=== PATIENT | female | born 1970 | race Caucasian/White ===

== ENCOUNTER → 2016-05-05 | Outpatient (CLI) | payer OTHER ==
--- NOTE | 2016-05-09 08:42 | MM ---
Reason for exam: additional evaluation requested from abnormal screening. Last mammogram was performed 7 months ago. History: Family history of breast cancer in mother. Physical Findings: Nurse did not find any significant physical abnormalities on exam. MG Work Up Mamm w CAD RT CC and MLO view(s) were taken of the right breast. Prior study comparison: October 08, 2015, bilateral MG screening mammo w CAD. August 03, 2007, bilateral digital screening mammogram. There are scattered fibroglandular densities. Previous density not evident. No significant new findings when compared with previous films. These results were verbally communicated with the patient and result sheet given to the patient on 05/05/16. ASSESSMENT: Benign, BI-RAD 2 RECOMMENDATION: Return to routine screening mammogram schedule for both breasts. Back on schedule for September 2016.
== END | disposition home or self-care (01) ==
LOC: RADMAMWWP 15:47
PROVIDERS: ATTEND Obstetrics & Gynecology
DX: R92.8 Other abnormal and inconclusive findings on diagnostic imaging of breast (principal)

== ENCOUNTER → 2016-09-22 | Outpatient (CLI) | payer BC, OTHER ==
[2016-09-22 17:45] LABS: Rheumatoid Factor, Qnt <9 IU/mL (<12)
[2016-09-22 17:46] LABS: C Reactive Protein <5.0 mg/L (<10.0); Creatine Kinase 57 U/L (30-135)
== END ==
LOC: LABWHC1 17:17
PROVIDERS: ATTEND Physician Assistant
DX: M13.0 Polyarthritis, unspecified (principal)
CPT/HCPCS: 36415; 82550; 85652; 86038; 86140; 86431

== ENCOUNTER → 2017-03-17 | Outpatient (CLI) | payer BC, OTHER ==
--- NOTE | 2017-03-17 12:51 | MR ---
EXAMINATION TYPE: MR knee RT wo con DATE OF EXAM: 03/17/2017 COMPARISON: Plain film 05/28/2015 HISTORY: Right knee pain TECHNIQUE: Multiplanar, multisequence imaging of the right knee is performed without IV contrast. FINDINGS: MEDIAL MENISCUS: Abnormal increased signal present within the posterior horn of the medial meniscus e xtends to the articular surface and into the body LATERAL MENISCUS: Abnormal increased linear signal present within the posterior horn of the lateral m eniscus extends the articular surface CRUCIATE LIGAMENTS: The anterior and posterior cruciate ligaments are intact and unremarkable. COLLATERAL LIGAMENTS: The medial collateral ligament and lateral collateral ligament complex are inta ct and unremarkable. EXTENSOR MECHANISM: Visualized quadriceps and patellar tendons are intact. EFFUSION: There is a small joint effusion. POPLITEAL CYST: No popliteal/zurita cyst. TRICOMPARTMENT SPACES: Maintained CARTILAGE: Intact in the posterior patella, there is grade 2 to grade III chondromalacia in the later al [place] BONE MARROW SIGNAL: Maintained OTHER: No additional significant abnormality is appreciated. IMPRESSION: Findings compatible with tears of the medial lateral meniscus. Osteoarthritis. Small joint effusion.
== END | disposition home or self-care (01) ==
LOC: RADMRIMAIN 11:57
PROVIDERS: ATTEND Orthopaedic Surgery
DX: M17.11 Unilateral primary osteoarthritis, right knee (principal)

== ENCOUNTER → 2017-03-28 | Outpatient (CLI) | payer BC, OTHER ==
[2017-03-28 10:42] LABS: Basophils % (A) 0 %; Eosinophils # (A) 0.2 k/uL (0-0.7); Eosinophils % (A) 2 %; HGB 14.7 gm/dL (11.4-16.0); Hypochromasia Slight; Lymphocytes # (A) 2.3 k/uL (1.0-4.8); Lymphocytes % (A) 27 %; MCH 25.8 pg (25.0-35.0); MCHC 31.2 g/dL (31.0-37.0); MCV 82.6 fL (80.0-100.0); Mean Platelet Volume 6.9; Monocytes # (A) 0.6 k/uL (0-1.0); Monocytes % (A) 7 %; Neutrophils # (A) 5.2 k/uL (1.3-7.7); Neutrophils % (A) 61 %; Platelet Count 380 k/uL (150-450); RBC 5.69 m/uL (3.80-5.40); RDW 15.3 % (11.5-15.5); WBC 8.5 k/uL (3.8-10.6)
[2017-03-28 11:03] LABS: Anion Gap 10 mmol/L; Blood Urea Nitrogen 27 mg/dL (7-17); Calcium 10.3 mg/dL (8.4-10.2); Carbon Dioxide 27 mmol/L (22-30); Chloride 104 mmol/L (98-107); Glucose 105 mg/dL (74-99); Sodium 141 mmol/L (137-145)
== END | disposition home or self-care (01) ==
LOC: LABPAT 10:06
PROVIDERS: ATTEND Obstetrics & Gynecology
DX: Z01.812 Encounter for preprocedural laboratory examination (principal)
CPT/HCPCS: 36415; 80048; 85025

== ENCOUNTER 2017-04-03 06:00 | Inpatient (IN) | payer BC, OTHER ==
[~2017-04-03 06:00] MED LIST: DEXAMETHASONE SOD PHOSPHATE 10 MG/ML 1 ML VIAL IV ONE; LIDOCAINE 1% 20 ML VIAL (10MG/ML) FOR IV START INTRADERMA PRN; MIDAZOLAM 2 MG/2 ML VIAL IV PRN; ONDANSETRON 4 MG/2 ML VIAL IVP ONE; SCOPOLAMINE 1.5MG/72HR PATCH TRANSDERM ONE; ceFAZolin 2 GM in SODIUM CHLORIDE 0.9% 100 ML IVPB ONE; ceFAZolin IN SWFI 2 GM/20 ML SYRINGE IVP ONE
[2017-04-03] MEDS: LACTATED RINGERS 1,000 ML IV SCH ×4 (06:25→20:40)
[2017-04-03] MEDS ORDERED: VECURONIUM 10 MG VIAL IV ONE (07:59)
[2017-04-03] MEDS ORDERED: NEOSTIGMINE 1 MG/ML 10 ML VIAL ONE (07:59)
[2017-04-03] MEDS ORDERED: PROPOFOL 10 MG/ML 20 ML VIAL IV ONE (07:59)
[2017-04-03] MEDS ORDERED: GLYCOPYRROLATE 0.2 MG/ML 2 ML VIAL ONE (07:59)
[2017-04-03] MEDS ORDERED: SUCCINYLCHOLINE CHLORIDE 100 MG/5 ML SYR IV ONE (07:59)
[2017-04-03] MEDS ORDERED: HYDROmorphone (PF) 1 MG/ML ONE (07:59)
[2017-04-03] MEDS ORDERED: fentaNYL (PF) 50 MCG/ML 2 ML AMP ONE (07:59)
[2017-04-03] MEDS ORDERED: MIDAZOLAM 2 MG/2 ML VIAL ONE (07:59)
[2017-04-03] MEDS ORDERED: LIDOCAINE 1% INJ 10MG/ML (20 ML MDV) ONE (07:59)
--- NOTE | 2017-04-03 07:59 | P.HPOB ---
History of Present Illness H&P Date: 04/03/17 Chief Complaint: Pelvic pain Patient is a 46-year-old female with a history of pelvic pain. She has been having the pain since her NovaSure procedure and symptoms are most consistent with post-ablative syndrome. She is scheduled for a total abdominal hysterectomy possible bilateral salpingo-oophorectomy. Risks/benefits/ alternatives to this procedure were discussed with patient in detail and all questions are answered for her prior to proceeding to the operative room. On physical exam vital signs are stable and afebrile. Heart regular, lungs clear, extremities without pain. Osteopathic exams unremarkable. Pelvic exam is otherwise unremarkable. Abdomen is soft there is some mild tenderness in the lower pelvic region and there are positive bowel sounds. Assessment pelvic pain /post-ablative syndrome. Plan total abdominal hysterectomy possible BSO. Past Medical History Past Medical History: Asthma, Hypertension Additional Past Medical History / Comment(s): back pain, scoliosis History of Any Multi-Drug Resistant Organisms: None Reported Past Surgical History: Back Surgery, Section, Cholecystectomy, Tubal Ligation Additional Past Surgical History / Comment(s): neck surgery Past Anesthesia/Blood Transfusion Reactions: No Reported Reaction Additional Past Anesthesia/Blood Transfusion Reaction / Comment(s): no problems w/transfusions Past Psychological History: No Psychological Hx Reported Smoking Status: Never smoker Past Alcohol Use History: None Reported Past Drug Use History: None Reported - Past Family History Mother Family Medical History: Cancer Medications and Allergies Home Medications Medication Instructions Recorded Confirmed Type Lisinopril [Zestril] 10 mg PO DAILY 12/01/13 04/03/17 History Phentermine HCl [Adipex-P] 37.5 mg PO QAM 10/13/15 04/03/17 History Acetaminophen Tab [Tylenol Tab] 650 mg PO Q6H PRN 03/30/17 04/03/17 History Allergies Allergy/AdvReac Type Severity Reaction Status Date / Time gadobenate dimeglumine Allergy Intermediate Dyspnea Unverified 04/03/17 06:18 [From Multihance] cyclobenzaprine HCl Allergy ITCHING OF Verified 04/03/17 06:18 [From Flexeril] SKIN promethazine HCl Allergy ITCHING OF Verified 04/03/17 06:18 [From Phenergan] SKIN Exam Osteopathic Statement: *. No significant issues noted on an osteopathic structural exam other than those noted in the History and Physical/Consult. - Vital Signs Vital signs: Vital Signs Temp Pulse Resp BP Pulse Ox 04/03/17 06:17 97.9 F 118 H 16 135/85 98
[2017-04-03] MEDS ORDERED: LACTATED RINGERS 1,000 ML IV ONE ×2 (08:25→10:25)
[2017-04-03] MEDS ORDERED: MEPERIDINE 50 MG/ML SYRINGE IVP ONE ×2 (09:25→09:36)
[2017-04-03] MEDS: HYDROmorphone 0.5 MG/0.5 ML SYRINGE IVP PRN ×4 (09:43→10:04)
[2017-04-03] MEDS ORDERED: HYDROmorphone 2 MG/ML 1 ML SYRINGE IVP ONE (09:53)
[2017-04-03] MEDS ORDERED: diphenhydrAMINE 50 MG/ML 1 ML VIAL IVP PRN (10:00)
[2017-04-03] MEDS ORDERED: ONDANSETRON 4 MG/2 ML VIAL IVP PRN (10:00)
[2017-04-03] MEDS ORDERED: Acetaminophen-Codeine 300-30mg TAB PO PRN ×2 (10:00)
[2017-04-03] MEDS ORDERED: SIMETHICONE 80 MG CHEWABLE PO PRN (10:00)
[2017-04-03] MEDS ORDERED: KETOROLAC 30 MG/ML 1 ML VIAL IVP PRN (10:00)
[2017-04-03] MEDS ORDERED: NALOXONE 0.4 MG/ML 1 ML VIAL IV PRN (10:02)
--- NOTE | 2017-04-03 10:12 | OP ---
Date of Procedure: 04/03/17 Preoperative Diagnosis: Pelvic pain Postoperative Diagnosis: Same with adhesions Procedure(s) Performed: Total abdominal hysterectomy with lysis of adhesions on the bladder Anesthesia: CHAIM Surgeon: Romeo Sousa Folder Machine Operator #1: Tina Masterson Estimated Blood Loss (ml): 100 IV fluids (ml): 900 Urine output (ml): 200 Pathology: other (Uterus and cervix with dilated fallopian tube) Condition: stable Disposition: floor Operative Findings: Bladder was firmly attached to the anterior uterine wall due to prior surgeries careful dissection of this area was required ovaries otherwise appeared normal. Right fallopian tube was dilated and filled with blood Description of Procedure: Patient was taken to the operating suite where a general anesthetic was found be adequate. She was prepped and draped in normal sterile fashion and placed in the dorsal supine position. Initially a Pfannenstiel skin incision was made and this incision was then carried through to underlying layer of the fascia was second knife. Fascia was then nicked in the midline and this opening was extended laterally with Vidal scissors. Superior and inferior aspect of this incision were then grasped tented up and bluntly and sharply dissected off the rectus muscles. Rectus muscles were then divided the midline and blunt dissection peritoneum was made. This opening was then extended superiorly and inferiorly with good visualization of both bowel bladder. Once this was accomplished self-retaining retractor was inserted with bladder blade and bowels packed out of the operative field. Patient was then placed in steep Trendelenburg position. Right and left adnexa were then identified and grasped with Nicole clamps and uterus was elevated. First the right fallopian tube was excised without difficulty and then Anali clamps were then used to clamp the round ligament tubal complex. Tissues clamped cut and tied bilaterally. Minutes mom scissors and blunt and sharp dissection the bladder off of the uterus was then done to the get the cervical bladder out of the operative field. It was very careful and cautious dissection to remove the bladder from the uterus where it was firmly attached. Once this was accomplished pain clamps then used to clamp the uterine vasculature bilaterally tissues clamped cut and tied moving inferiorly through the cardinal ligaments and uterosacral ligament tissues clamped cut and tied once down to the cervical cuff tissue was clamped cut and tied and the corners were held. Vidal scissors then used to excise uterus and was sent to pathology for evaluation. Once this was accomplished 0 Vicryl suture was used to close the vaginal cuff in a running fashion. Pelvis was then irrigated seeing no bleeding in the pelvis and along pedicles instruments were removed and and peritoneum was delineated with hemostats. This layer was then closed with 0 Vicryl suture fascial layer was then closed with 0 Vicryl suture in a layer of sutures placed with 3-0 Vicryl in subcuticular tissues reapproximate the skin and then the skin was closed with josé. Sponge, lap, needle counts are correct 2. Patient was then taken to the recovery room in stable and satisfactory condition. EVELYNE
[2017-04-03] MEDS: HYDROmorphone PCA 5 MG/25 ML SYRINGE IV PRN ×2 (11:35→18:26)
[2017-04-03 19:17] LABS: Anisocytosis Slight; HCT 30.3 % (34.0-46.0); Hypochromasia Marked; MCH 26.9 pg (25.0-35.0); MCHC 31.7 g/dL (31.0-37.0); MCV 84.9 fL (80.0-100.0); Mean Platelet Volume 7.2; Platelet Count 306 k/uL (150-450); RBC 3.57 m/uL (3.80-5.40); RDW 16.2 % (11.5-15.5); WBC 17.9 k/uL (3.8-10.6)
[2017-04-03 19:26] LABS: HGB 9.6 gm/dL (11.4-16.0)
--- NOTE | 2017-04-03 19:57 | P.OP ---
Date of Procedure: 04/03/17 Preoperative Diagnosis: Pelvic pain Postoperative Diagnosis: Same with adhesions at the bladder Procedure(s) Performed: Total abdominal hysterectomy Anesthesia: CHAIM Surgeon: Romeo Sousa Chaplain Resident #1: iTna Masterson Estimated Blood Loss (ml): 100 IV fluids (ml): 900 Urine output (ml): 200 Pathology: other (Uterus and cervix with right fallopian tube) Condition: stable Disposition: floor Operative Findings: Bladder firmly adherent to the uterine wall and had to be carefully dissected off Description of Procedure: It should be noted this dictation to revisit was dictated on the wrong patient and was dictated immediately postoperative bleeding. Patient was taken to the operating suite where a general anesthetic was found be adequate. She was prepped and draped in normal sterile fashion placed in dorsal supine position. Initially a Pfannenstiel skin incision was made and this incision was then carried through to the underlying layer of the fascia with the second knife. Fascia was then nicked in the midline and this opening was extended laterally with Vidal scissors. Superior and inferior aspect of this incision were then grasped tented up and bluntly and sharply dissected off the rectus muscles. Upon entry into the fascial layer there was already a opening into the abdominal cavity. The remainder of the peritoneum was then bluntly dissected open. Self retaining retractor and bladder blade replaced and patient was placed in steep Trendelenburg position. Bowel was then packed out of the operative field and long Nicole's were used to grasp the adnexa bilaterally. Uterus was then elevated first the right fallopian tube was excised using Anali clamp. This this tissues clamped cut and tied in usual fashion. Once this was accomplished round ligament tubal segments bilaterally were clamped cut and tied. Once completed with this process bladder flap was identified entered sharply with Metzenbaum scissors and with gentle sharp and blunt dissection the bladder was dissected out of the operative field. There were significant adhesions to this area making this step somewhat challenging. However, once this was accomplished, he clamps then used to clamp the vascularity bilaterally tissues clamped cut and tied. In a stepwise fashion moving inferiorly along the archer of the uterus cardinal and uterosacral ligaments were clamped cut and tied. Once to the cervix and vaginal cuff the vagina was clamped cut and corners were held for verification of hemostasis. Once vagina was entered the tissue was excised and the vagina was then reapproximated with 0 Vicryl suture in a running locking fashion. Once excellent hemostasis was felt to be obtained across all pedicles pelvis was irrigated and this fluid was then suctioned out. No bleeding is noted this point therefore instruments were removed as was the bowel packing. Peritoneum was then identified and delineated with hemostats and closed in 1 layer with 0 Vicryl suture. Fascial layer was then closed with 0 Vicryl suture. Skin was then closed with josé. Sponge, lap, needle counts were all correct 2. Patient was then taken to the recovery room in stable and satisfactory condition.
--- NOTE | 2017-04-03 20:33 | P.PN ---
Progress Note - Text Progress Note Date: 04/03/17 Melanie was seen and evaluated postop day 0 at approximately 1700. At that time she had copious amounts of dark blood coming from her incision along the suture line it had saturated through 1 pad we changed the pad and put on a pressure dressing which she also bled through. She was laid flat and then a third pressure dressing was placed and the bleeding seemed to dissipate. A CBC was then ordered and the CBC showed a decreasing hemoglobin from 14 on 03/28 down to 9 this evening. It is noted that she also has had fluid hydration which would cause some hypovolemia as well as having come off of a relatively heavy menstrual cycle last week as well where she says she bled for approximately 7 days starting on about the . I did return to see the patient after I was notified of her recent blood pressures with the blood pressure running in the 70s over 30s and they did tell me of her hemoglobin that had fallen to 9. On reevaluating the patient this evening (2009) She is in good spirits and is alert and oriented 3. She shows minimal to no signs of hypovolemia while laying at approximately 10-15 head up. Her blood pressures have remained low but have not continued to . We have initiated a fluid bolus and will likely also do some albumin to try and increase her volume. Her pulse is only slightly tachycardic in the high 90s to low 100s. I did peel the pressure dressing off and at this time there is absolute no bleeding from her incision site at all. my concern is that during the course of her emesis earlier this afternoon she broke a blood vessel or pulled the suture on her abdomen and that is where the bleeding has been coming from. During the latter part of the afternoon while her pain was not very well controlled she also says she drinks 3 or 4 very large glass of water and ate 2 glasses of ice chips. She was on multiple occasions cautioned to only drinks small amounts and shortly after drinking all that water she began having emesis. She had multiple episodes before I was notified, at that point we made her nothing by mouth and gave her a dose of Zofran for the nausea. In thoroughly examining her is also noted that she is pulse ox at approximately 98% on room air. Her urine output has been better than 30 mL per hour over the last nine hours for visit. It is noted however that since 6:00 her volume of output has definitely increased. She and I had a long discussion with her about whether or not to go back to the operating room and try and find where this bleeding may have been coming from. I didn't warn her that on multiple occasions when bleeding occurs post operatively and appears venous in nature are often unable to find the bleeder and then we're exposing her to a second surgical risk. She seems to understand this and as she is minimally symptomatic while laying not even flat, she agrees with conservative management , at least for now. We'll plan to repeat her H&H shortly and see where her blood count settle to. With the fluid bolus hopefully we can get better control of her blood pressure, however her blood pressures normally according to her to run a little bit low. She reports to me now also that she has had multiple abdominal surgeries and she is received 3 transfusions for similar episodes of bleeding following surgery. All questions were answered for the patient at this time and will plan to be very cautious with her over the next hour to 2 hours to see whether not more surgical intervention will be required. I do not plan to base my decision to go to surgery solely on her hemoglobin but more on her symptoms and blood pressure. I expect that her hemoglobin on a repeat H&H will be decreased and ultimately she may get need a transfusion for anemia.
[2017-04-03] MEDS ORDERED: ALBUMIN HUMAN 5% 250 ML in EMPTY BAG 1 BAG IVPB STA (20:42)
[2017-04-03] MEDS: SODIUM CHLORIDE 0.9% 500 ML IV ONE (21:38)
[2017-04-03] MEDS: SODIUM CHLORIDE 0.9% 1,000 ML IV SCH (21:38)
[2017-04-03] MEDS: SENNOSIDES-DOCUSATE SODIUM 1 EACH TAB PO SCH (21:41)
--- NOTE | 2017-04-03 21:56 | US ---
EXAMINATION TYPE: US pelvic limited DATE OF EXAM: 04/03/2017 COMPARISON: NONE CLINICAL HISTORY: r/o bleeding post op . Post op hysterectomy r/o bleeding. Scanned pelvic area no fluid visualized. Dr. Sousa observed exam IMPRESSION: No focal pelvic fluid collection status post hysterectomy.
[2017-04-03 22:09] LABS: Anisocytosis Slight; Hypochromasia Moderate; RDW 16.4 % (11.5-15.5)
[2017-04-03 22:12] LABS: HCT 24.6 % (34.0-46.0); MCH 25.4 pg (25.0-35.0); MCHC 30.2 g/dL (31.0-37.0); MCV 84.1 fL (80.0-100.0); Platelet Count 239 k/uL (150-450); RBC 2.92 m/uL (3.80-5.40); WBC 11.4 k/uL (3.8-10.6)
[2017-04-03 22:13] LABS: HGB 7.4 gm/dL (11.4-16.0)
[2017-04-04] MEDS: SODIUM CHLORIDE 0.9% 1,000 ML IV SCH ×3 (02:15→13:55)
[2017-04-04] MEDS: HYDROmorphone PCA 5 MG/25 ML SYRINGE IV PRN ×3 (02:45→19:56)
[2017-04-04] MEDS: SODIUM CHLORIDE 0.9% 500 ML IV ONE (03:19)
[2017-04-04 07:22] LABS: Anisocytosis Slight; Basophils % (A) 0 %; Eosinophils % (A) 0 %; HCT 23.9 % (34.0-46.0); HGB 7.2 gm/dL (11.4-16.0); Hypochromasia Marked; Lymphocytes # (A) 1.2 k/uL (1.0-4.8); Lymphocytes % (A) 11 %; MCH 25.7 pg (25.0-35.0); MCV 85.6 fL (80.0-100.0); Mean Platelet Volume 6.7; Monocytes # (A) 0.7 k/uL (0-1.0); Monocytes % (A) 7 %; Neutrophils # (A) 8.1 k/uL (1.3-7.7); Neutrophils % (A) 80 %; Platelet Count 232 k/uL (150-450); RBC 2.79 m/uL (3.80-5.40); RDW 16.1 % (11.5-15.5); WBC 10.2 k/uL (3.8-10.6)
[2017-04-04 07:33] LABS: Albumin 2.7 g/dL (3.5-5.0); Calcium 8.3 mg/dL (8.4-10.2); Magnesium 1.6 mg/dL (1.6-2.3); Potassium 4.8 mmol/L (3.5-5.1); Total Bilirubin 0.4 mg/dL (0.2-1.3); Total Protein 4.7 g/dL (6.3-8.2)
--- NOTE | 2017-04-04 08:06 | XR ---
EXAMINATION TYPE: XR chest 1V portable DATE OF EXAM: 04/04/2017 COMPARISON: 12/13/2010 HISTORY: Chest pain and low blood pressure post hysterectomy. TECHNIQUE: Single frontal view of the chest is obtained. FINDINGS: There is no focal air space opacity, pleural effusion, or pneumothorax seen. The cardiac silhouette size is within normal limits. The osseous structures are intact. Cholecystectomy clips a re noted within the right upper quadrant. Partial visualization of cervical fusion device is seen. IMPRESSION: No acute cardiopulmonary process.
--- NOTE | 2017-04-04 08:16 | P.PN ---
Progress Note - Text Progress Note Date: 04/04/17 Postop day 1: Patient is seen and evaluated this morning. Her hemoglobin has stabilized at 7.2 and she is no further bleeding we can find. She reports her pain is slightly increased this morning. But she is overall stable. Her vital signs are currently stable with a blood pressure 90/50 and a pulse of 75. She is pulse ox 98% on room air. She voices no complaints of shortness of breath or chest pain. Her urine output over the last hour has been better. There is currently 20 mL of urine in her Nguyen bag. It is somewhat concentrated. We have consult it hospitalist for medical consultation for assistance in what appears to be acute renal failure with elevated BUN and creatinine. Please see their notes regarding this patient. It is noted that her liver enzymes are also slightly elevated this may be reactionary to having had surgery yesterday. In speaking with her again this morning she voices no complaints of lightheadedness or dizziness. She is alert and oriented 3 and grossly does not appear in any acute distress other than complaining of an increase in her pain. We'll plan to continue the SR. MEDIA MANAGER at least for now until we are more certain as to the direction of her recovery. On physical exam vital signs again are stable at this time. Her heart is regular and her lungs are clear. Abdomen is still soft there is no evidence of rebound rigidity, she does show some involuntary guarding around her incision lines. No other gross abnormalities can be found. The pad on her abdomen is dry still at this point. Assessment postop day 1 with blood loss anemia, acute renal failure, elevated liver enzymes. It is noted that her white blood cell count is normal and that her electrolytes are also normal. Plan continue conservative management and await final recommendations from internal medicine.
[2017-04-04] MEDS: SENNOSIDES-DOCUSATE SODIUM 1 EACH TAB PO SCH ×2 (11:09→19:57)
[2017-04-04 11:21] LABS: Appearance,Urine Clear (Clear); Bacteria,Urine Rare /hpf; Bilirubin,Urine Negative (Negative); Blood,Urine Moderate (Negative); Color,Urine Yellow; Glucose,Urine (UA) Negative (Negative); Granular Casts,Urine 1 /lpf (0); Hyaline Casts,Urine 10 /lpf (0-2); Ketones,Urine Negative (Negative); Leukocyte Esterase,Urine Large (Negative); Mucus,Urine Rare /hpf; Nitrite,Urine Negative (Negative); PH, Urine 5.5 (5.0-8.0); Protein,Urine Trace (Negative); RBC,Urine 23 /hpf (0-5); Specific Gravity,Urine 1.014 (1.001-1.035); Squamous Epithelial Cell,Urine 1 /hpf (0-4); Urobilinogen,Urine <2.0 mg/dL (<2.0); WBC,Urine 17 /hpf (0-5)
[2017-04-04 11:49] LABS: Anisocytosis Slight; HCT 24.1 % (34.0-46.0); HGB 7.7 gm/dL (11.4-16.0); Hypochromasia Moderate; MCH 27.1 pg (25.0-35.0); MCHC 31.9 g/dL (31.0-37.0); Mean Platelet Volume 6.9; Platelet Count 217 k/uL (150-450); RBC 2.84 m/uL (3.80-5.40); RDW 16.2 % (11.5-15.5); WBC 10.8 k/uL (3.8-10.6)
[2017-04-04 13:26] LABS: Albumin 2.6 g/dL (3.5-5.0); Calcium 7.9 mg/dL (8.4-10.2); Potassium 4.2 mmol/L (3.5-5.1); Total Bilirubin 1.3 mg/dL (0.2-1.3); Total Protein 4.6 g/dL (6.3-8.2)
[2017-04-04 13:48] LABS: INR 1.1 (<1.2); Prothrombin Time 10.3 sec (9.0-12.0)
--- NOTE | 2017-04-04 15:21 | CONS ---
CONSULTATION REASON FOR CONSULTATION: Advice regarding hypotension other multiple medical issues requested by Dr. Sousa. HISTORY OF PRESENT ILLNESS: This 40-year-old woman with a past medical history of multiple medical issues, history of asthma, hypertension, history of back surgery, cholecystectomy being followed by [facility] in the outpatient setting. Underwent a total abdominal hysterectomy with lysis of adhesions of the bladder yesterday for pelvic pain. Possibly patient had recurrent hypotension. The patient also had diminished urine output. We were consulted for further evaluation. Currently the creatinine is 1.98. The baseline is normal. The patient also diminished urine output. Hemoglobin is 7.2 at this time. The patient is complaining of some minimal abdominal pain. There is no history of fever, rigors. No headache, loss of consciousness, seizures. PAST MEDICAL HISTORY: History of asthma, hypertension, history of back pain, DJD, history of section. History of cholecystectomy. MEDICATIONS: Prior to admission include: 1. Adipex P 37.5 mg p.o. q.a.m. 3. Tylenol 650 q.6 p.r.n. ALLERGIES: Are GADOBENATE DIMEGLUMINE, FLEXERIL and PHENERGAN. FAMILY HISTORY: History of cancer in the family. SOCIAL HISTORY: No history of smoking, no alcohol intake. REVIEW OF SYSTEMS: ENT: No diminished vision. CARDIOVASCULAR: No angina. : No dysuria. : As mentioned. Nervous System: No numbness, weakness. Allergy: Asthma hay fever allergies none mentioned earlier. Endocrine: No history of diabetes hypertension. CONST: mentioned . PHYSICAL EXAMINATION: Pulse 67, blood pressure is NTD temp 97.7, pulse ox 99% on room air. HEENT: Conjunctivae normal. Oral mucosa moist. Neck : No jugular venous distention. No lymph nodes. Cardiovascular S1 no stenosis,no S3. No rhonchi. No crackles. ABDOMEN: Soft status post surgery. Legs no edema no swelling. NERVOUS SYSTEM: Higher functions as mentioned earlier, moves all 4 limbs, no focal motor signs. Lymphatics no lymph nodes. Skin no ulcer, rash or bleeding. LABS: WBC 10.8, hemoglobin 7.7, creatinine is 1.98 and AST is 125, ALT is 148 UA noted. ASSESSMENT: 1. Status post total abdominal hysterectomy with lysis of adhesion on the bladder for pelvic pain. 2. Acute renal failure with possible prerenal. 3. Anemia, status post transfusion. 4. Increased AST ALT. 5. History of asthma. 6. History hypertension. 7. History of back pain with scoliosis and degenerative joint disease. 8. History of back surgery. 9. History of cholecystectomy. RECOMMENDATION AND DISCUSSION: In this 46-year-old woman presented with multiple medical issues at this time I recommend continue the current medications, continue symptomatic treatment. Otherwise at this time I would I would recommend 1 more unit transfusion and I continued IV fluids, fluid bolus. The urine output continues to be low. Repeat labs and repeat also in the evening also. Otherwise I would also recommend a set of coags also, coagulation parameters as well. Recommend DVT prophylaxis. Otherwise resume the home medications. We will follow the patient closely to hold the blood pressure medications and further recommendations to follow. The patient may be asked to follow up with primary physician closely after discharge. Thank you Dr. Sousa, for letting us participate in this patient. MMEMERSONL / AUGUSTINEN: [id number] / EVELYNE
[2017-04-04 17:04] LABS: Anisocytosis Slight; Basophils % (A) 0 %; Eosinophils % (A) 1 %; HCT 28.5 % (34.0-46.0); HGB 8.6 gm/dL (11.4-16.0); Hypochromasia Marked; Lymphocytes # (A) 1.2 k/uL (1.0-4.8); Lymphocytes % (A) 15 %; MCH 26.4 pg (25.0-35.0); MCHC 30.2 g/dL (31.0-37.0); MCV 87.3 fL (80.0-100.0); Mean Platelet Volume 6.7; Monocytes # (A) 0.8 k/uL (0-1.0); Monocytes % (A) 9 %; Neutrophils # (A) 6.1 k/uL (1.3-7.7); Neutrophils % (A) 74 %; Platelet Count 183 k/uL (150-450); Poikilocytosis Slight; RBC 3.27 m/uL (3.80-5.40); RDW 16.2 % (11.5-15.5); WBC 8.3 k/uL (3.8-10.6)
--- NOTE | 2017-04-04 17:11 | P.PN ---
Progress Note - Text Progress Note Date: 04/04/17 Melanie is seen and evaluated again this evening. Her urine output is now significantly better. It is 35 40 mL an hour over the last 3 hours. Her blood pressure is also much better anywhere from 105/55-100/50. She is again exhibits no signs or symptoms of significant hypovolemia walled laying down. She does have mild distention of her abdomen but her abdomen remained soft and nontender with positive bowel sounds. At this time she is still not passed flatus but I'm afraid until she ambulates that may not occur. Should she continue to have no flatus could consider doing some type of Reglan or Dulcolax to help stimulate this but until her conditions fully stabilized I would be hesitant to move forward with that. Her only complaint is left abdominal pain I suspect this is where the problem came in where she is likely all retching tore through blood vessel and this is causing her continued pain in the area and was the source of her bleeding. There is no further bleeding her pad on her abdomen is dry and we'll plan to be very cautious with her tonight and hopefully as things stabilize and her urine output continues to improve we'll be able to start getting her up ambulating and moving towards full recovery.
[2017-04-04 17:25] LABS: Albumin 2.8 g/dL (3.5-5.0); Calcium 8.2 mg/dL (8.4-10.2); Potassium 4.1 mmol/L (3.5-5.1); Total Bilirubin 1.5 mg/dL (0.2-1.3); Total Protein 4.9 g/dL (6.3-8.2)
[2017-04-05 03:24] LABS: Anisocytosis Slight; Basophils % (A) 0 %; Eosinophils % (A) 0 %; HCT 26.3 % (34.0-46.0); HGB 8.2 gm/dL (11.4-16.0); Hypochromasia Marked; Lymphocytes # (A) 1.3 k/uL (1.0-4.8); Lymphocytes % (A) 18 %; MCH 27.1 pg (25.0-35.0); MCHC 31.3 g/dL (31.0-37.0); MCV 86.3 fL (80.0-100.0); Mean Platelet Volume 6.7; Monocytes # (A) 0.6 k/uL (0-1.0); Monocytes % (A) 8 %; Neutrophils # (A) 5.5 k/uL (1.3-7.7); Neutrophils % (A) 73 %; Platelet Count 168 k/uL (150-450); RBC 3.04 m/uL (3.80-5.40); RDW 16.5 % (11.5-15.5); WBC 7.5 k/uL (3.8-10.6)
[2017-04-05 03:34] LABS: Albumin 2.6 g/dL (3.5-5.0); Calcium 8.3 mg/dL (8.4-10.2); Potassium 4.7 mmol/L (3.5-5.1); Total Bilirubin 0.7 mg/dL (0.2-1.3); Total Protein 4.6 g/dL (6.3-8.2)
[2017-04-05] MEDS: HYDROmorphone PCA 5 MG/25 ML SYRINGE IV PRN ×2 (05:37→15:41)
[2017-04-05] MEDS: SODIUM CHLORIDE 0.9% 1,000 ML IV SCH ×3 (05:44→21:48)
[2017-04-05] MEDS: PHENTERMINE HCL 37.5 MG PO SCH (08:08)
[2017-04-05] MEDS: SENNOSIDES-DOCUSATE SODIUM 1 EACH TAB PO SCH ×2 (08:11→21:48)
--- NOTE | 2017-04-05 13:50 | US ---
EXAMINATION TYPE: US kidneys/renal and bladder DATE OF EXAM: 04/05/2017 COMPARISON: CT lumbar spine March 13, 2009. Abdominal x-ray February 04, 2012. MRI lumbar spine July 12, 2011 CLINICAL HISTORY: possible bleeding. Renal failure, history of kidney stones, recent hysterectomy EXAM MEASUREMENTS: Right Kidney: 11.7 x 6.1 x 5.9 cm Left Kidney: 10.5 x 5.1 x 5.0 cm Right Kidney: no hydro or renal masses seen, limited by overlying bowel gas Left Kidney: limited visualization due to rib shadowing and overlying bowel gas, visualized portions appear wnl Bladder: bladder area not scanned at this time due to large bandage covering pelvic area from recent hysterectomy Spleen: appears prominent at 14.0cm Suboptimal study due to overlying bowel gas. Bladder cannot be assessed. IMPRESSION: Suboptimal study without gross hydronephrosis. Large lower pole left renal calculus on older studies is not clearly seen on images saved.
--- NOTE | 2017-04-05 16:38 | P.PN ---
Subjective Progress Note Date: 04/05/17 Progress note being dictated for Dr. yBers Interval history: This is a 46-year-old female status post MIGUEL, postoperative anemia, hypotension, acute renal failure and multiple other medical issues. Telemetry sinus rhythm. Hemoglobin 8.2, creatinine 2.1. Sitting up in chair, complaining of surgical site discomfort, lower abdomen and left flank pain; history of kidney stones. Denies chest pain, palpitations or increased in shortness of breath. Afebrile. Urine culture in progress. Orthostatic vital signs pending. Minimal intake of clear liquid diet. Passing flatus, small smear of bowel movement. Objective - Vital Signs Vital signs: Vital Signs Temp 98.6 F 04/05/17 11:07 Pulse 103 H 04/05/17 11:07 Resp 16 04/05/17 14:56 BP 117/72 04/05/17 11:07 Pulse Ox 95 04/05/17 11:07 Intake & Output 04/04/17 04/05/17 04/05/17 18:59 06:59 18:59 Intake Total 2620 1200 120 Output Total 227 1050 700 Balance 2393 150 -580 Weight 83 kg Intake: IV 2000 1200 Invasive Line 1 1000 Sodium Chloride 0.9% 1, 1000 1200 000 ml @ 150 mls/hr IV . Q6H40M [facility] Rx#:[id number] Oral 120 Blood Product 620 As-1 Unit 310 [id number] As-1 Unit 310 [id number] Output: Urine 227 1050 700 Uretheral (Nguyen) 227 Other: Voiding Method Indwelling Catheter Indwelling Catheter Indwelling Catheter - Exam PHYSICAL EXAM: VITAL SIGNS: As above GENERAL: Sitting up in chair, no acute distress HEENT: Conjunctivae normal. eyes normal. NECK: No JVD. No thyroid enlargement. No LNs CARDIOVASCULAR: S1, S2 muffled. No murmur RESPIRATION: Breath sounds diminished in the bases. No rhonchi or crackles. No bronchial breathing. ABDOMEN: Soft, S/P surgery, dressing C,D,I. Hypoactive Bowel sounds. LEGS: No edema. no swelling PSYCHIATRY: Alert and oriented -3, mood and affect normal. NERVOUS SYSTEM: Cranial N 2-12 grossly normal. Moves all 4 limbs. Diffuse weakness No focal deficits. No sensory deficit. Skin: no ulcer no rash Joints: No active swelling. No inflammation. - Labs CBC & Chem 7: 04/05/17 03:06 04/05/17 03:06 Labs: Abnormal Lab Results - Last 24 Hours (Table) 04/03/17 04/04/17 04/04/17 Range/Units 21:52 16:47 16:47 RBC 3.27 L (3.80-5.40) m/uL Hgb 8.6 L (11.4-16.0) gm/dL Hct 28.5 L (34.0-46.0) % MCHC 30.2 L (31.0-37.0) g/dL RDW 16.2 H (11.5-15.5) % Sodium (137-145) mmol/L Chloride 108 H (98-107) mmol/L Carbon Dioxide 21 L (22-30) mmol/L BUN 40 H (7-17) mg/dL Creatinine 2.09 H (0.52-1.04) mg/dL Calcium 8.2 L (8.4-10.2) mg/dL Total Bilirubin 1.5 H (0.2-1.3) mg/dL AST 99 H (14-36) U/L ALT 129 H (9-52) U/L Total Protein 4.9 L (6.3-8.2) g/dL Albumin 2.8 L (3.5-5.0) g/dL Crossmatch See Detail 04/05/17 04/05/17 Range/Units 03:06 03:06 RBC 3.04 L (3.80-5.40) m/uL Hgb 8.2 L (11.4-16.0) gm/dL Hct 26.3 L (34.0-46.0) % MCHC (31.0-37.0) g/dL RDW 16.5 H (11.5-15.5) % Sodium 136 L (137-145) mmol/L Chloride 110 H (98-107) mmol/L Carbon Dioxide 20 L (22-30) mmol/L BUN 39 H (7-17) mg/dL Creatinine 2.10 H (0.52-1.04) mg/dL Calcium 8.3 L (8.4-10.2) mg/dL Total Bilirubin (0.2-1.3) mg/dL AST 77 H (14-36) U/L ALT 94 H (9-52) U/L Total Protein 4.6 L (6.3-8.2) g/dL Albumin 2.6 L (3.5-5.0) g/dL Crossmatch Microbiology - Last 24 Hours (Table) 04/04/17 11:06 Urine Culture - Preliminary Urine,Catheterized Assessment and Plan Assessment: 1. Status post total abdominal hysterectomy with lysis of adhesions 2. Acute renal failure, possibly prerenal 3. Postoperative Anemia status post transfusions 4. Increased AST, ALT 5. History of chronic intermittent asthma 6. Hypertension 7. DJD, chronic back pain, history of back surgery Plan: Continue on current medication regime ,monitoring and symptomatic treatment. Maintain IV fluid hydration. Renal ultrasound ordered. Nephrology consulted. Close monitoring of electrolytes and hemoglobin with repeat labs ordered for a.m. Aggressive pulmonary toilet to obtain, IS reinforced.. Increase ambulation as tolerated. The impression and plan of care has been dictated as directed. : I performed a history and examination of this patient, discussed the same with the dictator. I agree with the dictator's note ,documented as a scribe. Any additional findings or plans will be noted.
[2017-04-05] MEDS ORDERED: PANTOPRAZOLE 40 MG/10 ML VIAL IVP SCH (16:45)
--- NOTE | 2017-04-05 17:15 | P.PN ---
Progress Note - Text Progress Note Date: 04/05/17 Melanie is seen and evaluated postop day 2. She has been able to get up for brief periods and sit in the chair although she is not really ambulating. She continues to have left-sided pain now has extended into the flank. An ultrasound of the kidneys and bladder was done I did review this with the radiologist and they were unable to visualize anything very clearly. She has a history of a very large kidney stone on that left side so it is also possible that the kidney stone is moved and that is the cause for pain. However due to her decreased kidney functioning and anemia that is now stable I need to rule out either a retroperitoneal hematoma or potentially ureteral injury from her hysterectomy. We will plan to do a noncontrasted CT. I did discuss with her the possibility of oral contrast but she has still got a relatively large amount of nausea and I fear it would make her throw up and at this time I would prefer for her to not have any more emesis that may risks tearing another suture. Her vital signs however are improved with blood pressures in the one teens over 70s. Her urine output is also improved dramatically over the last several hours. Assessment postop day 2. Anemia of blood loss, acute renal failure, left flank and abdominal pain. Plan as above.
--- NOTE | 2017-04-05 18:47 | CT ---
"EXAMINATION TYPE: CT abdomen pelvis wo con DATE OF EXAM: 04/05/2017 COMPARISON: NONE HISTORY: Abdominal pain, s/p hysterectomy CT DLP: 1034.90 mGycm Examination of the solid and hollow viscera is limited given the lack of contrast. FINDINGS: LUNG BASES: Small basilar pleural effusions and compressive atelectasis. LIVER/GB: O cystectomy clips are in place. No space-occupying hepatic lesion. PANCREAS: No pancreatic mass identified. No inflammatory process seen. SPLEEN: No evidence for splenomegaly. No intrasplenic lesions seen. ADRENALS: No adrenal nodules identified. No evidence for thickening. KIDNEYS:Mild edema of the right kidney is suggested which could reflect underlying infection. Correla te clinically. No evidence for renal mass. Nonobstructing nephrolithiasis lower pole left kidney. No hydronephrosis. Nguyen catheter is seen within urinary bladder. BOWEL: Appendix has a normal appearance. No evidence of bowel obstruction. No inflammatory process. Lymph nodes: No evidence for adenopathy greater than 1 cm. Abdominal aorta: Atheromatous changes seen. No evidence for aneurysm. Genital organs: There are postoperative changes of hysterectomy. Multiple lobulated foci of increased attenuation within the pelvis difficult to measure although one collection measures 4.2 cm second co llection measures 7 cm in length and various other collections are seen. Hounsfield unit measurement is 65 compatible with blood. Hemorrhagic contents are also seen within the paracolic gutters. There a re foci of free air is seen within the pelvis as well as anterior abdominal wall and adjacent to the liver compatible with postoperative state. Lower abdominal skin josé are noted. Other: Operative changes of the lumbar spine. IMPRESSION: 1. Changes of recent hysterectomy with multiple foci of hemorrhage within the pelvis. Hemorrhage is also noted to extend into the paracolic gutters. See above discussion. 2. Nonobstructing left-sided nephrolithiasis. 3. Mild edema of the right kidney is suggested which could reflect underlying infection. Correlate cl inically. A Red message has been communicated to Romeo Sousa DO via the [employer] | Critical Result sys tem on 04/05/2017 6:45 PM, Message ID [id number]."
[2017-04-05] MEDS: HEPARIN SODIUM,PORCINE 5,000 UNIT/ML 1 ML VIAL SQ SCH ×2 (21:48→22:26)
[2017-04-05] MEDS: PANTOPRAZOLE 40 MG/10 ML VIAL IVP SCH (22:26)
[2017-04-06] MEDS: SODIUM CHLORIDE 0.9% 1,000 ML IV SCH ×4 (01:54→22:15)
[2017-04-06] MEDS: HYDROmorphone PCA 5 MG/25 ML SYRINGE IV PRN ×3 (01:54→18:26)
[2017-04-06 06:27] LABS: Basophils % (A) 0 %; Eosinophils # (A) 0.1 k/uL (0-0.7); Eosinophils % (A) 1 %; HCT 29.1 % (34.0-46.0); HGB 8.8 gm/dL (11.4-16.0); Hypochromasia Marked; Lymphocytes # (A) 1.1 k/uL (1.0-4.8); Lymphocytes % (A) 19 %; MCH 26.2 pg (25.0-35.0); MCHC 30.3 g/dL (31.0-37.0); MCV 86.5 fL (80.0-100.0); Mean Platelet Volume 7.1; Monocytes # (A) 0.5 k/uL (0-1.0); Monocytes % (A) 8 %; Neutrophils % (A) 70 %; Platelet Count 161 k/uL (150-450); RBC 3.36 m/uL (3.80-5.40); RDW 15.9 % (11.5-15.5); WBC 5.8 k/uL (3.8-10.6)
[2017-04-06 06:38] LABS: Albumin 2.8 g/dL (3.5-5.0); Calcium 9.1 mg/dL (8.4-10.2); Potassium 4.2 mmol/L (3.5-5.1); Total Bilirubin 1.3 mg/dL (0.2-1.3); Total Protein 5.1 g/dL (6.3-8.2)
[2017-04-06] MEDS: PHENTERMINE HCL 37.5 MG PO SCH (09:07)
[2017-04-06] MEDS: HEPARIN SODIUM,PORCINE 5,000 UNIT/ML 1 ML VIAL SQ SCH ×2 (09:13→22:15)
[2017-04-06] MEDS: PANTOPRAZOLE 40 MG/10 ML VIAL IVP SCH (09:13)
[2017-04-06] MEDS: SENNOSIDES-DOCUSATE SODIUM 1 EACH TAB PO SCH ×2 (09:14→22:15)
--- NOTE | 2017-04-06 11:31 | P.PN ---
Progress Note - Text Progress Note Date: 04/06/17 Melanie was briefly seen and evaluated as she is getting ready to have an ultrasound of her liver. She is stable from a surgical standpoint with good urine output and decreasing renal function testing. It is noted that her liver function tests are again slightly elevated without a clear indication. Ultrasound was ordered of her liver and gallbladder by medicine. Computed tomography scan was reviewed last night and there is a relatively large quantity of blood that is in her abdomen this will certainly have to just be reabsorbed at this time. Her pain level is stable. She is still only tolerating liquids and still has some nausea. I have requested a general surgeon to consult to make sure there is nothing else that we need to offer her with regards to her postop care. At this time all the questions are answered for her.
--- NOTE | 2017-04-06 14:06 | CONS ---
CONSULTATION REASON FOR CONSULT: Renal failure. HISTORY OF PRESENT ILLNESS: The patient is a 46-year-old female who was admitted to the hospital for hysterectomy which was done on 04/03/2017. Patient does have a history of hypertension for about 15 years, which has been fairly well controlled. She denies any prior history of kidney diseases. Her serum creatinine was 0.9 mg/dL on 03/28/2017. Prior to that we have another reading of 0.8 in 2016. On 04/04/2017, her creatinine was 1.98. It did go up to 2.13 and it is now back down to 1.8. Patient is maintained on IV fluids and her blood pressure has been running low with systolic in the 90s noted yesterday. Also systolic blood pressure of 81 and 87 mmHg on 04/04/2017. Currently, patient is maintained on IV fluids at 125 mL an hour. Patient states she does have a history of kidney stones and has not had any surgical intervention for it. She has been complaining of pain on her left abdomen and flank area. Abdominal CT done yesterday did show evidence of left renal stone, which was nonobstructive. Patient has been on Toradol postoperatively, which is now discontinued. Currently, patient states she is feeling better. Her urine output has been low, which has now picked up. Hemoglobin was also low at 7.2 g/dL. PAST MEDICAL HISTORY: History of hypertension, not on any significant medications prior to admission, asthma, chronic back pain. ALLERGIES: Include FLEXERIL, PHENERGAN, GADOBENATE DIMEGLUMINE. SOCIAL HISTORY: Negative for smoking, drug abuse or alcohol abuse. REVIEW OF SYSTEMS: As per HPI. Other systems negative. No cough, fever, chills. Abdominal pain, post surgery, as well as left flank pain as mentioned previously. PHYSICAL EXAMINATION: Currently patient is comfortable. She is not awake and alert, not in any acute distress. Blood pressure is 125/74, heart rate 90 per minute. Patient is afebrile. Examination of the heart, S1, S2. Examination of the lungs, bilateral breath sounds are heard. Abdomen is soft, nontender. Examination of the lower extremities shows no significant edema. There is tenderness noted in the left flank area and the abdomen towards the left side. There is tenderness at the surgical site as well. INORGANIC CHEMIST exam is otherwise grossly intact. Patient is moving all 4 extremities. No focal deficits are noted. LABS: Show sodium 137, potassium 4.2, chloride 109, BUN 29, serum creatinine 1.8, hemoglobin 8.8 g/dL. ASSESSMENT: 1. Acute kidney injury secondary to hypotension, hypoperfusion as well as use of nonsteroidal anti-inflammatory agents. Patient's hemoglobin was also low, which has contributed to the renal failure to some degree as well. Renal function is currently improving. Continue with hydration. Continue to avoid nephrotoxic agents. Repeat labs in a.m. 2. Left nonobstructive kidney stone. Currently, patient is having significant left- sided pain. We will proceed with a Urology consult. I doubt that any intervention will be done at this time. The stone could not be identified on the ultrasound. 3. Anemia, postoperatively. Current hemoglobin at 8.8 g/dL. No active bleeding noted. CAT scan did show some evidence of bleeding and a General Surgery consult has also been placed. There was hemorrhage noted in the paracolic gutters. 4. Status post total abdominal hysterectomy. 5. Hypotension, multifactorial, currently improved. PLAN: Continue aggressive IV hydration. Continue off of nonsteroidal anti-inflammatory agents and repeat labs in a.m. Thank you for this consultation. Will continue to follow the patient with you during the hospitalization. MMODL / IJN: [id number] /
--- NOTE | 2017-04-06 14:46 | US ---
EXAMINATION TYPE: US abdomen limited DATE OF EXAM: 04/06/2017 COMPARISON: CT 2018 CLINICAL HISTORY: elevated LFTs. Elevated liver enzymes, history of cholecystectomy EXAM MEASUREMENTS: Liver Length: 15.4 cm Gallbladder Wall: surgically absent CBD: 1.8 cm Right Kidney: 11.7 x 6.5 x 6.0 cm Pancreas: duct seen measuring 0.5cm, which is enlarged. Head and tail limited by overlying midline b owel gas Liver: somewhat course echotexture, small amount of fluid seen in mitchell's pouch Gallbladder: surgically absent Evidence for sonographic Raphael's sign: yes CBD: dilated at 1.8cm, limited at pancreas head by overlying bowel gas . Normal is less than 1.0 cm in a postcholecystectomy patient. Right Kidney: no hydro or renal masses seen, inferior pole limited by overlying bowel gas IMPRESSION: 1. Dilated pancreatic and common bile ducts. Head of the pancreas is limited in evaluation. Consider additional workup with contrast and noncontrast CT abdomen utilizing pancreas protocol.
--- NOTE | 2017-04-06 15:12 | P.PN ---
Subjective Progress Note Date: 04/06/17 Progress note being dictated for Dr. Byers Interval history: This is a 46-year-old female status post MIGUEL, postoperative anemia, hypotension, acute renal failure and multiple other medical issues. Telemetry sinus rhythm. Hemoglobin 8.2, creatinine 2.1. Sitting up in chair, complaining of surgical site discomfort, lower abdomen and left flank pain; history of kidney stones. Denies chest pain, palpitations or increased in shortness of breath. Afebrile. Urine culture in progress. Orthostatic vital signs pending. Minimal intake of clear liquid diet. Passing flatus, small smear of bowel movement. 04/06/17 elevated LFTs, Tylenol discontinued. Maintained on IV fluid hydration of 0.9 at 125 MLS per hour. Renal function improving, blood pressures improved and hemoglobin improved currently at 8.8. Urine output improved. Urine culture negative. Sitting up in bed, complaining of incisional pain that radiates around to left flank and further into mid lower back. Abdominal ultrasound completed, reporting possible left renal stone, nonobstructive. Evaluated by nephrology with recommendations noted. Abdominal pelvis CT performed last night reporting multiple foci of hemorrhage within the pelvis extending into the paracolic gutters. General surgery consulted. Orthostatic vital signs pending. Review of systems: CONSTITUTIONAL: No fever, no malaise, no fatigue. HEENT: No recent visual problems or hearing problems. Denied any sore throat. CARDIOVASCULAR: No chest pain, orthopnea, PND, no palpitations, no syncope. PULMONARY: No shortness of breath, no cough, no hemoptysis. GASTROINTESTINAL: No diarrhea, no nausea, no vomiting. Normoactive bowel sounds. Surgical site pain that radiates to left flank and further to mid lower back NEUROLOGICAL: No headaches, no weakness, no numbness. HEMATOLOGICAL: Denies any bleeding or petechiae. GENITOURINARY: Denies any burning micturition, frequency, or urgency. MUSCULOSKELETAL/RHEUMATOLOGICAL: Denies any joint pain, swelling, or any muscle pain. ENDOCRINE: Denies any polyuria or polydipsia. PSYCHIATRIC: No anxiety, no depression The rest of the 14 point review of systems is negative Active Medications Generic Name Dose Route Start Last Admin Trade Name Freq PRN Reason Stop Dose Admin Diphenhydramine HCl 25 mg 04/03/17 10:00 Benadryl IVP Q6HR PRN Itching Ferrous Sulfate 325 mg 04/06/17 12:30 Feosol PO W/LUNCH EDITH Heparin Sodium (Porcine) 5,000 unit 04/05/17 13:15 04/06/17 09:13 Heparin SQ 5,000 unit Q12HR EDITH Administration Hydromorphone HCl 5 mg 04/03/17 10:02 04/06/17 10:53 Dilaudid Senior Game Designer IV 5 mg PER PROTOCOL PRN Administration Pain Control Protocol Sodium Chloride 1,000 mls @ 150 mls/hr 04/03/17 21:45 04/06/17 15:06 Saline 0.9% IV 150 mls/hr .Q6H40M EDITH Administration Lidocaine HCl 0.1 ml 04/03/17 05:22 04/03/17 06:25 .Xylocaine 1% Inj (10mg/Ml) For Iv Start INTRADERMA 0.1 ml PER PROTOCOL PRN Administration IV Start Naloxone HCl 0.2 mg 04/03/17 10:02 Narcan IV Q2M PRN Opioid Reversal Patient's Own ( 37.5 mg 04/05/17 09:00 04/06/17 09:07 Phentermine Hcl [ PO Not Given Adipex-P] 37.5 Mg) QAM [facility] Ondansetron HCl 4 mg 04/03/17 10:00 04/03/17 17:26 Zofran IVP 4 mg Q8HR PRN Administration Nausea And Vomiting Pantoprazole Sodium 40 mg 04/05/17 20:00 04/06/17 09:13 Protonix IVP 40 mg DAILY EDITH Administration Senna/Docusate Sodium 2 each 04/03/17 21:00 04/06/17 09:14 Senokot-S PO 2 each BID EDITH Administration Simethicone 80 mg 04/03/17 10:00 Mylicon Chew PO ACHS PRN Bloating Objective - Vital Signs Vital signs: Vital Signs Temp 97.2 F L 04/06/17 11:51 Pulse 83 04/06/17 11:51 Resp 20 04/06/17 11:51 BP 117/78 04/06/17 11:51 Pulse Ox 99 04/06/17 11:51 Intake & Output 04/05/17 04/06/17 04/06/17 18:59 06:59 18:59 Intake Total 480 1450 60 Output Total 616 515 3929 Balance -220 600 -1989 Weight 92 kg Intake: IV 1200 Sodium Chloride 0.9% 1, 1200 000 ml @ 150 mls/hr IV . Q6H40M [facility] Rx#:[id number] Oral 480 250 60 Output: Urine 720 [id number] Uretheral (Nguyen) 400 Other: Voiding Method Indwelling Catheter Indwelling Catheter Indwelling Catheter - Exam PHYSICAL EXAM: VITAL SIGNS: As above GENERAL: Sitting up in bed, no acute distress HEENT: Conjunctivae normal. eyes normal. NECK: No JVD. No thyroid enlargement. No LNs CARDIOVASCULAR: S1, S2 muffled. No murmur RESPIRATION: Breath sounds diminished in the bases. No rhonchi or crackles. No bronchial breathing. ABDOMEN: Soft, S/P surgery,Hypoactive Bowel sounds. LEGS: No edema. no swelling PSYCHIATRY: Alert and oriented -3, mood and affect normal. NERVOUS SYSTEM: Cranial N 2-12 grossly normal. Moves all 4 limbs. Diffuse weakness No focal deficits. No sensory deficit. Skin: no ulcer no rash Joints: No active swelling. No inflammation. - Labs CBC & Chem 7: 04/06/17 05:52 04/06/17 05:52 Labs: Abnormal Lab Results - Last 24 Hours (Table) 04/03/17 04/06/17 04/06/17 Range/Units 21:52 05:52 05:52 RBC 3.36 L (3.80-5.40) m/uL Hgb 8.8 L (11.4-16.0) gm/dL Hct 29.1 L (34.0-46.0) % MCHC 30.3 L (31.0-37.0) g/dL RDW 15.9 H (11.5-15.5) % Chloride 109 H (98-107) mmol/L Carbon Dioxide 21 L (22-30) mmol/L BUN 29 H (7-17) mg/dL Creatinine 1.80 H (0.52-1.04) mg/dL AST 138 H (14-36) U/L ALT 126 H (9-52) U/L Alkaline Phosphatase 258 H (38-126) U/L Total Protein 5.1 L (6.3-8.2) g/dL Albumin 2.8 L (3.5-5.0) g/dL Crossmatch See Detail Microbiology - Last 24 Hours (Table) 04/04/17 11:06 Urine Culture - Final Urine,Catheterized Assessment and Plan Assessment: 1. Status post total abdominal hysterectomy with lysis of adhesions 2. Acute renal failure, possibly prerenal, improving 3. Postoperative Anemia status post transfusions 4. Increased AST, ALT 5. History of chronic intermittent asthma 6. Hypertension 7. DJD, chronic back pain, history of back surgery 8. Left nonobstructive kidney stone 9. Paracolic gutter hemorrhage per CT, post surgery 10. Hypotension, multifactorial, improving Plan: Continue on current medication regime ,monitoring and symptomatic treatment. General surgery consult in place, recommendations pending. Maintain IV fluid hydration. Urology consult in place. Abdominal ultrasound noted. Close monitoring of electrolytes and hemoglobin with repeat labs ordered for a.m. Aggressive pulmonary toilet , IS reinforced. Prognosis guarded given multiple complex medical issues. The impression and plan of care has been dictated as directed. : I performed a history and examination of this patient, discussed the same with the dictator. I agree with the dictator's note ,documented as a scribe. Any additional findings or plans will be noted.
[2017-04-06 15:35] LABS: Iron Saturation 17.97 (12.00-45.00)
[2017-04-06] MEDS: FERROUS SULFATE 325 MG TAB PO SCH (16:17)
--- NOTE | 2017-04-06 18:29 | P.GSCN ---
History of Present Illness Consult date: 04/06/17 Reason for Consult: Kidney Stones Requesting physician: Carissa Ewing History of present illness: The patient is a 46-year-old white female who underwent a total abdominal hysterectomy for pelvic pain on 04/03/2017. She had a postoperative bleed. A computed tomography scan was obtained, revealing left lower pole renal calculi. I'm consulted for this reason. She states that she has had problems with kidney stones during 2 prior pregnancies, more than 20 years ago. She has known of the presence of at least 1 left renal calculus since that time. Review of Systems - Gastrointestinal Reports abdominal pain - Genitourinary Genitourinary: Reports kidney stones Past Medical History Past Medical History: Asthma, Hypertension Additional Past Medical History / Comment(s): back pain, scoliosis History of Any Multi-Drug Resistant Organisms: None Reported Past Surgical History: Back Surgery, Section, Cholecystectomy, Tubal Ligation Additional Past Surgical History / Comment(s): neck surgery Past Anesthesia/Blood Transfusion Reactions: No Reported Reaction Additional Past Anesthesia/Blood Transfusion Reaction / Comm: no problems w/ transfusions Past Psychological History: No Psychological Hx Reported Smoking Status: Never smoker Past Alcohol Use History: None Reported Past Drug Use History: None Reported - Past Family History Mother Family Medical History: Cancer Medications and Allergies Home Medications Medication Instructions Recorded Confirmed Type Lisinopril [Zestril] 10 mg PO DAILY 12/01/13 04/03/17 History Phentermine HCl [Adipex-P] 37.5 mg PO QAM 10/13/15 04/03/17 History Acetaminophen Tab [Tylenol Tab] 650 mg PO Q6H PRN 03/30/17 04/03/17 History Allergies Allergy/AdvReac Type Severity Reaction Status Date / Time gadobenate dimeglumine Allergy Intermediate Dyspnea Verified 04/03/17 10:02 [From Multihance] cyclobenzaprine HCl Allergy ITCHING OF Verified 04/03/17 10:02 [From Flexeril] SKIN promethazine HCl Allergy ITCHING OF Verified 04/03/17 10:02 [From Phenergan] SKIN Surgical - Exam Vital Signs Temp Pulse Resp BP Pulse Ox 97.9 F 118 H 16 135/85 98 04/03/17 06:17 04/03/17 06:17 04/03/17 06:17 04/03/17 06:17 04/03/17 06:17 - General well developed, well nourished, moderate distress - Respiratory normal respiratory effort - Abdomen Abdomen: soft, tender, no guarding, no rebound - Psychiatric oriented to time, oriented to person, oriented to place, speech is normal, memory intact Results - Labs 04/06/17 05:52 04/06/17 05:52 Abnormal Lab Results - Last 24 Hours (Table) 04/03/17 04/06/17 04/06/17 Range/Units 21:52 05:52 05:52 RBC 3.36 L (3.80-5.40) m/uL Hgb 8.8 L (11.4-16.0) gm/dL Hct 29.1 L (34.0-46.0) % MCHC 30.3 L (31.0-37.0) g/dL RDW 15.9 H (11.5-15.5) % Chloride 109 H (98-107) mmol/L Carbon Dioxide 21 L (22-30) mmol/L BUN 29 H (7-17) mg/dL Creatinine 1.80 H (0.52-1.04) mg/dL AST 138 H (14-36) U/L ALT 126 H (9-52) U/L Alkaline Phosphatase 258 H (38-126) U/L Total Protein 5.1 L (6.3-8.2) g/dL Albumin 2.8 L (3.5-5.0) g/dL Crossmatch See Detail Microbiology - Last 24 Hours (Table) 04/04/17 11:06 Urine Culture - Final Urine,Catheterized Diabetes panel 04/06/17 Range/Units 05:52 Sodium 137 (137-145) mmol/L Potassium 4.2 (3.5-5.1) mmol/L Chloride 109 H (98-107) mmol/L Carbon Dioxide 21 L (22-30) mmol/L BUN 29 H (7-17) mg/dL Creatinine 1.80 H (0.52-1.04) mg/dL Glucose 85 (74-99) mg/dL Calcium 9.1 (8.4-10.2) mg/dL AST 138 H (14-36) U/L ALT 126 H (9-52) U/L Alkaline Phosphatase 258 H (38-126) U/L Total Protein 5.1 L (6.3-8.2) g/dL Albumin 2.8 L (3.5-5.0) g/dL Calcium panel 04/06/17 Range/Units 05:52 Calcium 9.1 (8.4-10.2) mg/dL Albumin 2.8 L (3.5-5.0) g/dL Pituitary panel 04/06/17 Range/Units 05:52 Sodium 137 (137-145) mmol/L Potassium 4.2 (3.5-5.1) mmol/L Chloride 109 H (98-107) mmol/L Carbon Dioxide 21 L (22-30) mmol/L BUN 29 H (7-17) mg/dL Creatinine 1.80 H (0.52-1.04) mg/dL Glucose 85 (74-99) mg/dL Calcium 9.1 (8.4-10.2) mg/dL Adrenal panel 04/06/17 Range/Units 05:52 Sodium 137 (137-145) mmol/L Potassium 4.2 (3.5-5.1) mmol/L Chloride 109 H (98-107) mmol/L Carbon Dioxide 21 L (22-30) mmol/L BUN 29 H (7-17) mg/dL Creatinine 1.80 H (0.52-1.04) mg/dL Glucose 85 (74-99) mg/dL Calcium 9.1 (8.4-10.2) mg/dL Total Bilirubin 1.3 (0.2-1.3) mg/dL AST 138 H (14-36) U/L ALT 126 H (9-52) U/L Alkaline Phosphatase 258 H (38-126) U/L Total Protein 5.1 L (6.3-8.2) g/dL Albumin 2.8 L (3.5-5.0) g/dL - Imaging CT scan - abdomen: report reviewed, image reviewed Assessment and Plan Plan: I reviewed the patient's computed tomography scan. There is evidence of right perinephric edema, likely postoperative in nature. There is no evidence of hydronephrosis. Within the lower pole of the left kidney there appears to be 2 calculi, collectively measuring 1 cm in diameter. It is possible that this is a lobulated solitary calculus. In any case, it is nonobstructing and thus will not require immediate attention. However, she states that she would like to have these calculi removed, as she is intermittently symptomatic. She will follow up with me once she is fully recovered from the hysterectomy. A KUB x- ray will be obtained. If the calculi are radiopaque, she will be advised to undergo ESWL. Conversely, if the calculi are poorly seen, she will undergo ureteroscopy with laser lithotripsy. Please notify me if I can be of any further assistance during this hospitalization.
--- NOTE | 2017-04-06 20:12 | P.GSCN ---
History of Present Illness Consult date: 04/06/17 Reason for Consult: Abdominal pain with intraperitoneal hematoma History of present illness: Patient underwent elective open hysterectomy 3 days ago. Postoperatively the patient had evidence of hypotension and bleeding. This was noted to stop spontaneously. Her pain was persisting more than expected and for that reason a CAT scan was performed yesterday. CAT scan showed some intra-abdominal hemorrhage without active bleeding seen. She did receive blood transfusion on . A total of 2 units was given. Since then the hemoglobin has been stable. She believes her pain is gradually improving. Her vital signs of improvement. She does have increased liver enzymes and creatinine consistent with probable low-flow ischemia globally. No incisional drainage currently.she states she has had bleeding with numerous prior surgeries in the past. Review of Systems The patient denies any acute changes in vision or hearing, no dysphagia or odynophagia, no chest pain or shortness of breath, no dysuria or hematuria, no headache, no runny nose, no rectal bleeding or melena, no unexplained weight loss Past Medical History Past Medical History: Asthma, Hypertension Additional Past Medical History / Comment(s): back pain, scoliosis History of Any Multi-Drug Resistant Organisms: None Reported Past Surgical History: Back Surgery, Section, Cholecystectomy, Tubal Ligation Additional Past Surgical History / Comment(s): neck surgery Past Anesthesia/Blood Transfusion Reactions: No Reported Reaction Additional Past Anesthesia/Blood Transfusion Reaction / Comm: no problems w/ transfusions Past Psychological History: No Psychological Hx Reported Smoking Status: Never smoker Past Alcohol Use History: None Reported Past Drug Use History: None Reported - Past Family History Mother Family Medical History: Cancer Medications and Allergies Home Medications Medication Instructions Recorded Confirmed Type Lisinopril [Zestril] 10 mg PO DAILY 12/01/13 04/03/17 History Phentermine HCl [Adipex-P] 37.5 mg PO QAM 10/13/15 04/03/17 History Acetaminophen Tab [Tylenol Tab] 650 mg PO Q6H PRN 03/30/17 04/03/17 History Allergies Allergy/AdvReac Type Severity Reaction Status Date / Time gadobenate dimeglumine Allergy Intermediate Dyspnea Verified 04/03/17 10:02 [From Multihance] cyclobenzaprine HCl Allergy ITCHING OF Verified 04/03/17 10:02 [From Flexeril] SKIN promethazine HCl Allergy ITCHING OF Verified 04/03/17 10:02 [From Phenergan] SKIN Surgical - Exam Vital Signs Temp Pulse Resp BP Pulse Ox 97.9 F 118 H 16 135/85 98 04/03/17 06:17 04/03/17 06:17 04/03/17 06:17 04/03/17 06:17 04/03/17 06:17 Physical exam: General: Well-developed, well-nourished HEENT: Normocephalic, sclerae nonicteric Abdomen: Pfannenstiel incision clean and dry, mild tenderness diffusely increased in the left lower quadrant, minimal ecchymosis, nondistended Extremities: No edema Neuro: Alert and oriented Results - Labs 04/06/17 05:52 04/06/17 05:52 Abnormal Lab Results - Last 24 Hours (Table) 04/03/17 04/06/17 04/06/17 Range/Units 21:52 05:52 05:52 RBC 3.36 L (3.80-5.40) m/uL Hgb 8.8 L (11.4-16.0) gm/dL Hct 29.1 L (34.0-46.0) % MCHC 30.3 L (31.0-37.0) g/dL RDW 15.9 H (11.5-15.5) % Chloride 109 H (98-107) mmol/L Carbon Dioxide 21 L (22-30) mmol/L BUN 29 H (7-17) mg/dL Creatinine 1.80 H (0.52-1.04) mg/dL AST 138 H (14-36) U/L ALT 126 H (9-52) U/L Alkaline Phosphatase 258 H (38-126) U/L Total Protein 5.1 L (6.3-8.2) g/dL Albumin 2.8 L (3.5-5.0) g/dL Crossmatch See Detail Microbiology - Last 24 Hours (Table) 04/04/17 11:06 Urine Culture - Final Urine,Catheterized Diabetes panel 04/06/17 Range/Units 05:52 Sodium 137 (137-145) mmol/L Potassium 4.2 (3.5-5.1) mmol/L Chloride 109 H (98-107) mmol/L Carbon Dioxide 21 L (22-30) mmol/L BUN 29 H (7-17) mg/dL Creatinine 1.80 H (0.52-1.04) mg/dL Glucose 85 (74-99) mg/dL Calcium 9.1 (8.4-10.2) mg/dL AST 138 H (14-36) U/L ALT 126 H (9-52) U/L Alkaline Phosphatase 258 H (38-126) U/L Total Protein 5.1 L (6.3-8.2) g/dL Albumin 2.8 L (3.5-5.0) g/dL Calcium panel 04/06/17 Range/Units 05:52 Calcium 9.1 (8.4-10.2) mg/dL Albumin 2.8 L (3.5-5.0) g/dL Pituitary panel 04/06/17 Range/Units 05:52 Sodium 137 (137-145) mmol/L Potassium 4.2 (3.5-5.1) mmol/L Chloride 109 H (98-107) mmol/L Carbon Dioxide 21 L (22-30) mmol/L BUN 29 H (7-17) mg/dL Creatinine 1.80 H (0.52-1.04) mg/dL Glucose 85 (74-99) mg/dL Calcium 9.1 (8.4-10.2) mg/dL Adrenal panel 04/06/17 Range/Units 05:52 Sodium 137 (137-145) mmol/L Potassium 4.2 (3.5-5.1) mmol/L Chloride 109 H (98-107) mmol/L Carbon Dioxide 21 L (22-30) mmol/L BUN 29 H (7-17) mg/dL Creatinine 1.80 H (0.52-1.04) mg/dL Glucose 85 (74-99) mg/dL Calcium 9.1 (8.4-10.2) mg/dL Total Bilirubin 1.3 (0.2-1.3) mg/dL AST 138 H (14-36) U/L ALT 126 H (9-52) U/L Alkaline Phosphatase 258 H (38-126) U/L Total Protein 5.1 L (6.3-8.2) g/dL Albumin 2.8 L (3.5-5.0) g/dL Assessment and Plan (1) Intraperitoneal hematoma Narrative/Plan: Agree with current management. No indication currently for laparotomy. Continue to monitor hemoglobin and the patient's subjective complaints of pain. We'll reevaluate with you tomorrow. Current Visit: Yes Status: Acute Code(s): K66.1 - HEMOPERITONEUM SNOMED Code(s): 658277298
[2017-04-07] MEDS: HYDROmorphone PCA 5 MG/25 ML SYRINGE IV PRN ×3 (02:32→16:10)
[2017-04-07 06:32] LABS: Anisocytosis Slight; Basophils % (A) 0 %; Eosinophils # (A) 0.1 k/uL (0-0.7); Eosinophils % (A) 2 %; HCT 26.4 % (34.0-46.0); HGB 8.1 gm/dL (11.4-16.0); Hypochromasia Moderate; Lymphocytes # (A) 0.7 k/uL (1.0-4.8); Lymphocytes % (A) 20 %; MCH 26.7 pg (25.0-35.0); MCHC 30.7 g/dL (31.0-37.0); Monocytes # (A) 0.4 k/uL (0-1.0); Monocytes % (A) 11 %; Neutrophils # (A) 2.4 k/uL (1.3-7.7); Neutrophils % (A) 64 %; Platelet Count 144 k/uL (150-450); RBC 3.04 m/uL (3.80-5.40); RDW 16.6 % (11.5-15.5); WBC 3.7 k/uL (3.8-10.6)
[2017-04-07 07:06] LABS: Albumin 2.4 g/dL (3.5-5.0); Calcium 8.7 mg/dL (8.4-10.2); Total Bilirubin 1.3 mg/dL (0.2-1.3); Total Protein 4.6 g/dL (6.3-8.2)
[2017-04-07] MEDS: SODIUM CHLORIDE 0.9% 1,000 ML IV SCH ×2 (07:52→10:03)
[2017-04-07] MEDS: LACTATED RINGERS 1,000 ML IV SCH (10:05)
[2017-04-07] MEDS: SENNOSIDES-DOCUSATE SODIUM 1 EACH TAB PO SCH ×2 (10:07→20:54)
[2017-04-07] MEDS: PHENTERMINE HCL 37.5 MG PO SCH (10:08)
[2017-04-07] MEDS: FERROUS SULFATE 325 MG TAB PO SCH (10:08)
[2017-04-07] MEDS: HEPARIN SODIUM,PORCINE 5,000 UNIT/ML 1 ML VIAL SQ SCH ×2 (10:10→20:54)
[2017-04-07] MEDS: PANTOPRAZOLE 40 MG/10 ML VIAL IVP SCH (10:11)
--- NOTE | 2017-04-07 13:29 | P.PN ---
Progress Note - Text Progress Note Date: 04/07/17 Melanie is seen and evaluated today. She is now postop day 4. She is able to ambulate at this time and she is voiding without difficulty. She is passing some flatus and she is tolerating essentially full liquid diet. She does state that she has a history of constipation and is receiving some stool softeners in the hospital, however with her narcotic use in the past this may persist. We' re going to discontinue the INDEPENDENT PRODUCER today and try and switch her over to her normal pain pills. She does look improved today even over yesterday and seems to be removing better. Did discuss this with internal medicine as well as general surgery. All questions are answered for her at this time and will plan to continue current care. Expectation is that she'll remain in the hospital through the weekend. Likely we'll remove dressing fully through the weekend and allow the incision to be open to air. Hopefully we are able to discharge her to home on Monday. We did discuss whether not she wanted to stay on selective for be moved to a less acute level of care at this time she would prefer to stay and selective. All the questions are answered for her at this time and again she seems to be improving daily.
[2017-04-07] MEDS ORDERED: ALBUTEROL NEBULIZED 2.5 MG/3 ML INHALATION PRN (13:38)
--- NOTE | 2017-04-07 13:54 | P.PN ---
Subjective Progress Note Date: 04/07/17 Principal diagnosis: Intraperitoneal Hematoma Patient says her pain is improved today. She is somewhat nauseated. Diet is currently advance to full liquids. She is passing flatus. No vomiting. She is afebrile. Hemoglobin 8.1. Liver enzymes improved. Objective - Vital Signs Vital signs: Vital Signs Temp 98.4 F 04/07/17 12:00 Pulse 90 04/07/17 12:00 Resp 14 04/07/17 12:00 BP 130/86 04/07/17 11:00 Pulse Ox 96 04/07/17 11:00 Intake & Output 04/06/17 04/07/17 04/07/17 18:59 06:59 18:59 Intake Total 180 600 Output Total 2800 Balance -2620 600 Weight 88.6 kg Intake: IV 600 Sodium Chloride 0.9% 1, 600 000 ml @ 150 mls/hr IV . Q6H40M [facility] Rx#:[id number] Oral 180 Output: Urine 2800 Uretheral (Nguyen) 400 Other: Voiding Method Toilet Toilet Toilet # Voids 1 - Exam Abdomen: Soft, mild tenderness, incision clean and dry - Labs CBC & Chem 7: 04/07/17 05:58 04/07/17 05:58 Labs: Abnormal Lab Results - Last 24 Hours (Table) 04/07/17 04/07/17 Range/Units 05:58 05:58 WBC 3.7 L (3.8-10.6) k/uL RBC 3.04 L (3.80-5.40) m/uL Hgb 8.1 L (11.4-16.0) gm/dL Hct 26.4 L (34.0-46.0) % MCHC 30.7 L (31.0-37.0) g/dL RDW 16.6 H (11.5-15.5) % Plt Count 144 L (150-450) k/uL Lymphocytes # 0.7 L (1.0-4.8) k/uL Chloride 109 H (98-107) mmol/L BUN 23 H (7-17) mg/dL Creatinine 1.60 H (0.52-1.04) mg/dL Glucose 101 H (74-99) mg/dL AST 80 H (14-36) U/L ALT 103 H (9-52) U/L Alkaline Phosphatase 256 H (38-126) U/L Total Protein 4.6 L (6.3-8.2) g/dL Albumin 2.4 L (3.5-5.0) g/dL Assessment and Plan (1) Intraperitoneal hematoma Narrative/Plan: Continue increasing activity. Increase diet. Consider outpatient CT biphasic pancreas study. The patient did have a complicated course when she had her cholecystectomy including T-tube placement. The biliary dilation is likely chronic in nature. Liver enzyme elevation is thought more to be related to global ischemia. This should gradually improved. Current Visit: Yes Status: Acute Code(s): K66.1 - HEMOPERITONEUM SNOMED Code(s): 368507978
--- NOTE | 2017-04-07 14:54 | XR ---
EXAMINATION TYPE: XR chest 1V portable DATE OF EXAM: 04/07/2017 CLINICAL HISTORY: April 04, 2017 TECHNIQUE: Single frontal view of the chest is obtained. COMPARISON: None FINDINGS: There is no focal air space opacity, pleural effusion, or pneumothorax seen. The cardiac silhouette size is within normal limits. The osseous structures are intact. IMPRESSION: No acute process.
--- NOTE | 2017-04-07 14:58 | PN ---
PROGRESS NOTE Patient is seen for followup for acute kidney injury. She was admitted to the hospital for hysterectomy and subsequently patient developed acute kidney injury. She was maintained on Toradol and they were periods of hypotension as well. She has been maintained on aggressive IV hydration. Her renal function has improved. Patient also has underlying left nephrolithiasis. She has had left flank pain for some time now. Patient has been evaluated by Urology and she will follow up with them as an outpatient. The CAT scan shows nonobstructive calculus. PHYSICAL EXAMINATION: Today, blood pressure is 130/86, heart rate 79 per minute, patient is afebrile. She is complaining of pain all over her abdomen. Examination of the heart, S1, S2. Examination of the lungs, bilateral breath sounds are heard. No crackles or wheezing is heard. Abdomen is soft with tenderness noted at the surgical site as well in the left flank area and left upper abdomen. Examination of the lower extremities shows edema 1+ bilaterally. 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 Patient moving all 4 extremities. LABS: Show sodium 137, potassium 4.0, chloride 109, BUN 23, serum creatinine 1.6, hemoglobin 8.1 g/dL. ASSESSMENT: 1. Acute kidney injury secondary to hypotension, hypoperfusion as well as nonsteroidal anti-inflammatory agents, currently improving. Patient is maintained on large amount of IV fluids at 150 mL an hour. I will decrease the fluids as she has started to increase her oral intake. She is complaining of significant edema in her lower extremities. 2. Status post total abdominal hysterectomy. 3. Left nonobstructive nephrolithiasis, status post evaluation by Urology with plans to follow up as an outpatient. No intervention at this time. 4. Anemia with evidence of iron-deficiency noted. No active bleeding noted at this time. The CAT scan did show blood in the paracolic gutters. Patient has been evaluated by General Surgery as well. No indication for intervention at this time. 5. Possible bile duct stone being followed by Surgery. 6. Iron deficiency. Will replace with IV iron as I doubt patient is able to take p.o. iron given her recent surgery and significant abdominal pain. She is not eating much at this time. 7. History of hypertension. Patient was on WILLIAM inhibitors, currently on hold as blood pressure had been low. PLAN: Continue to avoid nonsteroidal anti-inflammatory agents. Will administer IV iron x2. Avoid transfusion if possible. Continue to hold off on WILLIAM inhibitors and repeat labs in a.m. I will discontinue the IV fluids and if patient is not able to increase her oral intake, we will resume gentle IV hydration. The edema should improve with increased mobility and increased oral intake. BAYLEE / AUGUSTINEN: [id number] /
[2017-04-07] MEDS: SODIUM FERRIC GLUCONAT-SUCROSE 125 MG in SODIUM CHLORIDE 0.9% 100 ML IVPB SCH (16:48)
--- NOTE | 2017-04-07 18:56 | P.PN ---
Subjective Progress Note Date: 04/07/17 Progress note being dictated for Dr. Byers Interval history: This is a 46-year-old female status post MIGUEL, postoperative anemia, hypotension, acute renal failure and multiple other medical issues. Telemetry sinus rhythm. Hemoglobin 8.2, creatinine 2.1. Sitting up in chair, complaining of surgical site discomfort, lower abdomen and left flank pain; history of kidney stones. Denies chest pain, palpitations or increased in shortness of breath. Afebrile. Urine culture in progress. Orthostatic vital signs pending. Minimal intake of clear liquid diet. Passing flatus, small smear of bowel movement. 04/06/17 elevated LFTs, Tylenol discontinued. Maintained on IV fluid hydration of 0.9 at 125 MLS per hour. Renal function improving, blood pressures improved and hemoglobin improved currently at 8.8. Urine output improved. Urine culture negative. Sitting up in bed, complaining of incisional pain that radiates around to left flank and further into mid lower back. Abdominal ultrasound completed, reporting possible left renal stone, nonobstructive. Evaluated by nephrology with recommendations noted. Abdominal pelvis CT performed last night reporting multiple foci of hemorrhage within the pelvis extending into the paracolic gutters. General surgery consulted. Orthostatic vital signs pending. Review of systems: CONSTITUTIONAL: No fever, no malaise, no fatigue. HEENT: No recent visual problems or hearing problems. Denied any sore throat. CARDIOVASCULAR: No chest pain, orthopnea, PND, no palpitations, no syncope. PULMONARY: No shortness of breath, no cough, no hemoptysis. GASTROINTESTINAL: No diarrhea, no nausea, no vomiting. Normoactive bowel sounds. Surgical site pain that radiates to left flank and further to mid lower back NEUROLOGICAL: No headaches, no weakness, no numbness. HEMATOLOGICAL: Denies any bleeding or petechiae. GENITOURINARY: Denies any burning micturition, frequency, or urgency. MUSCULOSKELETAL/RHEUMATOLOGICAL: Denies any joint pain, swelling, or any muscle pain. ENDOCRINE: Denies any polyuria or polydipsia. PSYCHIATRIC: No anxiety, no depression The rest of the 14 point review of systems is negative Active Medications Generic Name Dose Route Start Last Admin Trade Name Freq PRN Reason Stop Dose Admin Diphenhydramine HCl 25 mg 04/03/17 10:00 Benadryl IVP Q6HR PRN Itching Ferrous Sulfate 325 mg 04/06/17 12:30 Feosol PO W/LUNCH EDITH Heparin Sodium (Porcine) 5,000 unit 04/05/17 13:15 04/06/17 09:13 Heparin SQ 5,000 unit Q12HR EDITH Administration Hydromorphone HCl 5 mg 04/03/17 10:02 04/06/17 10:53 Dilaudid Auto Collision Repair Instructor IV 5 mg PER PROTOCOL PRN Administration Pain Control Protocol Sodium Chloride 1,000 mls @ 150 mls/hr 04/03/17 21:45 04/06/17 15:06 Saline 0.9% IV 150 mls/hr .Q6H40M EDITH Administration Lidocaine HCl 0.1 ml 04/03/17 05:22 04/03/17 06:25 .Xylocaine 1% Inj (10mg/Ml) For Iv Start INTRADERMA 0.1 ml PER PROTOCOL PRN Administration IV Start Naloxone HCl 0.2 mg 04/03/17 10:02 Narcan IV Q2M PRN Opioid Reversal Patient's Own ( 37.5 mg 04/05/17 09:00 04/06/17 09:07 Phentermine Hcl [ PO Not Given Adipex-P] 37.5 Mg) QAM [facility] Ondansetron HCl 4 mg 04/03/17 10:00 04/03/17 17:26 Zofran IVP 4 mg Q8HR PRN Administration Nausea And Vomiting Pantoprazole Sodium 40 mg 04/05/17 20:00 04/06/17 09:13 Protonix IVP 40 mg DAILY EDITH Administration Senna/Docusate Sodium 2 each 04/03/17 21:00 04/06/17 09:14 Senokot-S PO 2 each BID EDITH Administration Simethicone 80 mg 04/03/17 10:00 Mylicon Chew PO ACHS PRN Bloating 04/07/17 weight increasing, IV fluids discontinued. Tolerating full liquid diet with no nausea or vomiting. Passing flatus. Telemetry sinus rhythm. Low grade fevers, T-max 99.6, chest x-ray nonacute. Hemoglobin 8.1. Renal function , LFTs, improving. Evaluated by general surgery, recommendations noted. Denies chest pain, palpitations. Ambulating to , with assistance. Objective - Vital Signs Vital signs: Vital Signs Temp 98.8 F 04/07/17 16:00 Pulse 78 04/07/17 16:00 Resp 16 04/07/17 16:00 BP 144/94 04/07/17 16:00 Pulse Ox 99 04/07/17 16:00 Intake & Output 04/06/17 04/07/17 04/07/17 18:59 06:59 18:59 Intake Total 180 700 Output Total 2800 Balance -2620 700 Weight 88.6 kg Intake: IV 600 Sodium Chloride 0.9% 1, 600 000 ml @ 150 mls/hr IV . Q6H40M [facility] Rx#:[id number] Oral 180 100 Output: Urine 2800 Uretheral (Nguyen) 400 Other: Voiding Method Toilet Toilet Toilet # Voids 1 2 - Exam PHYSICAL EXAM: VITAL SIGNS: As above GENERAL: Sitting up in bed, no acute distress HEENT: Conjunctivae normal. eyes normal. Oral mucosa moist NECK: No JVD. No thyroid enlargement. No LNs CARDIOVASCULAR: S1, S2 muffled. No murmur RESPIRATION: Breath sounds diminished in the bases. No rhonchi or crackles. ABDOMEN: Soft, S/P surgery,positive Bowel sounds. LEGS: No edema. no swelling PSYCHIATRY: Alert and oriented -3, mood and affect normal. NERVOUS SYSTEM: Cranial N 2-12 grossly normal. Moves all 4 limbs. Diffuse weakness No focal deficits. No sensory deficit. Skin: no ulcer no rash Joints: No active swelling. No inflammation. - Labs CBC & Chem 7: 04/07/17 05:58 04/07/17 05:58 Labs: Abnormal Lab Results - Last 24 Hours (Table) 04/07/17 04/07/17 Range/Units 05:58 05:58 WBC 3.7 L (3.8-10.6) k/uL RBC 3.04 L (3.80-5.40) m/uL Hgb 8.1 L (11.4-16.0) gm/dL Hct 26.4 L (34.0-46.0) % MCHC 30.7 L (31.0-37.0) g/dL RDW 16.6 H (11.5-15.5) % Plt Count 144 L (150-450) k/uL Lymphocytes # 0.7 L (1.0-4.8) k/uL Chloride 109 H (98-107) mmol/L BUN 23 H (7-17) mg/dL Creatinine 1.60 H (0.52-1.04) mg/dL Glucose 101 H (74-99) mg/dL AST 80 H (14-36) U/L ALT 103 H (9-52) U/L Alkaline Phosphatase 256 H (38-126) U/L Total Protein 4.6 L (6.3-8.2) g/dL Albumin 2.4 L (3.5-5.0) g/dL Assessment and Plan Assessment: 1. Status post total abdominal hysterectomy with lysis of adhesions 2. Acute renal failure, possibly prerenal, improving 3. Postoperative Anemia status post transfusions 4. Increased AST, ALT 5. History of chronic intermittent asthma 6. Hypertension 7. DJD, chronic back pain, history of back surgery 8. Left nonobstructive kidney stone 9. Paracolic gutter hemorrhage per CT, post surgery 10. Hypotension, multifactorial, improving Plan: Continue on current medication regime ,monitoring and symptomatic treatment. Aggressive pulmonary toilet , IS reinforced. Increase ambulation as tolerated, PT/OT consulted. Close monitoring of hemoglobin, LFTs, renal function and electrolytes with repeat labs ordered for a.m. Prognosis guarded given multiple complex medical issues. The impression and plan of care has been dictated as directed. : I performed a history and examination of this patient, discussed the same with the dictator. I agree with the dictator's note ,documented as a scribe. Any additional findings or plans will be noted.
[2017-04-08] MEDS: HYDROmorphone PCA 5 MG/25 ML SYRINGE IV PRN ×3 (00:39→17:24)
[2017-04-08] MEDS: PANTOPRAZOLE 40 MG TABLET PO SCH (06:22)
[2017-04-08 06:57] LABS: Anisocytosis Slight; Basophils % (A) 0 %; Eosinophils # (A) 0.2 k/uL (0-0.7); Eosinophils % (A) 4 %; HCT 27.3 % (34.0-46.0); Hypochromasia Moderate; Lymphocytes # (A) 0.9 k/uL (1.0-4.8); Lymphocytes % (A) 16 %; MCH 25.8 pg (25.0-35.0); MCHC 29.4 g/dL (31.0-37.0); MCV 87.7 fL (80.0-100.0); Mean Platelet Volume 7.1; Monocytes # (A) 0.5 k/uL (0-1.0); Monocytes % (A) 9 %; Neutrophils # (A) 3.9 k/uL (1.3-7.7); Neutrophils % (A) 69 %; Platelet Count 163 k/uL (150-450); RBC 3.12 m/uL (3.80-5.40); RDW 16.9 % (11.5-15.5); WBC 5.6 k/uL (3.8-10.6)
[2017-04-08 07:20] LABS: Albumin 2.7 g/dL (3.5-5.0); Calcium 9.2 mg/dL (8.4-10.2); Potassium 3.9 mmol/L (3.5-5.1); Total Bilirubin 1.4 mg/dL (0.2-1.3); Total Protein 4.9 g/dL (6.3-8.2)
[2017-04-08] MEDS: HEPARIN SODIUM,PORCINE 5,000 UNIT/ML 1 ML VIAL SQ SCH ×2 (08:36→22:52)
[2017-04-08] MEDS: SENNOSIDES-DOCUSATE SODIUM 1 EACH TAB PO SCH ×2 (08:37→22:52)
[2017-04-08] MEDS: PHENTERMINE HCL 37.5 MG PO SCH (08:41)
--- NOTE | 2017-04-08 09:29 | P.PN ---
Progress Note - Text Progress Note Date: 04/08/17 Patient still has complaints of pelvic pain. Her hemoglobin has been stable. She shows no active signs of bleeding. On exam her vital signs are stable. Her abdomen is soft. Status post postoperative bleed with pelvic hematoma. The patient is stable. Patient will be discharged home per Dr. Sousa.
[2017-04-08] MEDS: SODIUM FERRIC GLUCONAT-SUCROSE 125 MG in SODIUM CHLORIDE 0.9% 100 ML IVPB SCH (09:39)
--- NOTE | 2017-04-08 12:10 | P.PN ---
Progress Note - Text Progress Note Date: 04/08/17 Pt seen and examined at bedside. C/o some pain in the right side of her incision , internal burning. THis is likely fascial pain and I advised her to use some ice packs on the area. The incision is clean, dry, intact with josé. there is no drainage. Some bruising at the right side and a lot of ecchymosis on the left where the tape caused some damage to her skin. She is ambulating and voiding, tolerating full liquids and had some oatmeal this morning. will continue with current plan.
--- NOTE | 2017-04-08 12:18 | P.PN ---
Subjective Progress Note Date: 04/08/17 Principal diagnosis: This is a 46-year-old female is followed up in consultation because of acute kidney injury secondary to combination of os hysterectomy, hypotension and nonsteroidal use. Creatinine has improved to 1.6. She can just have some edema abdominal discomfort and pain from surgery. No nausea vomiting appetite is fair has not passed her bowels but is passing gas. She denies any chest pain shortness of breath fever chills. No nausea vomiting. She had total abdominal hysterectomy dated 04/03/2017 and during surgery she was found to have bladder firmly adherent to the uterine wall and had to be carefully dissected off. Objective - Vital Signs Vital signs: Vital Signs Temp 97.8 F 04/08/17 11:31 Pulse 75 04/08/17 11:31 Resp 16 04/08/17 11:31 BP 136/92 04/08/17 11:31 Pulse Ox 100 04/08/17 11:31 Intake & Output 04/07/17 04/08/17 04/08/17 18:59 06:59 18:59 Intake Total 700 236 Output Total 650 Balance 700 -650 236 Weight 87.3 kg Intake: IV 600 Sodium Chloride 0.9% 1, 600 000 ml @ 150 mls/hr IV . Q6H40M [facility] Rx#:[id number] Oral 100 236 Output: Urine 500 Emesis 150 Other: Voiding Method Toilet Toilet # Voids 2 1 1 On examination she is awake alert oriented comfortable HEENT exam no JVP neck is supple no facial asymmetry Lungs are clear to auscultation percussion good air entry bilaterally. Heart sounds are unremarkable no murmur rub gallop. Abdomen is soft nontender. Positive sounds are diminished. Extremity exam was no edema Awake alert oriented. - Labs CBC & Chem 7: 04/08/17 05:54 04/08/17 05:54 Labs: Abnormal Lab Results - Last 24 Hours (Table) 04/08/17 04/08/17 Range/Units 05:54 05:54 RBC 3.12 L (3.80-5.40) m/uL Hgb 8.0 L (11.4-16.0) gm/dL Hct 27.3 L (34.0-46.0) % MCHC 29.4 L (31.0-37.0) g/dL RDW 16.9 H (11.5-15.5) % Lymphocytes # 0.9 L (1.0-4.8) k/uL Chloride 109 H (98-107) mmol/L BUN 21 H (7-17) mg/dL Creatinine 1.60 H (0.52-1.04) mg/dL Total Bilirubin 1.4 H (0.2-1.3) mg/dL AST 67 H (14-36) U/L ALT 86 H (9-52) U/L Alkaline Phosphatase 260 H (38-126) U/L Total Protein 4.9 L (6.3-8.2) g/dL Albumin 2.7 L (3.5-5.0) g/dL Assessment and Plan Assessment: Impression. 1. Acute kidney injury secondary to combination of hypertension nonsteroidals and post hysterectomy. Creatinine improved to 1.6. Possibility of bladder retention is raised because of the difficulty during surgery with adhesions between the uterus and bladder. She does have a left kidney stone nonobstructive. She also had computed tomography scan that showed multiple foci of hemorrhage within the pelvis extending into the paracolic gutters. 2. Mild degree of non-gap acidosis resolved. Bicarb is 24. 3. Anemia with iron deficiency anemia on Ferrlecit. Hemoglobin is 8 this morning down from 8.8, 2 days ago. Recommendation. 1. Maintain aggressive oral hydration. 2. Check post void bladder residual because of the problems during surgery with adhesions between bladder wall and uterus.
[2017-04-08] MEDS: FERROUS SULFATE 325 MG TAB PO SCH (12:38)
--- NOTE | 2017-04-08 17:56 | PN ---
PROGRESS NOTE DATE OF SERVICE: 04/08/2017 This is a 46-year-old woman who was admitted after total abdominal hysterectomy , also had intraperitoneal bleeding. The patient also had acute renal failure. The patient is complaining of abdominal pain, necessitating STRIPE MARKER. Multiple consultants from Nephrology, TERMINAL CLERK, and surgery are following the patient closely. No acute interventions is being planned at this time. No chest pain, no palpitation. PHYSICAL EXAM: Alert and oriented x3, the pulse is 56, blood pressure 128/85, respiration 16, temperature is 97.8, pulse ox 100% on room air. HEENT: Conjunctivae normal. NECK: No jugular venous distension. CARDIOVASCULAR SYSTEMS: S1, S2, muffled. RESPIRATORY: Breath sounds diminished at the bases, a few scattered rhonchi, no crackles. Abdomen is soft, status post surgery. Mild diffuse discomfort on palpation. No guarding. No rigidity. No mass palpable. LEGS: No edema, no swelling. NERVOUS SYSTEM: No focal deficits. LABS: WBC is 11, hemoglobin is 8, and creatinine 1.60, AST, ALT 67 and 86. reviewed. Chest x-ray reviewed, no acute process. ASSESSMENT: 1. Status post total abdominal hysterectomy with lysis of adhesions. 2. Acute renal failure, possibly prerenal, improving. 3. Postoperative anemia, status post transfusions. 4. Intraperitoneal bleeding, increased AST, ALT. 5. Decreased abdominal pain. 6. History of chronic. 7. Hypertension. 8. Degenerative joint disease, chronic back pain and chronic back surgery. 9. Left nonobstructing kidney stone. 10.Paracolic gutter hemorrhage on CAT scan. 11.Hypotension, multifactorial, improved. RECOMMENDATION: Recommend to continue current management and symptomatic treatment. Otherwise, will monitor the patient closely. Repeat labs. Otherwise closely follow with multiple consultants. Prognosis guarded. Further recommendations to follow. MMODL / IJN: [id number] / MTDD
[2017-04-09] MEDS: HYDROmorphone PCA 5 MG/25 ML SYRINGE IV PRN ×2 (04:38→15:24)
[2017-04-09] MEDS: PANTOPRAZOLE 40 MG TABLET PO SCH (06:31)
[2017-04-09 07:10] LABS: Anisocytosis Slight; Basophils % (A) 0 %; Eosinophils # (A) 0.2 k/uL (0-0.7); Eosinophils % (A) 4 %; HCT 28.2 % (34.0-46.0); HGB 8.6 gm/dL (11.4-16.0); Hypochromasia Slight; Lymphocytes # (A) 0.9 k/uL (1.0-4.8); Lymphocytes % (A) 14 %; MCH 26.1 pg (25.0-35.0); MCHC 30.3 g/dL (31.0-37.0); MCV 85.9 fL (80.0-100.0); Mean Platelet Volume 7.3; Monocytes # (A) 0.4 k/uL (0-1.0); Monocytes % (A) 7 %; Neutrophils # (A) 4.6 k/uL (1.3-7.7); Neutrophils % (A) 73 %; Platelet Count 176 k/uL (150-450); RBC 3.28 m/uL (3.80-5.40); RDW 17.2 % (11.5-15.5); WBC 6.3 k/uL (3.8-10.6)
[2017-04-09 07:33] LABS: Calcium 9.4 mg/dL (8.4-10.2); Potassium 3.5 mmol/L (3.5-5.1); Total Bilirubin 1.6 mg/dL (0.2-1.3); Total Protein 5.4 g/dL (6.3-8.2)
[2017-04-09] MEDS: SENNOSIDES-DOCUSATE SODIUM 1 EACH TAB PO SCH ×2 (08:13→23:46)
[2017-04-09] MEDS: HEPARIN SODIUM,PORCINE 5,000 UNIT/ML 1 ML VIAL SQ SCH ×2 (08:13→23:46)
[2017-04-09] MEDS: PHENTERMINE HCL 37.5 MG PO SCH (08:16)
--- NOTE | 2017-04-09 08:25 | P.PN ---
Progress Note - Text Progress Note Date: 04/09/17 The patient remained stable. Her hemoglobin has actually gone up to 8.6. Her abdominal pain is unchanged. On exam her vital signs are stable. Her abdomen soft. There is some minimal tenderness in the right left lower quadrants. There is no rebound or guarding. Status post postop hematoma. Patient was discharged home per Dr. Zacarias.
[2017-04-09] MEDS: SODIUM FERRIC GLUCONAT-SUCROSE 125 MG in SODIUM CHLORIDE 0.9% 100 ML IVPB SCH (09:12)
--- NOTE | 2017-04-09 09:26 | P.PN ---
Subjective Progress Note Date: 04/09/17 Principal diagnosis: This is a 46-year-old female is followed up in consultation because of acute kidney injury secondary to combination of post op hysterectomy, hypotension and nonsteroidal use. Creatinine has improved to 1.56. She had a rather complicated surgery because of adhesions within the uterus and bladder. Postop scans including ultrasound and computed tomography scan have shown hemorrhages in the surgical area. The right kidney is somewhat edematous. No hydronephrosis is noted, although the left kidney has a large stone which is nonobstructive. She continues to have significant lower abdominal discomfort and pain as well as left-sided renal angle pain. No nausea vomiting appetite is fair has not passed her bowels but is passing gas. She denies any chest pain shortness of breath fever chills. No nausea vomiting. She had total abdominal hysterectomy dated 04/03/2017 and during surgery she was found to have bladder firmly adherent to the uterine wall and had to be carefully dissected off. Objective - Vital Signs Vital signs: Vital Signs Temp 98.8 F 04/09/17 07:31 Pulse 97 04/09/17 07:31 Resp 16 04/09/17 07:31 BP 125/84 04/09/17 07:31 Pulse Ox 97 04/09/17 07:31 Intake & Output 04/08/17 04/09/17 04/09/17 18:59 06:59 18:59 Intake Total 796 360 Output Total 650 Balance 796 -650 360 Weight 86.7 kg Intake: Oral 796 360 Output: Urine 500 Emesis 150 Other: Voiding Method Toilet # Voids 2 1 On examination she is awake alert oriented comfortable HEENT exam no JVP neck is supple no facial asymmetry Lungs are clear to auscultation percussion good air entry bilaterally Heart sounds are unremarkable no murmur rub gallop Abdomen is soft although there is tenderness in the lower abdomen. Left loin area there is minimal tenderness Extremity exam there was no edema Neurologically awake alert oriented. Able to walk. - Labs CBC & Chem 7: 04/09/17 06:27 04/09/17 06:27 Labs: Abnormal Lab Results - Last 24 Hours (Table) 04/09/17 04/09/17 Range/Units 06:27 06:27 RBC 3.28 L (3.80-5.40) m/uL Hgb 8.6 L (11.4-16.0) gm/dL Hct 28.2 L (34.0-46.0) % MCHC 30.3 L (31.0-37.0) g/dL RDW 17.2 H (11.5-15.5) % Lymphocytes # 0.9 L (1.0-4.8) k/uL BUN 22 H (7-17) mg/dL Creatinine 1.59 H (0.52-1.04) mg/dL Total Bilirubin 1.6 H (0.2-1.3) mg/dL AST 61 H (14-36) U/L ALT 82 H (9-52) U/L Alkaline Phosphatase 270 H (38-126) U/L Total Protein 5.4 L (6.3-8.2) g/dL Albumin 3.0 L (3.5-5.0) g/dL Assessment and Plan Assessment: Impression. 1. Acute kidney injury secondary to combination of hypertension nonsteroidals and post hysterectomy. Creatinine improved to 1.56, from a peak creatinine of 2.1 dated 04/05/2017. Possibility of bladder retention is raised because of the difficulty during surgery with adhesions between the uterus and bladder. She does have a left kidney stone nonobstructive. She also had computed tomography scan that showed multiple foci of hemorrhage within the pelvis extending into the paracolic gutters. 2. Mild degree of non-gap acidosis resolved. Bicarb is improved from 24 to 27. Anion gap is 7. Acidosis is Resolved 3. Anemia with iron deficiency anemia on Ferrlecit. Hemoglobin is 8 to 8.6 this morning down from 8.8, 3 days ago. Recommendation. 1. Maintain aggressive oral hydration. 2. start IV fluids 50 mL of normal saline. This is because her oral intake may not be sufficient. 3. Because of the non-obstructing left kidney stone and pain consider possibility of hydronephrosis if creatinine does not improve
[2017-04-09] MEDS ORDERED: PETROLATUM, WHITE OINT 50 GM TUBE TOPICAL PRN (09:53)
--- NOTE | 2017-04-09 09:58 | P.PN ---
Progress Note - Text Progress Note Date: 04/09/17 Pt seen and examined at bedside. Pain is controlled. She is voiding and passing gas. She is ambulating in the hallway. PHONE OPERATOR is still running. VSS Abdomen: soft, incision is clean, dry, intact with josé. ecchymosis on left side of incision wear the tape peeled at her skin I will order the josé removed as they are pulling now and causing some discomfort. I will also order some aquafor for her skin on the left side of the incision. cont pain control per medicine
[2017-04-09] MEDS: SODIUM CHLORIDE 0.9% 1,000 ML IV SCH (11:13)
[2017-04-09] MEDS: FERROUS SULFATE 325 MG TAB PO SCH (11:45)
--- NOTE | 2017-04-09 16:06 | PN ---
PROGRESS NOTE DATE OF SERVICE: 04/09/2017. INTERVAL HISTORY: This 46-year-old woman was admitted with abdominal hysterectomy, also had renal failure and anemia, which are both stable. Patient has some abdominal pain, diffuse abdominal pain necessitating BRANCH EXAMINER. Multiple consultants including POLICE ACADEMY PROGRAM COORDINATOR and Nephrology are following the patient closely and Surgery is following the patient closely. No chest pain. No palpitations. No shortness of breath. EXAM: Alert and oriented x3. Pulse is 97, blood pressure 122/84, respirations 16, temperature 98.8, pulse ox 97% on room air. HEENT: Conjunctivae pale. NECK: No jugular venous distention. CARDIOVASCULAR: S1, S2 muffled. RESPIRATORY: Breath sounds diminished in the bases. A few scattered rhonchi. ABDOMEN: Soft, mild diffuse discomfort on palpation. LEGS: No edema. NERVOUS SYSTEM: No focal deficits. LABS: WBC 6.2, hemoglobin is 8.6, creatinine is 1.59, total bilirubin is 1.6. ASSESSMENT: 1. Status post total gastrectomy, lysis of adhesions. 2. Acute renal failure possibly prerenal, improving. 3. Possible anemia, status post transfusion. 4. Intraperitoneal bleeding increased AST, ALT. 5. Abdominal pain. 6. Hypertension. 7. History of degenerative joint disease, chronic back pain and history of back surgery. 8. Left nonobstructing kidney stone. 9. Paracolic gutter hemorrhage in the CT scan. 10.Hypotension, multifactorial, improved. RECOMMENDATIONS AND DISCUSSION: I recommend to continue current medications, continue with monitoring, symptomatic treatment. Otherwise at this time I recommend monitor the renal functions and hemoglobin closely. The patient has some dilated pancreatic duct to be followed up in the outpatient setting. Otherwise continue the rest of medications. Repeat labs ordered. Further recommendations to follow. MMODL / IJN: [id number] /
[2017-04-10] MEDS: HYDROmorphone PCA 5 MG/25 ML SYRINGE IV PRN ×2 (00:53→13:08)
[2017-04-10] MEDS: PANTOPRAZOLE 40 MG TABLET PO SCH (06:15)
[2017-04-10] MEDS: SODIUM CHLORIDE 0.9% 1,000 ML IV SCH (06:15)
[2017-04-10 06:29] LABS: Anisocytosis Slight; Basophils # (A) 0.1 k/uL (0-0.2); Basophils % (A) 1 %; Eosinophils # (A) 0.3 k/uL (0-0.7); Eosinophils % (A) 5 %; HCT 28.1 % (34.0-46.0); HGB 8.5 gm/dL (11.4-16.0); Hypochromasia Moderate; Lymphocytes # (A) 1.1 k/uL (1.0-4.8); Lymphocytes % (A) 16 %; MCH 26.6 pg (25.0-35.0); MCHC 30.4 g/dL (31.0-37.0); MCV 87.6 fL (80.0-100.0); Mean Platelet Volume 7.4; Monocytes # (A) 0.5 k/uL (0-1.0); Monocytes % (A) 7 %; Neutrophils # (A) 4.9 k/uL (1.3-7.7); Neutrophils % (A) 70 %; Platelet Count 202 k/uL (150-450); RBC 3.21 m/uL (3.80-5.40); RDW 17.5 % (11.5-15.5)
[2017-04-10 07:01] LABS: Calcium 9.4 mg/dL (8.4-10.2); Potassium 3.8 mmol/L (3.5-5.1); Total Protein 5.5 g/dL (6.3-8.2)
[2017-04-10] MEDS: PHENTERMINE HCL 37.5 MG PO SCH (07:47)
[2017-04-10] MEDS: HEPARIN SODIUM,PORCINE 5,000 UNIT/ML 1 ML VIAL SQ SCH ×2 (08:00→21:42)
[2017-04-10] MEDS: SENNOSIDES-DOCUSATE SODIUM 1 EACH TAB PO SCH ×2 (08:05→21:43)
[2017-04-10] MEDS: amLODIPine 5 MG TAB PO SCH ×2 (08:59→23:04)
[2017-04-10] MEDS: FERROUS SULFATE 325 MG TAB PO SCH (11:31)
[2017-04-10 11:58] VITALS: BMI 33.7
--- NOTE | 2017-04-10 13:16 | P.PN ---
Subjective Progress Note Date: 04/10/17 Principal diagnosis: Intraperitoneal Hematoma Patient doing well today. Pain is improved. She did have a bowel movement. Tolerating diet. Labs were reviewed. Objective - Vital Signs Vital signs: Vital Signs Temp 98.8 F 04/10/17 11:38 Pulse 74 04/10/17 11:38 Resp 18 04/10/17 11:38 BP 124/84 04/10/17 11:38 Pulse Ox 97 04/10/17 11:38 Intake & Output 04/09/17 04/10/17 04/10/17 18:59 06:59 18:59 Intake Total 1440 1200 Balance 1440 1200 Weight 86.4 kg 86.4 kg Intake: Oral 1440 1200 Other: Voiding Method Toilet Toilet # Voids 1 - Exam Abdomen: Soft, mild lower abdominal tenderness, incision clean and dry - Labs CBC & Chem 7: 04/10/17 05:38 04/10/17 05:38 Labs: Abnormal Lab Results - Last 24 Hours (Table) 04/10/17 04/10/17 Range/Units 05:38 05:38 RBC 3.21 L (3.80-5.40) m/uL Hgb 8.5 L (11.4-16.0) gm/dL Hct 28.1 L (34.0-46.0) % MCHC 30.4 L (31.0-37.0) g/dL RDW 17.5 H (11.5-15.5) % Chloride 109 H (98-107) mmol/L BUN 23 H (7-17) mg/dL Creatinine 1.55 H (0.52-1.04) mg/dL Total Bilirubin 2.0 H (0.2-1.3) mg/dL AST 80 H (14-36) U/L ALT 84 H (9-52) U/L Alkaline Phosphatase 295 H (38-126) U/L Total Protein 5.5 L (6.3-8.2) g/dL Albumin 3.0 L (3.5-5.0) g/dL Assessment and Plan (1) Intraperitoneal hematoma Narrative/Plan: Continue diet as tolerated. Plan outpatient follow-up with repeat CMP at that time and either MRCP or biphasic CAT scan of the pancreas. Current Visit: Yes Status: Acute Code(s): K66.1 - HEMOPERITONEUM SNOMED Code(s): 182423836
[2017-04-10] MEDS ORDERED: HYDROmorphone 0.5 MG/0.5 ML SYRINGE IVP PRN (15:11)
--- NOTE | 2017-04-10 16:01 | PN ---
PROGRESS NOTE DATE OF SERVICE: 04/10/2017 This 46-year-old woman was admitted with total abdominal hysterectomy, also had renal failure, anemia and as well as retroperitoneal bleeding also. The patient is complaining of severe abdominal pain. Patient being closely monitored. Multiple consultants including Dr. Mauricio and MANAGER PROVIDER RELATIONS following the patient closely. The patient also had renal failure, which is rather stable at this time. LFTs also elevated. PAST MEDICAL HISTORY: Reviewed. REVIEW OF SYSTEMS: Cardiovascular: No angina or palpitations. Respiratory: As mentioned. GI: As mentioned earlier. : No dysuria. NERVOUS SYSTEM: No numbness or weakness. CURRENT MEDICATIONS ARE: 1. Ventolin 2.5 q.i.d. 2. Norvasc 5 mg daily. 3. Benadryl. 4. Iron sulfate 325 mg daily. 5. Heparin. 6. Dilaudid [employer]. 7. Narcan. 8. Zofran. 9. Protonix. 10.Senokot-S. 11.Mylicon. PHYSICAL EXAM: Patient is alert and oriented times three. Pulse 90. Blood pressure 130/87, respiration 16, temperature 97.9, pulse ox 100% on room air. HEENT: Conjunctivae normal. Oral mucosa moist. Neck is no jugular venous distention. No carotid bruit. No lymph node enlargement. Cardiovascular S1, S2 muffled. Respiratory: Breath sounds diminished in the bases. No rhonchi. No crackles. ABDOMEN: Soft. Mild diffuse distention. Mild diffuse tenderness present. Otherwise no guarding, no rebound, no rigidity. No mass palpable. Legs: No edema and no swelling. NERVOUS SYSTEM: Higher functions as mentioned earlier. Moves all four limbs. No focal motor or sensory deficits Lymphatics: No lymph nodes palpable in the neck, axillae or groin. SKIN: No ulcer, rash or bleeding. LABS: WBC 7, hemoglobin is 8.5, sodium 140, potassium 3.8, creatinine is 1.55. ASSESSMENT: 1. Status post total abdominal hysterectomy, lysis of adhesions. 2. Acute renal failure possibly prerenal, improving. 3. Possible anemia, status post transfusion. 4. Inter bleeding with increased AST ALT. 5. Abdominal pain. 6. Hypertension. 7. History of degenerative joint disease. 8. Chronic back pain. 9. History of back surgery. 10.Left nonobstructive kidney stone. 11.Paracolic gutter hemorrhage in the CT scan. 12.Hypotension, multifactorial, improved. RECOMMENDATIONS AND DISCUSSION: Recommend to continue current medications, symptomatic treatment, management and I would also recommend a CT scan of the abdomen and pelvis if it is okay with Dr. Sousa. otherwise repeat labs. As mentioned earlier the creatinine and LFTs are stable at this time, but however the patient has severe pain. Patient is on [employer]. The patient has been taking MS Contin long-acting and short-acting morphine per recommendation of Neurology. Patient has got an appointment with [facility] pending according to the staff. I would recommend to stop the [employer] and initiate MS Contin 15 b.i.d. with supplemented with Ultram. Avoid hepatotoxic medications. Repeat labs in the morning. Prognosis guarded. Discussed with the patient. Discussed with staff. Further recommendations to follow. MMEMERSONL / AUGUSTINEN: [id number] / MTDD
--- NOTE | 2017-04-10 17:14 | P.PN ---
Progress Note - Text Progress Note Date: 04/10/17 Melanie is seen and evaluated postop day 7. She is overall much improved. Through the weekend she is had her josé removed and she is an bleeding voiding. She now has had a bowel movement as well. Her liver enzymes and renal function testing have been stable. Still mildly elevated. She has follow -up appointment scheduled with nephrology, urology, and general surgery as well as myself once she is discharged. Her vital signs are currently stable and afebrile. Her pain is well-controlled. LOBBY PORTER was discontinued today and we'll switch her over to pain pills the same she is taking home. Otherwise her heart is regular, lungs are clear, extremities without pain. Abdomen soft positive bowel sounds are noted incisions clean dry and intact there is noted bruising to her left flank. Otherwise no other gross findings this time and she is remaining stable at this time. Plan for discharged home and morning.
--- NOTE | 2017-04-10 17:39 | PN ---
PROGRESS NOTE DATE OF SERVICE: 04/10/2017. HISTORY: The patient was seen this morning. She states she is feeling better and wants to go home. She has significant bruising on the left side of the abdomen. The patient has had good urine output. She is maintained on IV fluids at 50 mL an hour since she had not been eating much. EXAMINATION: Blood pressure is 131/86, heart rate 90 per minute. She is afebrile. Examination of the heart S1, S2. Examination lungs examination, bilateral breath sounds are heard. No crackles or wheezing heard. Abdomen is soft. There is tenderness in the lower part of the abdomen. Steri-Strips are noted. There is bruising noted as well. Examination of lower extremity shows trace edema. WEBSPHERE ARCHITECT exam is grossly intact. Patient moving all 4 extremities. LABS: Sodium 141, potassium 3.8, BUN 23, serum creatinine 1.5. ASSESSMENT: 1. Acute kidney injury secondary to NSAIDs and hypoperfusion. Currently fairly stable with improved renal functions. Serum creatinine staying at about 1.5 mg/dL. The patient was restarted on gentle IV hydration, which we can continue as she is not eating much. No nephrotoxic agents on board at this time. 2. Left nonobstructive renal calculus. 3. Status post total abdominal hysterectomy. 4. Iron deficiency, status post IV iron. 5. Hemorrhage noted on the CT scan in the paracolic gutters. No surgical intervention at this time. 6. Elevated liver enzymes, possibly related to some degree of hypoperfusion. The enzymes were decreasing and AST has increased again. PLAN: Continue IV fluids at 50 mL an hours. Encourage increased oral intake. The patient will need follow up as outpatient for acute kidney injury. MMODL / IJN: [id number] /
[2017-04-10] MEDS: MORPHINE SULFATE ER 15 MG TABLET PO SCH (21:43)
[2017-04-11] MEDS: traMADol 50 MG TAB PO PRN ×2 (00:43→06:41)
[2017-04-11] MEDS: PANTOPRAZOLE 40 MG TABLET PO SCH (06:41)
[2017-04-11] MEDS: SODIUM CHLORIDE 0.9% 1,000 ML IV SCH (06:50)
[2017-04-11 07:19] LABS: Anisocytosis Slight; Basophils % (A) 1 %; Eosinophils # (A) 0.3 k/uL (0-0.7); Eosinophils % (A) 4 %; HCT 27.1 % (34.0-46.0); HGB 8.3 gm/dL (11.4-16.0); Hypochromasia Slight; Lymphocytes % (A) 14 %; MCH 26.4 pg (25.0-35.0); MCHC 30.4 g/dL (31.0-37.0); MCV 86.7 fL (80.0-100.0); Mean Platelet Volume 7.3; Monocytes # (A) 0.5 k/uL (0-1.0); Monocytes % (A) 7 %; Neutrophils # (A) 5.2 k/uL (1.3-7.7); Neutrophils % (A) 73 %; Platelet Count 211 k/uL (150-450); RBC 3.13 m/uL (3.80-5.40); RDW 17.6 % (11.5-15.5); WBC 7.2 k/uL (3.8-10.6)
[2017-04-11 07:43] LABS: Albumin 2.8 g/dL (3.5-5.0); Calcium 8.7 mg/dL (8.4-10.2); Potassium 3.2 mmol/L (3.5-5.1); Total Bilirubin 1.5 mg/dL (0.2-1.3); Total Protein 5.1 g/dL (6.3-8.2)
[2017-04-11] MEDS: MORPHINE SULFATE ER 15 MG TABLET PO SCH (08:20)
[2017-04-11] MEDS: amLODIPine 5 MG TAB PO SCH (08:20)
[2017-04-11] MEDS: HEPARIN SODIUM,PORCINE 5,000 UNIT/ML 1 ML VIAL SQ SCH (08:20)
[2017-04-11 08:41] VITALS: BP 116/77; PULSE 74; RESP 18; TEMP 97.9
--- NOTE | 2017-04-11 09:00 | P.DS ---
Providers Date of admission: 04/03/17 06:00 Expected date of discharge: 04/11/17 Attending physician: Romeo Sousa Consults: 04/04/17 06:46 Consult Physician Stat Consulting Provider: Edel Byers Consult Reason/Comments: post op Do you want consulting provider notified?: Yes 04/05/17 12:44 Consult Physician Routine Consulting Provider: Carissa Ewing Consult Reason/Comments: renal failure Do you want consulting provider notified?: Yes 04/05/17 20:51 Consult Physician Routine Consulting Provider: Marcial Mauricio Consult Reason/Comments: abdominal CT results Do you want consulting provider notified?: Yes, Notify in am 04/06/17 09:11 Consult Physician Urgent Consulting Provider: Real Tijerina Consult Reason/Comments: LEFT RENAL LITHIASIS Do you want consulting provider notified?: Yes [facility] Course: Melanie is seen and evaluated. Overall today she is improved and she is stable for discharge home today. Her vital signs are stable and she is afebrile. White blood cell count is normal. Renal function testing and liver function testing are both improved and were only mildly elevated at this time. She voices no complaints other than mild back pain and flank pain where her pain has been previously. Her hospital course has been, K by having an very bad episode of nausea and emesis following surgery resulting in post operative bleeding which has caused a acute renal failure and likely has contributed to her liver enzyme elevations. She has responded well to fluid hydration and she did receive 2 units of blood. Initially I believe that the bleeding was under appreciated due to the fact that some of the bleeding was coming out through the incision while some of that was actually going into her abdomen and could not be accounted for. She did have several hours of hypotension and oliguria but this has again resolved over the last several days. She is voiding well and has had a bowel movement. We'll plan to have her see me in the office on Monday for repeat CBC and CMP. She will also follow-up with Dr. Chencho Garduno for a large kidney stone as well as Dr. Mauricio for enlarged pancreatic duct. She also will follow up with the water hydrant installer for her acute renal failure. This is been a slow recovery for her but she has responded well and is again stable for discharge at this time. Please see other physician and dictations regarding any more specific information on her hospitalization. Assessment postop day 8. Plan discharged home follow up with me on Monday of this week. Prescription for [facility] has been provided. She normally takes MS Contin and home but she has an appointment with her normal neurologist in the next week or so severe that she can refill that prescription at [facility]. All other questions are answered for her at this time and will again plan to see her in the next few days to make sure that she is doing well. On physical exam her heart is currently regular and her lungs are clear. Abdomen is soft and positive bowel sounds are noted. Her incision does have some mild serosanguineous discharge and drainage but this she'll be encouraged to wash twice daily and should clear that up there is no orbital or any sign or symptoms of infection otherwise. Her extremities are without pain. Assessment postop day 8. Plan as above. Patient Condition at Discharge: Good Plan - Discharge Summary Discharge Rx Participant: Yes New Discharge Prescriptions: New HYDROcodone/APAP 5-325MG [[facility] 5-325] 1 tab PO Q4HR PRN #30 tab PRN Reason: Pain No Action Lisinopril [Zestril] 10 mg PO DAILY Phentermine HCl [Adipex-P] 37.5 mg PO QAM Acetaminophen Tab [Tylenol Tab] 650 mg PO Q6H PRN PRN Reason: Pain Morphine Sulfate Ir [Msir] 15 mg PO BID PRN PRN Reason: Pain Morphine Sulfate ER [Ms Contin 30Mg] 30 mg PO Q12HR Discharge Medication List Lisinopril [Zestril] 10 mg PO DAILY 12/01/13 [History] Phentermine HCl [Adipex-P] 37.5 mg PO QAM 10/13/15 [History] Acetaminophen Tab [Tylenol Tab] 650 mg PO Q6H PRN 03/30/17 [History] Morphine Sulfate ER [Ms Contin 30Mg] 30 mg PO Q12HR 04/10/17 [History] Morphine Sulfate Ir [Msir] 15 mg PO BID PRN 04/10/17 [History] HYDROcodone/APAP 5-325MG [[facility] 5-325] 1 tab PO Q4HR PRN #30 tab 04/11/17 [Rx] Follow up Appointment(s)/Referral(s): Romeo Sousa DO [Doctor of Osteopathic Medicine] - 3 Days Boutt,Marcial, MD [Medical Doctor] - 2 Weeks Chencho Chavez MD [STAFF PHYSICIAN] - 2 Weeks Carissa Ewing MD [STAFF PHYSICIAN] - 2 Weeks
[2017-04-11] MEDS ORDERED: Potassium Replacement Protocol 1 EACH MISC MISCELLANE PRN ×2 (09:40→10:09)
[2017-04-11] MEDS ORDERED: Magnesium Replacement Protocol 1 EACH MISC MISCELLANE PRN (09:40)
[2017-04-11] MEDS: SENNOSIDES-DOCUSATE SODIUM 1 EACH TAB PO SCH (09:55)
[2017-04-11] MEDS: PHENTERMINE HCL 37.5 MG PO SCH (10:00)
[2017-04-11] MEDS ORDERED: HYDROmorphone 2 MG TAB PO PRN (10:12)
[2017-04-11] MEDS ORDERED: POTASSIUM CHLORIDE ER 20 MEQ TAB.ER PO SCH (11:00)
--- NOTE | 2017-04-11 17:29 | P.PN ---
<Liv Eugene - Last Filed: 04/11/17 17:17> Subjective Progress Note Date: 04/11/17 Progress note being dictated for Dr. Byers Interval history: This is a 46-year-old female status post MIGUEL, postoperative anemia, hypotension, acute renal failure and multiple other medical issues. Telemetry sinus rhythm. Hemoglobin 8.2, creatinine 2.1. Sitting up in chair, complaining of surgical site discomfort, lower abdomen and left flank pain; history of kidney stones. Denies chest pain, palpitations or increased in shortness of breath. Afebrile. Urine culture in progress. Orthostatic vital signs pending. Minimal intake of clear liquid diet. Passing flatus, small smear of bowel movement. 04/06/17 elevated LFTs, Tylenol discontinued. Maintained on IV fluid hydration of 0.9 at 125 MLS per hour. Renal function improving, blood pressures improved and hemoglobin improved currently at 8.8. Urine output improved. Urine culture negative. Sitting up in bed, complaining of incisional pain that radiates around to left flank and further into mid lower back. Abdominal ultrasound completed, reporting possible left renal stone, nonobstructive. Evaluated by nephrology with recommendations noted. Abdominal pelvis CT performed last night reporting multiple foci of hemorrhage within the pelvis extending into the paracolic gutters. General surgery consulted. Orthostatic vital signs pending. Review of systems: CONSTITUTIONAL: No fever, no malaise, no fatigue. HEENT: No recent visual problems or hearing problems. Denied any sore throat. CARDIOVASCULAR: No chest pain, orthopnea, PND, no palpitations, no syncope. PULMONARY: No shortness of breath, no cough, no hemoptysis. GASTROINTESTINAL: No diarrhea, no nausea, no vomiting. Normoactive bowel sounds. Surgical site pain that radiates to left flank and further to mid lower back NEUROLOGICAL: No headaches, no weakness, no numbness. HEMATOLOGICAL: Denies any bleeding or petechiae. GENITOURINARY: Denies any burning micturition, frequency, or urgency. MUSCULOSKELETAL/RHEUMATOLOGICAL: Denies any joint pain, swelling, or any muscle pain. ENDOCRINE: Denies any polyuria or polydipsia. PSYCHIATRIC: No anxiety, no depression The rest of the 14 point review of systems is negative Active Medications Generic Name Dose Route Start Last Admin Trade Name Freq PRN Reason Stop Dose Admin Diphenhydramine HCl 25 mg 02/05/18 10:00 Benadryl IVP Q6HR PRN Itching Ferrous Sulfate 325 mg 04/06/17 12:30 Feosol PO W/LUNCH EDITH Heparin Sodium (Porcine) 5,000 unit 04/05/17 13:15 04/06/17 09:13 Heparin SQ 5,000 unit Q12HR EDITH Administration Hydromorphone HCl 5 mg 04/03/17 10:02 04/06/17 10:53 Dilaudid Coronary Clinical Specialist IV 5 mg PER PROTOCOL PRN Administration Pain Control Protocol Sodium Chloride 1,000 mls @ 150 mls/hr 04/03/17 21:45 04/06/17 15:06 Saline 0.9% IV 150 mls/hr .Q6H40M EDITH Administration Lidocaine HCl 0.1 ml 04/03/17 05:22 04/03/17 06:25 .Xylocaine 1% Inj (10mg/Ml) For Iv Start INTRADERMA 0.1 ml PER PROTOCOL PRN Administration IV Start Naloxone HCl 0.2 mg 04/03/17 10:02 Narcan IV Q2M PRN Opioid Reversal Patient's Own ( 37.5 mg 04/05/17 09:00 04/06/17 09:07 Phentermine Hcl [ PO Not Given Adipex-P] 37.5 Mg) QAM [facility] Ondansetron HCl 4 mg 04/03/17 10:00 04/03/17 17:26 Zofran IVP 4 mg Q8HR PRN Administration Nausea And Vomiting Pantoprazole Sodium 40 mg 04/05/17 20:00 04/06/17 09:13 Protonix IVP 40 mg DAILY EDITH Administration Senna/Docusate Sodium 2 each 04/03/17 21:00 04/06/17 09:14 Senokot-S PO 2 each BID EDITH Administration Simethicone 80 mg 04/03/17 10:00 Mylicon Chew PO ACHS PRN Bloating 04/07/17 weight increasing, IV fluids discontinued. Tolerating full liquid diet with no nausea or vomiting. Passing flatus. Telemetry sinus rhythm. Low grade fevers, T-max 99.6, chest x-ray nonacute. Hemoglobin 8.1. Renal function , LFTs, improving. Evaluated by general surgery, recommendations noted. Denies chest pain, palpitations. Ambulating to , with assistance. 04/11/2017 patient being discharged home today per Dr. Sousa surgery. Ambulating, without difficulty. Positive bowel movement. Pain controlled. Hemoglobin 8.3. Systolic blood pressure in the 110s, Potassium 3.2, potassium supplements ordered. Renal function improving, LFTs, T bili improving. Denies chest pain, palpitations or increased shortness of breath. Denies lightheadedness dizziness or focal deficits. Objective - Vital Signs Vital signs: Vital Signs Temp 97.9 F 04/11/17 07:55 Pulse 74 04/11/17 07:55 Resp 18 04/11/17 07:55 BP 116/77 04/11/17 07:55 Pulse Ox 98 04/11/17 07:55 Intake & Output 04/10/17 04/11/17 04/11/17 18:59 06:59 18:59 Intake Total 240 900 Balance 240 900 Weight 86.4 kg 84.3 kg Intake: Oral 240 900 Other: Voiding Method Toilet # Voids 1 1 2 - Labs CBC & Chem 7: 04/11/17 06:56 04/11/17 06:56 Labs: Abnormal Lab Results - Last 24 Hours (Table) 04/11/17 04/11/17 04/11/17 Range/Units 06:56 06:56 06:56 RBC 3.13 L (3.80-5.40) m/uL Hgb 8.3 L (11.4-16.0) gm/dL Hct 27.1 L (34.0-46.0) % MCHC 30.4 L (31.0-37.0) g/dL RDW 17.6 H (11.5-15.5) % Potassium 3.2 L (3.5-5.1) mmol/L BUN 18 H (7-17) mg/dL Creatinine 1.39 H (0.52-1.04) mg/dL Magnesium 1.5 L (1.6-2.3) mg/dL Total Bilirubin 1.5 H (0.2-1.3) mg/dL AST 53 H (14-36) U/L ALT 63 H (9-52) U/L Alkaline Phosphatase 255 H (38-126) U/L Total Protein 5.1 L (6.3-8.2) g/dL Albumin 2.8 L (3.5-5.0) g/dL Assessment and Plan Assessment: 1. Status post total abdominal hysterectomy with lysis of adhesions 2. Acute renal failure, possibly prerenal, improving 3. Postoperative Anemia status post transfusions 4. Increased AST, ALT 5. History of chronic intermittent asthma 6. Hypertension 7. DJD, chronic back pain, history of back surgery 8. Left nonobstructive kidney stone 9. Paracolic gutter hemorrhage per CT, post surgery 10. Hypotension, multifactorial, improving Plan: Continue on current medication regime ,monitoring and symptomatic treatment. Potassium supplements ordered. Magnesium level pending with magnesium replacement ordered. Potassium and magnesium replacement orders discussed with RN. Aggressive pulmonary toilet , IS reinforced. Outpatient CMP , CBC ordered. Follow up with PCP, Dr. Connelly in 3 days. OP MRCP or biphasic computed tomography scan of pancreatitis as per Dr. Mauricio. Recommend continue holding WILLIAM inhibitor, reevaluate outpatient with PCP at follow-up visit. Further recommendations to follow. The impression and plan of care has been dictated as directed. DrJodi: I performed a history and examination of this patient, discussed the same with the dictator. I agree with the dictator's note ,documented as a scribe. Any additional findings or plans will be noted. <Tim Arita - Last Filed: 04/28/17 10:46> Objective - Vital Signs Vital signs: Vital Signs Temp 97.9 F 04/11/17 07:55 Pulse 74 04/11/17 07:55 Resp 18 04/11/17 07:55 BP 116/77 04/11/17 07:55 Pulse Ox 98 04/11/17 07:55 - Labs CBC & Chem 7: 04/11/17 06:56 04/11/17 06:56 Assessment and Plan Assessment: Progress note is being dictated for Dr. Arita. Not for Dr. Byers on this date. Time with Patient: Greater than 30
== END 2017-04-11 11:37 | disposition home or self-care (01) | DRG 981 ==
LOC: 2ORWHC 06:00 → 4FBP 09:03 → 6SEL 04-04 18:17 → 6PED 04-10 13:05
PROVIDERS: ADMIT Obstetrics & Gynecology; ATTEND Obstetrics & Gynecology
PROC: 0TNB0ZZ Release Bladder, Open Approach (ICD-10-PCS; 2017-04-03)
PROC: 0UT90ZZ Resection of Uterus, Open Approach (ICD-10-PCS; principal; 2017-04-03 07:45)
PROC: 30233N1 Transfusion of Nonautologous Red Blood Cells into Peripheral Vein, Percutaneous Approach (ICD-10-PCS; 2017-04-04)
DX: R10.2 Pelvic and perineal pain (principal); K66.1 Hemoperitoneum; R34 Anuria and oliguria; I95.9 Hypotension, unspecified; E87.2 Acidosis; N17.9 Acute kidney failure, unspecified; M41.9 Scoliosis, unspecified; K59.00 Constipation, unspecified; R11.2 Nausea with vomiting, unspecified; I10 Essential (primary) hypertension; N32.89 Other specified disorders of bladder; J45.909 Unspecified asthma, uncomplicated; N20.0 Calculus of kidney; M19.90 Unspecified osteoarthritis, unspecified site; J45.20 Mild intermittent asthma, uncomplicated; G89.29 Other chronic pain; R60.9 Edema, unspecified; D50.0 Iron deficiency anemia secondary to blood loss (chronic); T39.395A Adverse effect of other nonsteroidal anti-inflammatory drugs [NSAID], initial encounter; Z88.8 Allergy status to other drugs, medicaments and biological substances; Z90.49 Acquired absence of other specified parts of digestive tract; Z79.899 Other long term (current) drug therapy; Z98.51 Tubal ligation status; Z80.9 Family history of malignant neoplasm, unspecified
CPT/HCPCS: 71045; 74176; 76705; 76770; 76857; 80053; 81001; 81025; 83540; 83550; 83735; 84484; 85025; 85027; 85610; 85730; 86850; 86900; 86901; 86920; 87086; 88307; 93005

== ENCOUNTER 2017-05-28 03:43 | Emergency (ER) | payer BC, OTHER ==
[2017-05-28 03:51] VITALS: TEMP 97.1
[2017-05-28] MEDS ORDERED: IBUPROFEN 600 MG TAB PO STA (04:26)
[2017-05-28 04:57] LABS: Basophils # (A) 0.1 k/uL (0-0.2); Basophils % (A) 1 %; Eosinophils # (A) 0.4 k/uL (0-0.7); Eosinophils % (A) 5 %; HCT 35.9 % (34.0-46.0); Lymphocytes # (A) 1.7 k/uL (1.0-4.8); Lymphocytes % (A) 24 %; MCH 27.8 pg (25.0-35.0); MCHC 33.7 g/dL (31.0-37.0); MCV 82.4 fL (80.0-100.0); Mean Platelet Volume 6.8; Monocytes # (A) 0.4 k/uL (0-1.0); Monocytes % (A) 6 %; Neutrophils # (A) 4.3 k/uL (1.3-7.7); Neutrophils % (A) 62 %; Platelet Count 274 k/uL (150-450); RBC 4.35 m/uL (3.80-5.40); RDW 15.8 % (11.5-15.5); WBC 6.8 k/uL (3.8-10.6)
[2017-05-28 05:04] LABS: Calcium 10.1 mg/dL (8.4-10.2); Potassium 4.4 mmol/L (3.5-5.1)
[2017-05-28] MEDS ORDERED: MORPHINE SULFATE 4 MG/ML SYRINGE IM STA (05:04)
--- NOTE | 2017-05-28 05:07 | ED ---
Female Urogenital HPI - General Chief complaint: Vaginal Bleeding Stated complaint: Vaginal Bleeding/Pelvic Pain Time Seen by Provider: 05/28/17 04:20 Source: patient Mode of arrival: wheelchair Limitations: no limitations - History of Present Illness Initial comments: This patient is a 46-year-old woman presenting to be evaluated for suprapubic pain and vaginal bleeding. She states this developed tonight after she had intercourse. She states that she developed sharp stabbing pain in the suprapubic area and noted vaginal bleeding. She states that she had had a hysterectomy on April 03 with a somewhat complicated postsurgical course, in that there were bladder wall adhesions and the patient did require transfusion following the procedure. MD Complaint: vaginal bleeding, pelvic pain -: hour(s) Location: suprapubic Severity: moderate Quality: sharp Consistency: constant Improves with: none Worsens with: intercourse Patient : No Associated Symptoms: vaginal bleeding - Related Data Home Medications Medication Instructions Recorded Confirmed Phentermine HCl [Adipex-P] 37.5 mg PO QAM 10/13/15 05/28/17 amLODIPine BESYLATE [Norvasc] 2.5 mg PO DAILY 05/28/17 05/28/17 Allergies Allergy/AdvReac Type Severity Reaction Status Date / Time gadobenate dimeglumine Allergy Intermediate Dyspnea Verified 05/28/17 08:56 [From Multihance] cyclobenzaprine HCl Allergy ITCHING OF Verified 05/28/17 08:56 [From Flexeril] SKIN promethazine HCl Allergy ITCHING OF Verified 05/28/17 08:56 [From Phenergan] SKIN Review of Systems ROS Statement: Those systems with pertinent positive or pertinent negative responses have been documented in the HPI. ROS Other: All systems not noted in ROS Statement are negative. Constitutional: Denies: fever, chills, weakness Respiratory: Denies: cough, dyspnea Cardiovascular: Denies: chest pain, palpitations, edema, syncope Gastrointestinal: Reports: as per HPI, abdominal pain. Denies: nausea, vomiting , diarrhea, constipation Genitourinary: Denies: dysuria, hematuria Musculoskeletal: Denies: back pain Skin: Denies: rash Neurological: Denies: headache, weakness, numbness Hematological/Lymphatic: Denies: easy bleeding Past Medical History Past Medical History: Asthma, Hypertension Additional Past Medical History / Comment(s): back pain, scoliosis History of Any Multi-Drug Resistant Organisms: None Reported Past Surgical History: Back Surgery, Section, Cholecystectomy, Tubal Ligation Additional Past Surgical History / Comment(s): neck surgery Past Anesthesia/Blood Transfusion Reactions: No Reported Reaction Additional Past Anesthesia/Blood Transfusion Reaction / Comment(s): no problems w/transfusions Past Psychological History: No Psychological Hx Reported Smoking Status: Never smoker Past Alcohol Use History: None Reported Past Drug Use History: None Reported - Past Family History Mother Family Medical History: Cancer General Exam Limitations: no limitations General appearance: alert, in no apparent distress Head exam: Present: atraumatic, normocephalic Respiratory exam: Present: normal lung sounds bilaterally. Absent: respiratory distress, wheezes, rales, rhonchi, stridor Cardiovascular Exam: Present: regular rate, normal rhythm, normal heart sounds. Absent: systolic murmur, diastolic murmur, rubs, gallop GI/Abdominal exam: Present: soft, tenderness. Absent: distended, guarding, rebound, rigid, mass, pulsatile mass, hernia External exam: Present: normal external exam. Absent: erythema, swelling, lesions, lacerations, ecchymosis Speculum exam: Present: vaginal bleeding Extremities exam: Present: normal capillary refill. Absent: pedal edema Back exam: Present: normal inspection. Absent: CVA tenderness (R), CVA tenderness (L) Neurological exam: Present: alert Skin exam: Present: warm, dry, intact, normal color. Absent: rash Course Vital Signs 05/28/17 05/28/17 03:49 06:48 Temperature 97.1 F L Pulse Rate 87 85 Respiratory 16 18 Rate Blood Pressure 141/84 118/72 O2 Sat by Pulse 99 100 Oximetry Medical Decision Making - Medical Decision Making Case D/W Dr. Faye, who would like the patient to refrain from intercourse, practice pelvic rest, and see Dr. Sousa before resuming sexual activity. She will call for an appointment on Monday to schedule for the coming week when Dr. Zacarias returns. - Lab Data Result diagrams: 05/28/17 04:45 05/28/17 04:45 Lab Results 05/28/17 05/28/17 05/28/17 Range/Units 04:45 04:45 04:45 WBC 6.8 (3.8-10.6) k/uL RBC 4.35 (3.80-5.40) m/uL Hgb 12.1 D (11.4-16.0) gm/dL Hct 35.9 (34.0-46.0) % MCV 82.4 (80.0-100.0) fL MCH 27.8 (25.0-35.0) pg MCHC 33.7 (31.0-37.0) g/dL RDW 15.8 H (11.5-15.5) % Plt Count 274 (150-450) k/uL Neutrophils % 62 % Lymphocytes % 24 % Monocytes % 6 % Eosinophils % 5 % Basophils % 1 % Neutrophils # 4.3 (1.3-7.7) k/uL Lymphocytes # 1.7 (1.0-4.8) k/uL Monocytes # 0.4 (0-1.0) k/uL Eosinophils # 0.4 (0-0.7) k/uL Basophils # 0.1 (0-0.2) k/uL PT 9.6 (9.0-12.0) sec INR 1.0 (<1.2) APTT 20.0 L (22.0-30.0) sec Sodium 142 (137-145) mmol/L Potassium 4.4 (3.5-5.1) mmol/L Chloride 105 (98-107) mmol/L Carbon Dioxide 23 (22-30) mmol/L Anion Gap 14 mmol/L BUN 31 H (7-17) mg/dL Creatinine 1.00 (0.52-1.04) mg/dL Est GFR (CKD-EPI)AfAm 78 (>60 ml/min/1.73 sqM) Est GFR (CKD-EPI)NonAf 67 (>60 ml/min/1.73 sqM) Glucose 122 H (74-99) mg/dL Calcium 10.1 (8.4-10.2) mg/dL Disposition Clinical Impression: Vaginal bleeding Disposition: HOME SELF-CARE Condition: Good Instructions: Dysfunctional Uterine Bleeding (ED) Additional Instructions: As we discussed, avoid having vaginal intercourse or placing into anything into the vagina until he see Dr. Sousa Referrals: Alex Connelly MD [Primary Care Provider] - 1-2 days
[2017-05-28 05:13] LABS: Prothrombin Time 9.6 sec (9.0-12.0)
[2017-05-28 05:16] LABS: HGB 12.1 gm/dL (11.4-16.0)
[2017-05-28 06:49] VITALS: BP 118/72; PULSE 85; RESP 18
--- NOTE | 2017-05-28 08:11 | US ---
EXAMINATION TYPE: US pelvis complete transvag DATE OF EXAM: 05/28/2017 COMPARISON: NONE CLINICAL HISTORY: Pain, hysterectomy Apr 03, 2017, post coital pain and bleeding at 2am today. TECHNIQUE: Transvaginal (TV) and Transabdominal (TA) . Transabdominal sonographic images of the pel vis were acquired. Transvaginal sonographic images were medically necessary to better assess the fol lowing anatomy: ovaries Date of LMP: Hysterectomy EXAM MEASUREMENTS: Uterus: Surgically absent Endometrial Stripe: Surgically absent Right Ovary: Obscured by extensive overlying bowel gas Left Ovary: Obscured by extensive overlying bowel gas 1. Uterus: Surgically absent 2. Endometrium: Surgically absent 3. Right Ovary: Obscured by extensive overlying bowel gas 4. Left Ovary: Obscured by extensive overlying bowel gas Spectral, color and waveform doppler imaging shows good arterial and venous flow within the ovaries ; there is no evidence for ovarian torsion. 5. Bilateral Adnexa: extensive peristalsing bowel 6. Posterior cul-de-sac: wnl IMPRESSION: 1. STATUS POST HYSTERECTOMY. 2. FAILURE TO VISUALIZE EITHER OVARY.
[2017-05-28] MEDS ORDERED: MORPHINE SULF 5MG/10ML VL IM STA (09:11)
[2017-05-28] MEDS ORDERED: MORPHINE SULF 5MG/10ML VL ONE (09:17)
== END 2017-05-28 09:32 | disposition home or self-care (01) ==
LOC: EC 03:43
DX: N93.9 Abnormal uterine and vaginal bleeding, unspecified (principal); I10 Essential (primary) hypertension; Z98.51 Tubal ligation status; Z90.710 Acquired absence of both cervix and uterus; Z53.20 Procedure and treatment not carried out because of patient's decision for unspecified reasons; Z79.899 Other long term (current) drug therapy; Z88.8 Allergy status to other drugs, medicaments and biological substances
CPT/HCPCS: 99284; 96372 ×2; 36415; 80048; 85025; 85610; 85730; 76856; 76830; J2270 ×2

== ENCOUNTER 2019-08-07 12:04 | Inpatient (IN) | payer BC, OTHER ==
[2019-08-07] MEDS ORDERED: ONDANSETRON 4 MG/2 ML VIAL IVP STA (12:21)
[2019-08-07] MEDS ORDERED: KETOROLAC 30 MG/ML 1 ML VIAL IVP STA (12:21)
[2019-08-07] MEDS ORDERED: MORPHINE SULFATE 4 MG/ML SYRINGE IV STA (12:21)
[2019-08-07] MEDS ORDERED: SODIUM CHLORIDE 0.9% 1,000 ML IV STA ×2 (12:21)
--- NOTE | 2019-08-07 13:06 | ED ---
Abdominal Pain HPI - General Source: patient, RN notes reviewed, old records reviewed Mode of arrival: wheelchair Limitations: no limitations <Matilde Churchill - Last Filed: 08/07/19 15:25> <Juan Zambrano - Last Filed: 08/07/19 16:05> - General Chief Complaint: Abdominal Pain Stated Complaint: Weakness Time Seen by Provider: 08/07/19 12:12 - History of Present Illness Initial Comments: Patient is a 49-year-old female presents emergency reports A for evaluation for general weakness, fevers chills nausea and vomiting. She is treated for urinary tract infection is had a history of pyelonephritis and kidney stones in the past. Patient states she's been on nitro no fever or tone for the past 3 days. (Matilde Churchill) - Related Data Home Medications Medication Instructions Recorded Confirmed Phentermine HCl [Adipex-P] 37.5 mg PO DAILY 10/13/15 08/07/19 Furosemide [Lasix] 20 mg PO DAILY 08/07/19 08/07/19 Nitrofurantoin Monohyd/M-Cryst 100 mg PO BID 08/07/19 08/07/19 [Macrobid] Ondansetron Odt [Zofran Odt] 4 mg PO TID PRN 08/07/19 08/07/19 Phenazopyridine [Pyridium] 100 mg PO TID-W/MEALS PRN 08/07/19 08/07/19 Allergies Allergy/AdvReac Type Severity Reaction Status Date / Time gadobenate dimeglumine Allergy Intermediate Dyspnea Verified 08/07/19 14:19 [From Multihance] cyclobenzaprine HCl Allergy ITCHING OF Verified 08/07/19 14:19 [From Flexeril] SKIN promethazine HCl Allergy ITCHING OF Verified 08/07/19 14:19 [From Phenergan] SKIN Review of Systems ROS Other: All systems not noted in ROS Statement are negative. <Matilde Churchill - Last Filed: 08/07/19 15:25> ROS Other: All systems not noted in ROS Statement are negative. <Juan Zambrano - Last Filed: 08/07/19 16:05> ROS Statement: Those systems with pertinent positive or pertinent negative responses have been documented in the HPI. Past Medical History Past Medical History: Asthma, Hypertension Additional Past Medical History / Comment(s): back pain, scoliosis History of Any Multi-Drug Resistant Organisms: None Reported Past Surgical History: Back Surgery, Section, Cholecystectomy, Tubal Ligation Additional Past Surgical History / Comment(s): neck surgery Past Anesthesia/Blood Transfusion Reactions: No Reported Reaction Additional Past Anesthesia/Blood Transfusion Reaction / Comment(s): no problems w/transfusions Past Psychological History: No Psychological Hx Reported Smoking Status: Never smoker Past Alcohol Use History: None Reported Past Drug Use History: None Reported - Past Family History Mother Family Medical History: Cancer <ZhaoMatilde - Last Filed: 08/07/19 15:25> General Exam Limitations: no limitations General appearance: alert, in no apparent distress Head exam: Present: atraumatic, normocephalic, normal inspection Eye exam: Present: normal appearance, PERRL, EOMI. Absent: scleral icterus, conjunctival injection, periorbital swelling ENT exam: Present: normal exam, mucous membranes moist Neck exam: Present: normal inspection. Absent: tenderness, meningismus, lymphadenopathy Respiratory exam: Present: normal lung sounds bilaterally. Absent: respiratory distress, wheezes, rales, rhonchi, stridor Cardiovascular Exam: Present: regular rate, normal rhythm, normal heart sounds. Absent: systolic murmur, diastolic murmur, rubs, gallop, clicks GI/Abdominal exam: Present: soft, normal bowel sounds. Absent: distended, tenderness, guarding, rebound, rigid Extremities exam: Present: normal inspection, full ROM, normal capillary refill. Absent: tenderness, pedal edema, joint swelling, calf tenderness Back exam: Present: normal inspection Neurological exam: Present: alert, oriented X3, CN II-XII intact Psychiatric exam: Present: normal affect, normal mood Skin exam: Present: warm, dry, intact, normal color. Absent: rash <ZhaoMatilde - Last Filed: 08/07/19 15:25> - General Exam Comments Initial Comments: 49-year-old female. Alert and oriented 3. Patient appears in moderate discomfort. (Matilde Churchill) Course Vital Signs 08/07/19 08/07/19 08/07/19 12:06 13:11 14:00 Temperature 98.4 F 100.5 F H Pulse Rate 109 H 98 88 Respiratory 18 20 20 Rate Blood Pressure 135/75 126/81 121/65 O2 Sat by Pulse 98 95 99 Oximetry 08/07/19 14:55 Temperature 100.0 F H Pulse Rate 85 Respiratory 16 Rate Blood Pressure 123/76 O2 Sat by Pulse 100 Oximetry Medical Decision Making - Lab Data Result diagrams: 08/07/19 13:22 08/07/19 13:22 - Radiology Data Radiology results: report reviewed <Kiara Churchillily - Last Filed: 08/07/19 15:25> - Lab Data Result diagrams: 08/07/19 13:22 08/07/19 13:22 <Juan Zambrano - Last Filed: 08/07/19 16:05> - Medical Decision Making 49-year-old female presents emergency department today for evaluation for concern for bilateral flank pain, fevers chills nausea and vomiting. She's been on Macrobid for the past 3 days. Patient states she's not been able to break her fever. Patient was given IV fluids labwork obtained. Evidence of mild cytosis. Urinalysis is positive for infection. Urine culture and blood culture completed today. Patient's case is discussed with Dr. Zambrano who discussed this with Dr. Byers. Patient was admitted for pyelonephritis. sHe was given a 2 g Rocephin bolus for concern for pyelonephritis. (Matilde Churchill) Patient was reevaluated and reexamined by myself, Dr. Zambrano. I do agree with PA findings. This includes diagnostic interpretation and treatment plan. Patient updated on results and plan. Case was discussed in detail with Dr. el who will take patient for stent placement. Case also discussed with Dr. Mitchell, who will admit covering for Dr. dobbs. (Juan Zambrano) - Lab Data Lab Results 08/07/19 08/07/19 08/07/19 Range/Units 13:19 13:22 13:22 WBC 11.3 H (3.8-10.6) k/uL RBC 5.30 (3.80-5.40) m/uL Hgb 14.3 (11.4-16.0) gm/dL Hct 44.7 (34.0-46.0) % MCV 84.2 (80.0-100.0) fL MCH 27.1 (25.0-35.0) pg MCHC 32.1 (31.0-37.0) g/dL RDW 13.6 (11.5-15.5) % Plt Count 173 (150-450) k/uL Neutrophils % 90 % Lymphocytes % 2 % Monocytes % 6 % Eosinophils % 0 % Basophils % 0 % Neutrophils # 10.2 H (1.3-7.7) k/uL Lymphocytes # 0.3 L (1.0-4.8) k/uL Monocytes # 0.7 (0-1.0) k/uL Eosinophils # 0.0 (0-0.7) k/uL Basophils # 0.0 (0-0.2) k/uL PT (9.0-12.0) sec INR (<1.2) APTT (22.0-30.0) sec Sodium 131 L (137-145) mmol/L Potassium 4.4 (3.5-5.1) mmol/L Chloride 94 L (98-107) mmol/L Carbon Dioxide 26 (22-30) mmol/L Anion Gap 11 mmol/L BUN 23 H (7-17) mg/dL Creatinine 1.28 H (0.52-1.04) mg/dL Est GFR (CKD-EPI)AfAm 56 (>60 ml/min/1.73 sqM) Est GFR (CKD-EPI)NonAf 49 (>60 ml/min/1.73 sqM) Glucose 125 H (74-99) mg/dL Plasma Lactic Acid Srinivasan (0.7-2.0) mmol/L Calcium 10.1 (8.4-10.2) mg/dL Total Bilirubin 1.1 (0.2-1.3) mg/dL AST 133 H (14-36) U/L ALT 153 H (4-34) U/L Alkaline Phosphatase 267 H (38-126) U/L Total Protein 7.3 (6.3-8.2) g/dL Albumin 4.1 (3.5-5.0) g/dL Amylase 45 (30-110) U/L Lipase 45 (23-300) U/L Urine Color Dark Brown Urine Appearance Cloudy H (Clear) Urine pH 7.0 (5.0-8.0) Ur Specific Ozan 1.021 (1.001-1.035) Urine Protein 2+ H (Negative) Urine Glucose (UA) Negative (Negative) Urine Ketones 1+ H (Negative) Urine Blood Small H (Negative) Urine Nitrite Positive H (Negative) Urine Bilirubin 1+ H (Negative) Urine Urobilinogen 4.0 (<2.0) mg/dL Ur Leukocyte Esterase Large H (Negative) Urine RBC 17 H (0-5) /hpf Urine WBC 151 H (0-5) /hpf Urine WBC Clumps Moderate H (None) /hpf Ur Squamous Epith Cells 5 H (0-4) /hpf Urine Bacteria Few H (None) /hpf 08/07/19 08/07/19 Range/Units 13:22 13:22 WBC (3.8-10.6) k/uL RBC (3.80-5.40) m/uL Hgb (11.4-16.0) gm/dL Hct (34.0-46.0) % MCV (80.0-100.0) fL MCH (25.0-35.0) pg MCHC (31.0-37.0) g/dL RDW (11.5-15.5) % Plt Count (150-450) k/uL Neutrophils % % Lymphocytes % % Monocytes % % Eosinophils % % Basophils % % Neutrophils # (1.3-7.7) k/uL Lymphocytes # (1.0-4.8) k/uL Monocytes # (0-1.0) k/uL Eosinophils # (0-0.7) k/uL Basophils # (0-0.2) k/uL PT 10.2 (9.0-12.0) sec INR 1.0 (<1.2) APTT 27.1 (22.0-30.0) sec Sodium (137-145) mmol/L Potassium (3.5-5.1) mmol/L Chloride (98-107) mmol/L Carbon Dioxide (22-30) mmol/L Anion Gap mmol/L BUN (7-17) mg/dL Creatinine (0.52-1.04) mg/dL Est GFR (CKD-EPI)AfAm (>60 ml/min/1.73 sqM) Est GFR (CKD-EPI)NonAf (>60 ml/min/1.73 sqM) Glucose (74-99) mg/dL Plasma Lactic Acid Srinivasan 1.5 (0.7-2.0) mmol/L Calcium (8.4-10.2) mg/dL Total Bilirubin (0.2-1.3) mg/dL AST (14-36) U/L ALT (4-34) U/L Alkaline Phosphatase (38-126) U/L Total Protein (6.3-8.2) g/dL Albumin (3.5-5.0) g/dL Amylase (30-110) U/L Lipase (23-300) U/L Urine Color Urine Appearance (Clear) Urine pH (5.0-8.0) Ur Specific Ozan (1.001-1.035) Urine Protein (Negative) Urine Glucose (UA) (Negative) Urine Ketones (Negative) Urine Blood (Negative) Urine Nitrite (Negative) Urine Bilirubin (Negative) Urine Urobilinogen (<2.0) mg/dL Ur Leukocyte Esterase (Negative) Urine RBC (0-5) /hpf Urine WBC (0-5) /hpf Urine WBC Clumps (None) /hpf Ur Squamous Epith Cells (0-4) /hpf Urine Bacteria (None) /hpf - Radiology Data EKG shows normal sinus rhythm normal EKG. Ventricular rate of 94 bpm. Intervals 128 ms. QRS duration is 84 ms. QT QTc is 342/427 ms. Chest x-ray shows nonspecific abdomen. Stable left renal colliculi. Chest x- ray shows no acute process. (Matilde Churchill) Disposition Is patient prescribed a controlled substance at d/c from ED?: No Time of Disposition: 15:27 <Matilde Churchill - Last Filed: 08/07/19 15:25> <Juan Zambrano - Last Filed: 08/07/19 16:05> Clinical Impression: Pyelonephritis Disposition: ADMITTED IP TO THIS HOSP Condition: Stable
[2019-08-07 14:01] LABS: Basophils % (A) 0 %; Eosinophils % (A) 0 %; HCT 44.7 % (34.0-46.0); HGB 14.3 gm/dL (11.4-16.0); Lymphocytes # (A) 0.3 k/uL (1.0-4.8); Lymphocytes % (A) 2 %; MCH 27.1 pg (25.0-35.0); MCHC 32.1 g/dL (31.0-37.0); MCV 84.2 fL (80.0-100.0); Mean Platelet Volume 7.4; Monocytes # (A) 0.7 k/uL (0-1.0); Monocytes % (A) 6 %; Neutrophils # (A) 10.2 k/uL (1.3-7.7); Neutrophils % (A) 90 %; Platelet Count 173 k/uL (150-450); RDW 13.6 % (11.5-15.5); WBC 11.3 k/uL (3.8-10.6)
[2019-08-07 14:17] LABS: Appearance,Urine Cloudy (Clear); Bacteria,Urine Few /hpf; Bilirubin,Urine 1+ (Negative); Blood,Urine Small (Negative); Color,Urine Dark Brown; Glucose,Urine (UA) Negative (Negative); Ketones,Urine 1+ (Negative); Leukocyte Esterase,Urine Large (Negative); Nitrite,Urine Positive (Negative); Protein,Urine 2+ (Negative); RBC,Urine 17 /hpf (0-5); Specific Gravity,Urine 1.021 (1.001-1.035); Squamous Epithelial Cell,Urine 5 /hpf (0-4); WBC,Urine 151 /hpf (0-5)
[2019-08-07 14:18] LABS: Partial Thromboplastin Time 27.1 sec (22.0-30.0); Prothrombin Time 10.2 sec (9.0-12.0)
[2019-08-07 14:21] LABS: Albumin 4.1 g/dL (3.5-5.0); Calcium 10.1 mg/dL (8.4-10.2); Potassium 4.4 mmol/L (3.5-5.1); Total Bilirubin 1.1 mg/dL (0.2-1.3); Total Protein 7.3 g/dL (6.3-8.2)
[2019-08-07] MEDS ORDERED: cefTRIAXone IN SWFI 1,000 MG/10 ML SYRINGE IVP STA (14:29)
--- NOTE | 2019-08-07 14:55 | XR ---
EXAMINATION TYPE: XR chest 2V DATE OF EXAM: 08/07/2019 COMPARISON: 04/07/2017 TECHNIQUE: PA and lateral views submitted. HISTORY: Left-sided pain FINDINGS: The lungs are clear and there is no pneumothorax, pleural effusion, or focal pneumonia. Postsurgica l change overlying cervical spine. No overt failure. Surgical clips in the right upper quadrant. IMPRESSION: 1. No acute process.
--- NOTE | 2019-08-07 14:56 | XR ---
EXAMINATION TYPE: XR KUB DATE OF EXAM: 08/07/2019 COMPARISON: 02/04/2012 HISTORY: Pain TECHNIQUE: One view abdominal series FINDINGS: The osseous structures are intact. The bowel gas pattern is nonspecific. Postsurgical changes are no graciela involving vertebral, and right upper quadrant. Lung bases clear. Stents retained fecal debris thr oughout the colon. Right kidney: No suspicious calcifications. Left kidney: Stable two calcifications in the left abdomen. Measure approximately 6 mm. IMPRESSION: 1. Nonspecific abdomen. Stable left renal calculi.
[2019-08-07] MEDS ORDERED: IBUPROFEN 400 MG TAB PO PRN (15:23)
[2019-08-07] MEDS ORDERED: NALOXONE 0.4 MG/ML 1 ML VIAL IV PRN (15:23)
[2019-08-07] MEDS ORDERED: KETOROLAC 30 MG/ML 1 ML VIAL IVP PRN (15:23)
--- NOTE | 2019-08-07 15:49 | CT ---
EXAMINATION TYPE: CT abdomen pelvis wo con DATE OF EXAM: 08/07/2019 COMPARISON: 04/05/2017 INDICATION: Bilat flank pain with fever and urination changes DLP: 654.6 mGycm, Automated exposure control for dose reduction was used. CONTRAST: 0 mL of Isovue 300. Study performed without Oral Contrast TECHNIQUE: Axial images were obtained from above the diaphragm to the pubic rami in the axial plane a t 5 mm thick sections. Reconstructed images are reviewed on the computer in the coronal plane. FINDINGS: Limited CT sections are obtained the lung bases. The lung bases are clear. CT ABDOMEN: Liver: Normal Spleen: Normal Pancreas: Normal Adrenal glands: The adrenal glands are normal. Gallbladder: Normal Kidneys: No masses are evident. There is moderate right hydronephrosis. No cysts are present. There are 2 calcifications at the inferior pole left kidney measuring 0.5 and 0.6 cm in size. A 0.2 cm calc ification is the mid lateral left kidney. Left kidney is smaller than the right kidney. Right hydrone phrosis and hydroureter is evident. Hydroureter extends to the mid right hemipelvis. There is an obst ructing 0.4 cm ureteral stone at this level. Aorta: Normal Inferior vena cava: Normal. CT PELVIS: Loops of bowel within the abdomen and pelvis are normal. Couple of diverticular changes within the s igmoid colon are present. The studies performed without oral contrast limiting bowel evaluation. Fe otis debris is through the colon. Appendix: Normal as visualized. Urinary bladder: Normal. No calcifications within the urinary bladder are evident. Genitourinary structures: Uterus and ovaries are not identified. Osseous structures: No suspicious lytic or sclerotic lesions. IMPRESSIONS: 1. A 0.4 cm obstructing mid right hemipelvis ureteral stone. 2. Nonobstructing left renal stones. 3. Moderate right hydronephrosis and hydroureter. 4. Moderate fecal retention
[2019-08-07] MEDS ORDERED: SODIUM CHLORIDE 0.9% 1,000 ML IV ONE ×2 (15:57→17:48)
[2019-08-07] MEDS ORDERED: ONDANSETRON 4 MG/2 ML VIAL ONE (17:39)
[2019-08-07] MEDS ORDERED: PROPOFOL 10 MG/ML 20 ML VIAL IV ONE (17:39)
[2019-08-07] MEDS ORDERED: MIDAZOLAM 2 MG/2 ML VIAL ONE (17:39)
[2019-08-07] MEDS ORDERED: DEXAMETHASONE SOD PHOSPHATE 10 MG/ML 1 ML VIAL ONE (17:39)
[2019-08-07] MEDS ORDERED: SUCCINYLCHOLINE CHLORIDE 100 MG/5 ML SYR IV ONE (17:39)
[2019-08-07] MEDS ORDERED: fentaNYL (PF) 50 MCG/ML 2 ML AMP ONE (17:39)
[2019-08-07] MEDS ORDERED: LIDOCAINE 1% INJ 10MG/ML (20 ML MDV) ONE (17:39)
--- NOTE | 2019-08-07 17:43 | P.GSCN ---
History of Present Illness Consult date: 08/07/19 Reason for Consult: right ureteral calculi History of present illness: Ms Abbasi is 49 yo female with that presents to the ED with right sided flank pain and fever. She is currently on Macrobid for UTI. She has hx of kidney stones and recurrent UTI. In the ED she underwent a CT which showed a 4mm distal ureteral stone on the right and non-obstructing stone on left. On presentation her temp was 100.5. Review of Systems - Constitutional Reports chills, Reports fever - EENT Ears, nose, mouth and throat: Denies dysphagia, Denies voice changes - Cardiovascular Denies chest pain, Denies dyspnea on exertion - Respiratory Denies cough, Denies dyspnea - Gastrointestinal Reports abdominal pain - Genitourinary Genitourinary: Reports flank pain, Reports kidney stones Past Medical History Past Medical History: Asthma, Hypertension Additional Past Medical History / Comment(s): back pain, scoliosis History of Any Multi-Drug Resistant Organisms: None Reported Past Surgical History: Back Surgery, Section, Cholecystectomy, Tubal Ligation Additional Past Surgical History / Comment(s): neck surgery Past Anesthesia/Blood Transfusion Reactions: No Reported Reaction Additional Past Anesthesia/Blood Transfusion Reaction / Comm: no problems w/transfusions Past Psychological History: No Psychological Hx Reported Smoking Status: Never smoker Past Alcohol Use History: None Reported Past Drug Use History: None Reported - Past Family History Mother Family Medical History: Cancer Medications and Allergies Home Medications Medication Instructions Recorded Confirmed Type Phentermine HCl [Adipex-P] 37.5 mg PO DAILY 10/13/15 08/07/19 History Furosemide [Lasix] 20 mg PO DAILY 08/07/19 08/07/19 History Nitrofurantoin Monohyd/M-Cryst 100 mg PO BID 08/07/19 08/07/19 History [Macrobid] Ondansetron Odt [Zofran Odt] 4 mg PO TID PRN 08/07/19 08/07/19 History Phenazopyridine [Pyridium] 100 mg PO TID-W/MEALS PRN 08/07/19 08/07/19 History Allergies Allergy/AdvReac Type Severity Reaction Status Date / Time gadobenate dimeglumine Allergy Intermediate Dyspnea Verified 08/07/19 14:19 [From Multihance] cyclobenzaprine HCl Allergy ITCHING OF Verified 08/07/19 14:19 [From Flexeril] SKIN promethazine HCl Allergy ITCHING OF Verified 08/07/19 14:19 [From Phenergan] SKIN Surgical - Exam Vital Signs Temp Pulse Resp BP Pulse Ox 98.4 F 109 H 18 135/75 98 08/07/19 12:06 08/07/19 12:06 08/07/19 12:06 08/07/19 12:06 08/07/19 12:06 - General well developed, well nourished, no distress - Eyes PERRL, normal ocular movement - Respiratory normal expansion, normal respiratory effort - Abdomen Abdomen: soft, non tender - Psychiatric oriented to time, oriented to person, oriented to place, speech is normal Results - Labs 08/07/19 13:22 08/07/19 13:22 Abnormal Lab Results - Last 24 Hours (Table) 08/07/19 08/07/19 08/07/19 Range/Units 13:19 13:22 13:22 WBC 11.3 H (3.8-10.6) k/uL Neutrophils # 10.2 H (1.3-7.7) k/uL Lymphocytes # 0.3 L (1.0-4.8) k/uL Sodium 131 L (137-145) mmol/L Chloride 94 L (98-107) mmol/L BUN 23 H (7-17) mg/dL Creatinine 1.28 H (0.52-1.04) mg/dL Glucose 125 H (74-99) mg/dL AST 133 H (14-36) U/L ALT 153 H (4-34) U/L Alkaline Phosphatase 267 H (38-126) U/L Urine Appearance Cloudy H (Clear) Urine Protein 2+ H (Negative) Urine Ketones 1+ H (Negative) Urine Blood Small H (Negative) Urine Nitrite Positive H (Negative) Urine Bilirubin 1+ H (Negative) Ur Leukocyte Esterase Large H (Negative) Urine RBC 17 H (0-5) /hpf Urine WBC 151 H (0-5) /hpf Urine WBC Clumps Moderate H (None) /hpf Ur Squamous Epith Cells 5 H (0-4) /hpf Urine Bacteria Few H (None) /hpf Diabetes panel 08/07/19 Range/Units 13:22 Sodium 131 L (137-145) mmol/L Potassium 4.4 (3.5-5.1) mmol/L Chloride 94 L (98-107) mmol/L Carbon Dioxide 26 (22-30) mmol/L BUN 23 H (7-17) mg/dL Creatinine 1.28 H (0.52-1.04) mg/dL Glucose 125 H (74-99) mg/dL Calcium 10.1 (8.4-10.2) mg/dL AST 133 H (14-36) U/L ALT 153 H (4-34) U/L Alkaline Phosphatase 267 H (38-126) U/L Total Protein 7.3 (6.3-8.2) g/dL Albumin 4.1 (3.5-5.0) g/dL Calcium panel 08/07/19 Range/Units 13:22 Calcium 10.1 (8.4-10.2) mg/dL Albumin 4.1 (3.5-5.0) g/dL Pituitary panel 08/07/19 Range/Units 13:22 Sodium 131 L (137-145) mmol/L Potassium 4.4 (3.5-5.1) mmol/L Chloride 94 L (98-107) mmol/L Carbon Dioxide 26 (22-30) mmol/L BUN 23 H (7-17) mg/dL Creatinine 1.28 H (0.52-1.04) mg/dL Glucose 125 H (74-99) mg/dL Calcium 10.1 (8.4-10.2) mg/dL Adrenal panel 08/07/19 Range/Units 13:22 Sodium 131 L (137-145) mmol/L Potassium 4.4 (3.5-5.1) mmol/L Chloride 94 L (98-107) mmol/L Carbon Dioxide 26 (22-30) mmol/L BUN 23 H (7-17) mg/dL Creatinine 1.28 H (0.52-1.04) mg/dL Glucose 125 H (74-99) mg/dL Calcium 10.1 (8.4-10.2) mg/dL Total Bilirubin 1.1 (0.2-1.3) mg/dL AST 133 H (14-36) U/L ALT 153 H (4-34) U/L Alkaline Phosphatase 267 H (38-126) U/L Total Protein 7.3 (6.3-8.2) g/dL Albumin 4.1 (3.5-5.0) g/dL Assessment and Plan Assessment: 49 yo female with hx of right sided distal stone, patient is temp 100.5. UA concerning for UTI -Continue IV abx, f/u on urine culture -Keep NPO for OR for right ureteral stent placement
--- NOTE | 2019-08-07 18:06 | P.HPIM ---
History of Present Illness Patient is a pleasant 49-year-old female came in with complaints of UTI including dysuria which is going on for 7 days and patient was using Macrobid which is prescribed as an outpatient and started having flank pain last 2-3 days which is worse bilateral flank area. And fever chills. Patient is found to have pyelonephritis with significant tenderness in both the CVAs. Patient had a CAT scan of abdomen which showed a 4 mm distal ureteral stone on the right side with cheese nonobstructing but there is hydronephrosis and possible pyelonephritis. UA significantly abnormal with prematurity and increased white blood cell count. Patient had fevers here in the hospital. Review of Systems REVIEW OF SYSTEMS: CONSTITUTIONAL: No fever, no malaise, no fatigue. HEENT: No recent visual problems or hearing problems. Denied any sore throat. CARDIOVASCULAR: No chest pain, orthopnea, PND, no palpitations, no syncope. PULMONARY: No shortness of breath, no cough, no hemoptysis. GASTROINTESTINAL: No diarrhea, no nausea, no vomiting, no abdominal pain. NEUROLOGICAL: No headaches, no weakness, no numbness. HEMATOLOGICAL: Denies any bleeding or petechiae. GENITOURINARY: MUSCULOSKELETAL/RHEUMATOLOGICAL: Denies any joint pain, swelling, or any muscle pain. ENDOCRINE: Denies any polyuria or polydipsia. The rest of the 14-point review of systems is negative. Past Medical History Past Medical History: Asthma, Hypertension Additional Past Medical History / Comment(s): back pain, scoliosis History of Any Multi-Drug Resistant Organisms: None Reported Past Surgical History: Back Surgery, Section, Cholecystectomy, Tubal Ligation Additional Past Surgical History / Comment(s): neck surgery Past Anesthesia/Blood Transfusion Reactions: No Reported Reaction Additional Past Anesthesia/Blood Transfusion Reaction / Comment(s): no problems w/transfusions Past Psychological History: No Psychological Hx Reported Smoking Status: Never smoker Past Alcohol Use History: None Reported Past Drug Use History: None Reported - Past Family History Mother Family Medical History: Cancer Father Family Medical History: Dementia Additional Family Medical History / Comment(s): Lung disease, parkinsons Medications and Allergies Home Medications Medication Instructions Recorded Confirmed Type Phentermine HCl [Adipex-P] 37.5 mg PO DAILY 10/13/15 08/07/19 History Furosemide [Lasix] 20 mg PO DAILY 08/07/19 08/07/19 History Nitrofurantoin Monohyd/M-Cryst 100 mg PO BID 08/07/19 08/07/19 History [Macrobid] Ondansetron Odt [Zofran Odt] 4 mg PO TID PRN 08/07/19 08/07/19 History Phenazopyridine [Pyridium] 100 mg PO TID-W/MEALS PRN 08/07/19 08/07/19 History Allergies Allergy/AdvReac Type Severity Reaction Status Date / Time gadobenate dimeglumine Allergy Intermediate Dyspnea Verified 08/07/19 17:19 [From Multihance] cyclobenzaprine HCl Allergy ITCHING OF Verified 08/07/19 17:19 [From Flexeril] SKIN promethazine HCl Allergy ITCHING OF Verified 08/07/19 17:19 [From Phenergan] SKIN levofloxacin [From Levaquin] AdvReac Severe Nausea & Verified 08/07/19 17:20 Vomiting Physical Exam Vitals: Vital Signs Temp Pulse Pulse Resp BP BP Pulse Ox 08/07/19 17:03 98.6 F 65 16 120/86 97 08/07/19 16:50 98.6 F 65 16 120/86 97 08/07/19 16:28 98.1 F 74 18 119/85 95 08/07/19 16:13 98.6 F 65 16 120/86 97 08/07/19 14:55 100.0 F H 85 16 123/76 100 08/07/19 14:00 88 20 121/65 99 08/07/19 13:11 100.5 F H 98 20 126/81 95 08/07/19 12:06 98.4 F 109 H 18 135/75 98 Intake and Output 08/07/19 08/07/19 08/07/19 06:59 14:59 22:59 Other: Voiding Method Toilet Toilet Weight 79.379 kg 79.379 kg PHYSICAL EXAMINATION: GENERAL: The patient is alert and oriented x3, age and is significantly diaphoretic looks toxic and septic HEENT: Pupils are round and equally reacting to light. EOMI. No scleral icterus. No conjunctival pallor. Normocephalic, atraumatic. No pharyngeal erythema. No thyromegaly. CARDIOVASCULAR: S1 and S2 present. No murmurs, rubs, or gallops. PULMONARY: Chest is clear to auscultation, no wheezing or crackles. ABDOMEN: Soft, as have significant post total vaginal tenderness predominantly on the right side and left-sided as well. nondistended, normoactive bowel sounds. No palpable organomegaly. MUSCULOSKELETAL: No joint swelling or deformity. EXTREMITIES: No cyanosis, clubbing, or pedal edema. NEUROLOGICAL: Gross neurological examination did not reveal any focal deficits. SKIN: No rashes. Results CBC & Chem 7: 08/07/19 13:22 08/07/19 13:22 Labs: Abnormal Lab Results - Last 24 Hours (Table) 08/07/19 08/07/19 08/07/19 Range/Units 13:19 13:22 13:22 WBC 11.3 H (3.8-10.6) k/uL Neutrophils # 10.2 H (1.3-7.7) k/uL Lymphocytes # 0.3 L (1.0-4.8) k/uL Sodium 131 L (137-145) mmol/L Chloride 94 L (98-107) mmol/L BUN 23 H (7-17) mg/dL Creatinine 1.28 H (0.52-1.04) mg/dL Glucose 125 H (74-99) mg/dL AST 133 H (14-36) U/L ALT 153 H (4-34) U/L Alkaline Phosphatase 267 H (38-126) U/L Urine Appearance Cloudy H (Clear) Urine Protein 2+ H (Negative) Urine Ketones 1+ H (Negative) Urine Blood Small H (Negative) Urine Nitrite Positive H (Negative) Urine Bilirubin 1+ H (Negative) Ur Leukocyte Esterase Large H (Negative) Urine RBC 17 H (0-5) /hpf Urine WBC 151 H (0-5) /hpf Urine WBC Clumps Moderate H (None) /hpf Ur Squamous Epith Cells 5 H (0-4) /hpf Urine Bacteria Few H (None) /hpf Microbiology - Last 24 Hours (Table) 08/07/19 13:19 Urine Culture - Preliminary Urine,Voided Thrombosis Risk Factor Assmnt - Choose All That Apply Each Factor Represents 1 point: Age 41-60 years, Obesity (BMI >25) Other congenital or acquired thrombophilia - If yes, enter type in comment: No Thrombosis Risk Factor Assessment Total Risk Factor Score: 2 Thrombosis Risk Factor Assessment Level: Low Risk Assessment and Plan Plan: -Sepsis secondary to urinary tract infection, pyelonephritis patient will continue on 2 g of Rocephin awaiting urine cultures urology was consulted for Nephrolithiasis with pyelonephritis and patient may undergo ureteral stent placement patient is on IV fluids at 1 25 mL per hour -Nephrolithiasis of the right side with right-sided pyelonephritis --Mild elevated liver enzymes probably secondary to sepsis expected to improve we'll repeat liver enzymes tomorrow -Mild acute renal failure secondary to Macrobid and UTI and sepsis continue with IV fluids and recheck kidney function tomorrow -Hypovolemic hyponatremia: Continue with IV fluids to recheck basic metabolic profile tomorrow -Dvt prophylaxis with subcutaneous heparin GI prophylaxis with Pepcid
--- NOTE | 2019-08-07 18:16 | P.OP ---
Date of Procedure: 08/07/19 Preoperative Diagnosis: ureteral calculi (right) Postoperative Diagnosis: right ureteral calculi Procedure(s) Performed: Cystoscopy, right ureteral stent placement Implants: 6Fr X 24 cm stent Anesthesia: CHAIM Surgeon: Jose Luis Reyes Estimated Blood Loss (ml): 0 Pathology: none sent Condition: stable Disposition: PACU Indications for Procedure: Ms. Abbasi is 49 yo female with hx of right sided ureteral stone, she presented to the hospital with sepsis secondary to her obstructive stone. I discussed with her given her fever, UTI and an obstructive stone I recommend she undergoes ureteral stent placement. I did discussed with her that the stent will help drain the infected urine proximal to the stone, and informed it will not address her stone, and she will need a future ureteroscopy to address her stones. She understood all the risk and agreed to proceed with right sided ureteral stent placement Description of Procedure: Patient was brought to the operating room, general anesthesia was induced. She was prepped and draped in sterile fashion placed in a dorsal lithotomy position. Cystoscopy fitted with a 22-Bruneian sheath was inserted per urethra. Cystoscopy was performed showed no abnormality within the bladder. Attention was then carried to the right ureteral orifice. A a sensor wire was advanced through the scope up into the renal pelvis. Next a 6-Bruneian by 24 cm stent was passed over the wire, the proximal curl was visualized on fluoroscopy and the distal curl was visualized using the cystoscope. The bladder was emptied at the end of the case. The patient tolerated the procedure well was taken to PACU in stable condition
[2019-08-07] MEDS: MORPHINE SULFATE 4 MG/ML SYRINGE IV PRN (21:08)
[2019-08-07] MEDS: FAMOTIDINE 20 MG TAB PO SCH (21:08)
[2019-08-07] MEDS: SODIUM CHLORIDE 0.9% 1,000 ML IV SCH (21:26)
[2019-08-08] MEDS ORDERED: MORPHINE SULFATE 4 MG/ML SYRINGE ONE (02:30)
[2019-08-08] MEDS ORDERED: ACETAMINOPHEN TAB 325 MG TAB ONE (02:30)
[2019-08-08] MEDS ORDERED: IBUPROFEN 400 MG TAB ONE (02:30)
[2019-08-08] MEDS ORDERED: HEPARIN SODIUM,PORCINE 5,000 UNIT/ML 1 ML VIAL ONE (02:30)
[2019-08-08] MEDS: MORPHINE SULFATE 4 MG/ML SYRINGE IV PRN ×5 (06:14→22:30)
[2019-08-08 06:20] LABS: HCT 37.8 % (34.0-46.0); HGB 12.2 gm/dL (11.4-16.0); MCH 28.4 pg (25.0-35.0); MCHC 32.4 g/dL (31.0-37.0); MCV 87.5 fL (80.0-100.0); Mean Platelet Volume 8.1; Platelet Count 121 k/uL (150-450); RBC 4.32 m/uL (3.80-5.40); RDW 13.6 % (11.5-15.5); WBC 6.3 k/uL (3.8-10.6)
[2019-08-08 06:54] LABS: Albumin 2.9 g/dL (3.5-5.0); Calcium 8.9 mg/dL (8.4-10.2); Potassium 4.4 mmol/L (3.5-5.1); Total Bilirubin 0.3 mg/dL (0.2-1.3); Total Protein 5.7 g/dL (6.3-8.2)
[2019-08-08] MEDS: FAMOTIDINE 20 MG TAB PO SCH (07:46)
[2019-08-08] MEDS: HEPARIN SODIUM,PORCINE 5,000 UNIT/ML 1 ML VIAL SQ SCH ×3 (07:46→16:04)
[2019-08-08] MEDS: PANTOPRAZOLE 40 MG/10 ML VIAL IV SCH (07:46)
[2019-08-08] MEDS: SODIUM CHLORIDE 0.9% 1,000 ML IV SCH ×4 (07:48→22:30)
[2019-08-08] MEDS: PHENAZOPYRIDINE 100 MG TAB PO PRN (07:55)
[2019-08-08] MEDS: ACETAMINOPHEN TAB 325 MG TAB PO PRN ×3 (08:12→20:37)
--- NOTE | 2019-08-08 08:27 | FL ---
EXAMINATION TYPE: FL guidance operating room DATE OF EXAM: 08/07/2019 FLUOROSCOPY Fluoroscopy time of 5 seconds was used during urologic intervention with stent placement. 1 image/s document/s the procedure.
--- NOTE | 2019-08-08 11:39 | P.PN ---
Subjective Progress Note Date: 08/08/19 Principal diagnosis: Patient is a pleasant 49-year-old female came in with complaints of UTI including dysuria which is going on for 7 days and patient was using Macrobid which is prescribed as an outpatient and started having flank pain last 2-3 days which is worse bilateral flank area. And fever chills. Patient is found to have pyelonephritis with significant tenderness in both the CVAs. Patient had a CAT scan of abdomen which showed a 4 mm distal ureteral stone on the right side with cheese nonobstructing but there is hydronephrosis and possible pyelonephritis. UA significantly abnormal with prematurity and increased white blood cell count. Patient had fevers here in the hospital. 08/08/2019 Patient is seen and evaluated and follow-up status post right ureteral stent placement. Patient continues to have significant back pain noted in continues to have some hematuria present. Discussed with the patient about hematuria likely lessening over time status post stent placement. Urology is following. Patient has no complaints of chest pain, shortness of breath, or palpitations. Patient is afebrile. No reports of vomiting but intermittent nausea at times and advancing diet slowly as tolerated. Awaiting urine and blood cultures at this time. Liver functions trending down and creatinine improved at 1.15 with a sodium of 135 today. White blood count also trending down and is 6.3. Objective - Vital Signs Vital signs: Vital Signs Temp 98.4 F 08/08/19 07:49 Pulse 76 08/08/19 08:00 Resp 16 08/08/19 08:00 BP 133/86 08/08/19 07:49 Pulse Ox 100 08/08/19 07:49 Intake & Output 08/07/19 08/08/19 08/08/19 18:59 06:59 18:59 Intake Total 600 480 480 Output Total 102 850 Balance 498 -370 480 Weight 79.379 kg Intake: IV 600 Oral 480 480 Output: Urine 100 850 Estimated Blood Loss 2 Other: Voiding Method Toilet Toilet Toilet # Voids 1 1 - Exam GENERAL: The patient is alert and oriented x3, in no acute distress, well- developed, well-nourished HEENT: Pupils are round and equally reacting to light. EOMI. No scleral icterus. No conjunctival pallor. Normocephalic, atraumatic. No pharyngeal erythema. No thyromegaly. CARDIOVASCULAR: S1 and S2 present. No murmurs, rubs, or gallops. PULMONARY: Chest is clear to auscultation, no wheezing or crackles. ABDOMEN: Soft, mild tenderness predominantly on the right side and left-sided as well. nondistended, normoactive bowel sounds. No palpable organomegaly. MUSCULOSKELETAL: No joint swelling or deformity. EXTREMITIES: No cyanosis, clubbing, or pedal edema. NEUROLOGICAL: Gross neurological examination did not reveal any focal deficits. SKIN: No rashes. - Labs CBC & Chem 7: 08/08/19 05:58 08/08/19 05:58 Labs: Abnormal Lab Results - Last 24 Hours (Table) 08/07/19 08/07/19 08/07/19 Range/Units 13:19 13:22 13:22 WBC 11.3 H (3.8-10.6) k/uL Plt Count (150-450) k/uL Neutrophils # 10.2 H (1.3-7.7) k/uL Lymphocytes # 0.3 L (1.0-4.8) k/uL Sodium 131 L (137-145) mmol/L Chloride 94 L (98-107) mmol/L BUN 23 H (7-17) mg/dL Creatinine 1.28 H (0.52-1.04) mg/dL Glucose 125 H (74-99) mg/dL AST 133 H (14-36) U/L ALT 153 H (4-34) U/L Alkaline Phosphatase 267 H (38-126) U/L Total Protein (6.3-8.2) g/dL Albumin (3.5-5.0) g/dL Urine Appearance Cloudy H (Clear) Urine Protein 2+ H (Negative) Urine Ketones 1+ H (Negative) Urine Blood Small H (Negative) Urine Nitrite Positive H (Negative) Urine Bilirubin 1+ H (Negative) Ur Leukocyte Esterase Large H (Negative) Urine RBC 17 H (0-5) /hpf Urine WBC 151 H (0-5) /hpf Urine WBC Clumps Moderate H (None) /hpf Ur Squamous Epith Cells 5 H (0-4) /hpf Urine Bacteria Few H (None) /hpf 08/08/19 08/08/19 Range/Units 05:58 05:58 WBC (3.8-10.6) k/uL Plt Count 121 L (150-450) k/uL Neutrophils # (1.3-7.7) k/uL Lymphocytes # (1.0-4.8) k/uL Sodium 135 L (137-145) mmol/L Chloride (98-107) mmol/L BUN 27 H (7-17) mg/dL Creatinine 1.15 H (0.52-1.04) mg/dL Glucose 170 H (74-99) mg/dL AST 70 H (14-36) U/L ALT 100 H (4-34) U/L Alkaline Phosphatase 211 H (38-126) U/L Total Protein 5.7 L (6.3-8.2) g/dL Albumin 2.9 L (3.5-5.0) g/dL Urine Appearance (Clear) Urine Protein (Negative) Urine Ketones (Negative) Urine Blood (Negative) Urine Nitrite (Negative) Urine Bilirubin (Negative) Ur Leukocyte Esterase (Negative) Urine RBC (0-5) /hpf Urine WBC (0-5) /hpf Urine WBC Clumps (None) /hpf Ur Squamous Epith Cells (0-4) /hpf Urine Bacteria (None) /hpf Microbiology - Last 24 Hours (Table) 08/07/19 13:22 Blood Culture Gram Stain - Preliminary Blood 08/07/19 13:22 Blood Culture - Final Blood 08/07/19 13:19 Urine Culture - Preliminary Urine,Voided Assessment and Plan Assessment: -Sepsis secondary to urinary tract infection, pyelonephritis patient will continue on 2 g of Rocephin awaiting urine cultures -Nephrolithiasis with pyelonephritis and patient underwent right side ureteral stent placement, continue with IV fluids at this time -Nephrolithiasis of the right side with right-sided pyelonephritis -Mild elevated liver enzymes probably secondary to sepsis, improving -Mild acute renal failure secondary to Macrobid and UTI and sepsis, improving, current creatinine 1.15 -Hypovolemic hyponatremia, improving current sodium is 135 -Dvt prophylaxis with subcutaneous heparin -GI prophylaxis with Pepcid
[2019-08-08] MEDS: OXYBUTYNIN CHLORIDE 5 MG TAB PO SCH ×3 (12:35→22:32)
[2019-08-08] MEDS: KETOROLAC 30 MG/ML 1 ML VIAL IVP PRN ×2 (12:36→18:36)
[2019-08-08] MEDS ORDERED: PIPERACILLIN-TAZOBACTAM 3.375 GM in SODIUM CHLORIDE 0.9% 100 ML IVPB SCH (14:00)
--- NOTE | 2019-08-08 16:16 | P.PN ---
Subjective Progress Note Date: 08/08/19 S/P right ureteral stent placement for septic stone having bladder spasms Objective - Vital Signs Vital signs: Vital Signs Temp 99.0 F 08/08/19 12:32 Pulse 72 08/08/19 12:41 Resp 16 08/08/19 12:41 BP 148/86 08/08/19 13:03 Pulse Ox 99 08/08/19 12:32 Intake & Output 08/07/19 08/08/19 08/08/19 18:59 06:59 18:59 Intake Total 600 480 480 Output Total 102 850 400 Balance 498 -370 80 Weight 79.379 kg Intake: IV 600 Oral 480 480 Output: Urine 100 850 400 Estimated Blood Loss 2 Other: Voiding Method Toilet Toilet Toilet # Voids 1 1 - Constitutional General appearance: Present: mild distress - Psychiatric Psychiatric: Present: A&O x's 3 - Labs CBC & Chem 7: 08/08/19 05:58 08/08/19 05:58 Labs: Abnormal Lab Results - Last 24 Hours (Table) 08/08/19 08/08/19 Range/Units 05:58 05:58 Plt Count 121 L (150-450) k/uL Sodium 135 L (137-145) mmol/L BUN 27 H (7-17) mg/dL Creatinine 1.15 H (0.52-1.04) mg/dL Glucose 170 H (74-99) mg/dL AST 70 H (14-36) U/L ALT 100 H (4-34) U/L Alkaline Phosphatase 211 H (38-126) U/L Total Protein 5.7 L (6.3-8.2) g/dL Albumin 2.9 L (3.5-5.0) g/dL Microbiology - Last 24 Hours (Table) 08/07/19 13:22 Blood Culture Gram Stain - Preliminary Blood Blood Culture - Preliminary Escherichia coli 08/07/19 13:22 Blood Culture - Final Blood 08/07/19 13:19 Urine Culture - Preliminary Urine,Voided Assessment and Plan Assessment: S/P right ureteral stent for septic 4mm right distal stone Plan: -F/U on urine culture, will need minimum of 14 days of abx -Toradol 15 mg q6 prn and ditropan 5mg TID for bladder soasms -Can f/u in 1-2 weeks in Urology clinic
[2019-08-08] MEDS: SENNOSIDES 8.6 MG TAB PO SCH (18:27)
[2019-08-08] MEDS: POLYETHYLENE GLYCOL 3350 17 GM POWD.PACK PO SCH (22:29)
[2019-08-09] MEDS: HEPARIN SODIUM,PORCINE 5,000 UNIT/ML 1 ML VIAL SQ SCH ×4 (00:38→23:12)
[2019-08-09] MEDS: KETOROLAC 30 MG/ML 1 ML VIAL IVP PRN ×4 (00:38→20:23)
[2019-08-09] MEDS ORDERED: diphenhydrAMINE 50 MG/ML 1 ML VIAL IVP PRN (01:46)
[2019-08-09] MEDS: ACETAMINOPHEN TAB 325 MG TAB PO PRN ×3 (02:33→16:08)
[2019-08-09] MEDS: MORPHINE SULFATE 4 MG/ML SYRINGE IV PRN ×6 (02:34→22:50)
[2019-08-09 06:19] LABS: Basophils % (A) 0 %; Eosinophils % (A) 0 %; HCT 37.2 % (34.0-46.0); HGB 11.3 gm/dL (11.4-16.0); Hypochromasia Slight; Lymphocytes # (A) 0.6 k/uL (1.0-4.8); Lymphocytes % (A) 9 %; MCH 26.5 pg (25.0-35.0); MCHC 30.3 g/dL (31.0-37.0); MCV 87.7 fL (80.0-100.0); Mean Platelet Volume 8.1; Monocytes # (A) 0.4 k/uL (0-1.0); Monocytes % (A) 7 %; Neutrophils # (A) 5.4 k/uL (1.3-7.7); Neutrophils % (A) 81 %; Platelet Count 148 k/uL (150-450); RBC 4.25 m/uL (3.80-5.40); WBC 6.6 k/uL (3.8-10.6)
[2019-08-09 06:32] LABS: Calcium 9.1 mg/dL (8.4-10.2); Potassium 4.4 mmol/L (3.5-5.1)
[2019-08-09] MEDS: SODIUM CHLORIDE 0.9% 1,000 ML IV SCH ×3 (06:51→22:59)
--- NOTE | 2019-08-09 07:08 | P.CONS ---
History of Present Illness - Reason for Consult Consult date: 08/08/19 bacteremia Requesting physician: Mann Mitchell - Chief Complaint right flank pain and vomiting x few days - History of Present Illness Patient is a 49-year-old female started with the symptoms of urinary burning and frequency about a week ago patient tried to treated at home by increasing her fluid intake and some cranberry juice and apparently has been see n by the PCP in the outpatient setting with the patient restarted on Pyridium and antibiotic however the patient not clear about the name of that antibiotic patient subsequently presented to the ER yesterday with worsening of her symptoms also included generalized weakness fever and chills and the patient was complaining of nausea and vomiting unable to keep anything down patient also complaining of pain to the right flank area more dull aching to sharp intensity almost 7 out of 10 no radiation with the symptom the patient presented to the hospital on arrival to the ER the patient did have a fever of 100.5 F patient did have white count of 11.3 creatinine was 1 elevated 1.28 liver enzymes also mild elevated and the patient did have a positive UA sánchez PCR has been negative patient did have CT of abdominal pelvis which did show 0.4 cm obstructing right hemipelvis ureteral stone with moderate right-sided hydroureter and hydronephrosis patient was taken to the OR last evening in this patient who is status post cystoscopy with right ureteral stent placement patient has been started on Zosyn with the blood cultures come back positive with E. coli antibiotic has been switched to Rocephin infectious disease has been consulted for further management of antibiotic therapy. Review of Systems Positive point has been mentioned in HPI rest of the systems are negative Past Medical History Past Medical History: Asthma, Hypertension Additional Past Medical History / Comment(s): back pain, scoliosis History of Any Multi-Drug Resistant Organisms: None Reported Past Surgical History: Back Surgery, Section, Cholecystectomy, Tubal Ligation Additional Past Surgical History / Comment(s): neck surgery Past Anesthesia/Blood Transfusion Reactions: No Reported Reaction Additional Past Anesthesia/Blood Transfusion Reaction / Comm: no problems w/transfusions Past Psychological History: No Psychological Hx Reported Smoking Status: Never smoker Past Alcohol Use History: None Reported Past Drug Use History: None Reported - Past Family History Mother Family Medical History: Cancer Father Family Medical History: Dementia Additional Family Medical History / Comment(s): Lung disease, parkinsons Medications and Allergies Home Medications Medication Instructions Recorded Confirmed Type Phentermine HCl [Adipex-P] 37.5 mg PO DAILY 10/13/15 08/07/19 History Furosemide [Lasix] 20 mg PO DAILY 08/07/19 08/07/19 History Nitrofurantoin Monohyd/M-Cryst 100 mg PO BID 08/07/19 08/07/19 History [Macrobid] Ondansetron Odt [Zofran Odt] 4 mg PO TID PRN 08/07/19 08/07/19 History Phenazopyridine [Pyridium] 100 mg PO TID-W/MEALS PRN 08/07/19 08/07/19 History Allergies Allergy/AdvReac Type Severity Reaction Status Date / Time gadobenate dimeglumine Allergy Intermediate Dyspnea Verified 08/07/19 17:19 [From Multihance] cyclobenzaprine HCl Allergy ITCHING OF Verified 08/07/19 17:19 [From Flexeril] SKIN promethazine HCl Allergy ITCHING OF Verified 08/07/19 17:19 [From Phenergan] SKIN levofloxacin [From Levaquin] AdvReac Severe Nausea & Verified 08/07/19 17:20 Vomiting Physical Exam Vitals: Vital Signs Temp Pulse Pulse Pulse Resp BP BP 08/08/19 13:03 148/86 08/08/19 12:41 72 16 164/102 08/08/19 12:32 99.0 F 57 L 20 08/08/19 08:00 76 16 08/08/19 07:49 98.4 F 16 133/86 08/08/19 00:00 80 16 08/07/19 23:30 80 16 137/86 08/07/19 22:30 77 16 140/84 08/07/19 21:30 98.7 F 79 16 124/80 08/07/19 21:15 79 16 08/07/19 20:17 100 16 104/83 08/07/19 20:02 67 16 126/96 08/07/19 19:49 84 16 112/61 08/07/19 19:31 80 16 125/78 08/07/19 19:16 98.8 F 83 16 128/88 08/07/19 18:51 76 16 114/76 08/07/19 18:36 84 16 113/77 08/07/19 18:21 98.1 F 87 16 117/89 08/07/19 17:03 98.6 F 65 16 120/86 08/07/19 16:50 98.6 F 65 16 120/86 08/07/19 16:28 98.1 F 74 18 119/85 08/07/19 16:13 98.6 F 65 16 120/86 Pulse Ox 08/08/19 13:03 08/08/19 12:41 08/08/19 12:32 99 08/08/19 08:00 08/08/19 07:49 100 08/08/19 00:00 08/07/19 23:30 98 08/07/19 22:30 97 08/07/19 21:30 100 08/07/19 21:15 08/07/19 20:17 99 08/07/19 20:02 97 08/07/19 19:49 98 08/07/19 19:31 98 08/07/19 19:16 99 08/07/19 18:51 99 08/07/19 18:36 99 08/07/19 18:21 100 08/07/19 17:03 97 08/07/19 16:50 97 08/07/19 16:28 95 08/07/19 16:13 97 Intake and Output 08/08/19 08/08/19 08/08/19 06:59 14:59 22:59 Intake Total 480 Output Total 100 400 Balance -100 80 Intake: Oral 480 Output: Urine 100 400 Other: Voiding Method Toilet Toilet # Voids 1 1 GENERAL DESCRIPTION: Middle-aged female lying in bed, no distress. No tachypnea or accessory muscle of respiration use. HEENT: Shows Pallor , no scleral icterus. Oral mucous membrane is dry. NECK: Trachea central, no thyromegaly. LUNGS: Unlabored breathing. Clear to auscultation anteriorly. No wheeze or scraper meat ckle. HEART: S1, S2, regular rate and rhythm. ABDOMEN: Soft, mild right flank tenderness , no guarding or rigidity EXTREMITIES: No edema of feet. SKIN: No rash, no masses palpable. NEUROLOGICAL: The patient is awake, alert, oriented x3, mood and affect normal. Results CBC & Chem 7: 08/09/19 05:52 08/09/19 05:52 Labs: Abnormal Lab Results - Last 24 Hours (Table) 08/08/19 08/08/19 Range/Units 05:58 05:58 Plt Count 121 L (150-450) k/uL Sodium 135 L (137-145) mmol/L BUN 27 H (7-17) mg/dL Creatinine 1.15 H (0.52-1.04) mg/dL Glucose 170 H (74-99) mg/dL AST 70 H (14-36) U/L ALT 100 H (4-34) U/L Alkaline Phosphatase 211 H (38-126) U/L Total Protein 5.7 L (6.3-8.2) g/dL Albumin 2.9 L (3.5-5.0) g/dL Microbiology - Last 24 Hours (Table) 08/07/19 13:22 Blood Culture Gram Stain - Preliminary Blood Blood Culture - Preliminary Escherichia coli 08/07/19 13:22 Blood Culture - Final Blood 08/07/19 13:19 Urine Culture - Preliminary Urine,Voided Assessment and Plan Assessment: 1-patient present to the hospital with sepsis in this patient had fever tachycardia source of likely complicated UTI her with a right-sided hydronephrosis and obstructive stone status post cystoscopy with right ureteral stent placement now with evidence of E. coli bacteremia source is likely right- sided pyelonephritis. 2-patient with elevated liver enzymes with no abnormality of the liver gallbladder seen on the CT abdominal pelvis with question of viral hepatitis (1) Sepsis Current Visit: Yes Status: Acute Code(s): A41.9 - SEPSIS, UNSPECIFIED ORGANISM SNOMED Code(s): 52385694 (2) E coli bacteremia Current Visit: Yes Status: Acute Code(s): R78.81 - BACTEREMIA; B96.20 - UNSP ESCHERICHIA COLI THE CAUSE OF DISEASES [facility] SN[facility] Code(s): 607098326266 (3) Transaminitis Current Visit: Yes Status: Acute Code(s): R74.0 - NONSPEC ELEV OF LEVELS OF TRANSAMNS & LACTIC ACID DEHYDRGNSE SNOMED Code(s): 488821417 (4) Pyelonephritis Current Visit: Yes Status: Acute Code(s): N12 - TUBULO-INTERSTITIAL NEPHRITIS, NOT SPCF ACUTE OR CHRONIC SNOMED Code(s): 26516011 Plan: 1-Rocephin 2 g daily 2-IV fluids 3-check hepatitis panel We will follow on clinical condition and cultures to further adjust medication if needed Thank you for this consultation we will follow the patient along with you Time with Patient: Greater than 30
[2019-08-09] MEDS: PANTOPRAZOLE 40 MG/10 ML VIAL IV SCH (08:46)
[2019-08-09] MEDS: OXYBUTYNIN CHLORIDE 5 MG TAB PO SCH ×3 (08:46→21:13)
[2019-08-09] MEDS: SENNOSIDES 8.6 MG TAB PO SCH ×2 (08:46→21:12)
[2019-08-09] MEDS: FAMOTIDINE 20 MG TAB PO SCH (08:46)
[2019-08-09] MEDS: PHENAZOPYRIDINE 100 MG TAB PO PRN ×2 (09:06→17:29)
--- NOTE | 2019-08-09 11:44 | P.PN ---
Subjective Progress Note Date: 08/09/19 Principal diagnosis: Patient is a pleasant 49-year-old female came in with complaints of UTI including dysuria which is going on for 7 days and patient was using Macrobid which is prescribed as an outpatient and started having flank pain last 2-3 days which is worse bilateral flank area. And fever chills. Patient is found to have pyelonephritis with significant tenderness in both the CVAs. Patient had a CAT scan of abdomen which showed a 4 mm distal ureteral stone on the right side with cheese nonobstructing but there is hydronephrosis and possible pyelonephritis. UA significantly abnormal with prematurity and increased white blood cell count. Patient had fevers here in the hospital. 08/08/2019 Patient is seen and evaluated and follow-up status post right ureteral stent placement. Patient continues to have significant back pain noted in continues to have some hematuria present. Discussed with the patient about hematuria likely lessening over time status post stent placement. Urology is following. Patient has no complaints of chest pain, shortness of breath, or palpitations. Patient is afebrile. No reports of vomiting but intermittent nausea at times and advancing diet slowly as tolerated. Awaiting urine and blood cultures at this time. Liver functions trending down and creatinine improved at 1.15 with a sodium of 135 today. White blood count also trending down and is 6.3. 08/09/2019 Patient is seen and evaluated in follow-up today and continues to have right- sided CVA tenderness along with right lower back pain. Patient has Toradol and morphine as needed for pain. Patient is maintained on ceftriaxone and will continue at this time until finalization of cultures. Most recent blood culture showing E. coli bacteremia and will await clearance. Infectious disease is following. Patient's sodium is improved at 138 although creatinine slightly elevated at 1.24 and will maintain on IV fluids. Patient continues to have discomfort with urination and does have Pyridium ordered. Urology following. Patient was also started on Ditropan for bladder spasms. Patient's diet has been advanced and currently tolerating and stating she doesn't have much of an appetite although denies nausea or vomiting at this time. Objective - Vital Signs Vital signs: Vital Signs Temp 98 F 08/09/19 08:58 Pulse 99 08/09/19 08:58 Resp 16 08/09/19 08:58 BP 134/90 08/09/19 08:58 Pulse Ox 100 08/09/19 06:47 Intake & Output 08/08/19 08/09/19 08/09/19 18:59 06:59 18:59 Intake Total 720 Output Total 705 700 200 Balance 15 -700 -200 Intake: Oral 720 Output: Urine 705 700 200 Other: Voiding Method Toilet Toilet Toilet # Voids 1 1 - Exam GENERAL: The patient is alert and oriented x3, in no acute distress, well- developed, well-nourished HEENT: Pupils are round and equally reacting to light. EOMI. No scleral icterus. No conjunctival pallor. Normocephalic, atraumatic. No pharyngeal erythema. No thyromegaly. CARDIOVASCULAR: S1 and S2 present. No murmurs, rubs, or gallops. PULMONARY: Chest is clear to auscultation, no wheezing or crackles. ABDOMEN: Soft, mild tenderness predominantly on the right side and left-sided as well. nondistended, normoactive bowel sounds. No palpable organomegaly. MUSCULOSKELETAL: No joint swelling or deformity. EXTREMITIES: No cyanosis, clubbing, or pedal edema. NEUROLOGICAL: Gross neurological examination did not reveal any focal deficits. SKIN: No rashes. - Labs CBC & Chem 7: 08/09/19 05:52 08/09/19 05:52 Labs: Abnormal Lab Results - Last 24 Hours (Table) 08/09/19 08/09/19 Range/Units 05:52 05:52 Hgb 11.3 L (11.4-16.0) gm/dL MCHC 30.3 L (31.0-37.0) g/dL Plt Count 148 L (150-450) k/uL Lymphocytes # 0.6 L (1.0-4.8) k/uL Chloride 110 H (98-107) mmol/L BUN 32 H (7-17) mg/dL Creatinine 1.24 H (0.52-1.04) mg/dL Glucose 127 H (74-99) mg/dL Microbiology - Last 24 Hours (Table) 08/07/19 13:19 Urine Culture - Final Urine,Voided 08/07/19 13:22 Blood Culture Gram Stain - Preliminary Blood Blood Culture - Preliminary Escherichia coli Assessment and Plan Assessment: -Sepsis secondary to urinary tract infection, pyelonephritis patient will continue on 2 g of Rocephin. Blood cultures showing E. coli and infectious d kiana was consulted and following. Will await for bacteremia clearance -Bacteremia with preliminary showing E. coli, infectious disease following an patient is maintained on 2 g Rocephin daily will await bacteremia clearance and repeat blood cultures -Nephrolithiasis with pyelonephritis and patient underwent right side ureteral stent placement, continue with IV fluids at this time -Nephrolithiasis of the right side with right-sided pyelonephritis -Mild elevated liver enzymes probably secondary to sepsis, improving -Mild acute renal failure secondary to Macrobid and UTI and sepsis, current cr eatinine 1.24 -Hypovolemic hyponatremia, improving current sodium is 138 -Dvt prophylaxis with subcutaneous heparin -GI prophylaxis with Pepcid Plan: Continue with current medications, management, and symptomatic treatment. Continue with pain management and instructed patient to increase activity as tolerated. Patient is maintained on IV Rocephin with preliminary blood culture showing E. coli, infectious disease is following. Will await bacteremia clearance. Will repeat a.m. labs sodium is improved at 138 although creatinine is slightly elevated today at 1.24. Will continue with IV fluids at this time. Further recommendations to follow.
[2019-08-09 12:47] LABS: Hepatitis A Antibody IgM Non-Reactive (Non-Reactive); Hepatitis B Core IgM Non-Reactive (Non-Reactive); Hepatitis B Surface Antigen Non-Reactive (Non-Reactive); Hepatitis C IgG Antibody Non-Reactive (Non-Reactive)
--- NOTE | 2019-08-09 12:53 | P.PN ---
Subjective Progress Note Date: 08/09/19 S/P right ureteral stent placement for septic stone still having bladder spasms, slight improvement compared to yesterday. denies any fevers/chills Objective - Vital Signs Vital signs: Vital Signs Temp 98 F 08/09/19 08:58 Pulse 99 08/09/19 08:58 Resp 16 08/09/19 08:58 BP 134/90 08/09/19 08:58 Pulse Ox 100 08/09/19 06:47 Intake & Output 08/08/19 08/09/19 08/09/19 18:59 06:59 18:59 Intake Total 720 Output Total 705 700 400 Balance 15 -700 -400 Intake: Oral 720 Output: Urine 705 700 400 Other: Voiding Method Toilet Toilet Toilet # Voids 1 1 - Constitutional General appearance: Present: mild distress - Gastrointestinal General gastrointestinal: Present: soft - Psychiatric Psychiatric: Present: A&O x's 3 - Labs CBC & Chem 7: 08/09/19 05:52 08/09/19 05:52 Labs: Abnormal Lab Results - Last 24 Hours (Table) 08/09/19 08/09/19 Range/Units 05:52 05:52 Hgb 11.3 L (11.4-16.0) gm/dL MCHC 30.3 L (31.0-37.0) g/dL Plt Count 148 L (150-450) k/uL Lymphocytes # 0.6 L (1.0-4.8) k/uL Chloride 110 H (98-107) mmol/L BUN 32 H (7-17) mg/dL Creatinine 1.24 H (0.52-1.04) mg/dL Glucose 127 H (74-99) mg/dL Microbiology - Last 24 Hours (Table) 08/07/19 13:19 Urine Culture - Final Urine,Voided 08/07/19 13:22 Blood Culture Gram Stain - Preliminary Blood Blood Culture - Preliminary Escherichia coli Assessment and Plan Assessment: S/P right ureteral stent for septic 4mm right distal stone Plan: -F/U on urine culture, will need minimum of 14 days of abx -Toradol 15 mg q6 prn and ditropan 5mg TID for bladder spasms, will also add flomax -Can f/u in 1-2 weeks in Urology clinic
--- NOTE | 2019-08-09 15:32 | PN ---
PROGRESS NOTE DATE OF SERVICE: 08/09/2019 REASON FOR FOLLOWUP: Right-sided pyelonephritis with E coli bacteremia. INTERVAL HISTORY: The patient is currently afebrile. The patient mentioned not feeling as good today as yesterday. No chest pain or cough. No nausea, no vomiting. The right leg pain is currently controlled, no diarrhea. PHYSICAL EXAMINATION: Blood pressure 134/90 with a pulse of 69, temperature 98, she is 100% on room air. General description is a middle-aged female, up in the bed in no distress. RESPIRATORY SYSTEM: Unlabored breathing, clear to auscultation anteriorly. HEART: S1, S2. Regular rate and rhythm. ABDOMEN: Soft, no tenderness. LABS: BUN of 32, creatinine 1.24, white count 6.6, blood culture with an E coli. ID sensitivities pending. DIAGNOSTIC IMPRESSION AND PLAN: Patient with complicated UTI with right-sided pyelonephritis in this patient who did have a culture taken, status post right ureteral stent. Asymptomatic. Keep the patient on the Rocephin and monitor clinical course closely. MMODL / IJN: [id number] /
[2019-08-09] MEDS: ONDANSETRON 4 MG/2 ML VIAL IVP PRN (16:05)
[2019-08-09] MEDS: POLYETHYLENE GLYCOL 3350 17 GM POWD.PACK PO SCH (16:09)
[2019-08-10] MEDS: ACETAMINOPHEN TAB 325 MG TAB PO PRN (01:44)
[2019-08-10] MEDS: ONDANSETRON 4 MG/2 ML VIAL IVP PRN (03:06)
[2019-08-10] MEDS: MORPHINE SULFATE 4 MG/ML SYRINGE IV PRN ×5 (03:14→20:07)
[2019-08-10] MEDS: PHENAZOPYRIDINE 100 MG TAB PO PRN (03:16)
[2019-08-10] MEDS: KETOROLAC 30 MG/ML 1 ML VIAL IVP PRN ×3 (05:48→22:36)
[2019-08-10] MEDS: SODIUM CHLORIDE 0.9% 1,000 ML IV SCH ×3 (05:49→20:31)
[2019-08-10] MEDS: HEPARIN SODIUM,PORCINE 5,000 UNIT/ML 1 ML VIAL SQ SCH ×3 (09:00→23:25)
[2019-08-10] MEDS: FAMOTIDINE 20 MG TAB PO SCH (09:01)
[2019-08-10] MEDS: PANTOPRAZOLE 40 MG TABLET PO SCH (09:02)
[2019-08-10] MEDS: SENNOSIDES 8.6 MG TAB PO SCH ×2 (09:02→22:36)
[2019-08-10] MEDS: OXYBUTYNIN CHLORIDE 5 MG TAB PO SCH ×3 (09:03→22:37)
[2019-08-10] MEDS ORDERED: BISACODYL 10 MG SUPP RECTAL STA (10:47)
[2019-08-10 11:29] LABS: Basophils % (A) 0 %; Eosinophils # (A) 0.1 k/uL (0-0.7); Eosinophils % (A) 2 %; HGB 11.2 gm/dL (11.4-16.0); Hypochromasia Slight; Lymphocytes # (A) 0.7 k/uL (1.0-4.8); Lymphocytes % (A) 14 %; MCH 28.1 pg (25.0-35.0); MCHC 31.9 g/dL (31.0-37.0); MCV 87.9 fL (80.0-100.0); Mean Platelet Volume 9.2; Monocytes # (A) 0.5 k/uL (0-1.0); Monocytes % (A) 9 %; Neutrophils # (A) 3.7 k/uL (1.3-7.7); Neutrophils % (A) 72 %; Platelet Count 159 k/uL (150-450); RBC 3.98 m/uL (3.80-5.40); RDW 14.2 % (11.5-15.5); WBC 5.1 k/uL (3.8-10.6)
[2019-08-10 12:13] LABS: Potassium 4.2 mmol/L (3.5-5.1)
[2019-08-10 12:14] LABS: Calcium 9.2 mg/dL (8.4-10.2)
--- NOTE | 2019-08-10 12:52 | PN ---
PROGRESS NOTE DATE OF SERVICE: 08/10/2019 REASON FOR FOLLOWUP: Right-sided complicated UTI and pyelonephritis. INTERVAL HISTORY: The patient is currently afebrile. Still complaining of abdominal pain mostly in the flank and the lower abdominal area. No chest pain, shortness of breath or cough. No nausea. Some nausea but no vomiting. No diarrhea. The patient is constipated. PHYSICAL EXAMINATION: Blood pressure 142/88 with a pulse of 82, temperature 99.3. She is 97% on room air. General description: The patient is a middle-aged female lying in bed in no distress. Respiratory system: Unlabored breathing. Clear to auscultation anteriorly. Heart S1, S2. Regular rate. ABDOMEN: Soft, no tenderness. LABS: Hemoglobin 11.8, white count 5.1. Hepatitis panel negative. Blood culture with an E coli that is sensitive pathogen. DIAGNOSTIC IMPRESSION AND PLAN: Patient with an E coli bacteremia complicated urinary tract infection covered with Rocephin, to continue finish therapy with oral antibiotics. Continue supportive care. MMODL / IJN: [id number] /
[2019-08-10] MEDS: POLYETHYLENE GLYCOL 3350 17 GM POWD.PACK PO SCH (22:37)
--- NOTE | 2019-08-10 22:56 | P.PN ---
Subjective Progress Note Date: 08/10/19 Principal diagnosis: S/P right ureteral stent placement Acute Pyelonephritis Patient is a pleasant 49-year-old female came in with complaints of UTI including dysuria which is going on for 7 days and patient was using Macrobid which is prescribed as an outpatient and started having flank pain last 2-3 days which is worse bilateral flank area. And fever chills. Patient is found to have pyelonephritis with significant tenderness in both the CVAs. Patient had a CAT scan of abdomen which showed a 4 mm distal ureteral stone on the right side with cheese nonobstructing but there is hydronephrosis and possible pyelonephritis. UA significantly abnormal with prematurity and increased white blood cell count. Patient had fevers here in the hospital. 08/08/2019 Patient is seen and evaluated and follow-up status post right ureteral stent placement. Patient continues to have significant back pain noted in continues to have some hematuria present. Discussed with the patient about hematuria likely lessening over time status post stent placement. Urology is following. Patient has no complaints of chest pain, shortness of breath, or palpitations. Patient is afebrile. No reports of vomiting but intermittent nausea at times and advancing diet slowly as tolerated. Awaiting urine and blood cultures at this time. Liver functions trending down and creatinine improved at 1.15 with a sodium of 135 today. White blood count also trending down and is 6.3. 08/09/2019 Patient is seen and evaluated in follow-up today and continues to have right- sided CVA tenderness along with right lower back pain. Patient has Toradol and morphine as needed for pain. Patient is maintained on ceftriaxone and will continue at this time until finalization of cultures. Most recent blood culture showing E. coli bacteremia and will await clearance. Infectious disease is following. Patient's sodium is improved at 138 although creatinine slightly elevated at 1.24 and will maintain on IV fluids. Patient continues to have discomfort with urination and does have Pyridium ordered. Urology following. Patient was also started on Ditropan for bladder spasms. Patient's diet has be en advanced and currently tolerating and stating she doesn't have much of an appetite although denies nausea or vomiting at this time. 08/10/2019 Patient is still complaining of right flank and right lower back pain. Slight improvement compared to yesterday. Still requiring IV morphine and Toradol. Currently being continued on antibiotics in the form of ceftriaxone due to E. coli bacteremia. Repeat cultures have been negative so far. Currently being continued on IV hydration and symptomatic management for nausea and vomiting. Urology and ID is on board. Denied any fever or chills. Pain function is improving compared to yesterday. No leukocytosis. Current medications reviewed. Objective - Vital Signs Vital signs: Vital Signs Temp 99.3 F 08/10/19 08:30 Pulse 82 08/10/19 08:30 Resp 18 08/10/19 08:30 BP 142/88 08/10/19 08:30 Pulse Ox 97 08/10/19 08:30 Intake & Output 08/09/19 08/10/19 08/10/19 18:59 06:59 18:59 Output Total 1200 2550 750 Balance -1200 -2550 -750 Output: Urine 1200 2550 750 Other: Voiding Method Toilet Toilet Toilet - Exam GENERAL: The patient is alert and oriented x3, in no acute distress, well- developed, well-nourished HEENT: Pupils are round and equally reacting to light. EOMI. No scleral icterus. No conjunctival pallor. Normocephalic, atraumatic. No pharyngeal erythema. No thyromegaly. CARDIOVASCULAR: S1 and S2 present. No murmurs, rubs, or gallops. PULMONARY: Chest is clear to auscultation, no wheezing or crackles. ABDOMEN: Soft, mild tenderness predominantly on the right side and left-sided as well. nondistended, normoactive bowel sounds. No palpable organomegaly. MUSCULOSKELETAL: No joint swelling or deformity. EXTREMITIES: No cyanosis, clubbing, or pedal edema. NEUROLOGICAL: Gross neurological examination did not reveal any focal deficits. SKIN: No rashes. - Labs CBC & Chem 7: 08/10/19 05:49 08/10/19 11:40 Labs: Microbiology - Last 24 Hours (Table) 08/07/19 13:22 Blood Culture Gram Stain - Final Blood Blood Culture - Final Escherichia coli 08/08/19 14:06 Blood Culture - Preliminary Blood No Growth after 24 hours Assessment and Plan Assessment: -Sepsis secondary to urinary tract infection, pyelonephritis patient will continue on 2 g of Rocephin. Blood cultures showing E. coli and infectious disease was consulted and following. Will await for bacteremia clearance - E. coli Bacteremia. likely from UTI, infectious disease following an patient is maintained on 2 g Rocephin daily will await bacteremia clearance and repeat blood cultures -Nephrolithiasis. patient underwent right side ureteral stent placement, c ontinue with IV fluids at this time -Nephrolithiasis of the right side with right-sided pyelonephritis -Mild elevated liver enzymes probably secondary to sepsis, improving -Mild acute renal failure secondary to Macrobid and UTI and sepsis, current creatinine 1.24 -Hypovolemic hyponatremia, improving current sodium is 138 -Dvt prophylaxis with subcutaneous heparin -GI prophylaxis with Pepcid Plan: Continue with current medications, management, and symptomatic treatment. Continue with pain management and instructed patient to increase activity as tolerated. Patient is maintained on IV Rocephin with preliminary blood culture showing E. coli, infectious disease is following. Will await bacteremia clearance. Will continue with IV fluids at this time. cr level improving. Further recommendations to follow. Time with Patient: Greater than 30
[2019-08-10] MEDS: diphenhydrAMINE 25 MG CAP PO PRN (23:31)
[2019-08-11] MEDS: MORPHINE SULFATE 4 MG/ML SYRINGE IV PRN ×4 (00:57→13:58)
[2019-08-11] MEDS: ONDANSETRON 4 MG/2 ML VIAL IVP PRN (02:34)
[2019-08-11] MEDS: SODIUM CHLORIDE 0.9% 1,000 ML IV SCH ×3 (04:19→23:33)
[2019-08-11] MEDS: KETOROLAC 30 MG/ML 1 ML VIAL IVP PRN ×3 (05:59→23:42)
[2019-08-11] MEDS: PHENAZOPYRIDINE 100 MG TAB PO PRN ×2 (06:02→21:04)
[2019-08-11] MEDS: HEPARIN SODIUM,PORCINE 5,000 UNIT/ML 1 ML VIAL SQ SCH ×3 (07:54→23:32)
[2019-08-11] MEDS: SENNOSIDES 8.6 MG TAB PO SCH ×2 (07:54→20:30)
[2019-08-11] MEDS: OXYBUTYNIN CHLORIDE 5 MG TAB PO SCH ×3 (07:55→22:01)
[2019-08-11] MEDS: PANTOPRAZOLE 40 MG TABLET PO SCH (07:55)
[2019-08-11] MEDS: FAMOTIDINE 20 MG TAB PO SCH (07:56)
[2019-08-11 20:14] VITALS: RESP 16
[2019-08-11] MEDS: POLYETHYLENE GLYCOL 3350 17 GM POWD.PACK PO SCH (20:29)
[2019-08-11] MEDS: ACETAMINOPHEN TAB 325 MG TAB PO PRN (20:31)
--- NOTE | 2019-08-12 01:24 | P.PN ---
Subjective Progress Note Date: 08/11/19 Principal diagnosis: S/P right ureteral stent placement Acute Pyelonephritis Patient is a pleasant 49-year-old female came in with complaints of UTI including dysuria which is going on for 7 days and patient was using Macrobid which is prescribed as an outpatient and started having flank pain last 2-3 days which is worse bilateral flank area. And fever chills. Patient is found to have pyelonephritis with significant tenderness in both the CVAs. Patient had a CAT scan of abdomen which showed a 4 mm distal ureteral stone on the right side with cheese nonobstructing but there is hydronephrosis and possible pyelonephritis. UA significantly abnormal with prematurity and increased white blood cell count. Patient had fevers here in the hospital. 08/08/2019 Patient is seen and evaluated and follow-up status post right ureteral stent placement. Patient continues to have significant back pain noted in continues to have some hematuria present. Discussed with the patient about hematuria likely lessening over time status post stent placement. Urology is following. Patient has no complaints of chest pain, shortness of breath, or palpitations. Patient is afebrile. No reports of vomiting but intermittent nausea at times and advancing diet slowly as tolerated. Awaiting urine and blood cultures at this time. Liver functions trending down and creatinine improved at 1.15 with a sodium of 135 today. White blood count also trending down and is 6.3. 08/09/2019 Patient is seen and evaluated in follow-up today and continues to have right- sided CVA tenderness along with right lower back pain. Patient has Toradol and morphine as needed for pain. Patient is maintained on ceftriaxone and will continue at this time until finalization of cultures. Most recent blood culture showing E. coli bacteremia and will await clearance. Infectious disease is following. Patient's sodium is improved at 138 although creatinine slightly elevated at 1.24 and will maintain on IV fluids. Patient continues to have discomfort with urination and does have Pyridium ordered. Urology following. Patient was also started on Ditropan for bladder spasms. Patient's diet has be en advanced and currently tolerating and stating she doesn't have much of an appetite although denies nausea or vomiting at this time. 08/10/2019 Patient is still complaining of right flank and right lower back pain. Slight improvement compared to yesterday. Still requiring IV morphine and Toradol. Currently being continued on antibiotics in the form of ceftriaxone due to E. coli bacteremia. Repeat cultures have been negative so far. Currently being continued on IV hydration and symptomatic management for nausea and vomiting. Urology and ID is on board. Denied any fever or chills. Pain function is improving compared to yesterday. No leukocytosis. 08/11/2019 Patient is currently lying in the bed comfortably. Complains of right flank throbbing pain but is controlled with medications. Repeat Blood cultures have been negative so far. Currently on antibiotics in the home ceftriaxone for E. coli bacteremia. Continue with IV hydration and symptomatic management for nausea and vomiting. Patient is able to tolerate oral diet. Leukocytosis resolved. Anticipate discharge in the next 24 hours. ID is on board. Current medications reviewed. Objective - Vital Signs Vital signs: Vital Signs Temp 98.7 F 08/11/19 19:54 Pulse 76 08/11/19 19:54 Resp 16 08/11/19 19:54 BP 168/98 08/11/19 19:54 Pulse Ox 99 08/11/19 19:54 Intake & Output 08/11/19 08/11/19 08/12/19 06:59 18:59 06:59 Output Total 1475 1150 Balance -1475 -1150 Output: Urine 1475 1150 Other: Voiding Method Toilet Toilet Toilet # Voids 3 # Bowel Movements 1 - Exam GENERAL: The patient is alert and oriented x3, in no acute distress, well- developed, well-nourished HEENT: Pupils are round and equally reacting to light. EOMI. No scleral icterus. No conjunctival pallor. Normocephalic, atraumatic. No pharyngeal erythema. No thyromegaly. CARDIOVASCULAR: S1 and S2 present. No murmurs, rubs, or gallops. PULMONARY: Chest is clear to auscultation, no wheezing or crackles. ABDOMEN: Soft, mild tenderness predominantly on the right side and left-sided as well. nondistended, normoactive bowel sounds. No palpable organomegaly. MUSCULOSKELETAL: No joint swelling or deformity. EXTREMITIES: No cyanosis, clubbing, or pedal edema. NEUROLOGICAL: Gross neurological examination did not reveal any focal deficits. SKIN: No rashes. - Labs CBC & Chem 7: 08/10/19 05:49 08/10/19 11:40 Labs: Microbiology - Last 24 Hours (Table) 08/08/19 14:06 Blood Culture - Preliminary Blood No Growth after 72 hours 08/10/19 05:49 Blood Culture - Preliminary Blood No Growth after 24 hours Assessment and Plan Assessment: -Sepsis secondary to urinary tract infection, pyelonephritis patient will continue on 2 g of Rocephin. Blood cultures showing E. coli and infectious disease was consulted and following. Will await for bacteremia clearance. repeat blood cx -ve sofar. - E. coli Bacteremia. likely from UTI, infectious disease following an patient is maintained on 2 g Rocephin daily will await bacteremia clearance and repeat blood cultures -Nephrolithiasis. patient underwent right side ureteral stent placement, continue with IV fluids at this time -Nephrolithiasis of the right side with right-sided pyelonephritis -Mild elevated liver enzymes probably secondary to sepsis, improving -Mild acute renal failure secondary to Macrobid and UTI and sepsis, current creatinine 1.24 -Hypovolemic hyponatremia, improving current sodium is 138 -Dvt prophylaxis with subcutaneous heparin -GI prophylaxis with Pepcid Plan: Continue with current medications, management, and symptomatic treatment. Continue with pain management and instructed patient to increase activity as tolerated. Patient is maintained on IV Rocephin with preliminary blood culture showing E. coli, infectious disease is following. Will await bacteremia clearance. Will continue with IV fluids at this time. cr level improving. Further recommendations to follow.
--- NOTE | 2019-08-12 02:33 | PN ---
PROGRESS NOTE DATE OF SERVICE: 08/11/2019 REASON FOR FOLLOWUP: Right-sided pyelonephritis with an E coli bacteremia. INTERVAL HISTORY: The patient is currently afebrile. The patient is feeling better today, breathing comfortably. Right side discomfort has improved. No nausea, no vomiting. No chest pain, shortness of breath or cough. PHYSICAL EXAMINATION: Blood pressure 131/91 with a pulse of 76, temperature 98.7. She is 96% on room air. General description is a middle-aged female lying in bed in no distress. RESPIRATORY SYSTEM: Unlabored breathing, clear to auscultation anteriorly. HEART: S1, S2. Regular rate and rhythm. ABDOMEN: Soft, no tenderness. LABS: Creatinine 1.07, white count 5.1. DIAGNOSTIC IMPRESSION AND PLAN: Patient with an Escherichia coli bacteremia. Source is complicated right-sided pyelonephritis. Repeat blood culture has been negative. The patient is covered with Rocephin 2 grams daily, finishing therapy with oral Cipro 500 mg twice a day for another 10 days and close outpatient followup. MMODL / IJN: [id number] /
[2019-08-12] MEDS: ACETAMINOPHEN TAB 325 MG TAB PO PRN ×2 (02:47→12:20)
[2019-08-12] MEDS: diphenhydrAMINE 25 MG CAP PO PRN (02:49)
[2019-08-12] MEDS: KETOROLAC 30 MG/ML 1 ML VIAL IVP PRN (06:19)
[2019-08-12] MEDS: HEPARIN SODIUM,PORCINE 5,000 UNIT/ML 1 ML VIAL SQ SCH (08:59)
[2019-08-12] MEDS: FAMOTIDINE 20 MG TAB PO SCH (09:00)
[2019-08-12] MEDS: OXYBUTYNIN CHLORIDE 5 MG TAB PO SCH ×2 (09:00→15:21)
[2019-08-12] MEDS: PANTOPRAZOLE 40 MG TABLET PO SCH (09:00)
[2019-08-12] MEDS: SENNOSIDES 8.6 MG TAB PO SCH (09:00)
[2019-08-12 09:41] VITALS: BP 155/89
[2019-08-12] MEDS: PHENAZOPYRIDINE 100 MG TAB PO PRN (09:44)
[2019-08-12 12:25] VITALS: PULSE 64; TEMP 98.2
--- NOTE | 2019-08-12 17:57 | PN ---
PROGRESS NOTE REASON FOR FOLLOWUP: E coli bacteremia secondary to right sided pyelonephritis. INTERVAL HISTORY: The patient is currently afebrile. The patient is breathing comfortably. Denies having any chest pain, shortness of breath or cough. No nausea, vomiting. No abdominal pain or diarrhea. PHYSICAL EXAMINATION: Blood pressure is 155/89, pulse of 64, temperature 98.2. She is 93% on room air. General description: The patient is a middle-aged female up in the bed in no distress. Respiratory system: Unlabored breathing. Clear to auscultation anteriorly. HEART: S1, S2. Regular rate and rhythm. ABDOMEN: Soft, no tenderness. LABS: Creatinine 1.07. DIAGNOSTIC IMPRESSION AND PLAN: Patient with an E coli bacteremia, source of right-sided pyelonephritis, complicated UTI in this patient, status post cystoscopy with right-sided stent placement. Plan to finish therapy with oral Cipro 500 mg twice a day, for another 10 with close outpatient followup. MMODL / IJN: [id number] /
--- NOTE | 2019-08-22 00:30 | P.DS ---
Providers Date of admission: 08/07/19 14:58 Expected date of discharge: 08/12/19 Attending physician: Edel Byers Consults: 08/07/19 15:57 Consult Physician Stat Consulting Provider: Jose Luis Reyes Consult Reason/Comments: Right renal stone, sepsis Do you want consulting provider notified?: Yes 08/07/19 16:04 Consult Physician Urgent Consulting Provider: Jose Luis Reyes Consult Reason/Comments: Ureterolithiasis Do you want consulting provider notified?: Already Contacted 08/08/19 13:19 Consult Physician Stat Consulting Provider: Coby Thakur Consult Reason/Comments: positive blood cultures/ pyel Do you want consulting provider notified?: Yes Primary care physician: Maricel Johnson Hospital Course: Discharge Diagnosis -Sepsis secondary to urinary tract infection, pyelonephritis patient will continue on 2 g of Rocephin. Blood cultures showing E. coli. repeat blood cx - ve sofar. - E. coli Bacteremia. likely from UTI, infectious disease following an patient i s maintained on 2 g Rocephin daily will await bacteremia clearance and repeat blood cultures -Nephrolithiasis. patient underwent right side ureteral stent placement, continue with IV fluids at this time -Nephrolithiasis of the right side with right-sided pyelonephritis -Mild elevated liver enzymes probably secondary to sepsis, improving -Mild acute renal failure secondary to Macrobid and UTI and sepsis, current creatinine 1.24 -Hypovolemic hyponatremia, improving current sodium is 138 -Dvt prophylaxis with subcutaneous heparin -GI prophylaxis with Pepcid Hospital course. Patient is a pleasant 49-year-old female came in with complaints of UTI including dysuria which is going on for 7 days and patient was using Macrobid which is prescribed as an outpatient and started having flank pain last 2-3 days which is worse bilateral flank area. And fever chills. Patient is found to have pyelonephritis with significant tenderness in both the CVAs. Patient had a CAT scan of abdomen which showed a 4 mm distal ureteral stone on the right side with cheese nonobstructing but there is hydronephrosis and possible pyelonephritis. UA significantly abnormal with prematurity and increased white blood cell count. Patient had fevers here in the hospital. 08/08/2019 Patient is seen and evaluated and follow-up status post right ureteral stent placement. Patient continues to have significant back pain noted in continues to have some hematuria present. Discussed with the patient about hematuria likely lessening over time status post stent placement. Urology is following. Patient has no complaints of chest pain, shortness of breath, or palpitations. Patient is afebrile. No reports of vomiting but intermittent nausea at times and advancing diet slowly as tolerated. Awaiting urine and blood cultures at this time. Liver functions trending down and creatinine improved at 1.15 with a sodium of 135 today. White blood count also trending down and is 6.3. 08/09/2019 Patient is seen and evaluated in follow-up today and continues to have right- sided CVA tenderness along with right lower back pain. Patient has Toradol and morphine as needed for pain. Patient is maintained on ceftriaxone and will continue at this time until finalization of cultures. Most recent blood culture showing E. coli bacteremia and will await clearance. Infectious disease is following. Patient's sodium is improved at 138 although creatinine slightly elevated at 1.24 and will maintain on IV fluids. Patient continues to have discomfort with urination and does have Pyridium ordered. Urology following. Patient was also started on Ditropan for bladder spasms. Patient's diet has been advanced and currently tolerating and stating she doesn't have much of an appetite although denies nausea or vomiting at this time. 08/10/2019 Patient is still complaining of right flank and right lower back pain. Slight improvement compared to yesterday. Still requiring IV morphine and Toradol. Currently being continued on antibiotics in the form of ceftriaxone due to E. coli bacteremia. Repeat cultures have been negative so far. Currently being continued on IV hydration and symptomatic management for nausea and vomiting. Urology and ID is on board. Denied any fever or chills. Pain function is improving compared to yesterday. No leukocytosis. 08/11/2019 Patient is currently lying in the bed comfortably. Complains of right flank throbbing pain but is controlled with medications. Repeat Blood cultures have been negative so far. Currently on antibiotics in the home ceftriaxone for E. coli bacteremia. Continue with IV hydration and symptomatic management for nausea and vomiting. Patient is able to tolerate oral diet. Leukocytosis resolved. Anticipate discharge in the next 24 hours. ID is on board. 08/11/18 Pt. says her flank pain is better. no fever/chills. Pt. is discharged home with Abx Discharge PE was done and vitals reviewed. Patient Condition at Discharge: Stable Plan - Discharge Summary Discharge Rx Participant: Yes New Discharge Prescriptions: New Ciprofloxacin HCl [Cipro] 500 mg PO Q12H 10 Days #20 tab Famotidine [Pepcid] 20 mg PO DAILY #15 tab Oxybutynin Chloride [Ditropan] 5 mg PO TID 10 Days #30 tab Polyethylene Glycol 3350 [Miralax] 17 gm PO HS PRN #7 powd.pack PRN Reason: Constipation Sennosides [Senokot] 17.2 mg PO BID PRN #30 tab PRN Reason: Constipation Continue Phentermine HCl [Adipex-P] 37.5 mg PO DAILY Phenazopyridine [Pyridium] 100 mg PO TID-W/MEALS PRN PRN Reason: Pain Ondansetron Odt [Zofran ODT] 4 mg PO TID PRN PRN Reason: Nausea Discontinued Nitrofurantoin Monohyd/M-Cryst [Macrobid] 100 mg PO BID Furosemide [Lasix] 20 mg PO DAILY Discharge Medication List Phentermine HCl [Adipex-P] 37.5 mg PO DAILY 10/13/15 [History] Ondansetron Odt [Zofran ODT] 4 mg PO TID PRN 08/07/19 [History] Phenazopyridine [Pyridium] 100 mg PO TID-W/MEALS PRN 08/07/19 [History] Ciprofloxacin HCl [Cipro] 500 mg PO Q12H 10 Days #20 tab 08/12/19 [Rx] Famotidine [Pepcid] 20 mg PO DAILY #15 tab 08/12/19 [Rx] Oxybutynin Chloride [Ditropan] 5 mg PO TID 10 Days #30 tab 08/12/19 [Rx] Polyethylene Glycol 3350 [Miralax] 17 gm PO HS PRN #7 powd.pack 08/12/19 [Rx] Sennosides [Senokot] 17.2 mg PO BID PRN #30 tab 08/12/19 [Rx] Follow up Appointment(s)/Referral(s): Alex Connelly MD [Primary Care Provider] - 08/15/19 1:10 pm (You have an appointment with Dr Connelly on July at 1:10 pm.) Jose Luis Reyes MD [STAFF PHYSICIAN] - 08/20/19 8:20 am (You have an appointment with Dr Reyes on Tuesday, August 20, 2019 at 08:20 am.) Patient Instructions/Handouts: Pain Management (DC), Ureteral Stent Placement (DC) Activity/Diet/Wound Care/Special Instructions: Drink plenty of fluids. May shower. Activity as tolerated, rest as needed. Call Dr Connelly if you develop a fever or chills, increase in pain, or if you have any other questions or concerns. Take the stool softeners as prescribed. Keep your follow up appointments with Dr Connelly and Dr Reyes. Discharge Disposition: HOME SELF-CARE
== END 2019-08-12 15:25 | disposition home or self-care (01) | DRG 854 ==
LOC: EC 12:04 → 6PED 14:58
PROVIDERS: ADMIT Hospitalist; ATTEND Hospitalist
PROC: 0T768DZ Dilation of Right Ureter with Intraluminal Device, Via Natural or Artificial Opening Endoscopic (ICD-10-PCS; principal; 2019-08-07 17:55)
DX: A41.51 Sepsis due to Escherichia coli [E. coli] (principal); N13.6 Pyonephrosis; E87.1 Hypo-osmolality and hyponatremia; N17.9 Acute kidney failure, unspecified; I10 Essential (primary) hypertension; J45.909 Unspecified asthma, uncomplicated; M41.9 Scoliosis, unspecified; K59.00 Constipation, unspecified; E86.1 Hypovolemia; R74.0 Nonspecific elevation of levels of transaminase and lactic acid dehydrogenase [LDH]; Z11.59 Encounter for screening for other viral diseases; Z90.49 Acquired absence of other specified parts of digestive tract; Z79.899 Other long term (current) drug therapy; Z88.8 Allergy status to other drugs, medicaments and biological substances; Z98.891 History of uterine scar from previous surgery; Z98.51 Tubal ligation status; Z98.890 Other specified postprocedural states; Z80.9 Family history of malignant neoplasm, unspecified; Z82.0 Family history of epilepsy and other diseases of the nervous system; Z87.440 Personal history of urinary (tract) infections; Z87.442 Personal history of urinary calculi; Z88.1 Allergy status to other antibiotic agents
CPT/HCPCS: 36415; 71046; 74018; 74176; 80048; 80053; 80074; 81001; 82150; 83605; 83690; 85025; 85027; 85610; 85730; 87040; 87077; 87086; 87186; 93005; 96361; 96374; 96375; 99285

== ENCOUNTER → 2019-09-27 | Outpatient (CLI) | payer OTHER ==
[2019-09-27 15:13] LABS: Basophils # (A) 0.1 k/uL (0-0.2); Basophils % (A) 1 %; Eosinophils # (A) 0.6 k/uL (0-0.7); Eosinophils % (A) 12 %; HCT 39.9 % (34.0-46.0); HGB 12.6 gm/dL (11.4-16.0); Lymphocytes # (A) 1.3 k/uL (1.0-4.8); Lymphocytes % (A) 30 %; MCH 27.2 pg (25.0-35.0); MCHC 31.5 g/dL (31.0-37.0); MCV 86.3 fL (80.0-100.0); Mean Platelet Volume 7.2; Monocytes # (A) 0.2 k/uL (0-1.0); Monocytes % (A) 5 %; Neutrophils # (A) 2.1 k/uL (1.3-7.7); Neutrophils % (A) 48 %; Platelet Count 226 k/uL (150-450); RBC 4.62 m/uL (3.80-5.40); RDW 14.9 % (11.5-15.5); WBC 4.4 k/uL (3.8-10.6)
[2019-09-27 15:16] LABS: Potassium 4.3 mmol/L (3.5-5.1)
[2019-09-27 15:22] LABS: Appearance,Urine Clear (Clear); Bilirubin,Urine Negative (Negative); Blood,Urine Negative (Negative); Color,Urine Yellow; Glucose,Urine (UA) Negative (Negative); Hyaline Casts,Urine 1 /lpf (0-2); Ketones,Urine Negative (Negative); Leukocyte Esterase,Urine Small (Negative); Mucus,Urine Rare /hpf; Nitrite,Urine Negative (Negative); Protein,Urine Trace (Negative); RBC,Urine 10 /hpf (0-5); Specific Gravity,Urine 1.023 (1.001-1.035); Squamous Epithelial Cell,Urine <1 /hpf (0-4); Urobilinogen,Urine <2.0 mg/dL (<2.0); WBC,Urine 16 /hpf (0-5)
== END | disposition home or self-care (01) ==
LOC: LABPAT 14:37
PROVIDERS: ATTEND Urology
DX: Z01.818 Encounter for other preprocedural examination (principal); N20.0 Calculus of kidney; R31.29 Other microscopic hematuria
CPT/HCPCS: 36415; 80048; 81001; 85025; 87086

== ENCOUNTER → 2019-10-17 | Outpatient (CLI) | payer OTHER ==
[2019-10-17 15:18] LABS: Amorphous Sediment,Urine Rare /hpf; Appearance,Urine Clear (Clear); Bacteria,Urine Occasional /hpf; Bilirubin,Urine Negative (Negative); Blood,Urine Trace (Negative); Color,Urine Yellow; Glucose,Urine (UA) Negative (Negative); Ketones,Urine Negative (Negative); Leukocyte Esterase,Urine Moderate (Negative); Mucus,Urine Rare /hpf; Nitrite,Urine Negative (Negative); Protein,Urine Trace (Negative); RBC,Urine 2 /hpf (0-5); Specific Gravity,Urine 1.023 (1.001-1.035); Squamous Epithelial Cell,Urine 2 /hpf (0-4); Urobilinogen,Urine <2.0 mg/dL (<2.0); WBC,Urine 39 /hpf (0-5)
== END | disposition home or self-care (01) ==
LOC: LABPAT 14:52
PROVIDERS: ATTEND Urology
DX: Z01.812 Encounter for preprocedural laboratory examination (principal); N20.0 Calculus of kidney
CPT/HCPCS: 81001; 87086

== ENCOUNTER → 2019-10-24 | Day surgery (SDC) | payer OTHER ==
--- NOTE | 2019-09-26 20:44 | P.HPIHPCON ---
History of Present Illness H&P Date: 10/04/19 Chief Complaint: left sided renal calculi Ms Abbasi is a 49 yo Female with hx of 9 mm left-sided renal calculi in the lower pole. . Discussed with her the options of which includes observation, ESWL, ureteroscopy, and PCNL. She agreed to proceed with left -sided uretero scopy. Discussed with her the risk and the benefit of the procedure. Discussed with her the risk which includes but not limited to bleeding, infection, injury to the ureter. I also discussed with her the potential of needing staged procedure given her stone size Consent for Procedure: I have explained the operation/procedure to the patient, including the risks, benefits, side effects, alternative therapies (including not receiving the proposed treatment or service), the likelihood of the patient achieving his/her goals, and potential recuperation problems for the procedure/sedation/analgesia, as well as any blood products, if indicated. I also explained to the patient the risks, benefits and side effects of the alternatives, as well as the risks related to not receiving the proposed procedure, care, treatment, or services. Past Medical History Past Medical History: Asthma, Hypertension Additional Past Medical History / Comment(s): back pain, scoliosis History of Any Multi-Drug Resistant Organisms: None Reported Past Surgical History: Back Surgery, Section, Cholecystectomy, Tubal Ligation Additional Past Surgical History / Comment(s): neck surgery Past Anesthesia/Blood Transfusion Reactions: No Reported Reaction Additional Past Anesthesia/Blood Transfusion Reaction / Comment(s): no problems w/transfusions Past Psychological History: No Psychological Hx Reported Past Alcohol Use History: None Reported Past Drug Use History: None Reported - Past Family History Mother Family Medical History: Cancer Father Family Medical History: Dementia Additional Family Medical History / Comment(s): Lung disease, parkinsons Medications and Allergies Home Medications Medication Instructions Recorded Confirmed Type Phentermine HCl [Adipex-P] 37.5 mg PO DAILY 10/13/15 08/07/19 History Ondansetron Odt [Zofran ODT] 4 mg PO TID PRN 08/07/19 08/07/19 History Phenazopyridine [Pyridium] 100 mg PO TID-W/MEALS PRN 08/07/19 08/07/19 History Ciprofloxacin HCl [Cipro] 500 mg PO Q12H 10 Days #20 tab 08/12/19 Rx Famotidine [Pepcid] 20 mg PO DAILY #15 tab 08/12/19 Rx Oxybutynin Chloride [Ditropan] 5 mg PO TID 10 Days #30 tab 08/12/19 Rx Sennosides [Senokot] 17.2 mg PO BID PRN #30 tab 08/12/19 Rx polyethylene glycoL 3350 [Miralax] 17 gm PO HS PRN #7 powd.pack 08/12/19 Rx Allergies Allergy/AdvReac Type Severity Reaction Status Date / Time gadobenate dimeglumine Allergy Intermediate Dyspnea Verified 08/07/19 17:19 [From Multihance] cyclobenzaprine HCl Allergy ITCHING OF Verified 08/07/19 17:19 [From Flexeril] SKIN promethazine HCl Allergy ITCHING OF Verified 08/07/19 17:19 [From Phenergan] SKIN levofloxacin [From Levaquin] AdvReac Severe Nausea & Verified 08/07/19 17:20 Vomiting Surgical - Exam - General well developed, well nourished, no distress, no pain - Eyes PERRL, normal ocular movement - Respiratory normal expansion, normal respiratory effort - Abdomen Abdomen: soft, non tender - Psychiatric oriented to time, oriented to person, oriented to place Assessment and Plan Assessment: 49 yo female with a 9 mm left side renal calculi -OR for left sided ureteroscopy, holmium laser lithotripsy stone basektting and stent placement
[2019-10-22 13:25] VITALS: BMI 31.5
[~2019-10-24] MED LIST changes: +GENTAMICIN 100 MG in SODIUM CHLORIDE 0.9% 100 ML IVPB ONE; +IOPAMIDOL-370 50ML BTL MISCELLANE ONE; +KETOROLAC 15 MG/ML 1 ML VIAL IVP ONE; +LACTATED RINGERS 1,000 ML IV ONE; +LACTATED RINGERS 1,000 ML IV SCH; +LIDOCAINE 1% (10MG/ML) FOR IV START INTRADERMA ONE; -LIDOCAINE 1% 20 ML VIAL (10MG/ML) FOR IV START INTRADERMA PRN; +LIDOCAINE 1% INJ 10MG/ML (20 ML MDV) ONE; -MIDAZOLAM 2 MG/2 ML VIAL IV PRN; +MIDAZOLAM 2 MG/2 ML VIAL ONE; -ONDANSETRON 4 MG/2 ML VIAL IVP ONE; +ONDANSETRON 4 MG/2 ML VIAL ONE; +PROPOFOL 10 MG/ML 20 ML VIAL IV ONE; -ceFAZolin 2 GM in SODIUM CHLORIDE 0.9% 100 ML IVPB ONE; -ceFAZolin IN SWFI 2 GM/20 ML SYRINGE IVP ONE; +diphenhydrAMINE 50 MG/ML 1 ML VIAL IVP ONE; +fentaNYL (PF) 50 MCG/ML 2 ML AMP ONE
--- NOTE | 2019-10-24 09:04 | XR ---
EXAMINATION TYPE: XR KUB DATE OF EXAM: 10/24/2019 Comparison: 08/07/2019 Clinical History: 49-year-old female kidney stones Findings: Overall nonobstructive bowel gas pattern. Moderate stool burden. Lumbar fusion hardware redemonstrated. Redemonstrated are 2 adjacent left renal calculi measuring 7 mm and 6 mm. Phleboliths in the left augusto e of the pelvis. Impression: Adjacent 7 mm and 6 mm left-sided renal calculi redemonstrated. Moderate stool burden.
[2019-10-24] MEDS: ONDANSETRON 4 MG/2 ML VIAL IVP ONE ×2 (09:07→11:04)
--- NOTE | 2019-10-24 11:07 | P.OP ---
Date of Procedure: 10/24/19 Preoperative Diagnosis: Left renal calculi Postoperative Diagnosis: Same Procedure(s) Performed: Cystoscopy, left ureteroscopy, retrograde pyelogram, holmium laser lithotripsy and stone basketing Implants: None Anesthesia: KEIKOA Surgeon: Jose Luis Reyes Estimated Blood Loss (ml): 5 Pathology: other (Left renal calculi) Condition: stable Disposition: PACU Indications for Procedure: Ms Abbasi is a 49 yo Female with hx of 9 mm left-sided renal calculi in the lower pole. . Discussed with her the options of which includes observation, ESWL, ureteroscopy, and PCNL. She agreed to proceed with left -sided ureteroscopy. Discussed with her the risk and the benefit of the procedure. Discussed with her the risk which includes but not limited to bleeding, infection, injury to the ureter. I also discussed with her the potential of needing staged procedure given her stone size Operative Findings: 2 stones in the lower pole that were repositioned into the upper pole Description of Procedure: Patient was brought to the operating room, general anesthesia was induced. She was prepped and draped in sterile fashion a placement dorsal lithotomy position. Cystoscopy fitted with 21 sheath was inserted per urethra, cystoscopy was performed showed no abnormality in the bladder. Attention was carried to the left ureteral orifice was intubated with a 6-Czech open-ended catheter, retrograde pyelogram was performed showed no filling defect in the ureter, there was evidence of filling defect in the upper pole at the location of the stone. At this time a sensor wire was advanced through the catheter the catheter was removed the wire in place. Next a 11 x 13-Czech access sheath was passed over the wire and into the proximal ureter. Next flexible ureteroscope was inserted and renoscopy was performed which showed two stone in the lower pole. The stones were basketing using the Wood stone basket and repositioned into the upper pole. Next the holmium laser was used to initially dusted stone and then fragment the stones into smaller fragments. The sizable fragments were removed using the Wood stone basket. Repeat renoscopy showed no additional stones or any sizable fragments. Pullback ureteroscopy was performed which showed no injury to the ureter or ureteral fragments. The bladder was emptied and the case. The patient was awakened from anesthesia and taken recovery in stable condition
[2019-10-24] MEDS: HYDROmorphone 0.5 MG/0.5 ML SYRINGE IVP PRN ×5 (11:15→11:56)
[2019-10-24 11:18] VITALS: RESP 16; TEMP 97
--- NOTE | 2019-10-24 11:22 | FL ---
EXAMINATION TYPE: FL cystogram DATE OF EXAM: 10/24/2019 COMPARISON: Same day abdominal x-ray. CT abdomen and pelvis August 07, 2019. HISTORY: Left renal calculus. TECHNIQUE: Fluoroscopy. FINDINGS: Fluoroscopic guidance was provided during left sided stone extraction procedure performed by Dr. Gusman. A total of 44 seconds of fluoroscopic time was utilized during the procedure and sing le spot image is acquired. Single image shows advancement of catheter wire towards the left renal hil um. There is partial visualization of surgical change in the lumbar spine. IMPRESSION: As Above.
[2019-10-24 13:22] VITALS: BP 128/85; PULSE 64
== END ==
LOC: OR 08:15
PROVIDERS: ATTEND Urology
DX: N20.0 Calculus of kidney (principal); J45.909 Unspecified asthma, uncomplicated; I10 Essential (primary) hypertension; M41.9 Scoliosis, unspecified; Z90.49 Acquired absence of other specified parts of digestive tract; Z98.51 Tubal ligation status; Z98.890 Other specified postprocedural states; Z80.9 Family history of malignant neoplasm, unspecified; Z83.6 Family history of other diseases of the respiratory system; Z82.0 Family history of epilepsy and other diseases of the nervous system; Z81.8 Family history of other mental and behavioral disorders; Z79.1 Long term (current) use of non-steroidal anti-inflammatories (NSAID); Z79.899 Other long term (current) drug therapy; Z88.8 Allergy status to other drugs, medicaments and biological substances; Z88.1 Allergy status to other antibiotic agents; Z91.041 Radiographic dye allergy status
CPT/HCPCS: 52352; 82365; 74430; 74018; C1758; C1769; J2250; J1200; J1100; J0690; J2405; J2001; J3010; J1580; J1885; J2704; J1170; Q9967

== ENCOUNTER 2020-03-13 13:39 | Inpatient (IN) | payer OTHER ==
--- NOTE | 2020-03-13 14:00 | ED ---
Skin/Abscess/FB HPI - General Chief complaint: Skin/Abscess/Foreign Body Stated complaint: L Facial swelling Time Seen by Provider: 03/13/20 13:51 Source: patient Mode of arrival: ambulatory Limitations: no limitations - History of Present Illness Initial comments: 49-year-old female presenting to the emergency department with a chief complaint of an facial infection. Patient reports this started about 2-3 days ago in the left him for region. Patient states it likely was an ingrown hair and it was tender to the touch. Patient states now the infection has migrated distally all the way to her jaw. States the whole left lower face is swollen. States she has been applying cold compresses but is not helping. She denies any fevers or chills. She denies taking other medication to alleviate the symptoms. No history of diabetes or immunosuppression. Denies any difficulty swallowing or breathing. - Related Data Home Medications Medication Instructions Recorded Confirmed Phentermine HCl [Adipex-P] 37.5 mg PO DAILY 10/13/15 03/13/20 Acetaminophen Tab [Tylenol Tab] 1,000 mg PO Q6HR 03/13/20 03/13/20 Ibuprofen [Motrin Ib] 800 mg PO Q8H PRN 03/13/20 03/13/20 Allergies Allergy/AdvReac Type Severity Reaction Status Date / Time gadobenate dimeglumine Allergy Intermediate Dyspnea Verified 03/13/20 14:53 [From Multihance] cyclobenzaprine HCl Allergy ITCHING OF Verified 03/13/20 14:53 [From Flexeril] SKIN promethazine HCl Allergy ITCHING OF Verified 03/13/20 14:53 [From Phenergan] SKIN levofloxacin [From Levaquin] AdvReac Severe Nausea & Verified 03/13/20 14:53 Vomiting Review of Systems ROS Statement: Those systems with pertinent positive or pertinent negative responses have been documented in the HPI. ROS Other: All systems not noted in ROS Statement are negative. Past Medical History Past Medical History: Asthma, Hypertension Additional Past Medical History / Comment(s): back pain, scoliosis, kidney stones History of Any Multi-Drug Resistant Organisms: None Reported Past Surgical History: Back Surgery, Section, Cholecystectomy, Tubal Ligation Additional Past Surgical History / Comment(s): neck surgery Past Anesthesia/Blood Transfusion Reactions: No Reported Reaction Additional Past Anesthesia/Blood Transfusion Reaction / Comment(s): no problems w/transfusions Past Psychological History: No Psychological Hx Reported Smoking Status: Never smoker Past Alcohol Use History: None Reported Past Drug Use History: None Reported - Past Family History Mother Family Medical History: Cancer Father Family Medical History: Dementia Additional Family Medical History / Comment(s): Lung disease, parkinsons General Exam Limitations: no limitations General appearance: alert, in no apparent distress Head exam: Present: atraumatic, normocephalic, normal inspection, other (Left- sided facial swelling) Eye exam: Present: normal appearance, PERRL, EOMI, periorbital tenderness (Left eye is completely swollen shut. No pain with extraocular movements.) Pupils: Present: normal accommodation ENT exam: Present: normal exam, normal oropharynx (Tenderness over the left parotid gland.), mucous membranes moist, TM's normal bilaterally, normal external ear exam. Absent: other (No tenderness over the left posterior auricle region.) Neck exam: Present: normal inspection, full ROM. Absent: tenderness Respiratory exam: Present: normal lung sounds bilaterally. Absent: respiratory distress, wheezes, rales Cardiovascular Exam: Present: regular rate, normal rhythm, normal heart sounds. Absent: systolic murmur, diastolic murmur GI/Abdominal exam: Present: soft. Absent: distended, tenderness, guarding, rebound Extremities exam: Present: normal inspection, full ROM, normal capillary refill. Absent: tenderness, pedal edema, joint swelling Back exam: Present: normal inspection, full ROM Neurological exam: Present: alert, oriented X3 Psychiatric exam: Present: normal affect, normal mood Skin exam: Present: warm, dry, intact, normal color Course Vital Signs 03/13/20 03/13/20 03/13/20 13:47 15:48 16:00 Temperature 98.6 F 98.3 F Pulse Rate 100 91 Respiratory 20 16 16 Rate Blood Pressure 147/94 161/85 O2 Sat by Pulse 97 99 Oximetry Medical Decision Making - Medical Decision Making 49-year-old female presenting to the emergency department with a chief complaint of a facial infection. On physical exam, patient does appear to have facial cellulitis on the left side. There is also tenderness of the left parotid gland. No signs of any pustular discharge from the intraoral cavity. Vitals are within normal limits. CBC is unremarkable. CMP reveals elevated transaminases. CT soft tissue neck reveals extensive cellulitis of the face along with preseptal cellulitis. There is also swelling of the parotid gland suggesting peritonitis. Patient started on 3 g of Unasyn. She will be admitted for further medical management. I spoke with Dr. villalobos who will accept patient. Case discussed with ENT and infectious disease on consult. Admitting physician is - Lab Data Result diagrams: 03/13/20 14:44 03/13/20 14:44 Lab Results 03/13/20 03/13/20 03/13/20 Range/Units 14:44 14:44 14:44 WBC 8.6 (3.8-10.6) k/uL RBC 4.89 (3.80-5.40) m/uL Hgb 13.9 (11.4-16.0) gm/dL Hct 41.2 (34.0-46.0) % MCV 84.2 (80.0-100.0) fL MCH 28.3 (25.0-35.0) pg MCHC 33.6 (31.0-37.0) g/dL RDW 14.0 (11.5-15.5) % Plt Count 190 (150-450) k/uL MPV 6.9 Neutrophils % 73 % Lymphocytes % 12 % Monocytes % 8 % Eosinophils % 5 % Basophils % 1 % Neutrophils # 6.3 (1.3-7.7) k/uL Lymphocytes # 1.1 (1.0-4.8) k/uL Monocytes # 0.7 (0-1.0) k/uL Eosinophils # 0.5 (0-0.7) k/uL Basophils # 0.1 (0-0.2) k/uL Sodium 137 (137-145) mmol/L Potassium 4.4 (3.5-5.1) mmol/L Chloride 106 (98-107) mmol/L Carbon Dioxide 26 (22-30) mmol/L Anion Gap 5 mmol/L BUN 16 (7-17) mg/dL Creatinine 1.03 (0.52-1.04) mg/dL Est GFR (CKD-EPI)AfAm 73 (>60 ml/min/1.73 sqM) Est GFR (CKD-EPI)NonAf 63 (>60 ml/min/1.73 sqM) Glucose 105 H (74-99) mg/dL Plasma Lactic Acid Srinivasan 0.7 (0.7-2.0) mmol/L Calcium 9.8 (8.4-10.2) mg/dL Total Bilirubin 0.7 (0.2-1.3) mg/dL AST 112 H (14-36) U/L ALT 146 H (4-34) U/L Alkaline Phosphatase 179 H (38-126) U/L Total Protein 7.1 (6.3-8.2) g/dL Albumin 4.1 (3.5-5.0) g/dL Disposition Clinical Impression: Facial cellulitis Disposition: ADMITTED IP TO THIS HOSP Condition: Good Is patient prescribed a controlled substance at d/c from ED?: No Referrals: Alex Connelly MD [Primary Care Provider] - 1-2 days Time of Disposition: 17:03
[2020-03-13 14:53] LABS: Basophils # (A) 0.1 k/uL (0-0.2); Basophils % (A) 1 %; Eosinophils # (A) 0.5 k/uL (0-0.7); Eosinophils % (A) 5 %; HCT 41.2 % (34.0-46.0); HGB 13.9 gm/dL (11.4-16.0); Lymphocytes # (A) 1.1 k/uL (1.0-4.8); Lymphocytes % (A) 12 %; MCH 28.3 pg (25.0-35.0); MCHC 33.6 g/dL (31.0-37.0); MCV 84.2 fL (80.0-100.0); Mean Platelet Volume 6.9; Monocytes # (A) 0.7 k/uL (0-1.0); Monocytes % (A) 8 %; Neutrophils # (A) 6.3 k/uL (1.3-7.7); Neutrophils % (A) 73 %; Platelet Count 190 k/uL (150-450); RBC 4.89 m/uL (3.80-5.40); WBC 8.6 k/uL (3.8-10.6)
[2020-03-13 15:01] LABS: Albumin 4.1 g/dL (3.5-5.0); Calcium 9.8 mg/dL (8.4-10.2); Potassium 4.4 mmol/L (3.5-5.1); Total Bilirubin 0.7 mg/dL (0.2-1.3); Total Protein 7.1 g/dL (6.3-8.2)
--- NOTE | 2020-03-13 16:02 | CT ---
EXAMINATION TYPE: CT soft tissue neck w con DATE OF EXAM: 03/13/2020 COMPARISON: None HISTORY: 49-year-old female Left side facial/neck swelling and redness TECHNIQUE: Contiguous axial scanning of the soft tissues of the neck performed with IV Contrast, agustin ent injected with 100 mL of Isovue 300. Coronal/sagittal reconstructions performed. CT DLP: 268 mGycm Automated exposure control for dose reduction was used. FINDINGS: Visualized intracranial structures and mastoid air cells appear clear. Trace mucosal thickening infer ior right mastoid air cells. Undulating nasal septum. Severe confluent edema in the left periorbital region extending over the left lateral temporal region and down the left side of the face. There is asymmetric edema enlargement of the left parotid gland with surrounding fat stranding and some parotid space mildly enlarged lymph nodes measuring up to 7 m m. Inflammatory fat stranding in the subcutaneous adipose layer tracks down the left side of the jaw to thicken the left platysmas muscle. A few asymmetrically larger left submandibular space lymph nodes m easure up to 6 mm and additional left upper cervical lymph nodes deep to the sternocleidomastoid hannah ure up to 7 mm. No postseptal retrobulbar abnormality within the left orbit. No peripherally enhancing fluid collection identified. Scattered prominent dental caries are present. There is a large periapical lucency involving the left mandibular first molar. Patient is partially dentulous. Epiglottis and prevertebral soft tissues are satisfactory. Nasopharynx and oropharynx appear clear. G lottic and subglottic structures as well as the tracheal column and visualized upper lungs appear tina ar. There may be an underlying 1 cm hypodense nodule within the right lobe of the thyroid gland. There is a 5 mm calculus along the left floor of the mouth, axial image 55 and coronal image 26. Schwarz errol, inflammatory changes do not appear to be centered on the left submandibular gland. C5-C7 ACDF. Degenerative grade 1 anterolisthesis below the fusion at C7-T1. IMPRESSION: 1. THICKENING AND INFLAMMATORY CHANGE APPEARS TO BE CENTERED AT THE LEFT PAROTID GLAND. CORRELATE FOR PAROTITIS. 2. ACCOMPANYING SEVERE CELLULITIS ALONG THE LEFT SIDE OF THE FACE EXTENDING UP ALONG THE LEFT TEMPORA L SCALP. THERE IS CORRESPONDING LEFT-SIDED PRESEPTAL CELLULITIS AND INFLAMMATORY THICKENING OF THE LE FT PLATYSMA MUSCLE BELOW THE JAW. NO DISCRETE ABSCESS. 3. NO POST SEPTAL INVOLVEMENT. REACTIVE LEFT-SIDED UPPER CERVICAL LYMPH NODES. 4. A 5 MM CALCULUS ALONG THE LEFT FLOOR OF THE MOUTH COULD BE ALONG THE SUBMANDIBULAR DUCT. HOWEVER, THE INFLAMMATORY CHANGES DO NOT APPEAR TO BE CENTERED AT THE LEFT SUBMANDIBULAR GLAND. 5. PATIENT IS PARTIALLY EDENTULOUS BUT HAS MULTIPLE DENTAL CARIES INCLUDING A PROMINENT PERIAPICAL JULES CENCY/ABSCESS INVOLVING THE LEFT MANDIBULAR FIRST MOLAR.
[2020-03-13] MEDS ORDERED: KETOROLAC 15 MG/ML 1 ML VIAL IVP STA (16:09)
[2020-03-13] MEDS ORDERED: AMPICILLIN-SULBACTAM 3 GM in SODIUM CHLORIDE 0.9% 100 ML IVPB STA (16:21)
[2020-03-13] MEDS ORDERED: HYDROmorphone 0.5 MG/0.5 ML SYRINGE IVP PRN (16:38)
[2020-03-13] MEDS ORDERED: LORazepam 2 MG/ML INJ IV PRN (16:38)
[2020-03-13] MEDS ORDERED: MORPHINE SULFATE 4 MG/ML SYRINGE IV PRN (16:38)
[2020-03-13] MEDS ORDERED: NALOXONE 0.4 MG/ML 1 ML VIAL IV PRN (16:38)
[2020-03-13] MEDS ORDERED: ONDANSETRON 4 MG/2 ML VIAL IVP PRN (16:38)
[2020-03-13] MEDS: SODIUM CHLORIDE 0.9% 1,000 ML IV SCH (17:15)
[2020-03-13] MEDS: Acetaminophen-Codeine 300-30mg TAB PO PRN (20:32)
--- NOTE | 2020-03-13 23:39 | P.HPIM ---
History of Present Illness H&P Date: 03/13/20 Chief Complaint: Left facial swelling. Patient is a 49-year-old female with a known history of asthma, hypertension, scoliosis, history of renal stones presents to ER with complaints of left facial swelling, redness and pain. Patient states that it all started 2 to 3 days ago when she squeezed it ingrowing gait on the left forehead which turned red and spread along the left eye and left lower face with swelling redness and tenderness. Patient has been applying cold compresses without much help. Patient was unable to open her left eye as well. Denied any pain with eye movement. No complaints of fever or chills. No nausea vomiting abdominal pain or diarrhea. No chest pain or shortness of breath. CT neck and soft tissue showed thickening and inflammatory change appears to be centered at the left parotid gland. Correlate for parotitis. Accompanying severe cellulitis along the left side of the face extending up along the left temporal scalp. There is corresponding left-sided preseptal cellulitis and inflammatory thickening of the left platysma muscle below the jaw. No discrete abscess. 5 mm calculus along the left floor of the mouth could be around the submandibular duct however the inflammatory changes do not appear to be centered in the left mandibular gland. Patient is partially edentulous but has multiple dental caries including a prominent periapical lucency or abscess involving the left mandibular first molar. Laboratory data showed AST 112, ALT 146 and alk phos 179 Demand laboratory data reviewed. Patient has been afebrile but tachycardic on admission. Review of Systems Constitutional: Patient denies any fever or chills . No generalized weakness or weight loss. Abdomen: Patient denied nausea vomiting and diarrhea and abdominal pain. Cardiovascular: Patient denies any chest pain or short of breath no palpitations. Respiratory: patient denied any cough or sputum production. No shortness of breath Neurologic: Patient denied any numbness or tingling headache. Musculoskeletal: Patient denies any complaints of joint swelling or deformity. Skin: Negative Psychiatric: Negative Endocrine: No heat or cold intolerance. No recent weight gain. Genitourinary: No dysuria or hematuria. All other 14 point ROS negative except the above Past Medical History Past Medical History: Asthma, Hypertension Additional Past Medical History / Comment(s): back pain, scoliosis, kidney stones History of Any Multi-Drug Resistant Organisms: None Reported Past Surgical History: Back Surgery, Section, Cholecystectomy, Hysterectomy, Tubal Ligation Additional Past Surgical History / Comment(s): neck surgery Past Anesthesia/Blood Transfusion Reactions: No Reported Reaction Additional Past Anesthesia/Blood Transfusion Reaction / Comment(s): no problems w/transfusions Past Psychological History: No Psychological Hx Reported Smoking Status: Never smoker Past Alcohol Use History: None Reported Past Drug Use History: None Reported - Past Family History Mother Family Medical History: Cancer Father Family Medical History: Dementia Additional Family Medical History / Comment(s): Lung disease, parkinsons Medications and Allergies Home Medications Medication Instructions Recorded Confirmed Type RX: Phentermine HCl [Adipex-P] 37.5 mg PO DAILY 10/13/15 03/13/20 History Acetaminophen Tab [Tylenol Tab] 1,000 mg PO Q6HR 03/13/20 03/13/20 History Ibuprofen [Motrin Ib] 800 mg PO Q8H PRN 03/13/20 03/13/20 History Allergies Allergy/AdvReac Type Severity Reaction Status Date / Time gadobenate dimeglumine Allergy Intermediate Dyspnea Verified 03/13/20 14:53 [From Multihance] cyclobenzaprine HCl Allergy ITCHING OF Verified 03/13/20 14:53 [From Flexeril] SKIN promethazine HCl Allergy ITCHING OF Verified 03/13/20 14:53 [From Phenergan] SKIN levofloxacin [From Levaquin] AdvReac Severe Nausea & Verified 03/13/20 14:53 Vomiting Physical Exam Vitals: Vital Signs Temp Pulse Pulse Resp BP BP Pulse Ox 03/13/20 19:44 99.3 F 97 15 149/88 99 03/13/20 19:00 98.7 F 97 18 169/93 96 03/13/20 16:00 98.3 F 91 16 161/85 99 03/13/20 15:48 16 03/13/20 13:47 98.6 F 100 20 147/94 97 Intake and Output 03/13/20 03/13/20 03/14/20 14:59 22:59 06:59 Other: Weight 83.461 kg 83.461 kg PHYSICAL EXAMINATION: Patient is lying in the bed comfortably, no acute distress, awake alert and oriented.. HEENT: Normocephalic. Neck is supple. Pupils reactive. Nostrils clear. Oral cavity is moist. Ears reveal no drainage. Dental caries, patient does have left-sided facial swelling, redness and tenderness extending from the temporal region and involving Peritrate area and preseptal region. Unable to open her eye. No evidence of drainage noted. Neck reveals no JVD, carotid bruits, or thyromegaly. CHEST EXAMINATION: Trachea is central. Symmetrical expansion. Lung leon clear to auscultation and percussion. CARDIAC: Normal S1, S2 with no gallops. No murmurs ABDOMEN: Soft. Bowel sounds normal. No organomegaly. No abdominal bruits. Extremities: reveal no edema. No clubbing or cyanosis Neurologically awake, alert, oriented x3 with well-coordinated movements. No focal deficits noted Skin: No rash or skin lesions. Psychiatric: Coperative. Nonsuicidal Musculoskeletal: No joint swelling or deformity. Normal range of motion. Results CBC & Chem 7: 03/13/20 14:44 03/13/20 14:44 Labs: Abnormal Lab Results - Last 24 Hours (Table) 03/13/20 Range/Units 14:44 Glucose 105 H (74-99) mg/dL AST 112 H (14-36) U/L ALT 146 H (4-34) U/L Alkaline Phosphatase 179 H (38-126) U/L Thrombosis Risk Factor Assmnt - DVT/VTE Prophylaxis DVT/VTE Prophylaxis: Pharmacologic Prophylaxis ordered - Choose All That Apply Any of the Below Risk Factors Present?: Yes Each Factor Represents 1 point: Age 41-60 years Other Risk Factors: No Thrombosis Risk Factor Assessment Total Risk Factor Score: 1 Thrombosis Risk Factor Assessment Level: Low Risk Assessment and Plan Assessment: Left-sided severe facial cellulitis and preseptal cellulitis Left parotiditis 5 mm calculus along the left floor of the mouth could be along the submandibular duct. Hypertension currently not on any medications. Asthma Scoliosis Chronic back pain History of renal stones DVT prophylaxis with heparin subcu Plan: Patient will be continued on gentle IV hydration and IV antibiotics in the form of Unasyn. ID and ENT was consulted. Follow-up blood cultures and further recommendations based on the clinical course. .
[2020-03-14] MEDS: HEPARIN SODIUM,PORCINE 5,000 UNIT/ML 1 ML VIAL SQ SCH ×4 (00:15→23:15)
[2020-03-14] MEDS: AMPICILLIN-SULBACTAM 3 GM in SODIUM CHLORIDE 0.9% 100 ML IVPB SCH ×3 (00:21→12:49)
[2020-03-14] MEDS: Acetaminophen-Codeine 300-30mg TAB PO PRN ×3 (00:40→23:15)
[2020-03-14] MEDS: HYDROmorphone 1 MG/ML 1 ML SYRINGE IVP PRN ×5 (05:51→20:41)
[2020-03-14] MEDS: FAMOTIDINE 20 MG TAB PO SCH ×2 (08:25→20:40)
[2020-03-14] MEDS ORDERED: TEMAZEPAM 30 MG CAP PO PRN (14:23)
[2020-03-14] MEDS ORDERED: DEXAMETHASONE SOD PHOSPHATE 10 MG/ML 1 ML VIAL IV SCH (14:30)
[2020-03-14] MEDS ORDERED: VANCOMYCIN IV PER PHARMACY 1 EACH MISC MISCELLANE PRN (14:37)
[2020-03-14] MEDS ORDERED: VANCOMYCIN 1,500 MG in SODIUM CHLORIDE 0.9% 250 ML IVPB ONE (15:00)
[2020-03-14] MEDS ORDERED: DEXAMETHASONE SOD PHOSPHATE 4 MG/ML 1 ML VIAL IV SCH (16:00)
[2020-03-14] MEDS: DEXAMETHASONE SOD PHOSPHATE 10 MG/ML 1 ML VIAL IV SCH ×2 (16:13→23:15)
--- NOTE | 2020-03-14 18:01 | CONS ---
CONSULTATION DATE OF SERVICE: 03/14/2020 REASON FOR CONSULTATION: Left periorbital cellulitis. HISTORY OF PRESENT ILLNESS: The patient is a 49-year-old female with a past medical history significant for eczema in this patient who did develop a painful sore on the left temporal area a few days ago. The patient thought it was related to her eczema. Subsequently the patient noticed the left temporal area as well as left periorbital area started getting more swollen, red and painful. The patient described the pain to be more of a throbbing in nature, intensity almost 10 out of 10 in severity. The patient did have more swelling leading to closure of her left upper and lower eyelid. The patient on presentation to hospital was afebrile. Subsequently, did spike a fever of 101 degrees Fahrenheit this afternoon. The patient did have a normal white count yesterday. Liver enzymes are mildly elevated. The patient did have a CT of the soft tissue neck which did show thickening inflammatory changes appears to center at the left parotid gland, severe cellulitis along the left side of the face extending up along the left temporal scalp with left-sided preseptal cellulitis. The patient was given a dose of Unasyn. She was subsequently admitted to the Hospital yesterday. Unasyn was resumed yesterday by myself pending evaluation this morning. The patient currently denies having any chest pain or shortness of breath or cough. No nausea, vomiting, no abdominal pain or diarrhea. REVIEW OF SYSTEMS: Positive points have been mentioned in HPI. Rest of systems are negative. PAST MEDICAL HISTORY: Asthma, hypertension, chronic back pain, scoliosis, kidney stone. PAST SURGICAL HISTORY: Back surgery, , cholecystectomy, tubal ligation. SOCIAL HISTORY: Denies smoking, drinking or drug use. FAMILY HISTORY: Father history of dementia and lung disease. ALLERGIES: TO PROMETHAZINE, LEVAQUIN, CYCLOBENZAPRINE. MEDICATIONS: Include the patient is currently on Tylenol, Pepcid, heparin, Dilaudid, morphine sulfate and Narcan Zofran, Restoril and Unasyn 3 grams q.6 hours. PHYSICAL EXAMINATION: Blood pressure 134/99 with a pulse of 94. Temperature 101. She is 98% on room air. General description: The patient is a middle-aged female lying in bed in no distress. No tachypnea or accessory muscles of respiration use. HEENT examination: Left periorbital swelling and redness with an area of induration to the left temporal area but no fluctuation or drainage was noticed. Slightly tender. No evidence of any swelling in the parotid area. LUNGS: Unlabored breathing. Clear to auscultation anteriorly. HEART: S1, S2. Regular rate and rhythm. ABDOMEN: Soft, no tenderness. EXTREMITIES: No edema of the feet. SKIN examination: No rash or mass palpable. NEUROLOGICAL: Patient is awake, alert, oriented times three. Mood and affect normal. LABS: Hemoglobin is 13.8, white count 8.3, BUN of 15, creatinine 1.03. DIAGNOSTIC IMPRESSION AND PLAN: Patient with left preseptal cellulitis, it has more likely started from a small area of skin irritation and cellulitis with no definite abscess of the left temporal area. Clinically no evidence of any parotitis that was noticed. We will need to cover for the gram-positive skin ranjit in view of no good response to the Unasyn. Need to cover for the MRSA. PLAN: 1. Discontinue Zosyn. 2. Start the patient on vancomycin, pharmacy to dose, target of 15. 3. Blood cultures. 4. We will follow. 5. culture. 6. We will follow up on clinical condition and culture to further adjust medication if needed. Thank you for this consultation. Will follow this patient along with you. MMODL / IJN: [id number] /
[2020-03-14] MEDS: SODIUM CHLORIDE 0.9% 1,000 ML IV SCH (19:02)
[2020-03-15] MEDS: HYDROmorphone 1 MG/ML 1 ML SYRINGE IVP PRN ×3 (01:35→08:38)
[2020-03-15] MEDS: VANCOMYCIN 1,500 MG in SODIUM CHLORIDE 0.9% 250 ML IVPB SCH ×2 (05:43→22:24)
--- NOTE | 2020-03-15 07:07 | CONS ---
CONSULTATION DATE OF SERVICE: 03/14/2020 REASON FOR CONSULTATION: Left facial cellulitis. HISTORY OF PRESENT ILLNESS: This patient is a pleasant 49-year-old female who states that approximately 3 or 4 days prior to admission, she developed a patch of eczema in her left worship. The area was quite itchy and at first she states she was scratching the area, but subsequently it developed what appeared to be a small, tender, pimple or ingrown hair in the area. She states that she attempted to squeeze this small pimple and was able to get a small amount of fluid out of it. However, subsequently the area became quite swollen and hard and the tenderness,swelling began to extend down towards her face. Eventually the tenderness and swelling extended to the left eye to the point that the left eye was completely swollen shut. Further extension of the swelling continued down to the left side of her face/parotid area. The patient states that she has had problems with dental caries, but at this time is not having any dental pain. The patient was seen in the [facility] and at that time, a CT scan of the neck was obtained. The CT scan of the neck shows evidence of significant soft tissue swelling in the left temporal/left facial/ and left parotid area. There was a question of possible parotitis. In addition, it showed evidence of a left mandibular periapical abscess of one of the molars. The patient was started on Unasyn at a maximum dose of 3 g daily. She states that the pain has decreased slightly, but the swelling is still present. PAST MEDICAL HISTORY: Past medical history reveals patient has no known allergies to medications. MEDICATION: Current medications at home include Motrin, Tylenol, and Adipex. SOCIAL HISTORY: The patient is a nonsmoker. REVIEW OF SYSTEMS: Is completely noncontributory. PHYSICAL EXAMINATION: This patient is a pleasant 49-year-old female who os alert and cooperative and well- oriented to time and place. She is in no acute distress at this time. HEENT: Patient is normocephalic. Tympanic membranes are normal. Middle ear spaces are free of any fluid or infection. There is no tragal tenderness on the right or left side. Intranasal examination reveals moderate septal deviation with compensatory hypertrophy of the inferior turbinates and a moderate amount of clear mucus on the mucous membranes and draining down the posterior pharynx. Examination of oropharynx is essentially unremarkable. Palpation of the rear molars on the right and left does not elicit any tenderness. Examination of left facial/left neck area reveals that in the region of the left worship, there is a crusted area and there is swelling extending from the left temporal region and onto the left facial area with obvious left periorbital edema. The eyelids are swollen completely shut. The facial tenderness is moderately tender to palpation and the patient states that she does have difficulty opening her mouth. Palpation of the left parotid area does not reveal any areas of fluctuance and the edema has just started extending into the patient's left neck. I am not able to palpate any neck adenopathy at this time. On palpation of the left parotid gland, I do not see any purulent material coming from the left Stensen's duct. Cranial nerves 2 through 12 and remainder of the head and neck exam is essentially unremarkable. CHEST/CARDIOVASCULAR: Both lung leon are clear to percussion and auscultation. The patient is in regular sinus rhythm. S1, S2 are present without evidence of any murmurs, S3s or S4s. ABDOMEN: There is no evidence of any masses, megaly or tenderness. The abdomen is soft. The remainder of physical exam is unremarkable. IMPRESSION: 1. Left facial cellulitis. 2. Left periorbital edema. 3. Left parotitis secondary to left facial cellulitis. PLAN: I would maintain the current antibiotic and if no significant improvement over the next 24-48 hours, then I would consider adding one of the aminoglycosides, specifically clindamycin 600-900 mg q.8 hours or have the pharmacy department give her the maximal dosage based on her weight. However, I would wait to see if the patient is responding to the Unasyn. In addition to this, I am going to put the patient on a dexamethasone schedule intravenously as prescribed on the patient's orders. This should significantly help reduce the facial edema and the periorbital edema. I will see the patient tomorrow and based upon her appearance tomorrow, if necessary, then I will consider adding the Cleocin/clindamycin to the regimen, but again at this point, I would like to hold off from adding that particular medication because it may not be necessary. I want to take this opportunity to thank you for allowing me to assist in the care of your patient. If I can be of any further assistance, please feel free to call my office. ADDENDUM: I feel at this point that the initiating infection started in the left scalp/temporal region and from there the infection spread towards the face in a dependent manner. MMCONSUELO / AUGUSTINEN: [id number] / MTDD
[2020-03-15] MEDS: DEXAMETHASONE SOD PHOSPHATE 10 MG/ML 1 ML VIAL IV SCH ×3 (08:38→23:42)
[2020-03-15] MEDS: FAMOTIDINE 20 MG TAB PO SCH ×2 (08:38→20:56)
[2020-03-15 09:36] LABS: African American GFR (CKD) 75.5 (60.0-200.0); Non-African American GFR(CKD) 65.2 (60.0-200.0)
--- NOTE | 2020-03-15 10:54 | P.PN ---
Subjective Progress Note Date: 03/14/20 Principal diagnosis: Left facial cellulitis, Patient is a 49-year-old female with a known history of asthma, hypertension, scoliosis, history of renal stones presents to ER with complaints of left facial swelling, redness and pain. Patient states that it all started 2 to 3 days ago when she squeezed it ingrowing gait on the left forehead which turned red and spread along the left eye and left lower face with swelling redness and tenderness. Patient has been applying cold compresses without much help. Patient was unable to open her left eye as well. Denied any pain with eye movement. No complaints of fever or chills. No nausea vomiting abdominal pain or diarrhea. No chest pain or shortness of breath. CT neck and soft tissue showed thickening and inflammatory change appears to be centered at the left parotid gland. Correlate for parotitis. Accompanying severe cellulitis along the left side of the face extending up along the left temporal scalp. There is corresponding left-sided preseptal cellulitis and inflammatory thickening of the left platysma muscle below the jaw. No discrete abscess. 5 mm calculus along the left floor of the mouth could be around the submandibular duct however the inflammatory changes do not appear to be centered in the left mandibular gland. Patient is partially edentulous but has multiple dental caries including a prominent periapical lucency or abscess involving the left mandibular first molar. Laboratory data showed AST 112, ALT 146 and alk phos 179 [facility] laboratory data reviewed. Patient has been afebrile but tachycardic on admission. 03/14/20 Patient is currently sitting on the bed still complaining of left facial pain. Patient has been afebrile. No leukocytosis. Continued on antibiotics in the form of Unasyn. ID is on board. Patient was also seen by ENT. Still having left preseptal cellulitis and unable to open her eye completely. No complaints of chest pain or shortness of breath. no nausea vomiting or abdominal pain. Current medications reviewed. Objective - Vital Signs Vital signs: Vital Signs Temp 98.3 F 03/14/20 19:09 Pulse 82 03/14/20 19:09 Resp 16 03/14/20 19:09 BP 142/89 03/14/20 19:09 Pulse Ox 98 03/14/20 19:09 Intake & Output 03/14/20 03/14/20 03/15/20 06:59 18:59 06:59 Intake Total 540 Balance 540 Weight 83.461 kg Intake: Oral 540 Other: Voiding Method Toilet # Voids 3 - Exam PHYSICAL EXAMINATION: Patient is lying in the bed comfortably, no acute distress, awake alert and oriented.. HEENT: Normocephalic. Neck is supple. Pupils reactive. Nostrils clear. Oral cavity is moist. Ears reveal no drainage. Dental caries, patient does have left-sided facial swelling, redness and tenderness extending from the temporal region and involving Peritrate area and preseptal region. Unable to open her eye. No evidence of drainage noted. Neck reveals no JVD, carotid bruits, or thyromegaly. CHEST EXAMINATION: Trachea is central. Symmetrical expansion. Lung leon clear to auscultation and percussion. CARDIAC: Normal S1, S2 with no gallops. No murmurs ABDOMEN: Soft. Bowel sounds normal. No organomegaly. No abdominal bruits. Extremities: reveal no edema. No clubbing or cyanosis Neurologically awake, alert, oriented x3 with well-coordinated movements. No focal deficits noted Skin: No rash or skin lesions. Psychiatric: Coperative. Nonsuicidal Musculoskeletal: No joint swelling or deformity. Normal range of motion. - Labs CBC & Chem 7: 03/13/20 14:44 03/15/20 05:48 Labs: Microbiology - Last 24 Hours (Table) 03/13/20 14:44 Blood Culture - Preliminary Blood No Growth after 24 hours Assessment and Plan Assessment: Left-sided severe facial cellulitis and preseptal cellulitis Left parotiditis 5 mm calculus along the left floor of the mouth could be along the submandibular duct. Hypertension currently not on any medications. Asthma Scoliosis Chronic back pain History of renal stones DVT prophylaxis with heparin subcu Plan: Patient will be continued on gentle IV hydration and IV antibiotics in the form of Unasyn. ID and ENT is following. Follow-up blood cultures and further recommendations based on the clinical course. . Time with Patient: Greater than 30
[2020-03-15] MEDS: HEPARIN SODIUM,PORCINE 5,000 UNIT/ML 1 ML VIAL SQ SCH ×3 (11:11→22:48)
[2020-03-15 11:38] LABS: Basophils % (A) 0 %; Eosinophils % (A) 0 %; HCT 45.6 % (34.0-46.0); HGB 14.2 gm/dL (11.4-16.0); Hypochromasia Moderate; Lymphocytes # (A) 0.4 k/uL (1.0-4.8); Lymphocytes % (A) 6 %; MCH 28.1 pg (25.0-35.0); MCHC 31.1 g/dL (31.0-37.0); Mean Platelet Volume 8.2; Monocytes # (A) 0.2 k/uL (0-1.0); Monocytes % (A) 2 %; Neutrophils # (A) 7.3 k/uL (1.3-7.7); Neutrophils % (A) 92 %; Platelet Count 214 k/uL (150-450); RBC 5.04 m/uL (3.80-5.40); RDW 14.2 % (11.5-15.5)
[2020-03-15 11:39] LABS: MCV 90.4 fL (80.0-100.0)
[2020-03-15 12:22] LABS: African American GFR (CKD) 75.5 (60.0-200.0); Calcium 9.8 mg/dL (8.7-10.3); Non-African American GFR(CKD) 65.2 (60.0-200.0); Potassium 4.6 mmol/L (3.5-5.5)
[2020-03-15] MEDS: polyethylene glycoL 3350 17 GM POWD.PACK PO PRN (12:25)
[2020-03-15] MEDS: FUROSEMIDE 20 MG TAB PO SCH (12:25)
[2020-03-15] MEDS: Acetaminophen-Codeine 300-30mg TAB PO PRN (12:29)
[2020-03-15] MEDS: IBUPROFEN 800 MG TAB PO PRN (16:44)
[2020-03-15] MEDS: SODIUM CHLORIDE 0.9% 1,000 ML IV SCH (18:55)
--- NOTE | 2020-03-15 21:39 | P.PN ---
Subjective Progress Note Date: 03/15/20 Principal diagnosis: Left facial cellulitis, Patient is a 49-year-old female with a known history of asthma, hypertension, scoliosis, history of renal stones presents to ER with complaints of left facial swelling, redness and pain. Patient states that it all started 2 to 3 days ago when she squeezed it ingrowing gait on the left forehead which turned red and spread along the left eye and left lower face with swelling redness and tenderness. Patient has been applying cold compresses without much help. Patient was unable to open her left eye as well. Denied any pain with eye movement. No complaints of fever or chills. No nausea vomiting abdominal pain or diarrhea. No chest pain or shortness of breath. CT neck and soft tissue showed thickening and inflammatory change appears to be centered at the left parotid gland. Correlate for parotitis. Accompanying severe cellulitis along the left side of the face extending up along the left temporal scalp. There is corresponding left-sided preseptal cellulitis and inflammatory thickening of the left platysma muscle below the jaw. No discrete abscess. 5 mm calculus along the left floor of the mouth could be around the submandibular duct however the inflammatory changes do not appear to be centered in the left mandibular gland. Patient is partially edentulous but has multiple dental caries including a prominent periapical lucency or abscess involving the left mandibular first molar. Laboratory data showed AST 112, ALT 146 and alk phos 179 Demand laboratory data reviewed. Patient has been afebrile but tachycardic on admission. 03/14/20 Patient is currently sitting on the bed still complaining of left facial pain. Patient has been afebrile. No leukocytosis. Continued on antibiotics in the form of Unasyn. ID is on board. Patient was also seen by ENT. Still having left preseptal cellulitis and unable to open her eye completely. No complaints of chest pain or shortness of breath. no nausea vomiting or abdominal pain. 03/15/2020 Patient is currently still complains of left temporal pain and swelling and redness extending up to the parotid region. Able to open her eyes slightly. Remains afebrile. Laboratory data showed WBC 8.0, hemoglobin 14.1 platelets 240 BUN 21 creatinine 1.0 No complaints of chest pain or shortness of breath. Patient states that she is billing of fluid in the leg and will be started on home dose of Lasix. Antibiotics changed to vancomycin. ID and ENT is on board. Current medications reviewed. Objective - Vital Signs Vital signs: Vital Signs Temp 97.6 F 03/15/20 14:00 Pulse 80 03/15/20 14:00 Resp 16 03/15/20 14:00 BP 176/96 03/15/20 14:00 Pulse Ox 100 03/15/20 14:00 Intake & Output 03/14/20 03/15/20 03/15/20 18:59 06:59 18:59 Intake Total 540 Balance 540 Intake: Oral 540 Other: Voiding Method Toilet Toilet # Voids 3 2 - Exam PHYSICAL EXAMINATION: Patient is lying in the bed comfortably, no acute distress, awake alert and oriented.. HEENT: Normocephalic. Neck is supple. Pupils reactive. Nostrils clear. Oral cavity is moist. Ears reveal no drainage. Dental caries, patient does have left-sided facial swelling, redness and tenderness extending from the temporal region and involving Peritrate area and preseptal region. Unable to open her eye. No evidence of drainage noted. Neck reveals no JVD, carotid bruits, or thyromegaly. CHEST EXAMINATION: Trachea is central. Symmetrical expansion. Lung leon clear to auscultation and percussion. CARDIAC: Normal S1, S2 with no gallops. No murmurs ABDOMEN: Soft. Bowel sounds normal. No organomegaly. No abdominal bruits. Extremities: reveal no edema. No clubbing or cyanosis Neurologically awake, alert, oriented x3 with well-coordinated movements. No focal deficits noted Skin: No rash or skin lesions. Psychiatric: Coperative. Nonsuicidal Musculoskeletal: No joint swelling or deformity. Normal range of motion. - Labs CBC & Chem 7: 03/15/20 08:11 03/15/20 08:11 Labs: Abnormal Lab Results - Last 24 Hours (Table) 03/15/20 03/15/20 Range/Units 08:11 08:11 Lymphocytes # 0.4 L (1.0-4.8) k/uL Carbon Dioxide 17.0 L (21.6-31.8) mmol/L Anion Gap 14.00 H (4.00-12.00) mmol/L BUN/Creatinine Ratio 21.00 H (12.00-20.00) Ratio Glucose 174 H (70-110) mg/dL Microbiology - Last 24 Hours (Table) 03/14/20 17:23 Gram Stain - Preliminary Face Wound Culture - Preliminary 03/13/20 14:44 Blood Culture - Preliminary Blood No Growth after 24 hours Assessment and Plan Assessment: Left-sided severe facial cellulitis and preseptal cellulitis Left parotiditis 5 mm calculus along the left floor of the mouth could be along the submandibular duct. Hypertension currently not on any medications. Asthma Scoliosis Chronic back pain History of renal stones DVT prophylaxis with heparin subcu Plan: Patient will be continued on gentle IV hydration and IV antibiotics in the form of Unasyn--> Vanco. ID and ENT is following. Follow-up blood cultures and further recommendations based on the clinical course. . Time with Patient: Greater than 30
--- NOTE | 2020-03-15 21:41 | PN ---
PROGRESS NOTE DATE OF SERVICE: 03/15/2020 REASON FOR FOLLOWUP: Left temporal and preseptal cellulitis. INTERVAL HISTORY: Patient is currently afebrile. The patient left periorbital swelling and redness minimally decreased. Denies having any chest pain. No shortness of breath or cough. No abdominal pain. No diarrhea. PHYSICAL EXAMINATION: Blood pressure is 163/100 with a pulse of 77. Temperature 98.2. She is 96% on room air. General description is a middle-aged female up in the room in no distress. HEENT examination: Right orbital swelling is slightly decreased. Lungs unlabored breathing. Clear to auscultation anteriorly. Heart S1, S2. Regular rate and rhythm. Abdomen soft, no tenderness. LABS: Hemoglobin is 14.1, white count 8.0, BUN of 7, creatinine 1.0. DIAGNOSTIC IMPRESSION AND PLAN: Patient with left preseptal cellulitis with an area of cellulitis over the left temporal area. Culture now showing Staph aureus. Blood culture negative. Patient to continue vancomycin while waiting for the culture to finalize. Continue supportive care. MMODL / IJN: [id number] /
[2020-03-16] MEDS: Acetaminophen-Codeine 300-30mg TAB PO PRN ×3 (00:02→21:03)
[2020-03-16] MEDS: TEMAZEPAM 15 MG CAP PO PRN ×2 (00:58→23:24)
[2020-03-16] MEDS ORDERED: hydrALAZINE HCL 25 MG TAB PO PRN (01:12)
[2020-03-16] MEDS: hydrALAZINE HCL 25 MG TAB PO PRN ×2 (02:06→16:10)
--- NOTE | 2020-03-16 06:26 | PN ---
PROGRESS NOTE DATE OF SERVICE: 03/15/2020 SUBJECTIVE: Vital signs are stable. The patient is afebrile. The patient states that she feels markedly better today and that she is able to open her left eye which had previously been swollen shut. The patient has received 3 doses of the dexamethasone since I saw her yesterday. She was also seen by Dr. Thakur yesterday and he decided to change her antibiotic from Unasyn to vancomycin. The dexamethasone has had the expected effect and has markedly reduced the soft tissue swelling around the eye and the cheeks. The patient has less complaint of pain and states that she is able to open her mouth with less difficulty. OBJECTIVE: HEENT patient is normocephalic. Tympanic membranes are normal. Examination of the left gnosticist area reveals that the swelling and tenderness has markedly decreased. There is a scab over the area, however, where the initial infection started. In addition to this, most of the left periorbital edema has resolved and the patient is able to partially open the left eye. There is a small amount of right infra-periorbital edema on the right side, but this is inconsequential. It is not related to the infection. Palpation of the left parotid area reveals no fluctuance, no tenderness, and again the swelling has markedly decreased. In addition to this, palpation of the left rear molars again does not elicit any pain. There is no cervical adenopathy or swelling in the anterior cervical area and the remainder of the head and neck exam is essentially unchanged since last visit. ASSESSMENT: 1. Left periorbital edema. 2. Left facial cellulitis. 3. Left parotitis. PLAN: Continue the recently ordered change in the patient's antibiotic. The patient related to me that she has had numerous problems with her teeth and that there is a carious molar in the left mandibular area that has been there for quite some time. Therefore, the apparent radiolucency that appears on the CT scan is most likely not service support representative of a periapical abscess. I have advised the patient that when she is better, that she should certainly continue seeing her dentist so that she may get the remaining carious teeth extracted. We will continue her on the present course of dexamethasone and I will see the patient again tomorrow and at that time I should be able to make a decision whether or not she can be discharged to home, possibly on 03/17/2020. If she is discharged home on Monday, I would highly recommend that she be discharged on an oral antibiotic for 7-10 days. I have advised her that if I do feel that she can be discharged to home on 03/17/2020, then she should follow up with her family physician, Dr. Connelly. I will continue to follow this patient with you and I will see her again tomorrow. BAYLEE / ASUNCION: [id number] / EVELYNE
[2020-03-16 06:49] LABS: Basophils % (A) 0 %; Eosinophils % (A) 0 %; HCT 39.1 % (34.0-46.0); HGB 12.4 gm/dL (11.4-16.0); Lymphocytes # (A) 0.6 k/uL (1.0-4.8); Lymphocytes % (A) 5 %; MCH 27.1 pg (25.0-35.0); MCHC 31.6 g/dL (31.0-37.0); MCV 85.8 fL (80.0-100.0); Mean Platelet Volume 7.5; Monocytes # (A) 0.5 k/uL (0-1.0); Monocytes % (A) 4 %; Neutrophils # (A) 12.5 k/uL (1.3-7.7); Neutrophils % (A) 90 %; Platelet Count 214 k/uL (150-450); RBC 4.56 m/uL (3.80-5.40); WBC 13.8 k/uL (3.8-10.6)
[2020-03-16] MEDS: IBUPROFEN 800 MG TAB PO PRN ×2 (06:50→15:41)
[2020-03-16] MEDS: DEXAMETHASONE SOD PHOSPHATE 10 MG/ML 1 ML VIAL IV SCH (08:01)
[2020-03-16] MEDS: HEPARIN SODIUM,PORCINE 5,000 UNIT/ML 1 ML VIAL SQ SCH ×3 (08:01→23:25)
[2020-03-16] MEDS: FAMOTIDINE 20 MG TAB PO SCH ×2 (08:08→21:04)
[2020-03-16] MEDS: FUROSEMIDE 20 MG TAB PO SCH (08:08)
[2020-03-16] MEDS ORDERED: FUROSEMIDE 20 MG TAB PO SCH (09:00)
[2020-03-16 09:26] LABS: African American GFR (CKD) 75.5 (60.0-200.0); Anion Gap 3.3 mmol/L (4.00-12.00); Calcium 9.4 mg/dL (8.7-10.3); Carbon Dioxide 24.7 mmol/L (21.6-31.8); Non-African American GFR(CKD) 65.2 (60.0-200.0); Potassium 4.3 mmol/L (3.5-5.5)
[2020-03-16] MEDS ORDERED: VANCOMYCIN TROUGH DUE 1 EACH MISC MISCELLANE ONE (13:00)
[2020-03-16] MEDS: VANCOMYCIN 1,500 MG in SODIUM CHLORIDE 0.9% 250 ML IVPB SCH (13:46)
--- NOTE | 2020-03-16 14:29 | PN ---
PROGRESS NOTE DATE OF SERVICE: 03/16/2020 REASON FOR FOLLOWUP: Left temporal and preseptal cellulitis. INTERVAL HISTORY: The patient is currently afebrile. The patient left temporal and periorbital area of swelling and redness improved. She is able to open her eye. Denies having any chest pain or shortness of breath or cough. No abdominal pain or diarrhea. PHYSICAL EXAMINATION: Blood pressure 133/94 with a pulse of 75, temperature 97.7. She is 97% on room air. General description is a middle-aged female lying in bed in no distress. Left periorbital swelling. Redness has decreased. LUNGS: Unlabored breathing, clear to auscultation anteriorly. HEART: S1, S2. Regular rate and rhythm. ABDOMEN: Soft, no tenderness. LABS: Hemoglobin 12.4, white count 13.8, BUN of 29, creatinine 1.0. Wound culture showing Staph aureus. Sensitivities pending. DIAGNOSTIC IMPRESSION AND PLAN: Patient with left temporal and periorbital cellulitis Staph aureus, sensitivity is currently pending. Patient currently responding to vancomycin, to continue with discharge antibiotic depending upon the culture report. Continue supportive care. MMODL / IJN: [id number] /
[2020-03-16] MEDS: polyethylene glycoL 3350 17 GM POWD.PACK PO PRN (15:14)
[2020-03-16] MEDS: DEXAMETHASONE SOD PHOSPHATE 4 MG/ML 1 ML VIAL IV SCH ×2 (15:46→23:25)
[2020-03-16] MEDS: SODIUM CHLORIDE 0.9% 1,000 ML IV SCH (21:04)
--- NOTE | 2020-03-17 02:46 | PN ---
PROGRESS NOTE SUBJECTIVE: Vital signs are stable. Patient is afebrile. Patient has no somatic complaints. The patient states that she is able to open her left eye completely at this point and that she is also having very little difficulty opening her mouth. She states that the area is still sore, but it feels 100% better compared to 2 days ago. OBJECTIVE: HEENT patient is normocephalic. Tympanic membranes are normal. Examination of the left eye reveals the left periorbital orbital edema has completely resolved. In addition to this,the previously noted slight, right infra orbital edema has also resolved. There still remains a small crusty area on the left temporal area, which again I believe was the initiating site of her infection. There is no significant left facial or left parotid edema/swelling and there still remains no neck adenopathy or swelling. The remainder of the head and neck exam is essentially unremarkable. ASSESSMENT: Resolving left facial cellulitis, resolving left parotitis, resolving left periorbital edema. PLAN: At this point, the patient has one final dose of dexamethasone IV to be given at 8:00 a.m. on the morning of 03/17/2020. After that, from an ENT standpoint, the patient may be discharged home. Again, I highly recommend the patient be discharged on an oral antibiotic for the next 7-10 days. She has been advised to follow up with her family physician and there is no need for me to see her in my office for followup. I advised the patient that in the future if she develops any itchy patch especially in facial area, she should use her steroid cream or the cream given to her by her game moderator for her eczema and avoid scratching or squeezing any of these areas because this may once again initiate a skin infection. All of the patient's questions were answered. MMODL / IJN: [id number] / EVELYNE
[2020-03-17 05:52] LABS: Basophils % (A) 0 %; Eosinophils # (A) 0.1 k/uL (0-0.7); Eosinophils % (A) 1 %; HCT 36.1 % (34.0-46.0); HGB 11.9 gm/dL (11.4-16.0); Lymphocytes # (A) 0.7 k/uL (1.0-4.8); Lymphocytes % (A) 8 %; MCH 28.3 pg (25.0-35.0); MCHC 33.1 g/dL (31.0-37.0); MCV 85.6 fL (80.0-100.0); Mean Platelet Volume 7.4; Monocytes # (A) 0.4 k/uL (0-1.0); Monocytes % (A) 5 %; Neutrophils % (A) 85 %; Platelet Count 194 k/uL (150-450); RBC 4.22 m/uL (3.80-5.40); RDW 13.9 % (11.5-15.5); WBC 8.2 k/uL (3.8-10.6)
[2020-03-17] MEDS: VANCOMYCIN 1,500 MG in SODIUM CHLORIDE 0.9% 250 ML IVPB SCH (05:58)
[2020-03-17 06:04] LABS: Potassium 4.3 mmol/L (3.5-5.1)
[2020-03-17] MEDS: FUROSEMIDE 20 MG TAB PO SCH (09:14)
[2020-03-17] MEDS: HEPARIN SODIUM,PORCINE 5,000 UNIT/ML 1 ML VIAL SQ SCH ×2 (09:14→16:08)
[2020-03-17] MEDS: FAMOTIDINE 20 MG TAB PO SCH (09:14)
[2020-03-17] MEDS: Acetaminophen-Codeine 300-30mg TAB PO PRN (09:15)
[2020-03-17 09:23] VITALS: PULSE 60
[2020-03-17] MEDS: hydrALAZINE HCL 25 MG TAB PO PRN (10:57)
[2020-03-17 12:54] VITALS: BP 144/90; RESP 16; TEMP 97.6
--- NOTE | 2020-03-17 13:49 | PN ---
PROGRESS NOTE DATE OF SERVICE: 03/17/2020 REASON FOR FOLLOWUP: Left temporal and preseptal cellulitis, MSSA. INTERVAL HISTORY: The patient is currently afebrile. The patient is feeling better. Overall, pain, swelling and redness to the left side of the face has improved. Patient denies having any chest pain, shortness of breath or cough. No abdominal pain or diarrhea. PHYSICAL EXAMINATION: Blood pressure 167/109 with a pulse of 60, temperature 97.7. She is 97% on room air. General description is a middle-aged female lying in bed in no distress. HEENT EXAMINATION: Left periorbital and temporalis swelling improved. No drainage. LUNGS: Unlabored breathing, clear to auscultation anteriorly. HEART: S1, S2. Regular rate and rhythm. ABDOMEN: Soft, no tenderness. LABS: Hemoglobin is 11.9, white count 8.2, BUN of 32, creatinine 0.97. Wound culture with MSSA. Blood culture negative. DIAGNOSTIC IMPRESSION AND PLAN: Patient with left temporal and preseptal cellulitis. Antibiotic was switched over to cefazolin 2 grams q.8 hours. Plan to finish therapy with oral Keflex. Continue supportive care. MMODL / IJN: [id number] /
== END 2020-03-17 16:48 | disposition home or self-care (01) | DRG 603 ==
LOC: EC 13:39 → 4SSUR 16:22 → 6PED 03-16 00:40 → OBSVTOIN 03-16 07:14
PROVIDERS: ADMIT Internal Medicine; ATTEND Internal Medicine
DX: L03.211 Cellulitis of face (principal); K04.7 Periapical abscess without sinus; L03.213 Periorbital cellulitis; K02.9 Dental caries, unspecified; G89.29 Other chronic pain; I10 Essential (primary) hypertension; J45.909 Unspecified asthma, uncomplicated; M27.2 Inflammatory conditions of jaws; M41.9 Scoliosis, unspecified; Z82.0 Family history of epilepsy and other diseases of the nervous system; Z87.442 Personal history of urinary calculi; Z90.710 Acquired absence of both cervix and uterus; Z90.49 Acquired absence of other specified parts of digestive tract; Z98.51 Tubal ligation status; Z88.1 Allergy status to other antibiotic agents; Z88.8 Allergy status to other drugs, medicaments and biological substances; K11.20 Sialoadenitis, unspecified; B95.61 Methicillin susceptible Staphylococcus aureus infection as the cause of diseases classified elsewhere
CPT/HCPCS: 36415; 70491; 80048; 80053; 80202; 82565; 83605; 85025; 87040; 87070; 87077; 87186; 87205; 96365; 96375; 99284

== ENCOUNTER 2020-04-07 17:30 | Emergency (ER) | payer OTHER ==
[2020-04-07 17:34] VITALS: BP 147/100; PULSE 99; RESP 18; TEMP 98.4
--- NOTE | 2020-04-07 18:23 | ED ---
Female Urogenital HPI - General Chief complaint: Urogenital Stated complaint: UTI Time Seen by Provider: 04/07/20 17:38 Source: patient Mode of arrival: ambulatory Limitations: no limitations - History of Present Illness Initial comments: Patient is a 49-year-old female presenting to emergency Department with complaints of dysuria and frequency that started yesterday. She did have some mild lower abdominal discomfort and has been having lots of urgency as well. She denies any fever or chills, no nausea or vomiting, no back pain. Patient has no vaginal discharge. She states it feels similar to last time she had a UTI. She is no further complaints at this time. - Related Data Home Medications Medication Instructions Recorded Confirmed Phentermine HCl [Adipex-P] 37.5 mg PO DAILY 10/13/15 03/13/20 Acetaminophen Tab [Tylenol] 1,000 mg PO Q6HR 03/13/20 03/13/20 Ibuprofen [Motrin Ib] 800 mg PO Q8H PRN 03/13/20 03/13/20 Furosemide [Lasix] 20 mg PO DAILY 03/15/20 03/15/20 Previous Rx's Medication Instructions Recorded Cephalexin [Keflex] 500 mg PO Q6HR 7 Days #28 cap 03/17/20 Cephalexin [Keflex] 500 mg PO BID 5 Days #10 cap 04/07/20 Phenazopyridine [Pyridium] 200 mg PO TID #6 tablet 04/07/20 Allergies Allergy/AdvReac Type Severity Reaction Status Date / Time gadobenate dimeglumine Allergy Intermediate Dyspnea Verified 04/07/20 17:33 [From Multihance] cyclobenzaprine HCl Allergy ITCHING OF Verified 04/07/20 17:33 [From Flexeril] SKIN promethazine HCl Allergy ITCHING OF Verified 04/07/20 17:33 [From Phenergan] SKIN levofloxacin [From Levaquin] AdvReac Severe Nausea & Verified 04/07/20 17:33 Vomiting Review of Systems ROS Statement: Those systems with pertinent positive or pertinent negative responses have been documented in the HPI. ROS Other: All systems not noted in ROS Statement are negative. Past Medical History Past Medical History: Asthma, Hypertension Additional Past Medical History / Comment(s): back pain, scoliosis, kidney stones History of Any Multi-Drug Resistant Organisms: None Reported, ESBL Past Surgical History: Back Surgery, Section, Cholecystectomy, Hysterectomy, Tubal Ligation Additional Past Surgical History / Comment(s): neck surgery, renal surgery for stones. Past Anesthesia/Blood Transfusion Reactions: No Reported Reaction Additional Past Anesthesia/Blood Transfusion Reaction / Comment(s): no problems w/transfusions Past Psychological History: No Psychological Hx Reported Smoking Status: Never smoker Past Alcohol Use History: None Reported Past Drug Use History: None Reported - Past Family History Mother Family Medical History: Cancer Father Family Medical History: Dementia Additional Family Medical History / Comment(s): Lung disease, parkinsons General Exam - General Exam Comments Initial Comments: GENERAL: Patient is well-developed and well-nourished. Patient is nontoxic and in no acute distress. HEAD: Atraumatic, normocephalic. EYES: Pupils equal round and reactive to light, extraocular movements intact, sclera anicteric, conjunctiva are normal. Eyelids were unremarkable. ENT: TMs normal, nares patent, oropharynx clear without exudates. Moist mucous membranes. NECK: Normal range of motion, supple without lymphadenopathy or JVD. LUNGS: Unlabored respirations. Breath sounds clear to auscultation bilaterally and equal. No wheezes rales or rhonchi. HEART: Regular rate and rhythm without murmurs, rubs or gallops. ABDOMEN: Soft, nontender, normoactive bowel sounds. No guarding, no rebound. No masses appreciated. : Deferred MUSCULOSKELETAL: Normal extremities with adequate strength and normal range of motion, no pitting or edema. No clubbing or cyanosis. NEUROLOGICAL: Patient is alert and oriented x 3. Motor and sensory are also intact. Cranial nerves II through XII grossly intact. Symmetrical smile. Normal speech, normal gait. PSYCH: Normal mood, normal affect. SKIN: Warm, Dry, normal turgor, no rashes or lesions noted. Limitations: no limitations Course Vital Signs 04/07/20 17:31 Temperature 98.4 F Pulse Rate 99 Respiratory 18 Rate Blood Pressure 147/100 O2 Sat by Pulse 100 Oximetry Medical Decision Making - Medical Decision Making Patient is a 49-year-old female here with dysuria, frequency and urgency that started yesterday. Her vitals are stable, she is afebrile. No abdominal tenderness, no flank pain on exam. Patient has large amount of wbc's and bacteria on her UA. Urine culture is pending. Patient will be started on Keflex for UTI. I will also give her prescription for Pyridium. Patient is stable for discharge. Patient is in agreement with this plan of care. Return parameters were discussed with the patient and they verbalized understanding. Case discussed with Dr. Manzano. - Lab Data Lab Results 04/07/20 Range/Units 18:15 Urine Color Yellow Urine Appearance Cloudy H (Clear) Urine pH 5.5 (5.0-8.0) Ur Specific [place] 1.017 (1.001-1.035) Urine Protein Negative (Negative) Urine Glucose (UA) Negative (Negative) Urine Ketones Negative (Negative) Urine Blood Negative (Negative) Urine Nitrite Negative (Negative) Urine Bilirubin Negative (Negative) Urine Urobilinogen <2.0 (<2.0) mg/dL Ur Leukocyte Esterase Large H (Negative) Urine RBC 16 H (0-5) /hpf Urine WBC >182 H (0-5) /hpf Ur Squamous Epith Cells 2 (0-4) /hpf Urine Bacteria Few H (None) /hpf Urine Mucus Rare H (None) /hpf Disposition Clinical Impression: Urinary tract infection Disposition: HOME SELF-CARE Condition: Stable Instructions (If sedation given, give patient instructions): Urinary Tract Infe ction in Women (ED) Additional Instructions: Please return to the Emergency Department if symptoms worsen or any other concerns. Take antibiotics as prescribed. May also use Pyridium for 1-2 days for burning with urination. Follow-up with your regular doctor. Prescriptions: Cephalexin [Keflex] 500 mg PO BID 5 Days #10 cap Phenazopyridine [Pyridium] 200 mg PO TID #6 tablet Is patient prescribed a controlled substance at d/c from ED?: No Referrals: Alex Connelly MD [Primary Care Provider] - 1-2 days
[2020-04-07 18:27] LABS: Appearance,Urine Cloudy (Clear); Bacteria,Urine Few /hpf; Bilirubin,Urine Negative (Negative); Blood,Urine Negative (Negative); Color,Urine Yellow; Glucose,Urine (UA) Negative (Negative); Ketones,Urine Negative (Negative); Leukocyte Esterase,Urine Large (Negative); Mucus,Urine Rare /hpf; Nitrite,Urine Negative (Negative); PH, Urine 5.5 (5.0-8.0); Protein,Urine Negative (Negative); RBC,Urine 16 /hpf (0-5); Specific Gravity,Urine 1.017 (1.001-1.035); Squamous Epithelial Cell,Urine 2 /hpf (0-4); Urobilinogen,Urine <2.0 mg/dL (<2.0); WBC,Urine >182 /hpf (0-5)
== END 2020-04-07 19:21 | disposition home or self-care (01) ==
LOC: EC 17:30
DX: N39.0 Urinary tract infection, site not specified (principal); I10 Essential (primary) hypertension; M54.9 Dorsalgia, unspecified; Z79.899 Other long term (current) drug therapy; Z88.1 Allergy status to other antibiotic agents; Z88.8 Allergy status to other drugs, medicaments and biological substances; Z90.49 Acquired absence of other specified parts of digestive tract; Z87.442 Personal history of urinary calculi; Z90.710 Acquired absence of both cervix and uterus; Z98.51 Tubal ligation status; Z87.440 Personal history of urinary (tract) infections
CPT/HCPCS: 81001; 87077; 87086; 87186; 99283

== ENCOUNTER 2022-07-22 06:21 | Inpatient (IN) | payer OTHER ==
[2022-07-22] MEDS ORDERED: KETOROLAC 15 MG/ML 1 ML VIAL IVP STA (06:26)
[2022-07-22] MEDS ORDERED: SODIUM CHLORIDE 0.9% 1,000 ML IV STA (06:26)
[2022-07-22] MEDS ORDERED: FAMOTIDINE 20 MG/2 ML VIAL IV STA (06:28)
--- NOTE | 2022-07-22 06:32 | ED ---
Abdominal Pain HPI - General Chief Complaint: Abdominal Pain Stated Complaint: NAUSEA,VOMITING,DIARHEA Time Seen by Provider: 07/22/22 06:26 Source: patient, EMS, RN notes reviewed Mode of arrival: EMS Limitations: no limitations - History of Present Illness Initial Comments: This is a 51-year-old female who presents to the emergency department for abdom inal pain, nausea, and vomiting. States that she is on Wegovy for weight loss. She started taking this four months ago and has lost 30lbs. Since then she has had problems with nausea, vomiting, and constipation. This morning, she developed severe diffuse abdominal pain and increasing nausea and vomiting. States that the nausea and vomiting is usually managed with ODT Zofran, however that was not effective this time. Also reports "explosive diarrhea". However, prior to the diarrhea she had not had a bowel movement in 4 days, and states that this was only a "small pebble". Denies any fevers or chills. She did have chest pain after she threw up, however she states this was a burning sensation and she attributes it to the vomiting. In addition to the abdominal pain, she has had left flank pain over the last week. Reports a history of kidney stones, but denies any urinary symptoms. Also states that she has had issues with frequent UTIs. She is prescribed Keflex, which she takes before and after sexual intercourse to reduce the risk of additional UTIs. Denies any fevers, chills, sore throat, cough, dyspnea, chest pain, palpitations, or headaches. MD Complaint: abdominal pain Location: epigastric Associated Symptoms: nausea, vomiting, diarrhea - Related Data Home Medications Medication Instructions Recorded Confirmed Furosemide [Lasix] 20 mg PO DAILY 03/15/20 07/22/22 Cephalexin [Keflex] 250 mg PO DAILY PRN 07/22/22 07/22/22 Ergocalciferol (Vitamin D2) 1,250 mcg PO QMONTHLY 07/22/22 07/22/22 [Drisdol (50,000 Iu)] Semaglutide [Ozempic] 1 mg SQ MO 07/22/22 07/22/22 ondansetron HCL [Zofran] 8 mg PO Q8HR PRN 07/22/22 07/22/22 Allergies Allergy/AdvReac Type Severity Reaction Status Date / Time gadobenate dimeglumine Allergy Intermediate Dyspnea Verified 07/22/22 08:24 [From Multihance] cyclobenzaprine HCl Allergy ITCHING OF Verified 07/22/22 08:24 [From Flexeril] SKIN promethazine HCl Allergy ITCHING OF Verified 07/22/22 08:24 [From Phenergan] SKIN levofloxacin [From Levaquin] AdvReac Severe Nausea & Verified 07/22/22 08:24 Vomiting Review of Systems ROS Statement: Those systems with pertinent positive or pertinent negative responses have been documented in the HPI. ROS Other: All systems not noted in ROS Statement are negative. Past Medical History Past Medical History: Asthma, Hypertension Additional Past Medical History / Comment(s): back pain, scoliosis, kidney stones History of Any Multi-Drug Resistant Organisms: None Reported, ESBL Past Surgical History: Back Surgery, Section, Cholecystectomy, Hysterectomy, Tubal Ligation Additional Past Surgical History / Comment(s): neck surgery, renal surgery for stones. Past Anesthesia/Blood Transfusion Reactions: No Reported Reaction Additional Past Anesthesia/Blood Transfusion Reaction / Comment(s): no problems w/transfusions Past Psychological History: No Psychological Hx Reported Smoking Status: Never smoker Past Alcohol Use History: None Reported Past Drug Use History: None Reported - Past Family History Mother Family Medical History: Cancer Father Family Medical History: Dementia Additional Family Medical History / Comment(s): Lung disease, parkinsons General Exam Limitations: no limitations General appearance: alert, in no apparent distress Head exam: Present: atraumatic, normocephalic, normal inspection Respiratory exam: Present: normal lung sounds bilaterally. Absent: respiratory distress, wheezes, rales, rhonchi, stridor Cardiovascular Exam: Present: regular rate, normal rhythm, normal heart sounds. Absent: systolic murmur, diastolic murmur, rubs, gallop, clicks GI/Abdominal exam: Present: soft, tenderness (diffuse), normal bowel sounds. Absent: distended Neurological exam: Present: alert, oriented X3, CN II-XII intact Psychiatric exam: Present: normal affect, normal mood Skin exam: Present: warm, dry, intact, normal color. Absent: rash Course Vital Signs 07/22/22 07/22/22 06:23 07:51 Pulse Rate 79 65 Respiratory 18 18 Rate Blood Pressure 121/85 105/56 O2 Sat by Pulse 100 98 Oximetry Medical Decision Making - Medical Decision Making This is a 51-year-old female who presents to the emergency department for abdominal pain, nausea, and vomiting. Was pt. sent in by a medical professional or institution? @ -No Did you speak to anyone other than the patient for history? @ -EMS Did you review nursing and triage notes? @ -Yes, and I agree, it is accurate with regards to the patient's symptoms. Were old charts reviewed? @ -No Differential Diagnosis? @ -Differential Abdominal Pain Women: Appendicitis, Cholecystitis, diverticulosis, ischemic bowel, pancreatitis, hepatitis, UTI, gastroenteritis, AAA, incarcerated hernia, bowel obstruction, constipation, inflammatory bowel, hepatitis, peptic ulcer disease, splenic infa rction, perforated viscus, vulvitis, ovarian torsion, PID, kidney stone, placenta abruption, this is not meant to be an all-inclusive list EKG interpreted by me (3pts min.)? @ -EKG interpreted by me demonstrating the following: Sinus rhythm. Ventricular rate 66 beats per minute, CT interval 161 ms, QRS duration 92 ms, QTC 440 ms. X-rays interpreted by me (1pt min.)? @ -Not obtained CT interpreted by me (1pt min.)? @ -Not obtained U/S interpreted by me (1pt. min.)? @ -Not obtained What testing was considered but not performed? (CT, X-rays, U/S, labs)? Why? @ -None What meds were considered but not given? Why? @ -None Did you discuss the management of the patient with other professionals? @ -Yes, Dr. Arita, who accepts the patient for admission. Did you reconcile home meds? @ -No Was smoking cessation discussed for >3mins.? @ -No Was critical care preformed (if so, how long)? @ -No Were there social determinants of health that impacted care today? How? (Homelessness, low income, unemployed, alcoholism, drug addiction, transportation, low edu. Level, literacy, decrease access to med. care, group home, rehab)? @ -No Was there de-escalation of care discussed even if they declined? (Discuss DNR or withdrawal of care, Hospice)? @ -No What co-morbidities impacted this encounter? (DM, HTN, Smoking, COPD, CAD, Cancer, CVA, Hep., AIDS, mental health diagnosis, sleep apnea, morbid obesity)? @ -HTN, hx of kidney stones Was patient admitted / discharged? @ -Admitted. Lab work obtained revealing critically low potassium of 2.2 and a lactic acid of 2.8. Additionally, the patient has very poor kidney function. While we do not have lab work for comparison since 2020, her creatinine did increase from 0.97 to 2.78 and her GFR dropped from 68 to 19. She was given 40 mEq of K-Dur orally and 20 mEq via IV. She was also given a liter bolus of IV fluids. Pain was controlled in the emergency department. Patient admitted to medicine for further management. Nephrology consult placed regarding the poor renal function. CT Scan of the abdomen and pelvis ordered per the admitting team's request with results pending at the time of admission. Undiagnosed new problem with uncertain prognosis? @ -None Drug Therapy requiring intensive monitoring for toxicity (Heparin, Nitro, Insulin, Cardizem)? @ -None Were any procedures done? @ -None Diagnosis/symptom? @ -Hypokalemia, Nausea/Vomiting Acute, or Chronic, or Acute on Chronic? @ -Acute Uncomplicated (without systemic symptoms) or Complicated (systemic symptoms)? @ -Complicated Side effects of treatment? @ -None Exacerbation, Progression, or Severe Exacerbation] @ -Not applicable Poses a threat to life or bodily function? @ -Yes Diagnosis/symptom? @ -Renal failure Acute, or Chronic, or Acute on Chronic? @ -Unclear Uncomplicated (without systemic symptoms) or Complicated (systemic symptoms)? @ -Complicated Side effects of treatment? @ -None Exacerbation, Progression, or Severe Exacerbation] @ -Unclear Poses a threat to life or bodily function? @ -Yes This case was discussed in detail with the attending ED physician, Dr. Zambrano. Presentation, findings, and treatment plan discussed in detail as well. - Lab Data Result diagrams: 07/22/22 06:37 07/22/22 09:37 Lab Results 07/22/22 07/22/22 07/22/22 Range/Units 06:37 06:37 06:37 WBC 9.8 (3.8-10.6) k/uL RBC 5.14 (3.80-5.40) m/uL Hgb 14.5 (11.4-16.0) gm/dL Hct 42.4 (34.0-46.0) % MCV 82.5 (80.0-100.0) fL MCH 28.3 (25.0-35.0) pg MCHC 34.3 (31.0-37.0) g/dL RDW 13.3 (11.5-15.5) % Plt Count 205 (150-450) k/uL MPV 7.6 Neutrophils % 86 % Lymphocytes % 7 % Monocytes % 4 % Eosinophils % 2 % Basophils % 0 % Neutrophils # 8.4 H (1.3-7.7) k/uL Lymphocytes # 0.7 L (1.0-4.8) k/uL Monocytes # 0.4 (0-1.0) k/uL Eosinophils # 0.2 (0-0.7) k/uL Basophils # 0.0 (0-0.2) k/uL Sodium 137 (137-145) mmol/L Potassium 2.2 L* (3.5-5.1) mmol/L Chloride 97 L (98-107) mmol/L Carbon Dioxide 23 (22-30) mmol/L Anion Gap 17 mmol/L BUN 28 H (7-17) mg/dL Creatinine 2.78 H (0.52-1.04) mg/dL Est GFR (CKD-EPI)AfAm 22 (>60 ml/min/1.73 sqM) Est GFR (CKD-EPI)NonAf 19 (>60 ml/min/1.73 sqM) Glucose 123 H (74-99) mg/dL Lactic Ac Sepsis Rflx Plasma Lactic Acid Srinivasan 2.8 H* (0.7-2.0) mmol/L Calcium 9.9 (8.4-10.2) mg/dL Phosphorus (2.5-4.5) mg/dL Magnesium (1.6-2.3) mg/dL Total Bilirubin 1.4 H (0.2-1.3) mg/dL AST 35 (14-36) U/L ALT 23 (4-34) U/L Alkaline Phosphatase 62 (38-126) U/L Troponin I (0.000-0.034) ng/mL Total Protein 6.7 (6.3-8.2) g/dL Albumin 4.3 (3.5-5.0) g/dL Amylase 76 (30-110) U/L Lipase 89 (23-300) U/L 05/26/23 05/26/23 05/26/23 Range/Units 06:37 06:37 07:03 WBC (3.8-10.6) k/uL RBC (3.80-5.40) m/uL Hgb (11.4-16.0) gm/dL Hct (34.0-46.0) % MCV (80.0-100.0) fL MCH (25.0-35.0) pg MCHC (31.0-37.0) g/dL RDW (11.5-15.5) % Plt Count (150-450) k/uL MPV Neutrophils % % Lymphocytes % % Monocytes % % Eosinophils % % Basophils % % Neutrophils # (1.3-7.7) k/uL Lymphocytes # (1.0-4.8) k/uL Monocytes # (0-1.0) k/uL Eosinophils # (0-0.7) k/uL Basophils # (0-0.2) k/uL Sodium (137-145) mmol/L Potassium (3.5-5.1) mmol/L Chloride (98-107) mmol/L Carbon Dioxide (22-30) mmol/L Anion Gap mmol/L BUN (7-17) mg/dL Creatinine (0.52-1.04) mg/dL Est GFR (CKD-EPI)AfAm (>60 ml/min/1.73 sqM) Est GFR (CKD-EPI)NonAf (>60 ml/min/1.73 sqM) Glucose (74-99) mg/dL Lactic Ac Sepsis Rflx Y Plasma Lactic Acid Srinivasan (0.7-2.0) mmol/L Calcium (8.4-10.2) mg/dL Phosphorus 1.7 L (2.5-4.5) mg/dL Magnesium 2.0 (1.6-2.3) mg/dL Total Bilirubin (0.2-1.3) mg/dL AST (14-36) U/L ALT (4-34) U/L Alkaline Phosphatase (38-126) U/L Troponin I 0.016 (0.000-0.034) ng/mL Total Protein (6.3-8.2) g/dL Albumin (3.5-5.0) g/dL Amylase (30-110) U/L Lipase (23-300) U/L - Radiology Data Radiology results: report reviewed, image reviewed Disposition Clinical Impression: Hypokalemia, Renal failure, Abdominal pain Disposition: ADMITTED IP TO THIS HOSP
[2022-07-22 06:43] LABS: Basophils % (A) 0 %; Eosinophils # (A) 0.2 k/uL (0-0.7); Eosinophils % (A) 2 %; HCT 42.4 % (34.0-46.0); HGB 14.5 gm/dL (11.4-16.0); Lymphocytes # (A) 0.7 k/uL (1.0-4.8); Lymphocytes % (A) 7 %; MCH 28.3 pg (25.0-35.0); MCHC 34.3 g/dL (31.0-37.0); MCV 82.5 fL (80.0-100.0); Mean Platelet Volume 7.6; Monocytes # (A) 0.4 k/uL (0-1.0); Monocytes % (A) 4 %; Neutrophils # (A) 8.4 k/uL (1.3-7.7); Neutrophils % (A) 86 %; Platelet Count 205 k/uL (150-450); RBC 5.14 m/uL (3.80-5.40); RDW 13.3 % (11.5-15.5); WBC 9.8 k/uL (3.8-10.6)
[2022-07-22 07:01] LABS: Albumin 4.3 g/dL (3.5-5.0); Calcium 9.9 mg/dL (8.4-10.2); Total Bilirubin 1.4 mg/dL (0.2-1.3); Total Protein 6.7 g/dL (6.3-8.2)
[2022-07-22 07:14] LABS: Potassium 2.2 mmol/L (3.5-5.1)
[2022-07-22] MEDS ORDERED: POTASSIUM CHLORIDE ER 20 MEQ TAB.ER PO STA ×2 (07:25→10:22)
[2022-07-22] MEDS ORDERED: POTASSIUM CHLORIDE 20 MEQ in WATER FOR INJECTION 1 100ML.BAG IVPB STA (07:25)
[2022-07-22 08:01] LABS: Phosphorus 1.7 mg/dL (2.5-4.5)
[2022-07-22] MEDS ORDERED: NALOXONE 0.4 MG/ML 1 ML VIAL IV PRN (08:30)
[2022-07-22] MEDS ORDERED: ACETAMINOPHEN TAB 325 MG TAB PO PRN (08:30)
--- NOTE | 2022-07-22 09:09 | CT ---
EXAMINATION TYPE: CT abdomen pelvis wo con DATE OF EXAM: 07/22/2022 COMPARISON: 08/07/2019 HISTORY: 51-year-old female Abdominal pain CT DLP: 466.8 mGycm. Automated exposure control for dose reduction was used. TECHNIQUE: Contiguous axial scanning of the abdomen and pelvis without IV contrast. Coronal and sagit eric reconstructions performed. FINDINGS: Heart normal size without pericardial effusion. Lung bases clear without pleural effusion. Along the anterior mid liver, there is 3.1 cm irregular area of hypodensity. Etiology unclear. The pr evious fatty infiltration of the liver appears to have improved from 08/07/2019. Cholecystectomy clips . Unchanged dilated bile ducts up to 1.6 cm. No distal obstructing lesion is seen. Right adrenal gland, spleen, and pancreas show no gross abnormality. Mild thickening of the left adrenal gland without discrete nodularity. Mild fullness of right renal collecting system and suggestion of mild urothelial thickening. Punctate 2 mm nonobstructive left renal calculus. No dilated small bowel, free fluid, free air. No mesenteric or retroperitoneal lymphadenopathy. Normal appendix. No significant stool burden. Bladder partially distended. Uterus surgically absent. Left-sided pelvic phleboliths. Both ovaries ar e visualized. No abnormal fluid collection in the pelvis or pelvic lymphadenopathy. Bones: Posterior and interbody fusion changes from L4 through S1 levels. IMPRESSION: 1. Fullness of the right renal collecting system with suggestion of mild urothelial thickening. Richie elate with urinalysis for possible ascending urinary tract infection. No obstructing stone is seen. F indings could alternatively reflect a recently passed stone. 2. A punctate nonobstructive 2 mm left renal calculus. 3. A 3.1 cm irregular area of hypodensity along the anterior mid liver. The etiology is unclear. The previous fatty infiltration of the liver appears to have improved from 2019. Recommend ultrasound to attempt further characterization.
--- NOTE | 2022-07-22 10:30 | P.NPCON ---
History of Present Illness - Reason for Consult hypokalemia - History of Present Illness Patient is a 51-year-old female with history of kidney stones who was admitted to the hospital with complaints of nausea vomiting and abdominal pain. Patient states that she has had nausea and vomiting for about 3 months on and off. She does not think she has passed a kidney stone. Patient admits to diarrhea as well as. No history of fever chills chest pain or cough. Patient came in to the hospital due to worsening nausea vomiting as well as numbness and tingling and extreme weakness. Potassium was 2.2 with magnesium 1.7. Creatinine was 2.78 and previous creatinine was 0.97 on 03/17/2020. No significant urinary symptoms. Review of Systems As per HPI Past Medical History Past Medical History: Asthma, Hypertension Additional Past Medical History / Comment(s): back pain, scoliosis, kidney stones History of Any Multi-Drug Resistant Organisms: None Reported Past Surgical History: Back Surgery, Section, Cholecystectomy, Hysterectomy, Tubal Ligation Additional Past Surgical History / Comment(s): neck surgery, renal surgery for stones x 2 Past Anesthesia/Blood Transfusion Reactions: No Reported Reaction Additional Past Anesthesia/Blood Transfusion Reaction / Comment(s): no problems w/transfusions Past Psychological History: No Psychological Hx Reported Smoking Status: Never smoker Past Alcohol Use History: None Reported Past Drug Use History: None Reported - Past Family History Mother Family Medical History: Cancer Father Family Medical History: Dementia Additional Family Medical History / Comment(s): Lung disease, parkinsons Medications and Allergies Home Medications Medication Instructions Recorded Confirmed Type Furosemide [Lasix] 20 mg PO DAILY 03/15/20 07/22/22 History Cephalexin [Keflex] 250 mg PO DAILY PRN 07/22/22 07/22/22 History Ergocalciferol (Vitamin D2) 1,250 mcg PO QMONTHLY 07/22/22 07/22/22 History [Drisdol (50,000 Iu)] Semaglutide [Ozempic] 1 mg SQ MO 07/22/22 07/22/22 History ondansetron HCL [Zofran] 8 mg PO Q8HR PRN 07/22/22 07/22/22 History Allergies Allergy/AdvReac Type Severity Reaction Status Date / Time gadobenate dimeglumine Allergy Intermediate Dyspnea Verified 07/22/22 08:24 [From Multihance] cyclobenzaprine HCl Allergy ITCHING OF Verified 07/22/22 08:24 [From Flexeril] SKIN promethazine HCl Allergy ITCHING OF Verified 07/22/22 08:24 [From Phenergan] SKIN levofloxacin [From Levaquin] AdvReac Severe Nausea & Verified 07/22/22 08:24 Vomiting Physical Exam Vitals: Vital Signs Pulse Resp BP Pulse Ox 07/22/22 07:51 65 18 105/56 98 07/22/22 06:23 79 18 121/85 100 Intake and Output 07/21/22 07/22/22 07/22/22 22:59 06:59 14:59 Other: Weight 68.039 kg Patient is comfortable awake alert oriented 3. 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 Hypokalemia secondary to nausea and vomiting as well as diarrhea. Currently being replaced 2. History of nephrolithiasis with CT of the abdomen showing fullness of the r ight renal collecting and 2 mm non-obstructive left renal calculus. 3. Hypomagnesemia 4. Volume depletion 5. History of asthma 6. Acute kidney injury associated with volume depletion. Check UA Plan: Replace potassium aggressively Add IV fluids Garrett check UA Repeat labs in a.m. Avoid further use of Toradol given the acute kidney injury Patient will need follow-up as outpatient for nephrolithiasis and 24 hour urine evaluation for stone profile. She is encouraged to continue to maintain aggressive oral hydration and avoid high salt containing foods. Thank you for the consultation. We will continue to follow the patient with you during her hospitalization
[2022-07-22] MEDS: SODIUM CHLORIDE 0.9% 1,000 ML IV SCH (11:02)
[2022-07-22] MEDS: ONDANSETRON 4 MG/2 ML VIAL IVP PRN ×2 (11:55→18:57)
[2022-07-22 13:23] LABS: African American GFR (CKD) 24 (>60 ml/min/1.73 sqM); Anion Gap 11 mmol/L; Blood Urea Nitrogen 27 mg/dL (7-17); Calcium 9.2 mg/dL (8.4-10.2); Carbon Dioxide 28 mmol/L (22-30); Chloride 100 mmol/L (98-107); Glucose 91 mg/dL (74-99); Non-African American GFR(CKD) 21 (>60 ml/min/1.73 sqM); Sodium 139 mmol/L (137-145)
[2022-07-22] MEDS: POTASSIUM CHLORIDE ER 20 MEQ TAB.ER PO SCH ×2 (16:07→18:04)
[2022-07-22] MEDS ORDERED: MAG HYDROX/AL HYDROX/SIMETH 30 ML CUP PO PRN (21:59)
[2022-07-22] MEDS: FAMOTIDINE 20 MG/2 ML VIAL IV SCH (22:34)
[2022-07-23 05:51] LABS: Appearance,Urine Clear (Clear); Bilirubin,Urine Negative (Negative); Blood,Urine Negative (Negative); Color,Urine Yellow; Glucose,Urine (UA) Negative (Negative); Ketones,Urine Trace (Negative); Leukocyte Esterase,Urine Small (Negative); Mucus,Urine Rare /hpf; Nitrite,Urine Negative (Negative); Protein,Urine Trace (Negative); RBC,Urine 1 /hpf (0-5); Specific Gravity,Urine 1.018 (1.001-1.035); Squamous Epithelial Cell,Urine <1 /hpf (0-4); Urobilinogen,Urine <2.0 mg/dL (<2.0); WBC,Urine 12 /hpf (0-5)
[2022-07-23] MEDS: ONDANSETRON 4 MG/2 ML VIAL IVP PRN ×2 (07:37→16:45)
[2022-07-23] MEDS: HYDROcodone/APAP 5-325MG 1 EACH TAB PO PRN ×4 (08:05→22:25)
[2022-07-23] MEDS: FAMOTIDINE 20 MG/2 ML VIAL IV SCH (08:05)
[2022-07-23] MEDS: SODIUM CHLORIDE 0.9% 1,000 ML IV SCH ×2 (08:06→18:13)
--- NOTE | 2022-07-23 08:28 | P.PN ---
Subjective Progress Note Date: 07/23/22 Principal diagnosis: Patient is a 51-year-old female seen in consultation because of acute kidney injury from nausea vomiting diarrhea. She is known with history of kidney stones She does not think she has passed a kidney stone. She was given IV fluids. She has passed urine but is not documented. Workup has shown a non-obstructing small kidney stone in the left kidney 2 mm and possible mild right hydronephrosis Currently she complains of back pain in the low bilateral renal angles. She is urged to walk able to eat no nausea vomiting diarrhea. While signs are stable urine output is not been documented labs are pending today Objective - Vital Signs Vital signs: Vital Signs Temp 98.3 F 07/23/22 07:54 Pulse 69 07/23/22 07:54 Resp 18 07/23/22 07:54 BP 126/89 07/23/22 07:54 Pulse Ox 99 07/23/22 07:54 FiO2 Intake & Output 07/22/22 07/23/22 07/23/22 18:59 06:59 18:59 Weight 68.039 kg Other: # Voids 2 Awake alert oriented comfortable HEENT exam no JVP Neck is supple Lungs clear to auscultation good air entry Heart sounds unremarkable Abdomen soft nontender Minimal bilateral renal angle tenderness Gen. exam was no edema Neurologically awake alert oriented - Labs CBC & Chem 7: 07/22/22 06:37 07/22/22 22:15 Labs: Abnormal Lab Results - Last 24 Hours (Table) 07/22/22 07/23/22 Range/Units 09:37 05:30 Potassium 3.0 L (3.5-5.1) mmol/L BUN 27 H (7-17) mg/dL Creatinine 2.52 H (0.52-1.04) mg/dL Urine Protein Trace H (Negative) Urine Ketones Trace H (Negative) Ur Leukocyte Esterase Small H (Negative) Urine WBC 12 H (0-5) /hpf Urine Mucus Rare H (None) /hpf Assessment and Plan Assessment: Impression. 1. Acute kidney injury secondary wall depletion from nausea vomiting diarrhea resolved, creatinine was 2.78 on admission improved to 2.5 to, today's labs pe nding. Previous creatinine is 0.97 more than 2 years ago dated 03/17/2020. 2. History of kidney stones and a current kidney stone on the left kidney 2 millimeter. 3. Hypokalemia secondary to nausea vomiting diarrhea resolved potassium is 4 4. Computed tomography scan shows fullness of right renal collecting system with mild urothelial thickening possibly passed a kidney stone 5. Computed tomography scan further shows 3.1 cm irregular area of hypodensity along the anterior mid-lower unclear etiology Recommendation 1. Continue IV fluids, normal saline at 75 an hour. Labs are pending further recommendations to follow
[2022-07-23 10:09] LABS: African American GFR (CKD) 34.3 (60.0-200.0); BUN/Creat Ratio 9.53 Ratio (12.00-20.00); Blood Urea Nitrogen 18.1 mg/dL (9.0-27.0); Calcium 9.3 mg/dL (8.7-10.3); Non-African American GFR(CKD) 29.6 (60.0-200.0); Potassium 3.9 mmol/L (3.5-5.5)
[2022-07-23 10:15] LABS: Basophils # (A) 0.02 X 10*3/uL (0.00-0.10); Basophils % (A) 0.6 %; Eosinophils # (A) 0.07 X 10*3/uL (0.04-0.35); Eosinophils % (A) 1.9 %; HGB 10.9 g/dL (12.0-15.0); Immature Grans, Automated 0.3 %; Lymphocytes # (A) 1.24 X 10*3/uL (0.90-5.00); Lymphocytes % (A) 34.5 %; MCH 27.9 pg (27.0-32.0); MCV 84.4 fL (80.0-97.0); Mean Platelet Volume 10.1 fL (9.5-12.2); Monocytes # (A) 0.38 X 10*3/uL (0.20-1.00); Monocytes % (A) 10.6 %; NRBC Per 100 WBC 0 /100 WBCS (0.0-0.0); Neutrophils # (A) 1.87 X 10*3/uL (1.80-7.70); Neutrophils % (A) 52.1 %; Platelet Count 141 X 10*3/uL (140-440); RBC 3.91 X 10*6/uL (4.10-5.20); RDW 14.1 % (11.5-14.5); WBC 3.59 X 10*3/uL (4.50-10.00)
--- NOTE | 2022-07-23 17:59 | P.HPIM ---
History of Present Illness H&P Date: 07/22/22 Chief Complaint: Abdominal pain/nausea/vomiting 51-year-old female who presents to the emergency department for abdominal pain, nausea, and vomiting. States that she is on Wegovy for weight loss. She started taking this four months ago and has lost 30lbs. Since then she has had problems with nausea, vomiting, and constipation. This morning, she developed severe diffuse abdominal pain and increasing nausea and vomiting. States that the nausea and vomiting is usually managed with ODT Zofran, however that was not effective this time. Also reports "explosive diarrhea". However, prior to the diarrhea she had not had a bowel movement in 4 days, and states that this was only a "small pebble". Denies any fevers or chills. She did have chest pain after she threw up, however she states this was a burning sensation and she attributes it to the vomiting. In addition to the abdominal pain, she has had left flank pain over the last week. Reports a history of kidney stones, but denies any urinary symptoms. Also states that she has had issues with frequent UTIs. She is prescribed Keflex, which she takes before and after sexual intercourse to reduce the risk of additional UTIs. Completed immediately is a sodium of 139, potassium 3.2, BUN/creatinine of 27/2.52 which is a trend up off baseline of 0.97,6 blood glucose of 91, WBC 9.8, hemoglobin 14.5 and platelet count of 205 -- CT of the abdomen and pelvis was completed and was unremarkable - Admit patient for IV fluid hydration and nephrology evaluation for renal failure Review of Systems REVIEW OF SYSTEMS: CONSTITUTIONAL: No fever, no malaise, no fatigue. HEENT: No recent visual problems or hearing problems. Denied any sore throat. CARDIOVASCULAR: No chest pain, orthopnea, PND, no palpitations, no syncope. PULMONARY: No shortness of breath, no cough, no hemoptysis. GASTROINTESTINAL: No diarrhea, no nausea, no vomiting, no abdominal pain. NEUROLOGICAL: No headaches, no weakness, no numbness. HEMATOLOGICAL: Denies any bleeding or petechiae. GENITOURINARY: Denies any burning micturition, frequency, or urgency. MUSCULOSKELETAL/RHEUMATOLOGICAL: Denies any joint pain, swelling, or any muscle pain. ENDOCRINE: Denies any polyuria or polydipsia. The rest of the 14-point review of systems is negative. Past Medical History Past Medical History: Asthma, Hypertension Additional Past Medical History / Comment(s): back pain, scoliosis, kidney stones History of Any Multi-Drug Resistant Organisms: None Reported Past Surgical History: Back Surgery, Section, Cholecystectomy, Hysterectomy, Tubal Ligation Additional Past Surgical History / Comment(s): neck surgery, renal surgery for stones x 2 Past Anesthesia/Blood Transfusion Reactions: No Reported Reaction Additional Past Anesthesia/Blood Transfusion Reaction / Comment(s): no problems w/transfusions Past Psychological History: No Psychological Hx Reported Smoking Status: Never smoker Past Alcohol Use History: None Reported Past Drug Use History: None Reported - Past Family History Mother Family Medical History: Cancer Father Family Medical History: Dementia Additional Family Medical History / Comment(s): Lung disease, parkinsons Medications and Allergies Home Medications Medication Instructions Recorded Confirmed Type Furosemide [Lasix] 20 mg PO DAILY 03/15/20 07/22/22 History Cephalexin [Keflex] 250 mg PO DAILY PRN 07/22/22 07/22/22 History Ergocalciferol (Vitamin D2) 1,250 mcg PO QMONTHLY 07/22/22 07/22/22 History [Drisdol (50,000 Iu)] Semaglutide [Ozempic] 1 mg SQ MO 07/22/22 07/22/22 History ondansetron HCL [Zofran] 8 mg PO Q8HR PRN 07/22/22 07/22/22 History Allergies Allergy/AdvReac Type Severity Reaction Status Date / Time gadobenate dimeglumine Allergy Intermediate Dyspnea Verified 07/22/22 08:24 [From Multihance] cyclobenzaprine HCl Allergy ITCHING OF Verified 07/22/22 08:24 [From Flexeril] SKIN promethazine HCl Allergy ITCHING OF Verified 07/22/22 08:24 [From Phenergan] SKIN levofloxacin [From Levaquin] AdvReac Severe Nausea & Verified 07/22/22 08:24 Vomiting Physical Exam Vitals: Vital Signs Temp Pulse Pulse Resp BP BP Pulse Ox 07/22/22 10:37 98.2 F 64 18 112/76 99 07/22/22 07:51 65 18 105/56 98 07/22/22 06:23 79 18 121/85 100 Intake and Output 07/21/22 07/22/22 07/22/22 22:59 06:59 14:59 Other: Weight 68.039 kg 68.039 kg PHYSICAL EXAMINATION: GENERAL: The patient is alert and oriented x3, not in any acute distress. Well developed, well nourished. HEENT: Pupils are round and equally reacting to light. EOMI. No scleral icterus. No conjunctival pallor. Normocephalic, atraumatic. No pharyngeal erythema. No thyromegaly. CARDIOVASCULAR: S1 and S2 present. No murmurs, rubs, or gallops. PULMONARY: Chest is clear to auscultation, no wheezing or crackles. ABDOMEN: Soft, nontender, nondistended, normoactive bowel sounds. No palpable organomegaly. MUSCULOSKELETAL: No joint swelling or deformity. EXTREMITIES: No cyanosis, clubbing, or pedal edema. NEUROLOGICAL: Gross neurological examination did not reveal any focal deficits. SKIN: No rashes. Results CBC & Chem 7: 07/23/22 05:24 07/23/22 05:24 Labs: Abnormal Lab Results - Last 24 Hours (Table) 07/22/22 07/22/22 07/22/22 Range/Units 06:37 06:37 06:37 Neutrophils # 8.4 H (1.3-7.7) k/uL Lymphocytes # 0.7 L (1.0-4.8) k/uL Potassium 2.2 L* (3.5-5.1) mmol/L Chloride 97 L (98-107) mmol/L BUN 28 H (7-17) mg/dL Creatinine 2.78 H (0.52-1.04) mg/dL Glucose 123 H (74-99) mg/dL Plasma Lactic Acid Srinivasan 2.8 H* (0.7-2.0) mmol/L Phosphorus (2.5-4.5) mg/dL Total Bilirubin 1.4 H (0.2-1.3) mg/dL 07/22/22 Range/Units 06:37 Neutrophils # (1.3-7.7) k/uL Lymphocytes # (1.0-4.8) k/uL Potassium (3.5-5.1) mmol/L Chloride (98-107) mmol/L BUN (7-17) mg/dL Creatinine (0.52-1.04) mg/dL Glucose (74-99) mg/dL Plasma Lactic Acid Srinivasan (0.7-2.0) mmol/L Phosphorus 1.7 L (2.5-4.5) mg/dL Total Bilirubin (0.2-1.3) mg/dL Thrombosis Risk Factor Assmnt - Choose All That Apply Any of the Below Risk Factors Present?: Yes Each Factor Represents 1 point: Age 41-60 years, Obesity (BMI >25) Other Risk Factors: No Other congenital or acquired thrombophilia - If yes, enter type in comment: No Thrombosis Risk Factor Assessment Total Risk Factor Score: 2 Thrombosis Risk Factor Assessment Level: Low Risk Assessment and Plan Assessment: 1. Intractable nausea and vomiting; likely related to gastroparesis caused by Ozempic versus acute gastroenteritis 2. Electrolyte imbalance; hypomagnesemia/Hypokalemia; potassium level in ED was found to be 2.2; patient did receive AND IV potassium supplement in ED; we will repeat potassium levels and continue with close monitoring, with plans to supplement as needed; Patient received magnesium supplement in ED; we will monitor electrolytes closely 3. Acute renal failure; associated with volume depletion; nephrology on board and recommending to continue with IV fluids in form of normal saline; monitor strict ELIANA's, daily weights, renal function and electrolytes; avoid nephrotoxins and hypotension; no further use of Toradol given acute renal failure 4. Lactic acidosis; likely related to renal failure; patient received IV fluid bolus and IV; initial lactic acid level is at 2.8 5. Nephrolithiasis; CT of the abdomen reveals fullness of right renal collecting system and a 2 mm nonobstructive left renal calculus -- Patient recommended outpatient urology follow-up for nephrolithiasis and 24- hour urine evaluation for stone profile - Patient is recommended to avoid high salt containing foods and maintain aggressive oral hydration 6. Obesity; patient takes Ozempic DVT prophylaxis; SCDs CODE STATUS; full code
--- NOTE | 2022-07-23 18:00 | P.PN ---
Subjective Progress Note Date: 07/23/22 51-year-old female who presents to the emergency department for abdominal pain, nausea, and vomiting. States that she is on Wegovy for weight loss. She started taking this four months ago and has lost 30lbs. Since then she has had problems with nausea, vomiting, and constipation. This morning, she developed severe diffuse abdominal pain and increasing nausea and vomiting. States that the nausea and vomiting is usually managed with ODT Zofran, however that was not effective this time. Also reports "explosive diarrhea". However, prior to the diarrhea she had not had a bowel movement in 4 days, and states that this was only a "small pebble". Denies any fevers or chills. She did have chest pain after she threw up, however she states this was a burning sensation and she attributes it to the vomiting. In addition to the abdominal pain, she has had left flank pain over the last week. Reports a history of kidney stones, but denies any urinary symptoms. Also states that she has had issues with frequent UTIs. She is prescribed Keflex, which she takes before and after sexual intercourse to reduce the risk of additional UTIs. Completed immediately is a sodium of 139, potassium 3.2, BUN/creatinine of 27/2.52 which is a trend up off baseline of 0.97,6 blood glucose of 91, WBC 9.8, hemoglobin 14.5 and platelet count of 205 -- CT of the abdomen and pelvis was completed and was unremarkable - Admit patient for IV fluid hydration and nephrology evaluation for renal failure Objective - Vital Signs Vital signs: Vital Signs Temp 98.3 F 07/23/22 07:54 Pulse 69 07/23/22 07:54 Resp 18 07/23/22 07:54 BP 126/89 07/23/22 07:54 Pulse Ox 99 07/23/22 07:54 FiO2 Intake & Output 07/22/22 07/23/22 07/23/22 18:59 06:59 18:59 Weight 68.039 kg Other: # Voids 2 - Exam GENERAL: The patient is alert and oriented x3, not in any acute distress. Well developed, well nourished. HEENT: Pupils are round and equally reacting to light. EOMI. No scleral icterus. No conjunctival pallor. Normocephalic, atraumatic. No pharyngeal erythema. No thyromegaly. CARDIOVASCULAR: S1 and S2 present. No murmurs, rubs, or gallops. PULMONARY: Chest is clear to auscultation, no wheezing or crackles. ABDOMEN: Soft, nontender, nondistended, normoactive bowel sounds. No palpable organomegaly. MUSCULOSKELETAL: No joint swelling or deformity. EXTREMITIES: No cyanosis, clubbing, or pedal edema. NEUROLOGICAL: Gross neurological examination did not reveal any focal deficits. SKIN: No rashes. - Labs CBC & Chem 7: 07/23/22 05:24 07/23/22 05:24 Labs: Abnormal Lab Results - Last 24 Hours (Table) 07/22/22 07/23/22 07/23/22 Range/Units 09:37 05:24 05:24 WBC 3.59 L (4.50-10.00) X 10*3/uL RBC 3.91 L (4.10-5.20) X 10*6/uL Hgb 10.9 L (12.0-15.0) g/dL Hct 33.0 L (37.2-46.3) % Potassium 3.0 L (3.5-5.1) mmol/L Chloride 110 H (96-109) mmol/L Anion Gap 9.00 L (10.00-18.00) mmol/L BUN 27 H (7-17) mg/dL Creatinine 2.52 H 1.9 H (0.52-1.04) mg/dL Est GFR (CKD-EPI)AfAm 34.3 L (60.0-200.0) Est GFR (CKD-EPI)NonAf 29.6 L (60.0-200.0) BUN/Creatinine Ratio 9.53 L (12.00-20.00) Ratio Urine Protein (Negative) Urine Ketones (Negative) Ur Leukocyte Esterase (Negative) Urine WBC (0-5) /hpf Urine Mucus (None) /hpf 07/23/22 Range/Units 05:30 WBC (4.50-10.00) X 10*3/uL RBC (4.10-5.20) X 10*6/uL Hgb (12.0-15.0) g/dL Hct (37.2-46.3) % Potassium (3.5-5.1) mmol/L Chloride (96-109) mmol/L Anion Gap (10.00-18.00) mmol/L BUN (7-17) mg/dL Creatinine (0.52-1.04) mg/dL Est GFR (CKD-EPI)AfAm (60.0-200.0) Est GFR (CKD-EPI)NonAf (60.0-200.0) BUN/Creatinine Ratio (12.00-20.00) Ratio Urine Protein Trace H (Negative) Urine Ketones Trace H (Negative) Ur Leukocyte Esterase Small H (Negative) Urine WBC 12 H (0-5) /hpf Urine Mucus Rare H (None) /hpf Assessment and Plan Assessment: 1. Intractable nausea and vomiting; likely related to gastroparesis caused by Ozempic versus acute gastroenteritis 2. Electrolyte imbalance; hypomagnesemia/Hypokalemia; potassium level in ED was found to be 2.2; patient did receive AND IV potassium supplement in ED; we will repeat potassium levels and continue with close monitoring, with plans to supplement as needed; Patient received magnesium supplement in ED; we will monitor electrolytes closely 3. Acute renal failure; associated with volume depletion; nephrology on board and recommending to continue with IV fluids in form of normal saline; monitor strict ELIANA's, daily weights, renal function and electrolytes; avoid nephrotoxins and hypotension; no further use of Toradol given acute renal failure 4. Lactic acidosis; likely related to renal failure; patient received IV fluid bolus and IV; initial lactic acid level is at 2.8 5. Nephrolithiasis; CT of the abdomen reveals fullness of right renal collecting system and a 2 mm nonobstructive left renal calculus -- Patient recommended outpatient urology follow-up for nephrolithiasis and 24- hour urine evaluation for stone profile - Patient is recommended to avoid high salt containing foods and maintain aggressive oral hydration 6. Obesity; patient takes Ozempic DVT prophylaxis; SCDs CODE STATUS; full code
[2022-07-23] MEDS: HYDROmorphone 0.5 MG/0.5 ML SYRINGE IVP PRN (22:25)
[2022-07-24] MEDS: HYDROcodone/APAP 5-325MG 1 EACH TAB PO PRN ×6 (01:27→23:46)
[2022-07-24] MEDS: ONDANSETRON 4 MG/2 ML VIAL IVP PRN ×3 (01:27→19:04)
[2022-07-24] MEDS: SODIUM CHLORIDE 0.9% 1,000 ML IV SCH ×2 (03:29→19:04)
[2022-07-24] MEDS: HYDROmorphone 0.5 MG/0.5 ML SYRINGE IVP PRN (04:02)
[2022-07-24] MEDS: FAMOTIDINE 20 MG TAB PO SCH (07:44)
--- NOTE | 2022-07-24 07:56 | P.PN ---
Subjective Progress Note Date: 07/24/22 Principal diagnosis: Patient is a 51-year-old female seen in consultation because of acute kidney injury from nausea vomiting diarrhea. She is known with history of kidney stones, although she does not think she has passed a kidney stone. She was given IV fluids. She has passed urine but is not documented. Workup has shown a non-obstructing small kidney stone in the left kidney 2 mm and possible mild right hydronephrosis Currently she continues to complains of back pain in the low bilateral renal angles. Also has dry heaves but no vomiting. Poor appetite. Not constipated. No fever chills. Vital signs are stable afebrile, 24-hour urine output is not recorded. Creati nine is better, 2.78 down to 1.9 yesterday Objective - Vital Signs Vital signs: Vital Signs Temp 98.1 F 07/24/22 01:24 Pulse 61 07/24/22 01:24 Resp 17 07/24/22 01:24 BP 137/90 07/24/22 01:24 Pulse Ox 99 07/24/22 01:24 FiO2 Intake & Output 07/23/22 07/24/22 07/24/22 18:59 06:59 18:59 Intake Total 1018 1380 Balance 1018 1380 Intake: Intake, IV Titration 900 900 Amount Sodium Chloride 0.9% 1, 900 900 000 ml @ 75 mls/hr IV . [id number] [facility] Rx#:[id number] Oral 118 480 Other: # Voids 1 Awake alert oriented comfortable HEENT exam no facial asymmetry neck is supple Lungs are clear to auscultation good air entry Heart sounds unremarkable Abdomen soft nontender Indwelling angle nontender Extremity exam was no edema - Labs CBC & Chem 7: 07/23/22 05:24 07/23/22 05:24 Labs: Abnormal Lab Results - Last 24 Hours (Table) 07/23/22 07/23/22 Range/Units 05:24 05:24 WBC 3.59 L (4.50-10.00) X 10*3/uL RBC 3.91 L (4.10-5.20) X 10*6/uL Hgb 10.9 L (12.0-15.0) g/dL Hct 33.0 L (37.2-46.3) % Chloride 110 H (96-109) mmol/L Anion Gap 9.00 L (10.00-18.00) mmol/L Creatinine 1.9 H (0.6-1.5) mg/dL Est GFR (CKD-EPI)AfAm 34.3 L (60.0-200.0) Est GFR (CKD-EPI)NonAf 29.6 L (60.0-200.0) BUN/Creatinine Ratio 9.53 L (12.00-20.00) Ratio Microbiology - Last 24 Hours (Table) 07/23/22 05:30 Urine Culture - Preliminary Urine,Voided Assessment and Plan Assessment: Impression. 1. Acute kidney injury secondary to volume depletion depletion from nausea vomiting diarrhea resolved, creatinine was 2.78 on admission improved to 1.9 as of yesterday today's labs pending. Previous creatinine is 0.97 more than 2 years ago dated 03/17/2020. 2. History of kidney stones and a current kidney stone on the left kidney 2 millimeter. 3. Hypokalemia secondary to nausea vomiting diarrhea resolved potassium is 4 4. Computed tomography scan shows fullness of right renal collecting system with mild urothelial thickening possibly passed a kidney stone 5. Computed tomography scan further shows 3.1 cm irregular area of hypodensity along the anterior mid-liver unclear etiology Recommendation 1. Continue IV fluids, normal saline at 75 an hour. Labs are pending further recommendations to follow
[2022-07-24 09:31] LABS: African American GFR (CKD) 44.2 (60.0-200.0); Anion Gap 7.7 mmol/L (10.00-18.00); BUN/Creat Ratio 8.51 Ratio (12.00-20.00); Blood Urea Nitrogen 13.1 mg/dL (9.0-27.0); Calcium 9.4 mg/dL (8.7-10.3); Carbon Dioxide 23.5 mmol/L (20.0-27.5); Non-African American GFR(CKD) 38.1 (60.0-200.0); Potassium 4.2 mmol/L (3.5-5.5)
[2022-07-24 11:23] LABS: Basophils # (A) 0.03 X 10*3/uL (0.00-0.10); Basophils % (A) 0.7 %; Eosinophils # (A) 0.11 X 10*3/uL (0.04-0.35); Eosinophils % (A) 2.7 %; HCT 34.8 % (37.2-46.3); HGB 11.3 g/dL (12.0-15.0); Immature Grans, Automated 0.5 %; Lymphocytes # (A) 1.44 X 10*3/uL (0.90-5.00); Lymphocytes % (A) 35.9 %; MCH 27.9 pg (27.0-32.0); MCHC 32.5 g/dL (32.0-37.0); MCV 85.9 fL (80.0-97.0); Mean Platelet Volume 10.6 fL (9.5-12.2); Monocytes # (A) 0.42 X 10*3/uL (0.20-1.00); Monocytes % (A) 10.5 %; NRBC Per 100 WBC 0 /100 WBCS (0.0-0.0); Neutrophils # (A) 1.99 X 10*3/uL (1.80-7.70); Neutrophils % (A) 49.7 %; Platelet Count 159 X 10*3/uL (140-440); RBC 4.05 X 10*6/uL (4.10-5.20); RDW 14.3 % (11.5-14.5); WBC 4.01 X 10*3/uL (4.50-10.00)
--- NOTE | 2022-07-24 17:36 | P.PN ---
Subjective Progress Note Date: 07/24/22 51-year-old female who presents to the emergency department for abdominal pain, nausea, and vomiting. States that she is on Wegovy for weight loss. She started taking this four months ago and has lost 30lbs. Since then she has had problems with nausea, vomiting, and constipation. This morning, she developed severe diffuse abdominal pain and increasing nausea and vomiting. States that the nausea and vomiting is usually managed with ODT Zofran, however that was not effective this time. Also reports "explosive diarrhea". However, prior to the diarrhea she had not had a bowel movement in 4 days, and states that this was only a "small pebble". Denies any fevers or chills. She did have chest pain after she threw up, however she states this was a burning sensation and she attributes it to the vomiting. In addition to the abdominal pain, she has had left flank pain over the last week. Reports a history of kidney stones, but denies any urinary symptoms. Also states that she has had issues with frequent UTIs. She is prescribed Keflex, which she takes before and after sexual intercourse to reduce the risk of additional UTIs. Completed immediately is a sodium of 139, potassium 3.2, BUN/creatinine of 27/2.52 which is a trend up off baseline of 0.97,6 blood glucose of 91, WBC 9.8, hemoglobin 14.5 and platelet count of 205 -- CT of the abdomen and pelvis was completed and was unremarkable - Admit patient for IV fluid hydration and nephrology evaluation for renal failure 07/24/2022 Patient is seen and evaluated in room at bedside with nursing staff present in the room; reports an episode of severe abdominal pain through the night for which she required Dilaudid; has been taking [place] [id number] - Continues to complain of nausea but no episode of vomiting; has been placed on a soft diet and was able to 8 without any episode of emesis - Nephrology on board and recommending to continue with IV fluids secondary to 75 mL an hour; creatinine has improved to 1.5 from 2.52 upon admission - Possible discharge in next 24 hours if remains stable Objective - Vital Signs Vital signs: Vital Signs Temp 98.3 F 07/24/22 12:26 Pulse 63 07/24/22 12:26 Resp 18 05/28/23 12:26 BP 129/88 07/24/22 12:26 Pulse Ox 99 07/24/22 12:26 FiO2 Intake & Output 07/23/22 07/24/22 07/24/22 18:59 06:59 18:59 Intake Total 1018 1380 Balance 1018 1380 Intake: Intake, IV Titration 900 900 Amount Sodium Chloride 0.9% 1, 900 900 000 ml @ 75 mls/hr IV . [id number] [facility] Rx#:[id number] Oral 118 480 Other: # Voids 1 - Exam GENERAL: The patient is alert and oriented x3, not in any acute distress. Well developed, well nourished. HEENT: Pupils are round and equally reacting to light. EOMI. No scleral icterus. No conjunctival pallor. Normocephalic, atraumatic. No pharyngeal erythema. No thyromegaly. CARDIOVASCULAR: S1 and S2 present. No murmurs, rubs, or gallops. PULMONARY: Chest is clear to auscultation, no wheezing or crackles. ABDOMEN: Soft, nontender, nondistended, normoactive bowel sounds. No palpable organomegaly. MUSCULOSKELETAL: No joint swelling or deformity. EXTREMITIES: No cyanosis, clubbing, or pedal edema. NEUROLOGICAL: Gross neurological examination did not reveal any focal deficits. SKIN: No rashes. - Labs CBC & Chem 7: 07/24/22 04:04 07/24/22 04:04 Labs: Abnormal Lab Results - Last 24 Hours (Table) 07/24/22 07/24/22 Range/Units 04:04 04:04 WBC 4.01 L (4.50-10.00) X 10*3/uL RBC 4.05 L (4.10-5.20) X 10*6/uL Hgb 11.3 L (12.0-15.0) g/dL Hct 34.8 L (37.2-46.3) % Chloride 110 H (96-109) mmol/L Anion Gap 7.70 L (10.00-18.00) mmol/L Est GFR (CKD-EPI)AfAm 44.2 L (60.0-200.0) Est GFR (CKD-EPI)NonAf 38.1 L (60.0-200.0) BUN/Creatinine Ratio 8.51 L (12.00-20.00) Ratio Microbiology - Last 24 Hours (Table) 07/23/22 05:30 Urine Culture - Preliminary Urine,Voided Assessment and Plan Assessment: 1. Intractable nausea and vomiting; likely related to gastroparesis caused by Ozempic versus acute gastroenteritis 2. Electrolyte imbalance; hypomagnesemia/Hypokalemia; potassium level in ED was found to be 2.2; patient did receive AND IV potassium supplement in ED; we will repeat potassium levels and continue with close monitoring, with plans to supplement as needed; Patient received magnesium supplement in ED; we will monitor electrolytes closely 3. Acute renal failure; associated with volume depletion; nephrology on board and recommending to continue with IV fluids in form of normal saline; monitor strict ELIANA's, daily weights, renal function and electrolytes; avoid nephrotoxins and hypotension; no further use of Toradol given acute renal failure 4. Lactic acidosis; likely related to renal failure; patient received IV fluid bolus and IV; initial lactic acid level is at 2.8 5. Nephrolithiasis; CT of the abdomen reveals fullness of right renal collecting system and a 2 mm nonobstructive left renal calculus -- Patient recommended outpatient urology follow-up for nephrolithiasis and 24- hour urine evaluation for stone profile - Patient is recommended to avoid high salt containing foods and maintain aggressive oral hydration 6. Obesity; patient takes Ozempic DVT prophylaxis; SCDs CODE STATUS; full code
[2022-07-25] MEDS: HYDROcodone/APAP 5-325MG 1 EACH TAB PO PRN ×3 (03:22→14:38)
[2022-07-25] MEDS: ONDANSETRON 4 MG/2 ML VIAL IVP PRN ×2 (03:28→12:18)
[2022-07-25] MEDS: HYDROmorphone 0.5 MG/0.5 ML SYRINGE IVP PRN (03:28)
[2022-07-25] MEDS: SODIUM CHLORIDE 0.9% 1,000 ML IV SCH (06:29)
--- NOTE | 2022-07-25 08:02 | P.PN ---
Subjective Progress Note Date: 07/25/22 Principal diagnosis: Patient is a 51-year-old female seen in consultation because of acute kidney injury from nausea vomiting diarrhea. She is known with history of kidney stones, although she does not think she has passed a kidney stone. She was given IV fluids. Creatinine has been improving and is down to 1.5 as of yesterday. Workup has shown a non-obstructing small kidney stone in the left kidney 2 mm and possible mild right hydronephrosis Currently she continues to complains of back pain in the bilateral renal angles. Also has dry heaves but no vomiting. Poor appetite. Not constipated. No fever chills. This morning she is also noted to have some bruising on the left paraspinal renal angle area which patient was unaware of. Vital signs are stable afebrile, Objective - Vital Signs Vital signs: Vital Signs Temp 97.7 F 07/25/22 02:00 Pulse 89 07/25/22 02:00 Resp 18 07/24/22 18:56 BP 141/99 07/25/22 02:00 Pulse Ox 99 07/25/22 02:00 FiO2 Intake & Output 07/24/22 07/25/22 07/25/22 18:59 06:59 18:59 Intake Total 1380 Balance 1380 Intake: Intake, IV Titration 900 Amount Sodium Chloride 0.9% 1, 900 000 ml @ 75 mls/hr IV . [id number] [facility] Rx#:[id number] Oral 480 Other: # Voids 2 3 Awake alert oriented comfortable HEENT exam unremarkable Lungs clear to auscultation. Heart sounds unremarkable. Abdomen soft nontender. Bruising over the left Extremity exam was no edema Neurologically awake alert - Labs CBC & Chem 7: 07/24/22 04:04 07/24/22 04:04 Labs: Abnormal Lab Results - Last 24 Hours (Table) 07/24/22 07/24/22 Range/Units 04:04 04:04 WBC 4.01 L (4.50-10.00) X 10*3/uL RBC 4.05 L (4.10-5.20) X 10*6/uL Hgb 11.3 L (12.0-15.0) g/dL Hct 34.8 L (37.2-46.3) % Chloride 110 H (96-109) mmol/L Anion Gap 7.70 L (10.00-18.00) mmol/L Est GFR (CKD-EPI)AfAm 44.2 L (60.0-200.0) Est GFR (CKD-EPI)NonAf 38.1 L (60.0-200.0) BUN/Creatinine Ratio 8.51 L (12.00-20.00) Ratio Microbiology - Last 24 Hours (Table) 07/23/22 05:30 Urine Culture - Final Urine,Voided Strep agalactiae - (group b) Assessment and Plan Assessment: Impression. 1. Acute kidney injury secondary to volume depletion depletion from nausea vomiting diarrhea resolved, creatinine was 2.78 on admission improved to 1.5 as of yesterday today's labs pending. Previous creatinine is 0.97 more than 2 years ago dated 03/17/2020. 2. History of kidney stones and a current kidney stone on the left kidney 2 millimeter. 3. Hypokalemia secondary to nausea vomiting diarrhea resolved potassium is 4 4. Computed tomography scan shows fullness of right renal collecting system with mild urothelial thickening possibly passed a kidney stone 5. Computed tomography scan further shows 3.1 cm irregular area of hypodensity along the anterior mid-liver unclear etiology. 6. Left renal angle area bruising not clear as to the cause. Hemoglobin 11.3 as of yesterday was 14.5 on admission Recommendation 1. Discontinue IV fluids 2. Watch labs, patient can be discharged. 3. Because of the hemoglobin going down and bruising on the renal angle possibly of a hematoma needs to be considered. If her to the primary regarding obtaining a computed tomography scan
[2022-07-25] MEDS: FAMOTIDINE 20 MG TAB PO SCH (09:06)
[2022-07-25 10:25] LABS: Basophils % (A) 0 %; Eosinophils # (A) 0.1 k/uL (0-0.7); Eosinophils % (A) 2 %; HCT 36.5 % (34.0-46.0); HGB 12.3 gm/dL (11.4-16.0); Lymphocytes # (A) 1.1 k/uL (1.0-4.8); Lymphocytes % (A) 28 %; MCH 29.2 pg (25.0-35.0); MCHC 33.7 g/dL (31.0-37.0); MCV 86.6 fL (80.0-100.0); Mean Platelet Volume 9.1; Monocytes # (A) 0.2 k/uL (0-1.0); Monocytes % (A) 6 %; Neutrophils # (A) 2.3 k/uL (1.3-7.7); Neutrophils % (A) 62 %; Platelet Count 141 k/uL (150-450); RBC 4.21 m/uL (3.80-5.40); WBC 3.8 k/uL (3.8-10.6)
--- NOTE | 2022-07-25 10:57 | CT ---
EXAMINATION TYPE: CT abdomen pelvis wo con DATE OF EXAM: 07/25/2022 HISTORY: left sided bruising and hematoma. CT DLP: 542.3 mGycm. Automated Exposure Control for Dose Reduction was Utilized. TECHNIQUE: CT scan of the abdomen and pelvis is performed without oral or IV contrast. COMPARISON: CT 3 days earlier. FINDINGS: Within the limitations of a non-contrast study, the following observations are made. LUNG BASES: No significant abnormality is appreciated. LIVER/GB: Cholecystectomy clips are redemonstrated. Persistent heterogeneous irregular hypodense area along the anterior hepatic dome axial image 27 measuring approximately 4.2 cm similar in appearance to prior with tiny adjacent fluid on current study. Etiology uncertain. Follow-up advised. Consider f irst ultrasound evaluation as recommended on prior CT. PANCREAS: No significant abnormality is seen. SPLEEN: No significant abnormality is seen. ADRENALS: No significant abnormality is seen. KIDNEYS: There is 3 mm nonobstructing calculus mid to lower pole left kidney coronal image 52 redemon strated. There is better visualized 2 mm nonobstructing calculus lower pole left kidney coronal image 50 current study. No left-sided hydronephrosis. Single left-sided pelvic phlebolith. Persistent mild right-sided hydronephrosis without obstructing calculus. No intraluminal calculus in the bladder. BOWEL: Some scattered colonic diverticula. No CT evidence for acute diverticulitis. No suspicious sma ll or large bowel dilatation GENITAL ORGANS: No gross abnormality seen. LYMPH NODES: No greater than 1cm abdominal or pelvic lymph nodes are appreciated. OSSEOUS STRUCTURES: Postsurgical changes to discs at L4-L5 and L5-S1 level redemonstrated. Alignment is stable and satisfactory. OTHER: No significant additional abnormality is seen. IMPRESSION: No suspicious new focal fluid collection or hematoma in the left abdomen or pelvis. No si gnificant change from recent CT.
[2022-07-25 11:47] LABS: African American GFR (CKD) 54.2 (60.0-200.0); Anion Gap 12.1 mmol/L (10.00-18.00); BUN/Creat Ratio 6.56 Ratio (12.00-20.00); Blood Urea Nitrogen 8.5 mg/dL (9.0-27.0); Calcium 9.3 mg/dL (8.7-10.3); Carbon Dioxide 20.9 mmol/L (20.0-27.5); Non-African American GFR(CKD) 46.8 (60.0-200.0); Potassium 3.8 mmol/L (3.5-5.5)
[2022-07-25 14:18] VITALS: BP 130/85; PULSE 71; RESP 18; TEMP 98.7
--- NOTE | 2022-07-29 21:02 | P.DS ---
Providers Date of admission: 07/22/22 07:29 Expected date of discharge: 07/25/22 Attending physician: Tim Arita Consults: 07/22/22 08:30 Consult Physician Urgent Consulting Provider: Mario Purvis Consult Reason/Comments: Renal failure Do you want consulting provider notified?: Yes Primary care physician: Fidencio Sukumar [facility] Course: 51-year-old female who presents to the emergency department for abdominal pain, nausea, and vomiting. States that she is on Wegovy for weight loss. She started taking this four months ago and has lost 30lbs. Since then she has had problems with nausea, vomiting, and constipation. This morning, she developed severe diffuse abdominal pain and increasing nausea and vomiting. States that the nausea and vomiting is usually managed with ODT Zofran, however that was not effective this time. Also reports "explosive diarrhea". However, prior to the diarrhea she had not had a bowel movement in 4 days, and states that this was o nly a "small pebble". Denies any fevers or chills. She did have chest pain after she threw up, however she states this was a burning sensation and she attributes it to the vomiting. In addition to the abdominal pain, she has had left flank pain over the last week. Reports a history of kidney stones, but denies any urinary symptoms. Also states that she has had issues with frequent UTIs. She is prescribed Keflex, which she takes before and after sexual intercourse to reduce the risk of additional UTIs. Completed immediately is a sodium of 139, potassium 3.2, BUN/creatinine of 27/2.52 which is a trend up off baseline of 0.97,6 blood glucose of 91, WBC 9.8, hemoglobin 14.5 and platelet count of 205 -- CT of the abdomen and pelvis was completed and was unremarkable - Admit patient for IV fluid hydration and nephrology evaluation for renal failure 07/24/2022 Patient is seen and evaluated in room at bedside with nursing staff present in the room; reports an episode of severe abdominal pain through the night for which she required Dilaudid; has been taking [place] [id number] - Continues to complain of nausea but no episode of vomiting; has been placed on a soft diet and was able to 8 without any episode of emesis - Nephrology on board and recommending to continue with IV fluids secondary to 75 mL an hour; creatinine has improved to 1.5 from 2.52 upon admission - Possible discharge in next 24 hours if remains stable 07/25/2022-- stable for dc Plan - Discharge Summary New Discharge Prescriptions: Continue Furosemide [Lasix] 20 mg PO DAILY Ergocalciferol (Vitamin D2) [Drisdol (50,000 Iu)] 1,250 mcg PO QMONTHLY Semaglutide [Ozempic] 1 mg SQ MO ondansetron HCL [Zofran] 8 mg PO Q8HR PRN PRN Reason: Nausea And Vomiting Cephalexin [Keflex] 250 mg PO DAILY PRN PRN Reason: UTI PROPHYLAXIS Discharge Medication List Furosemide [Lasix] 20 mg PO DAILY 03/15/20 [History] Cephalexin [Keflex] 250 mg PO DAILY PRN 07/22/22 [History] Ergocalciferol (Vitamin D2) [Drisdol (50,000 Iu)] 1,250 mcg PO QMONTHLY 07/22/22 [History] Semaglutide [Ozempic] 1 mg SQ MO 07/22/22 [History] ondansetron HCL [Zofran] 8 mg PO Q8HR PRN 07/22/22 [History] Follow up Appointment(s)/Referral(s): Alex Connelly MD [Primary Care Provider] - 1-2 days Patient Instructions/Handouts: Kidney Stones (DC) Discharge Disposition: HOME SELF-CARE
--- NOTE | 2022-08-04 05:37 | CDI ---
Documentation Clarification Form Date: 08/04/2022 05:06:52 AM From: Magdalene Castro Admit Date: 07/22/2022 07:29:00 AM Patient Name: Melanie Abbasi Visit Number: [id number] Discharge Date: 07/25/2022 04:56:00 PM ATTENTION: The Clinical Documentation Specialists (CDI) and [employer] Coding Staff appreciate your assistance in clarifying documentation. Please respond to the clarification below the line at the bottom and electronically sign. The CDI & [employer] Coding staff will review the response and follow-up if needed. Please note: Queries are made part of the Legal Health Record. If you have any questions, please contact the author of this message via ITS. Dr. Michelle Patton Conflicting documentation has been found in the medical record. As attending physician, please provide clarification. Per H and P and PN 07/24 "Patient's NVD likely related to gastroparesis due to Ozempic vs. gastroenteritis." Per DCS there is no mention of cause of NVD. History/Risk Factors: Acute Renal failure, possibly passed stone, Patient has been on Ozempic for weight loss having NVD. Treatment: IV fluids, Zofran Please clarify which diagnosis is most appropriate: [ ] gastroparesis due to Ozempic [ ] gastroenteritis [ ] Other (please specify) [ ] Unable to determine MTDD
== END 2022-07-25 16:56 | disposition home or self-care (01) | DRG 469 ==
LOC: EC 06:21 → 4SSUR 07:29
PROVIDERS: ADMIT Internal Medicine; ATTEND Internal Medicine
DX: N17.9 Acute kidney failure, unspecified (principal); E87.6 Hypokalemia; E83.42 Hypomagnesemia; K31.84 Gastroparesis; E86.9 Volume depletion, unspecified; R11.2 Nausea with vomiting, unspecified; R19.7 Diarrhea, unspecified; Z87.442 Personal history of urinary calculi; Z87.440 Personal history of urinary (tract) infections; N13.2 Hydronephrosis with renal and ureteral calculous obstruction; M41.9 Scoliosis, unspecified; Z79.899 Other long term (current) drug therapy; Z88.8 Allergy status to other drugs, medicaments and biological substances; J45.909 Unspecified asthma, uncomplicated; I10 Essential (primary) hypertension; E66.9 Obesity, unspecified; Z68.29 Body mass index [BMI] 29.0-29.9, adult; E87.20 Acidosis, unspecified; T50.995A Adverse effect of other drugs, medicaments and biological substances, initial encounter
CPT/HCPCS: 36415; 74176; 80048; 80053; 81001; 82150; 83605; 83690; 83735; 84100; 84132; 84484; 85025; 87086; 93005; 96361; 96365; 96366; 96375; 99285

== ENCOUNTER 2023-04-22 11:05 | Emergency (ER) | payer OTHER ==
[2023-04-22 11:35] VITALS: RESP 18; TEMP 98.4
--- NOTE | 2023-04-22 11:38 | ED ---
General Adult HPI - General Chief complaint: Syncope Stated complaint: Syncope-Hit head no thinners Time Seen by Provider: 04/22/23 11:35 Source: patient, RN notes reviewed Mode of arrival: wheelchair Limitations: no limitations - History of Present Illness Initial comments: Patient is a 52-year-old female presented to ER with a chief complaint of synco pal episode. Patient states earlier this morning she walked to the kitchen to get a glass of water. She states she was feeling short of breath and her heart started to race. Patient states she woke up on the ground with water all over the floor. She believes she hit her head and left shoulder as they are not painful and the stools was moved. Unknown loss of consciousness time. Patient currently states that she still feels slightly lightheaded and "off". She denies any current chest pain, shortness of breath, abdominal pain, constipation/diarrhea, urinary complaints. She has a past medical history of kidney disease for which she follows up every 3 months not currently on dialysis. - Related Data Home Medications Medication Instructions Recorded Confirmed Furosemide [Lasix] 20 mg PO DAILY 03/15/20 07/22/22 Cephalexin [Keflex] 250 mg PO DAILY PRN 07/22/22 07/22/22 Ergocalciferol (Vitamin D2) 1,250 mcg PO QMONTHLY 07/22/22 07/22/22 [Drisdol (50,000 Iu)] Semaglutide [Ozempic] 1 mg SQ MO 07/22/22 07/22/22 ondansetron HCL [Zofran] 8 mg PO Q8HR PRN 07/22/22 07/22/22 Allergies Allergy/AdvReac Type Severity Reaction Status Date / Time gadobenate dimeglumine Allergy Intermediate Dyspnea Verified 07/22/22 08:24 [From Multihance] cyclobenzaprine HCl Allergy ITCHING OF Verified 07/22/22 08:24 [From Flexeril] SKIN promethazine HCl Allergy ITCHING OF Verified 07/22/22 08:24 [From Phenergan] SKIN levofloxacin [From Levaquin] AdvReac Severe Nausea & Verified 07/22/22 08:24 Vomiting NSAIDS (Non-Steroidal AdvReac Nausea & Verified 04/22/23 11:18 Anti-Inflamma Vomiting Review of Systems ROS Statement: Those systems with pertinent positive or pertinent negative responses have been documented in the HPI. ROS Other: All systems not noted in ROS Statement are negative. Past Medical History Past Medical History: Asthma, Hypertension Additional Past Medical History / Comment(s): back pain, scoliosis, kidney stones History of Any Multi-Drug Resistant Organisms: None Reported Past Surgical History: Back Surgery, Section, Cholecystectomy, Hysterectomy, Tubal Ligation Additional Past Surgical History / Comment(s): neck surgery, renal surgery for stones x 2 Past Anesthesia/Blood Transfusion Reactions: No Reported Reaction Additional Past Anesthesia/Blood Transfusion Reaction / Comment(s): no problems w/transfusions Past Psychological History: No Psychological Hx Reported Smoking Status: Never smoker Past Alcohol Use History: None Reported Past Drug Use History: None Reported, Marijuana - Past Family History Mother Family Medical History: Cancer Father Family Medical History: Dementia Additional Family Medical History / Comment(s): Lung disease, parkinsons General Exam Limitations: no limitations General appearance: alert, in no apparent distress Head exam: Present: atraumatic, normocephalic, normal inspection Eye exam: Present: normal appearance, PERRL, EOMI. Absent: scleral icterus, conjunctival injection, periorbital swelling Pupils: Present: normal accommodation ENT exam: Present: normal exam, normal oropharynx, mucous membranes moist Neck exam: Present: normal inspection. Absent: tenderness, meningismus, lymphadenopathy Respiratory exam: Present: normal lung sounds bilaterally. Absent: respiratory distress, wheezes, rales, rhonchi, stridor Cardiovascular Exam: Present: regular rate, normal rhythm, normal heart sounds. Absent: systolic murmur, diastolic murmur, rubs, gallop, clicks GI/Abdominal exam: Present: soft, normal bowel sounds. Absent: distended, tenderness, guarding, rebound, rigid Extremities exam: Present: normal inspection, full ROM, normal capillary refill. Absent: tenderness, pedal edema, joint swelling, calf tenderness Neurological exam: Present: alert, oriented X3, CN II-XII intact Psychiatric exam: Present: normal affect, normal mood Skin exam: Present: warm, dry, intact, normal color. Absent: rash Course Vital Signs 04/22/23 04/22/23 11:14 13:14 Temperature 98.4 F Pulse Rate 65 84 Respiratory 18 18 Rate Blood Pressure 129/87 128/75 O2 Sat by Pulse 100 98 Oximetry Medical Decision Making - Medical Decision Making Was pt. sent in by a medical professional or institution (AIME Zimmerman, PEDIATRIC MEDICAL ASSISTANT, urgent care, hospital, or alf...) When possible be specific @ -No Did you speak to anyone other than the patient for history (EMS, parent, family, police, friend...)? What history was obtained from this source @ -No Did you review nursing and triage notes (agree or disagree)? Why? @ -I reviewed and agree with nursing and triage notes Were old charts reviewed (outside hosp., previous admission, EMS record, old EKG, old radiological studies, urgent care reports/EKG's, alf records)? Report findings @ -No old charts were reviewed Differential Diagnosis (chest pain, altered mental status, abdominal pain women, abdominal pain men, vaginal bleeding, weakness, fever, dyspnea, syncope, headache, dizziness, GI bleed, back pain, seizure, CVA, palpatations, mental health, musculoskeletal)? @ -Differential Syncope:Valvular disease, hypertrophic cardiomyopathy, pulmonary embolism, tamponade, tachycardia, bradycardia, IL, hypovolemia, hemorrhage, dissection, anemia, intracranial hemorrhage, seizure, hypoglycemia, carbon monoxide poisoning, this is not meant to be an all-inclusive list. EKG interpreted by me (3pts min.). @ -As above X-rays interpreted by me (1pt min.). @ -Chest x-ray interpreted by me shows no acute cardiopulmonary process. CT interpreted by me (1pt min.). @ -CT brain C-spine negative for acute process. U/S interpreted by me (1pt. min.). @ -None done What testing was considered but not performed or refused? (CT, X-rays, U/S, labs)? Why? @ -None What meds were considered but not given or refused? Why? @ -None Did you discuss the management of the patient with other professionals (mariusz goldstein i.e. AIME Zimmerman, PEDIATRIC MEDICAL ASSISTANT, lab, RT, psych nurse, social media sr strategy manager, dish carrier, teacher, chief green officer, bottle caser)? Give summary @ -No Was smoking cessation discussed for >3mins.? @ -No Was critical care preformed (if so, how long)? @ -No Were there social determinants of health that impacted care today? How? (Homelessness, low income, unemployed, alcoholism, drug addiction, transportation, low edu. Level, literacy, decrease access to med. care, m[facility], rehab)? @ -No Was there de-escalation of care discussed even if they declined (Discuss DNR or withdrawal of care, Hospice)? DNR status @ -No What co-morbidities impacted this encounter? (DM, HTN, Smoking, COPD, CAD, Cancer, CVA, ARF, Chemo, Hep., AIDS, mental health diagnosis, sleep apnea, morbid obesity)? @ -Hypertension , kidney disease Was patient admitted / discharged? Hospital course, mention meds given and route, prescriptions, significant lab abnormalities, going to OR and other pertinent info. @ -Discharge. Patient is a 52-year-old female presented to ER with a chief complaint of syncopal episode. History and physical exam were completed. Vital stable. Patient in no signs of acute distress. Nontoxic-appearing. No acute n eurological findings on exam. 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 Urine without signs of infection. Influenza, COVID, RSV negative. Imaging completed in the ER negative for acute process. EKG showing normal sinus rhythm with no acute evidence of infarct or ischemia. Patient did receive 1 L of IV fluids and Tylenol for symptom control in the ER. Results discussed with patient, all questions answered. Patient will be discharged stable condition with follow-up to PCP. Strict return parameters were discussed. Patient expressed understanding and agreement with care plan. Undiagnosed new problem with uncertain prognosis? @ -No Drug Therapy requiring intensive monitoring for toxicity (Heparin, Nitro, Insulin, Cardizem)? @ -No Were any procedures done? @ -No Diagnosis/symptom? @ -Syncope Acute, or Chronic, or Acute on Chronic? @ -Acute Uncomplicated (without systemic symptoms) or Complicated (systemic symptoms)? @ -Uncomplicated Side effects of treatment? @ -No Exacerbation, Progression, or Severe Exacerbation? @ -No Poses a threat to life or bodily function? How? (Chest pain, [place], IL, pneumonia, PE, COPD, DKA, ARF, appy, cholecystitis, CVA, Diverticulitis, Homicidal, Suicidal, threat to staff... and all critical care pts) @ -No - Lab Data Result diagrams: 04/22/23 10:47 04/22/23 10:47 Lab Results 04/22/23 04/22/23 04/22/23 Range/Units 10:47 10:47 10:47 WBC 5.0 (3.8-10.6) k/uL RBC 5.12 (3.80-5.40) m/uL Hgb 14.6 (11.4-16.0) gm/dL Hct 44.1 (34.0-46.0) % MCV 86.2 (80.0-100.0) fL MCH 28.6 (25.0-35.0) pg MCHC 33.2 (31.0-37.0) g/dL RDW 13.4 (11.5-15.5) % Plt Count 227 (150-450) k/uL MPV 7.5 Neutrophils % 63 % Lymphocytes % 26 % Monocytes % 6 % Eosinophils % 1 % Basophils % 1 % Neutrophils # 3.2 (1.3-7.7) k/uL Lymphocytes # 1.3 (1.0-4.8) k/uL Monocytes # 0.3 (0-1.0) k/uL Eosinophils # 0.1 (0-0.7) k/uL Basophils # 0.1 (0-0.2) k/uL PT 9.7 L (10.0-12.5) sec INR 0.9 (<1.2) APTT 23.7 (22.0-30.0) sec D-Dimer 0.23 (<0.60) mg/L FEU Sodium (137-145) mmol/L Potassium (3.5-5.1) mmol/L Chloride (98-107) mmol/L Carbon Dioxide (22-30) mmol/L Anion Gap mmol/L BUN (7-17) mg/dL Creatinine (0.52-1.04) mg/dL Est GFR (CKD-EPI)AfAm (>60 ml/min/1.73 sqM) Est GFR (CKD-EPI)NonAf (>60 ml/min/1.73 sqM) Glucose (74-99) mg/dL Calcium (8.4-10.2) mg/dL Magnesium (1.6-2.3) mg/dL Total Bilirubin (0.2-1.3) mg/dL AST (14-36) U/L ALT (4-34) U/L Alkaline Phosphatase (38-126) U/L Troponin I (0.000-0.034) ng/mL Total Protein (6.3-8.2) g/dL Albumin (3.5-5.0) g/dL Urine Color Yellow Urine Appearance Clear (Clear) Urine pH 6.5 (5.0-8.0) Ur Specific [place] 1.025 (1.001-1.035) Urine Protein Trace H (Negative) Urine Glucose (UA) Negative (Negative) Urine Ketones Negative (Negative) Urine Blood Negative (Negative) Urine Nitrite Negative (Negative) Urine Bilirubin Negative (Negative) Urine Urobilinogen <2.0 (<2.0) mg/dL Ur Leukocyte Esterase Large H (Negative) Urine RBC 2 (0-5) /hpf Urine WBC 8 H (0-5) /hpf Ur Squamous Epith Cells 3 (0-4) /hpf Urine Bacteria Rare H (None) /hpf Hyaline Casts 1 (0-2) /lpf Urine Mucus Rare H (None) /hpf Influenza Type A (PCR) (Not Detectd) Influenza Type B (PCR) (Not Detectd) RSV (PCR) (Not Detectd) SARS-CoV-2 (PCR) (Not Detectd) 04/22/23 04/22/23 04/22/23 Range/Units 10:47 10:47 10:47 WBC (3.8-10.6) k/uL RBC (3.80-5.40) m/uL Hgb (11.4-16.0) gm/dL Hct (34.0-46.0) % MCV (80.0-100.0) fL MCH (25.0-35.0) pg MCHC (31.0-37.0) g/dL RDW (11.5-15.5) % Plt Count (150-450) k/uL MPV Neutrophils % % Lymphocytes % % Monocytes % % Eosinophils % % Basophils % % Neutrophils # (1.3-7.7) k/uL Lymphocytes # (1.0-4.8) k/uL Monocytes # (0-1.0) k/uL Eosinophils # (0-0.7) k/uL Basophils # (0-0.2) k/uL PT (10.0-12.5) sec INR (<1.2) APTT (22.0-30.0) sec D-Dimer (<0.60) mg/L FEU Sodium 140 (137-145) mmol/L Potassium 4.5 (3.5-5.1) mmol/L Chloride 106 (98-107) mmol/L Carbon Dioxide 29 (22-30) mmol/L Anion Gap 5 mmol/L BUN 21 H (7-17) mg/dL Creatinine 1.34 H (0.52-1.04) mg/dL Est GFR (CKD-EPI)AfAm 52 (>60 ml/min/1.73 sqM) Est GFR (CKD-EPI)NonAf 45 (>60 ml/min/1.73 sqM) Glucose 91 (74-99) mg/dL Calcium 10.2 (8.4-10.2) mg/dL Magnesium 2.1 (1.6-2.3) mg/dL Total Bilirubin 0.5 (0.2-1.3) mg/dL AST 28 (14-36) U/L ALT 17 (4-34) U/L Alkaline Phosphatase 116 (38-126) U/L Troponin I <0.012 (0.000-0.034) ng/mL Total Protein 6.9 (6.3-8.2) g/dL Albumin 4.3 (3.5-5.0) g/dL Urine Color Urine Appearance (Clear) Urine pH (5.0-8.0) Ur Specific [place] (1.001-1.035) Urine Protein (Negative) Urine Glucose (UA) (Negative) Urine Ketones (Negative) Urine Blood (Negative) Urine Nitrite (Negative) Urine Bilirubin (Negative) Urine Urobilinogen (<2.0) mg/dL Ur Leukocyte Esterase (Negative) Urine RBC (0-5) /hpf Urine WBC (0-5) /hpf Ur Squamous Epith Cells (0-4) /hpf Urine Bacteria (None) /hpf Hyaline Casts (0-2) /lpf Urine Mucus (None) /hpf Influenza Type A (PCR) Not Detected (Not Detectd) Influenza Type B (PCR) Not Detected (Not Detectd) RSV (PCR) Not Detected (Not Detectd) SARS-CoV-2 (PCR) Not Detected (Not Detectd) - EKG Data -: EKG Interpreted by De EKG Comments: EKG taken at 11: 33 shows sinus bradycardia with no acute ST segment or T wave abnormalities. Ventricular rate 56, HI interval 165, QRS duration 94, QT/QTc 425/417. - Radiology Data Radiology results: report reviewed, image reviewed Disposition Clinical Impression: Syncope Disposition: HOME SELF-CARE Condition: Stable Instructions (If sedation given, give patient instructions): Syncope (DC) Additional Instructions: Please return to ER for any new or worsening symptoms. Is patient prescribed a controlled substance at d/c from ED?: No Referrals: Dejon Crump MD [Primary Care Provider] - 1-2 days Time of Disposition: 13:06
[2023-04-22 12:05] LABS: Basophils # (A) 0.1 k/uL (0-0.2); Basophils % (A) 1 %; Eosinophils # (A) 0.1 k/uL (0-0.7); Eosinophils % (A) 1 %; HCT 44.1 % (34.0-46.0); HGB 14.6 gm/dL (11.4-16.0); Lymphocytes # (A) 1.3 k/uL (1.0-4.8); Lymphocytes % (A) 26 %; MCH 28.6 pg (25.0-35.0); MCHC 33.2 g/dL (31.0-37.0); MCV 86.2 fL (80.0-100.0); Mean Platelet Volume 7.5; Monocytes # (A) 0.3 k/uL (0-1.0); Monocytes % (A) 6 %; Neutrophils # (A) 3.2 k/uL (1.3-7.7); Neutrophils % (A) 63 %; Platelet Count 227 k/uL (150-450); RBC 5.12 m/uL (3.80-5.40); RDW 13.4 % (11.5-15.5)
[2023-04-22] MEDS: SODIUM CHLORIDE 0.9% 1,000 ML IV STA (12:19)
[2023-04-22] MEDS: ACETAMINOPHEN TAB 325 MG TAB PO STA (12:19)
[2023-04-22 12:20] LABS: ALT 17 U/L (4-34); AST 28 U/L (14-36); African American GFR (CKD) 52 (>60 ml/min/1.73 sqM); Albumin 4.3 g/dL (3.5-5.0); Alkaline Phosphatase 116 U/L (38-126); Anion Gap 5 mmol/L; Blood Urea Nitrogen 21 mg/dL (7-17); Calcium 10.2 mg/dL (8.4-10.2); Carbon Dioxide 29 mmol/L (22-30); Chloride 106 mmol/L (98-107); Glucose 91 mg/dL (74-99); INR 0.9 (<1.2); Magnesium 2.1 mg/dL (1.6-2.3); Non-African American GFR(CKD) 45 (>60 ml/min/1.73 sqM); Partial Thromboplastin Time 23.7 sec (22.0-30.0); Potassium 4.5 mmol/L (3.5-5.1); Prothrombin Time 9.7 sec (10.0-12.5); Sodium 140 mmol/L (137-145); Total Bilirubin 0.5 mg/dL (0.2-1.3); Total Protein 6.9 g/dL (6.3-8.2)
--- NOTE | 2023-04-22 12:23 | CT ---
EXAMINATION TYPE: CT brain cspine wo con CT DLP: 1230.7 mGycm, Automated exposure control for dose reduction was used. DATE OF EXAM: 04/22/2023 12:05 PM COMPARISON: None. CLINICAL INDICATION:Female, 52 years old with history of syncope with head injury/LOC; syncope TECHNIQUE: Brain: Multiple axial CT images of the brain were obtained without IV contrast. Cspine: Axial CT images from the skull base to the inferior aspect of T2 we obtained without intraven ous contrast. Coronal and sagittal reformatted images were also reviewed. FINDINGS: Brain: Extra-axial spaces: No abnormal extra-axial fluid collections. Ventricular system: Within normal limits Cerebral parenchyma: No acute intraparenchymal hemorrhage or mass effect. The castellano-white junction is well differentiated. Cerebellum: Unremarkable. Mass effect: No evidence of midline shift. Intracranial vasculature: unremarkable Soft tissues: Normal. Calvarium/osseous structures: No depressed skull fracture. Paranasal sinuses and mastoid air cells: Clear. Visualized orbits: Orbital contents are intact. Cervical spine: Fracture: None. Osseous structures: Postsurgical changes at C5-C7 with osseous fusion of the vertebrae. Hardware appe ars intact. Multilevel degenerative disc disease changes with endplate spurring and disc osteophyte c omplex's. Vertebral alignment: Grade 1 anterolisthesis of C7 on T1. Spinal canal/Neural Foramina: No evidence of significant spinal canal narrowing. No evidence for sign ificant neural foraminal stenosis. Neck soft tissues: Prevertebral soft tissues are within normal limits. Other: The airway is patent. The lung apices are clear. IMPRESSION: 1. No acute intracranial process. 2. No evidence of cervical spine fracture. 3. Surgical changes with mild multilevel degenerative disc disease. Hardware appears intact.
--- NOTE | 2023-04-22 12:25 | XR ---
EXAMINATION TYPE: XR shoulder complete LT DATE OF EXAM: 04/22/2023 12:12 PM CLINICAL INDICATION:Female, 52 years old with history of fall; [facility] COMPARISON: None TECHNIQUE: XR shoulder complete LT; examined in AP, internally rotated and scapular Y projections. FINDINGS: No evidence of acute osseous pathology, joint dislocation, or soft tissue swelling. The remaining po rtions of the visualized chest are unremarkable. Mild degeneration changes of the left acromion, dis eric clavicle with osteophyte formation. There is osteophyte formation of the glenoid and humeral head . There is joint space narrowing of glenohumeral joint IMPRESSION: No acute osseous pathology. Mild shoulder osteoarthrosis.
--- NOTE | 2023-04-22 12:26 | XR ---
EXAMINATION TYPE: XR chest 2V DATE OF EXAM: 04/22/2023 12:11 PM CLINICAL INDICATION:Female, 52 years old with history of syncope; H COMPARISON: Chest radiographs from 08/07/2019 TECHNIQUE: XR chest 2V Frontal and lateral views of the chest. FINDINGS: Lungs/Pleura: There is flattening of the diaphragm with increased lucency of the lungs. No evidence o f pneumothorax, pleural effusion or focal consolidation. Pulmonary vascularity: Unremarkable. Heart/mediastinum: Cardiomediastinal silhouette is unremarkable. Musculoskeletal: No acute osseous pathology. There is fixation hardware in the lower cervical spine. IMPRESSION: 1. No acute cardiopulmonary disease process. 2. COPD changes.
[2023-04-22 12:28] LABS: Appearance,Urine Clear (Clear); Bacteria,Urine Rare /hpf; Bilirubin,Urine Negative (Negative); Blood,Urine Negative (Negative); Color,Urine Yellow; Glucose,Urine (UA) Negative (Negative); Hyaline Casts,Urine 1 /lpf (0-2); Ketones,Urine Negative (Negative); Leukocyte Esterase,Urine Large (Negative); Mucus,Urine Rare /hpf; Nitrite,Urine Negative (Negative); PH, Urine 6.5 (5.0-8.0); Protein,Urine Trace (Negative); RBC,Urine 2 /hpf (0-5); Specific Gravity,Urine 1.025 (1.001-1.035); Squamous Epithelial Cell,Urine 3 /hpf (0-4); Urobilinogen,Urine <2.0 mg/dL (<2.0); WBC,Urine 8 /hpf (0-5)
[2023-04-22 13:29] VITALS: BP 128/75; PULSE 84
== END 2023-04-22 13:18 | disposition home or self-care (01) ==
LOC: EC 11:05
DX: R00.1 Bradycardia, unspecified (principal); R55 Syncope and collapse; J45.909 Unspecified asthma, uncomplicated; I10 Essential (primary) hypertension; F12.90 Cannabis use, unspecified, uncomplicated; Z79.899 Other long term (current) drug therapy; Z88.6 Allergy status to analgesic agent; Z88.8 Allergy status to other drugs, medicaments and biological substances; Z20.822 Contact with and (suspected) exposure to COVID-19; Z88.1 Allergy status to other antibiotic agents
CPT/HCPCS: 36415; 70450; 71046; 72125; 80053; 81001; 83735; 84484; 85025; 85379; 85610; 85730; 87636; 93005; 96360; 99284

== ENCOUNTER → 2023-05-11 | Outpatient (CLI) | payer OTHER ==
--- NOTE | 2023-05-11 18:58 | US ---
EXAMINATION TYPE: US carotid duplex BILAT DATE OF EXAM: 05/11/2023 COMPARISON: NONE CLINICAL INDICATION: Female, 52 years old with history of R55 SYNCOPE R42 DIZZINESS; episodes of sync ope TECHNIQUE: Carotid duplex ultrasound examination. Indirect Doppler criteria was utilized. 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 Criteria for Assigning % of Stenosis / Diameter reduction (Estimation based on the indirect measurements of the internal carotid artery velocities (ICA PSV). 1. Normal (no stenosis)=ICA PSV < 125 cm/s: ratio < 2.0: ICA EDV<40 cm/s. 2. Less than 50% stenosis=ICA PSV < 125 cm/s: ratio < 2.0: ICA EDV<40 cm/s. 3. 50 to 69% stenosis=ICA PSV of 125 to 230 cm/s: ration 2.0 ? 4.0: ICA EDV 40-100 cm/s. 4. Greater than 70% stenosis to near occlusion= ICA PSV > 230 cm/s: ratio > 4.0: ICA EDV > 100 cm/s. 5. Near occlusion= ICA PSV velocities may be low or undetectable: variable ratio and ICA EDV. 6. Total occlusion=unable to detect flow.
== END | disposition home or self-care (01) ==
LOC: RADUSWWP 16:30
PROVIDERS: ATTEND Family Medicine
DX: R55 Syncope and collapse (principal); R42 Dizziness and giddiness
CPT/HCPCS: 93880

== ENCOUNTER → 2023-05-19 | Outpatient (CLI) | payer OTHER ==
--- NOTE | 2023-05-25 10:09 | P.HOLTER ---
48 HOUR HOLTER MONITOR : INDICATION: Tachycardia, palpitations, unspecified arrhythmia START DATE: 05/19/2023 END DATE: 05/21/2023 FINDINGS: Max HR: 118 BPM at 7:52 AM Min HR: 38 BPM at 5:46 AM Average HR: 64 BPM Supra-Ventricular ectopic burden: 0.06% Ventricular ectopic burden: Less than 0.01% which were mostly [monomorphic] 3 runs of short supraventricular tachycardia longest being 7 beats, with maximum heart rate of 124 bpm There were no atrial fibrillation, atrial flutter, or sustained ventricular tachycardia episodes. There were no high-grade AV blocks There were no pauses greater than 2 seconds. No patient triggered event reported CONCLUSION: Fairly nonrevealing 48-hour Holter monitor with no significant positive findings Please correlate clinically. Juan C Méndez MD, FACC, RPVI Thank you for allowing [facility] to participate in this patient's care. Feel free to reach out in case of any followup questions. Please CC this report to Dr. Dejon Crump
--- NOTE | 2023-05-26 11:59 | HM ---
48 HOUR HOLTER MONITOR : INDICATION: Tachycardia, palpitations, unspecified arrhythmia START DATE: 05/19/2023 END DATE: 05/21/2023 FINDINGS: Max HR: 118 BPM at 7:52 AM Min HR: 38 BPM at 5:46 AM Average HR: 64 BPM Supra-Ventricular ectopic burden: 0.06% Ventricular ectopic burden: Less than 0.01% which were mostly [monomorphic] 3 runs of short supraventricular tachycardia longest being 7 beats, with maximum heart rate of 124 bpm There were no atrial fibrillation, atrial flutter, or sustained ventricular tachycardia episodes. There were no high-grade AV blocks There were no pauses greater than 2 seconds. No patient triggered event reported CONCLUSION: Fairly nonrevealing 48-hour Holter monitor with no significant positive findings Please correlate clinically. Juan C Méndez MD, FACC, RPVI Thank you for allowing [facility] to participate in this patient's care. Feel free to reach out in case of any followup questions. Please CC this report to Dr. Dejon STUBBS
== END | disposition home or self-care (01) ==
LOC: RADECHMAIN 07:20
PROVIDERS: ATTEND Family Medicine
DX: I49.9 Cardiac arrhythmia, unspecified (principal); R00.0 Tachycardia, unspecified; R55 Syncope and collapse; R42 Dizziness and giddiness
CPT/HCPCS: 93225; 93226

== ENCOUNTER 2023-06-23 08:22 | Inpatient (IN) | payer OTHER ==
--- NOTE | 2023-06-23 08:28 | ED ---
Nausea/Vomiting/Diarrhea HPI - General Chief complaint: Nausea/Vomiting/Diarrhea Stated complaint: vomiting Time Seen by Provider: 06/23/23 08:26 Source: patient, family, RN notes reviewed Mode of arrival: wheelchair Limitations: no limitations - History of Present Illness Initial comments: This is a 52-year-old female who presents to the emergency department for nausea and vomiting. States that symptoms started yesterday. She is taking Zofran without any relief. Today she started to develop chest pain and pain in her lower back. States that she has bad kidneys and is worried about that causing her pain. Her has been sick with similar symptoms. Denies any fevers but has had the chills. MD complaint: nausea, vomiting - Related Data Home Medications Medication Instructions Recorded Confirmed Furosemide [Lasix] 20 mg PO DAILY 03/15/20 06/23/23 Cephalexin [Keflex] 250 mg PO DAILY PRN 07/22/22 06/23/23 Acetaminophen [Tylenol Arthritis] 1,300 mg PO Q8H PRN 06/23/23 06/23/23 Albuterol Sulfate [Ventolin HFA] 2 puff INHALATION RT-QID PRN 06/23/23 06/23/23 Potassium Chloride ER [K-Dur 10] 10 meq PO DAILY 06/23/23 06/23/23 Allergies Allergy/AdvReac Type Severity Reaction Status Date / Time gadobenate dimeglumine Allergy Intermediate Dyspnea Verified 06/23/23 10:46 [From Multihance] cyclobenzaprine HCl Allergy ITCHING OF Verified 06/23/23 10:46 [From Flexeril] SKIN promethazine HCl Allergy ITCHING OF Verified 06/23/23 10:46 [From Phenergan] SKIN levofloxacin [From Levaquin] AdvReac Severe Nausea & Verified 06/23/23 10:46 Vomiting NSAIDS (Non-Steroidal AdvReac Nausea & Verified 06/23/23 10:46 Anti-Inflamma Vomiting Review of Systems ROS Statement: Those systems with pertinent positive or pertinent negative responses have been documented in the HPI. ROS Other: All systems not noted in ROS Statement are negative. Past Medical History Past Medical History: Asthma, Hypertension Additional Past Medical History / Comment(s): back pain, scoliosis, kidney stones History of Any Multi-Drug Resistant Organisms: None Reported Past Surgical History: Back Surgery, Section, Cholecystectomy, Hyster ectomy, Tubal Ligation Additional Past Surgical History / Comment(s): neck surgery, renal surgery for stones x 2 Past Anesthesia/Blood Transfusion Reactions: No Reported Reaction Additional Past Anesthesia/Blood Transfusion Reaction / Comment(s): no problems w/transfusions Past Psychological History: No Psychological Hx Reported Smoking Status: Never smoker Past Alcohol Use History: None Reported Past Drug Use History: None Reported, Marijuana - Past Family History Mother Family Medical History: Cancer Father Family Medical History: Dementia Additional Family Medical History / Comment(s): Lung disease, parkinsons General Exam Limitations: no limitations General appearance: alert, in distress Head exam: Present: atraumatic, normocephalic, normal inspection Respiratory exam: Present: normal lung sounds bilaterally. Absent: respiratory distress, wheezes, rales, rhonchi, stridor Cardiovascular Exam: Present: regular rate, normal rhythm, normal heart sounds. Absent: systolic murmur, diastolic murmur, rubs, gallop, clicks GI/Abdominal exam: Present: soft, tenderness (Epigastric), normal bowel sounds. Absent: distended Neurological exam: Present: alert, oriented X3, CN II-XII intact Psychiatric exam: Present: normal affect, normal mood Skin exam: Present: warm, dry, intact, normal color. Absent: rash Course Vital Signs 06/23/23 06/23/23 08:23 10:57 Temperature 98.7 F Pulse Rate 60 59 L Respiratory 18 17 Rate Blood Pressure 128/85 122/77 O2 Sat by Pulse 99 94 L Oximetry Medical Decision Making - Medical Decision Making This is a 52 year old female who presents to the emergency department for nausea and vomiting. Was pt. sent in by a medical professional or institution? @ -No Did you speak to anyone other than the patient for history? @ -No Did you review nursing and triage notes? @ -Yes, and I agree, it is accurate with regards to the patient's symptoms. Were old charts reviewed? @ -No Differential Diagnosis? @ -Differential Nausea and Vomiting: Gastroenteritis, cholecystitis, appendicitis, pancreatitis, migraine, benign positional vertigo, food borne illness, pyelonephritis, irritable bowel syndrome, influenza, Covid, GERD, incarcerated hernia, intestinal obstruction, this is not meant to be an all-inclusive list. EKG interpreted by me (3pts min.)? @ -EKG interpreted by me demonstrating the following: Sinus bradycardia. Ventricular rate 56 bpm, WI interval 166 ms, QRS duration 91 ms, QTc 402 ms. X-rays interpreted by me (1pt min.)? @ -Chest x-ray obtained, my interpretation identifies no localized consolidations or infiltrates. CT interpreted by me (1pt min.)? @ -Not obtained U/S interpreted by me (1pt. min.)? @ -Not obtained What testing was considered but not performed? (CT, X-rays, U/S, labs)? Why? @ -None What meds were considered but not given? Why? @ -None Did you discuss the management of the patient with other professionals? @ -Yes, Dr. Crump, who accepts the patient for admission. Did you reconcile home meds? @ -Yes Was smoking cessation discussed for >3mins.? @ -No Was critical care preformed (if so, how long)? @ -No Were there social determinants of health that impacted care today? How? (Homelessness, low income, unemployed, alcoholism, drug addiction, transportation, low edu. Level, literacy, decrease access to med. care, residential, rehab)? @ -No Was there de-escalation of care discussed even if they declined? (Discuss DNR or withdrawal of care, Hospice)? @ -No What co-morbidities impacted this encounter? (DM, HTN, Smoking, COPD, CAD, Cancer, CVA, Hep., AIDS, mental health diagnosis, sleep apnea, morbid obesity)? @ -None Was patient admitted / discharged? @ -Admitted. Lab work consistent with pancreatitis with a lipase of 1922. Amylase 233. Decreased renal function is stable when compared with prior. Lab work was otherwise fairly unremarkable. Urinalysis negative for signs of infection. Chest x-ray reveals no acute process. Patient no longer has her gallbladder and denies any alcohol consumption. Lipid panel ordered with results pending at the time of admission. Patient admitted to medicine for management pancreatitis. Undiagnosed new problem with uncertain prognosis? @ -None Drug Therapy requiring intensive monitoring for toxicity (Heparin, Nitro, Insulin, Cardizem)? @ -None Were any procedures done? @ -None Diagnosis/symptom? @ -Pancreatitis Acute, or Chronic, or Acute on Chronic? @ -Acute Uncomplicated (without systemic symptoms) or Complicated (systemic symptoms)? @ -Complicated Side effects of treatment? @ -None Exacerbation, Progression, or Severe Exacerbation] @ -Not applicable Poses a threat to life or bodily function? @ -Yes This case was discussed in detail with the attending ED physician, Dr. Manley. Presentation, findings, and treatment plan discussed in detail as well. - Lab Data Result diagrams: 06/23/23 08:27 06/23/23 08:27 Lab Results 06/23/23 06/23/23 06/23/23 Range/Units 08:27 08:27 08:27 WBC 5.9 (3.8-10.6) k/uL RBC 5.31 (3.80-5.40) m/uL Hgb 14.6 (11.4-16.0) gm/dL Hct 46.6 H (34.0-46.0) % MCV 87.7 (80.0-100.0) fL MCH 27.4 (25.0-35.0) pg MCHC 31.3 (31.0-37.0) g/dL RDW 14.1 (11.5-15.5) % Plt Count 203 (150-450) k/uL MPV 7.3 Neutrophils % 79 % Lymphocytes % 11 % Monocytes % 7 % Eosinophils % 1 % Basophils % 0 % Neutrophils # 4.6 (1.3-7.7) k/uL Lymphocytes # 0.6 L (1.0-4.8) k/uL Monocytes # 0.4 (0-1.0) k/uL Eosinophils # 0.1 (0-0.7) k/uL Basophils # 0.0 (0-0.2) k/uL PT 10.2 (10.0-12.5) sec INR 0.9 (<1.2) APTT 24.4 (22.0-30.0) sec Sodium (137-145) mmol/L Potassium (3.5-5.1) mmol/L Chloride (98-107) mmol/L Carbon Dioxide (22-30) mmol/L Anion Gap mmol/L BUN (7-17) mg/dL Creatinine (0.52-1.04) mg/dL Est GFR (CKD-EPI)AfAm (>60 ml/min/1.73 sqM) Est GFR (CKD-EPI)NonAf (>60 ml/min/1.73 sqM) Glucose (74-99) mg/dL Calcium (8.4-10.2) mg/dL Magnesium (1.6-2.3) mg/dL Total Bilirubin (0.2-1.3) mg/dL AST (14-36) U/L ALT (4-34) U/L Alkaline Phosphatase (38-126) U/L Troponin I (0.000-0.034) ng/mL Total Protein (6.3-8.2) g/dL Albumin (3.5-5.0) g/dL Amylase (30-110) U/L Lipase (23-300) U/L Urine Color Yellow Urine Appearance Clear (Clear) Urine pH 6.0 (5.0-8.0) Ur Specific [place] 1.038 H (1.001-1.035) Urine Protein 1+ H (Negative) Urine Glucose (UA) Negative (Negative) Urine Ketones Negative (Negative) Urine Blood Negative (Negative) Urine Nitrite Negative (Negative) Urine Bilirubin 1+ H (Negative) Urine Urobilinogen 4.0 (<2.0) mg/dL Ur Leukocyte Esterase Negative (Negative) Urine RBC 2 (0-5) /hpf Urine WBC 3 (0-5) /hpf Ur Squamous Epith Cells 1 (0-4) /hpf Urine Mucus Moderate H (None) /hpf Influenza Type A (PCR) (Not Detectd) Influenza Type B (PCR) (Not Detectd) RSV (PCR) (Not Detectd) SARS-CoV-2 (PCR) (Not Detectd) 06/23/23 06/23/23 06/23/23 Range/Units 08:27 08:27 08:27 WBC (3.8-10.6) k/uL RBC (3.80-5.40) m/uL Hgb (11.4-16.0) gm/dL Hct (34.0-46.0) % MCV (80.0-100.0) fL MCH (25.0-35.0) pg MCHC (31.0-37.0) g/dL RDW (11.5-15.5) % Plt Count (150-450) k/uL MPV Neutrophils % % Lymphocytes % % Monocytes % % Eosinophils % % Basophils % % Neutrophils # (1.3-7.7) k/uL Lymphocytes # (1.0-4.8) k/uL Monocytes # (0-1.0) k/uL Eosinophils # (0-0.7) k/uL Basophils # (0-0.2) k/uL PT (10.0-12.5) sec INR (<1.2) APTT (22.0-30.0) sec Sodium 137 (137-145) mmol/L Potassium 4.2 (3.5-5.1) mmol/L Chloride 107 (98-107) mmol/L Carbon Dioxide 21 L (22-30) mmol/L Anion Gap 9 mmol/L BUN 21 H (7-17) mg/dL Creatinine 1.31 H (0.52-1.04) mg/dL Est GFR (CKD-EPI)AfAm 53 (>60 ml/min/1.73 sqM) Est GFR (CKD-EPI)NonAf 46 (>60 ml/min/1.73 sqM) Glucose 125 H (74-99) mg/dL Calcium 9.8 (8.4-10.2) mg/dL Magnesium 1.8 (1.6-2.3) mg/dL Total Bilirubin 1.0 (0.2-1.3) mg/dL AST 45 H (14-36) U/L ALT 26 (4-34) U/L Alkaline Phosphatase 100 (38-126) U/L Troponin I <0.012 (0.000-0.034) ng/mL Total Protein 6.9 (6.3-8.2) g/dL Albumin 4.1 (3.5-5.0) g/dL Amylase 233 H (30-110) U/L Lipase 1922 H (23-300) U/L Urine Color Urine Appearance (Clear) Urine pH (5.0-8.0) Ur Specific [place] (1.001-1.035) Urine Protein (Negative) Urine Glucose (UA) (Negative) Urine Ketones (Negative) Urine Blood (Negative) Urine Nitrite (Negative) Urine Bilirubin (Negative) Urine Urobilinogen (<2.0) mg/dL Ur Leukocyte Esterase (Negative) Urine RBC (0-5) /hpf Urine WBC (0-5) /hpf Ur Squamous Epith Cells (0-4) /hpf Urine Mucus (None) /hpf Influenza Type A (PCR) Not Detected (Not Detectd) Influenza Type B (PCR) Not Detected (Not Detectd) RSV (PCR) Not Detected (Not Detectd) SARS-CoV-2 (PCR) Not Detected (Not Detectd) - Radiology Data Radiology results: report reviewed, image reviewed Disposition Clinical Impression: Pancreatitis Disposition: ADMITTED IP TO THIS [facility] Time of Disposition: 11:07
[2023-06-23 09:07] LABS: Basophils % (A) 0 %; Eosinophils # (A) 0.1 k/uL (0-0.7); Eosinophils % (A) 1 %; HCT 46.6 % (34.0-46.0); HGB 14.6 gm/dL (11.4-16.0); Lymphocytes # (A) 0.6 k/uL (1.0-4.8); Lymphocytes % (A) 11 %; MCH 27.4 pg (25.0-35.0); MCHC 31.3 g/dL (31.0-37.0); MCV 87.7 fL (80.0-100.0); Mean Platelet Volume 7.3; Monocytes # (A) 0.4 k/uL (0-1.0); Monocytes % (A) 7 %; Neutrophils # (A) 4.6 k/uL (1.3-7.7); Neutrophils % (A) 79 %; Platelet Count 203 k/uL (150-450); RBC 5.31 m/uL (3.80-5.40); RDW 14.1 % (11.5-15.5); WBC 5.9 k/uL (3.8-10.6)
[2023-06-23 09:22] LABS: ALT 26 U/L (4-34); AST 45 U/L (14-36); African American GFR (CKD) 53 (>60 ml/min/1.73 sqM); Albumin 4.1 g/dL (3.5-5.0); Alkaline Phosphatase 100 U/L (38-126); Amylase 233 U/L (30-110); Anion Gap 9 mmol/L; Blood Urea Nitrogen 21 mg/dL (7-17); Calcium 9.8 mg/dL (8.4-10.2); Carbon Dioxide 21 mmol/L (22-30); Chloride 107 mmol/L (98-107); Glucose 125 mg/dL (74-99); Magnesium 1.8 mg/dL (1.6-2.3); Non-African American GFR(CKD) 46 (>60 ml/min/1.73 sqM); Potassium 4.2 mmol/L (3.5-5.1); Sodium 137 mmol/L (137-145); Total Protein 6.9 g/dL (6.3-8.2)
[2023-06-23 09:31] LABS: Lipase 1922 U/L (23-300)
[2023-06-23] MEDS: SODIUM CHLORIDE 0.9% 1,000 ML IV STA (09:53)
[2023-06-23] MEDS: PANTOPRAZOLE 40 MG/10 ML VIAL IVP STA (09:53)
[2023-06-23] MEDS: HYDROmorphone 1 MG/ML 1 ML SYRINGE IVP STA (09:55)
[2023-06-23] MEDS: METOCLOPRAMIDE 5 MG/ML 2 ML VIAL IVP STA (09:59)
--- NOTE | 2023-06-23 10:30 | XR ---
EXAMINATION TYPE: XR chest 2V DATE OF EXAM: 06/23/2023 10:23 AM CLINICAL INDICATION:Female, 52 years old with history of Chest Pain; [facility] COMPARISON: Chest radiograph 04/22/2023 TECHNIQUE: XR chest 2V Frontal and lateral views of the chest. FINDINGS: Lungs/Pleura: There is no evidence of pleural effusion, focal consolidation, or pneumothorax. Pulmonary vascularity: Unremarkable. Heart/mediastinum: Cardiomediastinal silhouette is unremarkable. Musculoskeletal: No acute osseous pathology. Cervical spine fusion hardware. Other findings: None Lines/Tubes: None. IMPRESSION: No acute cardiopulmonary disease/process.
[2023-06-23] MEDS: ONDANSETRON 4 MG/2 ML VIAL IVP STA (10:46)
[2023-06-23] MEDS ORDERED: NALOXONE 0.4 MG/ML 1 ML VIAL IV PRN (11:07)
[2023-06-23] MEDS ORDERED: ALBUTEROL NEBULIZED 2.5 MG/3 ML INHALATION PRN (11:09)
[2023-06-23] MEDS ORDERED: NON FORMULARY DRUG (Acetaminophen [Tylenol Arthritis] 650 MG Tablet) PO PRN (11:09)
[2023-06-23] MEDS: droPERidol 5 MG/2 ML VIAL IVP ONE (11:56)
[2023-06-23] MEDS: SODIUM CHLORIDE 0.9% 1,000 ML IV SCH (11:56)
[2023-06-23 14:14] LABS: Appearance,Urine Clear (Clear); Bilirubin,Urine 1+ (Negative); Blood,Urine Negative (Negative); Color,Urine Yellow; Glucose,Urine (UA) Negative (Negative); Ketones,Urine Negative (Negative); Leukocyte Esterase,Urine Negative (Negative); Mucus,Urine Moderate /hpf; Nitrite,Urine Negative (Negative); Protein,Urine 1+ (Negative); RBC,Urine 2 /hpf (0-5); Specific Gravity,Urine 1.038 (1.001-1.035); Squamous Epithelial Cell,Urine 1 /hpf (0-4); WBC,Urine 3 /hpf (0-5)
[2023-06-23] MEDS: HYDROmorphone 1 MG/ML 1 ML SYRINGE IVP PRN (14:21)
[2023-06-23 14:26] LABS: INR 0.9 (<1.2); Partial Thromboplastin Time 24.4 sec (22.0-30.0); Prothrombin Time 10.2 sec (10.0-12.5)
[2023-06-23] MEDS: METOCLOPRAMIDE 5 MG/ML 2 ML VIAL IVP PRN (14:51)
[2023-06-23] MEDS: HYDROmorphone 0.5 MG/0.5 ML SYRINGE IVP PRN (17:41)
[2023-06-23] MEDS: ONDANSETRON 4 MG/2 ML VIAL IVP PRN (17:41)
[2023-06-23 19:59] LABS: Chol/HDL Ratio 2.06 Ratio; LDL Cholesterol,Calculated 66.3 mg/dL (0.0-131.0); VLDL Calculation 14.04 mg/dL (5.00-40.00)
--- NOTE | 2023-06-24 03:04 | HP ---
HISTORY AND PHYSICAL CHIEF COMPLAINT: Abdominal pain for 1-day. HISTORY OF PRESENT ILLNESS: This is first known admission for this 52-year-old female. She developed epigastric pain with nausea and vomiting and came to the emergency room, where she was diagnosed as having acute pancreatitis. Her gallbladder has been removed. She has never had this before. She does not drink alcohol. She denies symptoms of an ulcer. Laboratory studies in the emergency room revealed an amylase of 233 and lipase of 1922. BUN is 21 and creatinine is 1.3 with a GFR of 46. REVIEW OF SYSTEMS: She denied any headache, fever, chills, cough, hemoptysis, hematemesis, melena, hematochezia, jaundice, acholic stools, dark urine, urinary complaints, etc. Past medical history, family history, and personal and social histories are essentially unremarkable. She is allergic to Levaquin. Surgically, she has had her gallbladder removed and has had procedures for kidney stones in the past. She does not smoke. PHYSICAL EXAMINATION: VITAL SIGNS: Normal. HEAD, EARS, EYES, NOSE, MOUTH, AND THROAT: Normal. There is no icterus. CHEST: Clear. CARDIAC: Normal. ABDOMEN: Slightly protuberant and she is tender over the epigastrium without masses. Bowel sounds are present. EXTREMITIES: Normal. NEUROLOGICAL: She is intact. IMPRESSION: Acute idiopathic pancreatitis. PLAN: 1. Bed rest. 2. IV fluids. 3. Analgesics. 4. Consider further workup regarding the etiology. MMODL / IJN: [id number] /
[2023-06-24] MEDS: POTASSIUM CHLORIDE ER 10 MEQ TAB.ER.PRT PO SCH (09:00)
[2023-06-24] MEDS ORDERED: PANTOPRAZOLE 40 MG/10 ML VIAL IV SCH (09:00)
[2023-06-24 15:38] LABS: Basophils % (A) 0 %; Eosinophils % (A) 0 %; HCT 37.7 % (34.0-46.0); HGB 12.5 gm/dL (11.4-16.0); Lymphocytes # (A) 0.7 k/uL (1.0-4.8); Lymphocytes % (A) 11 %; MCH 28.6 pg (25.0-35.0); MCV 86.5 fL (80.0-100.0); Mean Platelet Volume 7.7; Monocytes # (A) 0.4 k/uL (0-1.0); Monocytes % (A) 7 %; Neutrophils # (A) 5.1 k/uL (1.3-7.7); Neutrophils % (A) 80 %; Platelet Count 165 k/uL (150-450); RBC 4.36 m/uL (3.80-5.40); RDW 14.2 % (11.5-15.5); WBC 6.4 k/uL (3.8-10.6)
[2023-06-24 15:50] LABS: ALT 123 U/L (4-34); AST 103 U/L (14-36); African American GFR (CKD) 69 (>60 ml/min/1.73 sqM); Albumin 3.6 g/dL (3.5-5.0); Albumin/Globulin Ratio 1.4; Alkaline Phosphatase 128 U/L (38-126); Amylase 130 U/L (30-110); Anion Gap 7 mmol/L; Blood Urea Nitrogen 23 mg/dL (7-17); Calcium 9.7 mg/dL (8.4-10.2); Carbon Dioxide 23 mmol/L (22-30); Chloride 107 mmol/L (98-107); Globulin 2.5 g/dL; Glucose 103 mg/dL (74-99); Lipase 467 U/L (23-300); Non-African American GFR(CKD) 60 (>60 ml/min/1.73 sqM); Potassium 4.3 mmol/L (3.5-5.1); Sodium 137 mmol/L (137-145); Total Bilirubin 0.7 mg/dL (0.2-1.3); Total Protein 6.1 g/dL (6.3-8.2)
[2023-06-24] MEDS: ONDANSETRON 4 MG/2 ML VIAL IVP PRN (17:23)
[2023-06-24] MEDS: FUROSEMIDE 20 MG TAB PO SCH (17:32)
[2023-06-24] MEDS: PANTOPRAZOLE 40 MG/10 ML VIAL IVP SCH (20:41)
[2023-06-24] MEDS: PANTOPRAZOLE 40 MG TABLET PO SCH (21:42)
[2023-06-25 11:21] LABS: ALT 187 U/L (4-34); AST 203 U/L (14-36); African American GFR (CKD) 69 (>60 ml/min/1.73 sqM); Albumin 3.3 g/dL (3.5-5.0); Albumin/Globulin Ratio 1.3; Alkaline Phosphatase 159 U/L (38-126); Amylase 259 U/L (30-110); Anion Gap 9 mmol/L; Blood Urea Nitrogen 21 mg/dL (7-17); Calcium 9.5 mg/dL (8.4-10.2); Carbon Dioxide 18 mmol/L (22-30); Chloride 108 mmol/L (98-107); Globulin 2.5 g/dL; Glucose 85 mg/dL (74-99); Lipase 1399 U/L (23-300); Non-African American GFR(CKD) 60 (>60 ml/min/1.73 sqM); Sodium 135 mmol/L (137-145); Total Bilirubin 1.6 mg/dL (0.2-1.3); Total Protein 5.8 g/dL (6.3-8.2)
[2023-06-25 14:03] LABS: Basophils # (A) 0.02 X 10*3/uL (0.00-0.10); Basophils % (A) 0.4 %; Eosinophils # (A) 0.02 X 10*3/uL (0.04-0.35); Eosinophils % (A) 0.4 %; HGB 12.3 g/dL (12.0-15.0); Lymphocytes # (A) 0.96 X 10*3/uL (0.90-5.00); Lymphocytes % (A) 18.8 %; MCH 28.2 pg (27.0-32.0); MCHC 33.2 g/dL (32.0-37.0); MCV 84.9 FL (80.0-97.0); Mean Platelet Volume 10.3 FL (9.5-12.2); Monocytes # (A) 0.54 X 10*3/uL (0.20-1.00); Monocytes % (A) 10.6 %; NRBC Per 100 WBC 0 X 10*3/uL (0.00-0.01); Neutrophils # (A) 3.54 X 10*3/uL (1.80-7.70); Neutrophils % (A) 69.2 %; Platelet Count 177 X 10*3/uL (140-440); RBC 4.36 X 10*6/uL (4.10-5.20); RDW 14.6 % (11.5-14.5); WBC 5.11 X 10*3/uL (4.50-10.00)
[2023-06-26] MEDS: IOPAMIDOL CONTRAST (ORAL USE) VIAL PO PRN (09:21)
--- NOTE | 2023-06-26 10:59 | PN ---
PROGRESS NOTE DATE OF SERVICE: 06/24/2023 CHIEF COMPLAINT: Acute abdominal pain. HISTORY OF PRESENT ILLNESS: This lady is still having quite a bit of epigastric pain with no vomiting. Lipase and amylase are still markedly elevated. The etiology for her pancreatitis isn't clear at this time. PHYSICAL EXAMINATION: GENERAL: She is quite tender over the epigastrium. VITAL SIGNS: Normal. CHEST: Clear. IMPRESSION: Acute pancreatitis. PLAN: Continue with analgesics and follow laboratory studies each day. MMODL / IJN: [id number] /
--- NOTE | 2023-06-26 11:05 | PN ---
PROGRESS NOTE DATE OF SERVICE: 06/25/2023 CHIEF COMPLAINT: Pancreatitis. HISTORY OF PRESENT ILLNESS: This lady is not feeling much better. Numbers are not improving. Liver enzymes have elevated slightly. 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 She is still having episodes of nausea and vomiting. Physical exam is otherwise normal. IMPRESSION: Pancreatitis. PLAN: Continue with analgesics and continue to follow numbers. It may be necessary to perform upper GI endoscopy to rule out posterior penetrating ulcer. MMODL / IJN: [id number] /
--- NOTE | 2023-06-26 12:00 | CT ---
EXAMINATION TYPE: CT abdomen pelvis w con DATE OF EXAM: 06/26/2023 COMPARISON: 07/25/2022 INDICATION: UPPER ABDOMINAL PAIN X4 DAYS DLP: 727.5 mGycm, Automated exposure control for dose reduction was used. CONTRAST: 100 mL of Isovue 300. Study performed with Oral Contrast TECHNIQUE: Axial images were obtained from above the diaphragm to the pubic rami in the axial plane a t 5 mm thick sections. Reconstructed images are reviewed on the computer in the coronal plane. FINDINGS: Limited CT sections are obtained the lung bases. There is a small right and minimal left pleural eff usion.. CT ABDOMEN: Minimal ascites adjacent to the liver. Inflammatory changes are within the mesentery in t he right upper quadrant. A few diverticuli are within the hepatic flexure. Consider acute diverticuli tis. Liver: Normal Spleen: Normal Pancreas: Minimal pancreatic duct dilatation is present measuring 0.3 cm within the body of the pancr eas, normal less than 0.2 cm Adrenal glands: The adrenal glands are normal. Gallbladder: Surgically absent. The common bile duct is dilated and measures 1.4 cm at the head of th e pancreas Kidneys: No masses are evident. No hydronephrosis is present. No cysts are present. Delayed images were obtained through the kidneys, which remain unremarkable. Previous nonobstructing renal stones n ot identified on this postcontrast study. Aorta: Vascular calcification is within the aorta. Inferior vena cava: Normal. CT PELVIS: Inflammatory changes are within the mesentery in the right upper quadrant. A few diverticuli are with in the hepatic flexure. Consider acute diverticulitis. Loops of bowel distended with oral contrast otherwise appear unremarkable. No additional suspicious d iverticulitis. Appendix: Normal as visualized. Urinary bladder: Normal. Genitourinary structures: Uterus and ovaries are not identified. Osseous structures: No suspicious lytic or sclerotic lesions. IMPRESSION: 1. Inflammatory changes and diverticuli within the hepatic flexure region suspicious for acute diver ticulitis. 2. There is some mild prominence of the pancreatic duct. Minimal inflammatory change in the right upp er quadrant extends towards the head of the pancreas. Pancreatitis is not excluded although inflammat ory changes due to diverticulitis are favored. Correlate with Laboratory results. 3. Prominent common bile duct present previously
[2023-06-26 12:07] LABS: HCT 41.6 % (34.0-46.0); HGB 13.2 gm/dL (11.4-16.0); MCH 28.2 pg (25.0-35.0); MCHC 31.7 g/dL (31.0-37.0); MCV 88.8 fL (80.0-100.0); Platelet Count 177 k/uL (150-450); RBC 4.68 m/uL (3.80-5.40); RDW 14.2 % (11.5-15.5); WBC 4.5 k/uL (3.8-10.6)
[2023-06-26 12:15] LABS: ALT 232 U/L (4-34); AST 197 U/L (14-36); African American GFR (CKD) 67 (>60 ml/min/1.73 sqM); Albumin 3.5 g/dL (3.5-5.0); Albumin/Globulin Ratio 1.4; Alkaline Phosphatase 220 U/L (38-126); Anion Gap 9 mmol/L; Blood Urea Nitrogen 14 mg/dL (7-17); Calcium 9.3 mg/dL (8.4-10.2); Carbon Dioxide 20 mmol/L (22-30); Chloride 107 mmol/L (98-107); Globulin 2.5 g/dL; Glucose 83 mg/dL (74-99); Non-African American GFR(CKD) 58 (>60 ml/min/1.73 sqM); Potassium 4.1 mmol/L (3.5-5.1); Sodium 136 mmol/L (137-145); Total Bilirubin 2.6 mg/dL (0.2-1.3)
[2023-06-26 12:23] LABS: Lipase 1888 U/L (23-300)
--- NOTE | 2023-06-26 14:37 | P.CONS ---
History of Present Illness - Reason for Consult Consult date: 06/26/23 Pancreatitis Requesting physician: Dejon Crump - Chief Complaint Abdominal pain, nausea and vomiting - History of Present Illness This is a pleasant 52-year-old female who presented to the emergency department with complaints of nausea vomiting and abdominal pain that began on . Nausea and vomiting started on she took some Zofran at home that she had but she had no relief. She started having upper abdominal pain radiating into her back on Monday and she came into the emergency department for further evaluation. She has a history of kidney stones and was concerned she had a possible kidney stone. Amylase and lipase were elevated consistent with pancreatitis. She only had mild elevation in her AST initially. She continues to have abdominal pain. She continues to have elevated lipase and now has been noted to have elevated LFTs. Her PCP ordered a CT of the abdomen pelvis that is scheduled for this morning. She continues to have some nausea but no vomiting. Abdominal pain is mostly in the upper abdomen and radiates around to her back. Labs: WBC 4.5 hemoglobin 13 Platelet count 177,000 sodium 136 potassium 4.1 BUN 14 creatinine 1.09 total bilirubin 2.6 AST 197 ALT 232 alkaline phosphatase 220 lipase 1888 Review of Systems REVIEW OF SYSTEMS: CARDIOPULMONARY: No chest pain or shortness of breath. Gastrointestinal: Upper abdominal pain radiating to her back. Nausea and vomiting which has improved now having only nausea. No hematemesis, coffee- ground emesis. No rectal bleeding, or melena. GENITOURINARY: No dysuria or hematuria. MUSCULOSKELETAL: Reports normal range of motion. SKIN: No rashes. No jaundice. ENDOCRINE: No chills, fevers. No excessive weight gain or loss. No polydipsia or polyuria. PSYCHIATRIC: Unremarkable. NEUROLOGY: No change in mental status. Denies dizziness, headache. ENT: Vision unremarkable. CONSTITUTIONAL: No recent weight loss. No fever, chills, night sweats. Past Medical History Past Medical History: Asthma, Hypertension, Pneumonia, Syncope Additional Past Medical History / Comment(s): back pain, scoliosis, kidney stones History of Any Multi-Drug Resistant Organisms: None Reported Past Surgical History: Back Surgery, Section, Cholecystectomy, Hysterectomy, Tubal Ligation Additional Past Surgical History / Comment(s): neck surgery, renal surgery for stones x 2,cyst removed from left leg Past Anesthesia/Blood Transfusion Reactions: No Reported Reaction Additional Past Anesthesia/Blood Transfusion Reaction / Comm: no problems w/transfusions Past Psychological History: No Psychological Hx Reported Smoking Status: Never smoker Past Alcohol Use History: None Reported Past Drug Use History: Marijuana Additional Drug Use History / Comment(s): edibles - Past Family History Mother Family Medical History: Cancer Father Family Medical History: Dementia Additional Family Medical History / Comment(s): Lung disease, parkinsons Medications and Allergies Home Medications Medication Instructions Recorded Confirmed Type Furosemide [Lasix] 20 mg PO DAILY 03/15/20 06/23/23 History Cephalexin [Keflex] 250 mg PO DAILY PRN 07/22/22 06/23/23 History Acetaminophen [Tylenol Arthritis] 1,300 mg PO Q8H PRN 06/23/23 06/23/23 History Albuterol Sulfate [Ventolin HFA] 2 puff INHALATION RT-QID PRN 06/23/23 06/23/23 History Potassium Chloride ER [K-Dur 10] 10 meq PO DAILY 06/23/23 06/23/23 History Allergies Allergy/AdvReac Type Severity Reaction Status Date / Time gadobenate dimeglumine Allergy Intermediate Dyspnea Verified 06/23/23 10:46 [From Multihance] cyclobenzaprine HCl Allergy ITCHING OF Verified 06/23/23 10:46 [From Flexeril] SKIN promethazine HCl Allergy ITCHING OF Verified 06/23/23 10:46 [From Phenergan] SKIN levofloxacin [From Levaquin] AdvReac Severe Nausea & Verified 06/23/23 10:46 Vomiting NSAIDS (Non-Steroidal AdvReac Nausea & Verified 06/23/23 10:46 Anti-Inflamma Vomiting Physical Exam Vitals: Vital Signs Temp Pulse Resp BP Pulse Ox 06/26/23 07:00 98 F 53 L 16 144/89 99 06/26/23 02:00 98.5 F 62 16 127/81 98 06/25/23 20:00 99.3 F 57 L 16 163/78 100 06/25/23 14:42 97.9 F 56 L 16 140/82 96 06/25/23 14:00 16 Intake and Output 06/25/23 06/26/23 06/26/23 22:59 06:59 14:59 Intake Total 240 Balance 240 Intake: Oral 240 Other: # Voids 1 3 General appearance: The patient is alert, oriented, appears in no acute distress. HET: Head is normocephalic and atraumatic. Conjunctiva pink. Sclera anicteric. Neck: Supple without lymphadenopathy. Trachea midline. Heart: Regular. Lungs: Equal expansion, normal respiratory effort. Abdomen: Soft, epigastric and right upper quadrant tenderness, nondistended. Skin: No rashes. No jaundice. Extremities: Normal skin color and turgor. No pedal edema. Neurological: No focal deficits. Alert and oriented x3. Results CBC & Chem 7: 06/26/23 11:32 06/26/23 11:32 Labs: Abnormal Lab Results - Last 24 Hours (Table) 06/25/23 06/26/23 Range/Units 10:09 11:32 Hct 37.0 L (37.2-46.3) % RDW 14.6 H (11.5-14.5) % Eosinophils # 0.02 L (0.04-0.35) X 10*3/uL Sodium 136 L (137-145) mmol/L Carbon Dioxide 20 L (22-30) mmol/L Creatinine 1.09 H (0.52-1.04) mg/dL Total Bilirubin 2.6 H (0.2-1.3) mg/dL AST 197 H (14-36) U/L ALT 232 H (4-34) U/L Alkaline Phosphatase 220 H (38-126) U/L Total Protein 6.0 L (6.3-8.2) g/dL Lipase 1888 H (23-300) U/L Comments: CT abdomen pelvis reports inflammatory changes and diverticuli within the hepatic flexure region suspicious for acute diverticulitis. There is some mild prominence of the pancreatic duct. Minimal inflammatory change in the right up per quadrant extends towards the head of the pancreas. Pancreatitis is not excluded although inflammatory changes due to diverticulitis are favored. Correlate with laboratory results prominent common bile duct present previously. Assessment and Plan (1) Pancreatitis Narrative/Plan: 52-year-old female admitted for nausea vomiting and abdominal pain noted to have elevated amylase and lipase consistent with pancreatitis. Patient was admitted 3 days ago with continued pain in the right upper quadrant radiating to her back with elevation in her LFTs and continued elevation of her lipase concerning for possible gallstone pancreatitis. CT abdomen pelvis reported inflammatory changes concerning for possible diverticulitis but also changes within the pancreatic head and cannot exclude pancreatitis.'s symptoms are more consistent with pancreatitis as well as laboratory findings consistent with cholestatic pattern. Will plan to proceed with ERCP tomorrow. Current Visit: Yes Status: Acute Code(s): K85.90 - ACUTE PANCREATITIS WITHOUT NECROSIS OR INFECTION, UNSP SNOMED Code(s): 74757723 (2) Elevated LFTs Current Visit: Yes Status: Acute Code(s): R79.89 - OTHER SPECIFIED ABNORMAL FINDINGS OF BLOOD CHEMISTRY SNOMED Code(s): 496696821 (3) Abdominal pain Current Visit: No Status: Acute Code(s): R10.9 - UNSPECIFIED ABDOMINAL PAIN SNOMED Code(s): 85922185 Plan: 1. Continue symptomatic and supportive care 2. Continue aggressive IV hydration 3. Antiemetics as needed 4. Keep n.p.o. except for medications 5. Repeat daily CMP, lipase 6. Levaquin ordered IV prior to ERCP 7. Will hold indomethacin as patient has NSAID allergy 8. Plan for ERCP tomorrow, procedure discussed with patient including risks and benefits. Patient is agreeable to proceed. Thank you for this consultation, we will continue to follow. Dr. Ada Garcia I agree with the dictator's note, documented as a scribe by Valentina Juarez.
--- NOTE | 2023-06-27 08:18 | PN ---
PROGRESS NOTE DATE OF SERVICE: 06/26/2023 CHIEF COMPLAINT: Pancreatitis. HISTORY OF PRESENT ILLNESS: This lady is feeling a little bit better, but still nauseated and vomiting and still has epigastric and back pain. PHYSICAL EXAMINATION: CHEST: Clear. CARDIAC: Normal. ABDOMEN: Soft and slightly tender over the epigastrium. She has an ecchymosis in the left flank area. This is probably a bruise and not Jean Baptiste Husain sign. IMPRESSION: Pancreatitis with elevated liver function studies. PLAN: Order CT of the abdomen and pelvis. It may be necessary to move on to an MRCP if it looks as though she has a biliary obstruction. She will also be referred to Gastroenterology. MMODL / IJN: [id number] /
[2023-06-27] MEDS: PIPERACILLIN-TAZOBACTAM 3.375 GM in SODIUM CHLORIDE 0.9% 100 ML IVPB SCH (11:13)
[2023-06-27 11:25] LABS: ALT 182 U/L (8-44); AST 98 U/L (13-35); Albumin 3.7 g/dL (3.8-4.9); Albumin/Globulin Ratio 1.85 Ratio (1.60-3.17); Alkaline Phosphatase 231 U/L (41-126); BUN/Creat Ratio 12.36 Ratio (12.00-20.00); Blood Urea Nitrogen 13.6 mg/dL (9.0-27.0); Calcium 9.2 mg/dL (8.7-10.3); Carbon Dioxide 19.7 mmol/L (21.6-31.8); Chloride 104 mmol/L (96-109); Glucose 66 mg/dL (70-110); Lipase 110 U/L (14-63); Potassium 4.4 mmol/L (3.5-5.5); Sodium 138 mmol/L (135-145); Total Bilirubin 1.2 mg/dL (0.3-1.2); Total Protein 5.7 g/dL (6.2-8.2)
[2023-06-27] MEDS ORDERED: LEVOFLOXACIN 500MG-D5W PMX 500 MG in DEXTROSE/WATER 1 100ML.BAG IVPB SCH (11:30)
[2023-06-27] MEDS: IOPAMIDOL-300 50ML BTL MISCELLANE ONE ×2 (11:52→12:31)
[2023-06-27] MEDS: IV FLUID CONTINUATION 1,000 ML IV ONE ×2 (11:58→12:32)
[2023-06-27] MEDS ORDERED: fentaNYL (PF) 50 MCG/ML 2 ML AMP ONE (12:10)
[2023-06-27] MEDS ORDERED: LIDOCAINE 1% INJ 10MG/ML (20 ML MDV) ONE (12:10)
[2023-06-27] MEDS ORDERED: KETAMINE HCL IN 0.9 % NACL 50 MG/5 ML SYRINGE ONE (12:10)
[2023-06-27] MEDS ORDERED: ONDANSETRON 4 MG/2 ML VIAL ONE (12:10)
[2023-06-27] MEDS ORDERED: PROPOFOL 10 MG/ML 20 ML VIAL IV ONE (12:10)
[2023-06-27] MEDS ORDERED: MIDAZOLAM 2 MG/2 ML VIAL ONE (12:10)
--- NOTE | 2023-06-27 12:32 | P.PCN ---
Date of Procedure: 06/27/23 Procedure(s) Performed: Brief history: Patient is a 2 year-old pleasant lady scheduled for an ERCP as part of evaluation of acute biliary pancreatitis. She presents with epigastric and right upper quadrant abdominal pain of 4 days duration. Was noted to have elevated lipase and elevated serum transaminases. CT of the abdomen showed dilated common bile duct measuring 1.1 cm and prior history of gallbladder surgery. Because of the clinical suspicion for retained common bile or stones he is scheduled for an ERCP today. Procedure performed: ERCP with biliary sphincterotomy and balloon sweep Preoperative diagnoses: Acute biliary pancreatitis and dilated CBD IV sedation per anesthesia: Procedure: After informed consent was obtained from the patient and after the risks benefits and complications including bleeding perforation and pancreatitis explained in detail the patient was brought into the endoscopy unit. The patient was placed in prone position and IV conscious sedation was administered by anesthesia under continuous monitoring. The Olympus side-viewing duodenoscope was then inserted into the mouth and esophagus intubated without any difficulty. The scope was gradually advanced into the stomach and duodenum. The major papilla was identified without any difficulty. Patient cannulation resulted in opacification of the common bile duct that appeared dilated measuring 1.5 cm in diameter but no clear filling defects were identified. Because of the clinical suspicion for retained common bile duct stone I proceeded with biliary sphincterotomy after the catheter was exchanged over a guidewire without biliary sphincterotomy. The sphincterotomy was performed 11 o'clock position as well as extend to 1 cm in length. Following this a 11.5 mm balloon was passed over the guidewire into the proximal CBD, gently inflated and withdrawn and did not see any stones exiting the ampulla. This maneuver was repeated 3-4 times. Patient cholangiogram was performed and no other filling defects were noted. Patient tolerated the procedure well. The pancreatic duct was intentionally not cannulated. Impression: Dilated common bile duct measuring 1.5 cm in diameter with no filling defects, s/p biliary sphincterotomy and balloon sweep as described above Pancreatic duct intentionally not cannulated Recommendations: The findings of this examination were discussed with the patient as well as a family. She will be started on clear liquid diet. If her LFTs continues to improve, she can be discharged home tomorrow
[2023-06-27] MEDS: fentaNYL (PF) 50 MCG/ML 2 ML AMP IVP ONE (12:57)
[2023-06-27] MEDS: ONDANSETRON 4 MG/2 ML VIAL IVP ONE (12:57)
--- NOTE | 2023-06-27 13:04 | FL ---
EXAMINATION TYPE: FL ERCP Intraoperative/procedural fluoroscopic services were provided. Total fluoro scopy time is 12 seconds with a total of 5 submitted images to PACS. Please see the operative/procedu ral note for further details. DAP: 0.38119 Gycm2
[2023-06-27] MEDS: fentaNYL (PF) 50 MCG/1 ML VIAL IVP ONE (13:17)
[2023-06-27 14:17] LABS: INR 1.06 sec (0.93-1.11); Prothrombin Time 11.4 sec (9.9-11.9)
--- NOTE | 2023-06-28 06:24 | PN ---
PROGRESS NOTE DATE OF SERVICE: 06/27/2023 CHIEF COMPLAINT: Acute pancreatitis and elevated liver function studies. HISTORY OF PRESENT ILLNESS: This lady has gone down for an ERCP. Apparently, the duct was dilated, but there were no stones or obstructive lesions. Sphincterotomy was performed. Her laboratory numbers are improving. PHYSICAL EXAMINATION: CHEST: Clear. CARDIAC: Normal. ABDOMEN: She is beer still runner compounder over the epigastrium. IMPRESSION: 1. Pancreatitis. 2. Hepatitis. 3. Probable biliary obstruction. PLAN: Continue to monitor her liver and pancreatic functions over the next day or 2. MMODL / IJN: [id number] /
[2023-06-28] MEDS: SODIUM CHLORIDE 0.9% 1,000 ML IV SCH (11:17)
[2023-06-28 11:43] LABS: ALT 147 U/L (4-34); African American GFR (CKD) 73 (>60 ml/min/1.73 sqM); Albumin 3.5 g/dL (3.5-5.0); Albumin/Globulin Ratio 1.5; Anion Gap 8 mmol/L; Blood Urea Nitrogen 10 mg/dL (7-17); Carbon Dioxide 20 mmol/L (22-30); Chloride 109 mmol/L (98-107); Globulin 2.4 g/dL; Glucose 85 mg/dL (74-99); Non-African American GFR(CKD) 63 (>60 ml/min/1.73 sqM); Sodium 137 mmol/L (137-145); Total Bilirubin 1.6 mg/dL (0.2-1.3); Total Protein 5.9 g/dL (6.3-8.2)
[2023-06-28 11:49] LABS: Potassium 3.7 mmol/L (3.5-5.1)
[2023-06-28 11:50] LABS: AST 54 U/L (14-36); Alkaline Phosphatase 196 U/L (38-126)
[2023-06-28 14:18] VITALS: BMI 30.2
--- NOTE | 2023-06-28 15:52 | P.PN ---
Subjective Progress Note Date: 06/28/23 This is a pleasant 52-year-old female who comes into the hospital for significant epigastric abdominal pain with radiation around to her back was diagnosed with pancreatitis and underwent an ERCP which did reveal acute biliary pancreatitis with a dilated common bile duct. Patient continues to report sign ificant 10 out of 10 abdominal discomfort and has not been tolerating diet she is having worsening pain after eating. She is continued on Protonix IV twice a day as well as Dilaudid for pain management. Patient is also noted to have some scattered areas of bruising on her abdomen and chest. Her PT/INR is within normal limits, as well as a CBC Review of Systems Constitutional: Denied any fatigue denied any fever. Cardio vascular: denied any chest pain, palpitations Gastrointestinal: denied any nausea, vomiting, diarrhea reports abdominal pain Pulmonary: Denied any shortness of breath cough Neurologic denied any new focal deficits All inpatient medications were reviewed and appropriate changes in these medications as dictated in the interval history and assessment and plan. PHYSICAL EXAMINATION: GENERAL: The patient is alert and oriented x3, not in any acute distress. Well developed, well nourished. HEENT: Pupils are round and equally reacting to light. EOMI. No scleral icterus. No conjunctival pallor. Normocephalic, atraumatic. No pharyngeal erythema. No thyromegaly. CARDIOVASCULAR: S1 and S2 present. No murmurs, rubs, or gallops. PULMONARY: Chest is clear to auscultation, no wheezing or crackles. ABDOMEN: Soft, nontender, nondistended, normoactive bowel sounds. No palpable organomegaly. MUSCULOSKELETAL: No joint swelling or deformity. EXTREMITIES: No cyanosis, clubbing, or pedal edema. NEUROLOGICAL: Gross neurological examination did not reveal any focal deficits. SKIN: No rashes. Assessment and plan -Acute pancreatitis due to acute biliary pancreatitis and dilated common bile duct patient is status post ERCP with biliary sphincterotomy and balloon sweep. -Epigastric pain secondary to acute gastritis continue on IV Protonix twice a day -Transaminitis secondary to above -History of asthma with no acute exacerbation -History of hypertension GI prophylaxis Full code Plan Advance diet as tolerated continue with IV pain medication. Patient was monit ored overnight with follow-up tomorrow if patient is able to tolerate diet she will be discharged home in the next 24 hours. The impression and plan of care has been dictated by Yeny Daley, Nurse Practitioner as directed. Dr. Paula MD I have performed a history and physical examination and medical decision making of this patient, discussed the same with the dictator, and agree with the d ictators assessment and plan as written, documented as a scribe. Based on total visit time, I have performed more than 50% of this visit. Objective - Vital Signs Vital signs: Vital Signs Temp 98.2 F 06/28/23 14:19 Pulse 57 L 06/28/23 14:19 Resp 16 06/28/23 14:19 BP 146/86 06/28/23 14:19 Pulse Ox 98 06/28/23 14:19 FiO2 Intake & Output 06/27/23 06/28/23 06/28/23 18:59 06:59 18:59 Intake Total 200 519 Balance 200 519 Weight 72.575 kg Intake: IV 200 Oral 519 Other: Voiding Method Toilet Toilet Toilet # Voids 3 2 4 - Labs CBC & Chem 7: 06/26/23 11:32 06/28/23 11:11 Labs: Abnormal Lab Results - Last 24 Hours (Table) 06/28/23 Range/Units 11:11 Chloride 109 H (98-107) mmol/L Carbon Dioxide 20 L (22-30) mmol/L Total Bilirubin 1.6 H (0.2-1.3) mg/dL AST 54 H (14-36) U/L ALT 147 H (4-34) U/L Alkaline Phosphatase 196 H (38-126) U/L Total Protein 5.9 L (6.3-8.2) g/dL Assessment and Plan Time with Patient: Less than 30
--- NOTE | 2023-06-28 16:01 | P.PN ---
Subjective Progress Note Date: 06/28/23 Principal diagnosis: Abdominal pain, pancreatitis This is a pleasant 52-year-old female who presented to the emergency department with complaints of nausea vomiting and abdominal pain that began on . Nausea and vomiting started on she took some Zofran at home that she had but she had no relief. She started having upper abdominal pain radiating into her back on Monday and she came into the emergency department for further evaluation. She has a history of kidney stones and was concerned she had a possible kidney stone. Amylase and lipase were elevated consistent with pancreatitis. She only had mild elevation in her AST initially. She continues to have abdominal pain. She continues to have elevated lipase and now has been noted to have elevated LFTs. Her PCP ordered a CT of the abdomen pelvis that is scheduled for this morning. She continues to have some nausea but no vomiting. Abdominal pain is mostly in the upper abdomen and radiates around to her back. Labs: WBC 4.5 hemoglobin 13 Platelet count 177,000 sodium 136 potassium 4.1 BUN 14 creatinine 1.09 total bilirubin 2.6 AST 197 ALT 232 alkaline phosphatase 220 lipase 1888 06/28/2023 Patient seen and examined today as a follow-up. Yesterday she underwent ERCP with findings of dilated common bile duct measuring 1.5 cm with no filling defects status post biliary sphincterectomy and balloon sweep. Patient states she is feeling better. Abdominal pain is improving. She is still on a clear liquid diet. She reports that she is breaking out with some kind of rash or bruising all over her abdomen and flank.. Today's labs total bilirubin 1.6 AST 54 ALT 147 alkaline phosphatase 146 yesterday's lipase came down to 110. Objective - Vital Signs Vital signs: Vital Signs Temp 97.9 F 06/28/23 07:00 Pulse 58 L 06/28/23 08:00 Resp 20 06/28/23 08:00 BP 165/93 06/28/23 07:00 Pulse Ox 100 06/28/23 07:00 FiO2 Intake & Output 06/27/23 06/28/23 06/28/23 18:59 06:59 18:59 Intake Total 200 Balance 200 Intake: IV 200 Other: Voiding Method Toilet Toilet Toilet # Voids 3 2 - Exam General appearance: The patient is alert, oriented, appears in no acute distress. HET: Head is normocephalic and atraumatic. Conjunctiva pink. Sclera anicteric. Neck: Supple without lymphadenopathy. Abdomen: Soft, right upper quadrant tenderness, however improved. Nondistended. Extremities: Normal skin color and turgor. No pedal edema Skin: No jaundice. Patient has purple/bruise appearing rash on abdomen and flank, nonraised. Neurological: No focal deficits. Alert and oriented. - Labs CBC & Chem 7: 06/26/23 11:32 06/28/23 11:11 Labs: Abnormal Lab Results - Last 24 Hours (Table) 06/27/23 Range/Units 07:11 Carbon Dioxide 19.7 L (21.6-31.8) mmol/L Anion Gap 14.30 H (4.00-12.00) mmol/L Glucose 66 L (70-110) mg/dL AST 98 H (13-35) U/L ALT 182 H (8-44) U/L Alkaline Phosphatase 231 H (41-126) U/L Total Protein 5.7 L (6.2-8.2) g/dL Albumin 3.7 L (3.8-4.9) g/dL Lipase 110 H (14-63) U/L Assessment and Plan (1) Pancreatitis Narrative/Plan: 52-year-old female admitted for nausea vomiting and abdominal pain noted to have elevated amylase and lipase consistent with pancreatitis. Patient was admitted 3 days ago with continued pain in the right upper quadrant radiating to her back with elevation in her LFTs and continued elevation of her lipase concerning for possible gallstone pancreatitis. CT abdomen pelvis reported inflammatory changes concerning for possible diverticulitis but also changes within the pancreatic head and cannot exclude pancreatitis.'s symptoms are more consistent with pancreatitis as well as laboratory findings consistent with cholestatic pattern. Patient had undergone ERCP with CBD dilation noted however no filling defects noted. Biliary sphincterectomy and balloon sweep performed. Possibi lity patient had passed a stone. Lipase had continued to improve. And almost normalized yesterday. LFTs still elevated however likely will trend down. Current Visit: Yes Status: Acute Code(s): K85.90 - ACUTE PANCREATITIS WITHOUT NECROSIS OR INFECTION, UNSP SNOMED Code(s): 40130229 (2) Elevated LFTs Current Visit: Yes Status: Acute Code(s): R79.89 - OTHER SPECIFIED ABNORMAL FINDINGS OF BLOOD CHEMISTRY SNOMED Code(s): 793707866 (3) Abdominal pain Current Visit: No Status: Acute Code(s): R10.9 - UNSPECIFIED ABDOMINAL PAIN SNOMED Code(s): 02747011 (4) Rash and nonspecific skin eruption Current Visit: Yes Status: Acute Code(s): R21 - RASH AND OTHER NONSPECIFIC SKIN ERUPTION SNOMED Code(s): 696744992 Plan: 1. Continue symptomatic and supportive care 2. Advance diet as tolerated 3. Repeat daily CMP 4. Encourage ambulation 5. Protonix 40 mg daily for GI prophylaxis 6. Defer rest of medical management per primary medical team Thank you for this consultation, we will continue to follow. Dr. Ada Garcia I agree with the dictator's note, documented as a scribe by Valentina Juarez.
[2023-06-29 08:39] VITALS: RESP 16
[2023-06-29 12:07] LABS: ALT 110 U/L (4-34); AST 35 U/L (14-36); African American GFR (CKD) 87 (>60 ml/min/1.73 sqM); Albumin 3.2 g/dL (3.5-5.0); Albumin/Globulin Ratio 1.3; Alkaline Phosphatase 159 U/L (38-126); Anion Gap 2 mmol/L; Blood Urea Nitrogen 6 mg/dL (7-17); Carbon Dioxide 28 mmol/L (22-30); Chloride 109 mmol/L (98-107); Globulin 2.4 g/dL; Glucose 94 mg/dL (74-99); Non-African American GFR(CKD) 75 (>60 ml/min/1.73 sqM); Potassium 4.2 mmol/L (3.5-5.1); Sodium 139 mmol/L (137-145); Total Bilirubin 0.9 mg/dL (0.2-1.3); Total Protein 5.6 g/dL (6.3-8.2)
--- NOTE | 2023-06-29 13:55 | P.PN ---
Subjective Progress Note Date: 06/29/23 Principal diagnosis: Abdominal pain, pancreatitis This is a pleasant 52-year-old female who presented to the emergency department with complaints of nausea vomiting and abdominal pain that began on . Nausea and vomiting started on she took some Zofran at home that she had but she had no relief. She started having upper abdominal pain radiating into her back on Monday and she came into the emergency department for further evaluation. She has a history of kidney stones and was concerned she had a possible kidney stone. Amylase and lipase were elevated consistent with pancreatitis. She only had mild elevation in her AST initially. She continues to have abdominal pain. She continues to have elevated lipase and now has been noted to have elevated LFTs. Her PCP ordered a CT of the abdomen pelvis that is scheduled for this morning. She continues to have some nausea but no vomiting. Abdominal pain is mostly in the upper abdomen and radiates around to her back. Labs: WBC 4.5 hemoglobin 13 Platelet count 177,000 sodium 136 potassium 4.1 BUN 14 creatinine 1.09 total bilirubin 2.6 AST 197 ALT 232 alkaline phosphatase 220 lipase 1888 06/28/2023 Patient seen and examined today as a follow-up. Yesterday she underwent ERCP with findings of dilated common bile duct measuring 1.5 cm with no filling defects status post biliary sphincterectomy and balloon sweep. Patient states she is feeling better. Abdominal pain is improving. She is still on a clear liquid diet. She reports that she is breaking out with some kind of rash or bruising all over her abdomen and flank.. Today's labs total bilirubin 1.6 AST 54 ALT 147 alkaline phosphatase 146 yesterday's lipase came down to 110. 06/29/2023 Patient is seen and examined today as a follow-up. She states that she is feeling better. No vomiting. Abdominal pain improved. LFTs continue to improve. Objective - Vital Signs Vital signs: Vital Signs Temp 98 F 06/29/23 07:00 Pulse 67 06/29/23 07:00 Resp 16 06/29/23 07:00 BP 162/92 06/29/23 07:00 Pulse Ox 98 06/29/23 07:00 FiO2 Intake & Output 06/28/23 06/29/23 06/29/23 18:59 06:59 18:59 Intake Total 519 Balance 519 Weight 72.575 kg Intake: Oral 519 Other: Voiding Method Toilet Toilet # Voids 4 2 - Exam General appearance: The patient is alert, oriented, appears in no acute distress. HET: Head is normocephalic and atraumatic. Conjunctiva pink. Sclera anicteric. Neck: Supple without lymphadenopathy. Abdomen: Soft, right upper quadrant tenderness, however improved. Nondistended. Extremities: Normal skin color and turgor. No pedal edema Skin: No jaundice. Patient has purple/bruise appearing rash on abdomen and flank, nonraised. Neurological: No focal deficits. Alert and oriented. - Labs CBC & Chem 7: 06/26/23 11:32 06/29/23 11:00 Labs: Abnormal Lab Results - Last 24 Hours (Table) 06/28/23 Range/Units 11:11 Chloride 109 H (98-107) mmol/L Carbon Dioxide 20 L (22-30) mmol/L Total Bilirubin 1.6 H (0.2-1.3) mg/dL AST 54 H (14-36) U/L ALT 147 H (4-34) U/L Alkaline Phosphatase 196 H (38-126) U/L Total Protein 5.9 L (6.3-8.2) g/dL Assessment and Plan (1) Pancreatitis Narrative/Plan: 52-year-old female admitted for nausea vomiting and abdominal pain noted to have elevated amylase and lipase consistent with pancreatitis. Patient was admitted 3 days ago with continued pain in the right upper quadrant radiating to her back with elevation in her LFTs and continued elevation of her lipase concerning for possible gallstone pancreatitis. CT abdomen pelvis reported inflammatory changes concerning for possible diverticulitis but also changes within the pancreatic head and cannot exclude pancreatitis.'s symptoms are more consistent with pancreatitis as well as laboratory findings consistent with cholestatic pattern. Patient had undergone ERCP with CBD dilation noted however no filling defects noted. Biliary sphincterectomy and balloon sweep performed. Possibility patient had passed a stone. Lipase had continued to improve. LFTs are trending down. Current Visit: Yes Status: Acute Code(s): K85.90 - ACUTE PANCREATITIS WITHOUT NECROSIS OR INFECTION, UNSP SNOMED Code(s): 80517406 (2) Elevated LFTs Narrative/Plan: Improving Current Visit: Yes Status: Acute Code(s): R79.89 - OTHER SPECIFIED ABNORMAL FINDINGS OF BLOOD CHEMISTRY SNOMED Code(s): 389511957 (3) Abdominal pain Current Visit: No Status: Acute Code(s): R10.9 - UNSPECIFIED ABDOMINAL PAIN SNOMED Code(s): 21402267 (4) Rash and nonspecific skin eruption Current Visit: Yes Status: Acute Code(s): R21 - RASH AND OTHER NONSPECIFIC SKIN ERUPTION SNOMED Code(s): 901913683 Plan: 1. Continue symptomatic and supportive care 2. Advance to low-fat diet 3. Recommend discontinuing IV pain medication and transitioning to oral 4. Encourage ambulation 5. Protonix 40 mg daily for GI prophylaxis 6. Defer rest of medical management per primary medical team Thank you for this consultation, patient is cleared from gastroenterology for discharge. We will sign off at this time. Dr. Ada Garcia I agree with the dictator's note, documented as a scribe by Valentina Juarez.
[2023-06-29 14:34] VITALS: BP 116/97; PULSE 69; TEMP 98.8
[2023-06-29] MEDS: ACETAMINOPHEN TAB 325 MG TAB PO PRN (14:35)
--- NOTE | 2023-07-01 20:54 | DS ---
DISCHARGE SUMMARY CHIEF COMPLAINT: Abdominal pain. HISTORY OF PRESENT ILLNESS AND PHYSICAL EXAM: Details of this lady's history and physical can be found in the initial workup. LABORATORY STUDIES: While she is in the hospital, she had laboratory studies, details of which can be found in the laboratory section of the chart. Initially, her lipase was markedly elevated along with some amylase and liver function studies. They can continue to rise and studies did not demonstrate an obvious etiology. Alkaline phosphatase is also elevated. CT of the abdomen failed to demonstrate any significant abnormality of the common duct and she underwent an MRCP. She finally was referred to the Gastroenterology, who performed an ERCP. At that sitting, the common duct was dilated, but there was no evidence of any obstruction. Sphincterotomy was performed. At that time, her lipase, amylase, AST and ALT as well as alkaline phosphatase began to decrease steadily and her pain has resolved. She is doing well. It was felt she could go home on the and she will be followed up in the office and the enzymes will be further evaluated. FINAL DIAGNOSES: 1. Acute pancreatitis. 2. Elevated liver function studies. 3. Probable spontaneously passed gallstone. OPERATIONS: ERCP with sphincterotomy. CONSULTATION: Gastroenterology. She has improved. MMODL / IJN: [id number] /
== END 2023-06-29 16:20 | disposition home or self-care (01) | DRG 282 ==
LOC: EC 08:22 → 6NMEDSUR 11:05 → OBSVTOIN 11:06 → 6NMEDSUR 13:52
PROVIDERS: ADMIT Family Medicine; ATTEND Family Medicine
PROC: BF101ZZ Fluoroscopy of Bile Ducts using Low Osmolar Contrast (ICD-10-PCS; 2023-06-27)
PROC: 0F798ZZ Dilation of Common Bile Duct, Via Natural or Artificial Opening Endoscopic (ICD-10-PCS; principal; 2023-06-27 07:30)
DX: K85.10 Biliary acute pancreatitis without necrosis or infection (principal); K83.8 Other specified diseases of biliary tract; K75.9 Inflammatory liver disease, unspecified; I10 Essential (primary) hypertension; J45.909 Unspecified asthma, uncomplicated; K29.00 Acute gastritis without bleeding; R21 Rash and other nonspecific skin eruption; Z79.899 Other long term (current) drug therapy; Z88.8 Allergy status to other drugs, medicaments and biological substances; Z88.6 Allergy status to analgesic agent; K80.11 Calculus of gallbladder with chronic cholecystitis with obstruction
CPT/HCPCS: 36415; 43262; 71046; 74177; 74330; 80053; 80061; 81001; 82150; 83690; 83735; 84484; 85025; 85027; 85610; 85730; 87636; 93005; 96361; 96374; 96375; 96376; 99285

== ENCOUNTER → 2023-07-07 | Outpatient (CLI) | payer OTHER ==
[2023-07-07 21:40] LABS: Amylase 204 U/L (23-121); BUN/Creat Ratio 14.07 Ratio (12.00-20.00); Blood Urea Nitrogen 19.7 mg/dL (9.0-27.0); Chloride 103 mmol/L (96-109); Glucose 127 mg/dL (70-110); Lipase 138 U/L (14-63); Sodium 142 mmol/L (135-145)
[2023-07-07 21:41] LABS: ALT 30 U/L (8-44); AST 24 U/L (13-35); Albumin 4.7 g/dL (3.8-4.9); Albumin/Globulin Ratio 1.62 Ratio (1.60-3.17); Alkaline Phosphatase 147 U/L (41-126); Calcium 10.9 mg/dL (8.7-10.3); Carbon Dioxide 22.2 mmol/L (21.6-31.8); Globulin 2.9 g/dL (1.6-3.3); Total Bilirubin 0.5 mg/dL (0.3-1.2); Total Protein 7.6 g/dL (6.2-8.2)
== END | disposition home or self-care (01) ==
LOC: LABWHC1 12:50
PROVIDERS: ATTEND Physician Assistant
DX: K85.90 Acute pancreatitis without necrosis or infection, unspecified (principal)
CPT/HCPCS: 36415; 80053; 82150; 83690

== ENCOUNTER 2024-01-22 13:45 | Emergency (ER) | payer OTHER ==
[2024-01-22 14:01] VITALS: RESP 18; TEMP 98.1
--- NOTE | 2024-01-22 14:13 | ED ---
General Adult HPI - General Chief complaint: Extremity Injury, Lower Stated complaint: Fall- R knee injury Time Seen by Provider: 01/22/24 14:03 Source: patient, RN notes reviewed Mode of arrival: ambulatory Limitations: physical limitation - History of Present Illness Initial comments: 53-year-old female presents emergency department with chief complaint of left knee pain. She states the last night while putting up [employer] lights she tripped over a cord twisted her left knee laterally and fell. She denies taking blood thinners and she denies hitting her head. She states that she has extreme pain with bearing weight on the left knee, swelling, and decreased range of motion. She denies paresthesias back pain and saddle anesthesias. She denies other complaints. - Related Data Home Medications Medication Instructions Recorded Confirmed Furosemide [Lasix] 20 mg PO DAILY 03/15/20 06/23/23 Cephalexin [Keflex] 250 mg PO DAILY PRN 07/22/22 06/23/23 Acetaminophen [Tylenol Arthritis] 1,300 mg PO Q8H PRN 06/23/23 06/23/23 Albuterol Sulfate [Ventolin HFA] 2 puff INHALATION RT-QID PRN 06/23/23 06/23/23 Potassium Chloride ER [K-Dur 10] 10 meq PO DAILY 06/23/23 06/23/23 Previous Rx's Medication Instructions Recorded traMADol HCL 50 mg PO Q6H 3 Days #12 tab 06/28/23 Allergies Allergy/AdvReac Type Severity Reaction Status Date / Time gadobenate dimeglumine Allergy Intermediate Dyspnea Verified 01/22/24 14:01 [From Multihance] cyclobenzaprine HCl Allergy ITCHING OF Verified 01/22/24 14:01 [From Flexeril] SKIN promethazine HCl Allergy ITCHING OF Verified 01/22/24 14:01 [From Phenergan] SKIN levofloxacin [From Levaquin] AdvReac Severe Nausea & Verified 01/22/24 14:01 Vomiting NSAIDS (Non-Steroidal AdvReac Nausea & Verified 01/22/24 14:01 Anti-Inflamma Vomiting Review of Systems ROS Statement: Those systems with pertinent positive or pertinent negative responses have been documented in the HPI. ROS Other: All systems not noted in ROS Statement are negative. Past Medical History Past Medical History: Asthma, Hypertension, Pneumonia, Syncope Additional Past Medical History / Comment(s): back pain, scoliosis, kidney stones History of Any Multi-Drug Resistant Organisms: None Reported Past Surgical History: Back Surgery, Section, Cholecystectomy, Hysterectomy, Tubal Ligation Additional Past Surgical History / Comment(s): neck surgery, renal surgery for stones x 2,cyst removed from left leg, liver duct, Past Anesthesia/Blood Transfusion Reactions: No Reported Reaction Additional Past Anesthesia/Blood Transfusion Reaction / Comment(s): no problems w/transfusions Past Psychological History: No Psychological Hx Reported Smoking Status: Never smoker Past Alcohol Use History: None Reported Past Drug Use History: Marijuana - Past Family History Mother Family Medical History: Cancer Father Family Medical History: Dementia Additional Family Medical History / Comment(s): Lung disease, parkinsons General Exam Limitations: physical limitation General appearance: alert, in no apparent distress Head exam: Present: atraumatic, normocephalic, normal inspection Eye exam: Present: normal appearance, PERRL, EOMI. Absent: scleral icterus, conjunctival injection, periorbital swelling ENT exam: Present: normal exam, mucous membranes moist Neck exam: Present: normal inspection. Absent: tenderness, meningismus, lymphadenopathy Respiratory exam: Present: normal lung sounds bilaterally. Absent: respiratory distress, wheezes, rales, rhonchi, stridor Cardiovascular Exam: Present: regular rate, normal rhythm, normal heart sounds. Absent: systolic murmur, diastolic murmur, rubs, gallop, clicks GI/Abdominal exam: Present: soft, normal bowel sounds. Absent: distended, tenderness, guarding, rebound, rigid Extremities exam: Present: normal inspection, full ROM, normal capillary refill. Absent: tenderness, pedal edema, joint swelling, calf tenderness Left Knee exam: Present: tenderness, swelling, pain/laxity with varus Back exam: Present: normal inspection Neurological exam: Present: alert, oriented X3, CN II-XII intact Psychiatric exam: Present: normal affect, normal mood Skin exam: Present: warm, dry, intact, normal color. Absent: rash Course Vital Signs 01/22/24 13:57 Temperature 98.1 F Pulse Rate 81 Respiratory 18 Rate Blood Pressure 150/84 O2 Sat by Pulse 99 Oximetry Medical Decision Making - Medical Decision Making Was pt. sent in by a medical professional or institution (, PA, HUMAN RESOURCES DISTRICT MANAGER, urgent care, hospital, or group home...) When possible be specific @ -No Did you speak to anyone other than the patient for history (EMS, parent, family, police, friend...)? What history was obtained from this source @ -No Did you review nursing and triage notes (agree or disagree)? Why? @ -I reviewed and agree with nursing and triage notes Were old charts reviewed (outside hosp., previous admission, EMS record, old EKG, old radiological studies, urgent care reports/EKG's, group home records)? Report findings @ -No old charts were reviewed Differential Diagnosis (chest pain, altered mental status, abdominal pain women, abdominal pain men, vaginal bleeding, weakness, fever, dyspnea, syncope, headache, dizziness, GI bleed, back pain, seizure, CVA, palpatations, mental health, musculoskeletal)? @ -Knee sprain, ligamentous derangement, leg fracture EKG interpreted by me (3pts min.). @ -None X-rays interpreted by me (1pt min.). @ -X-ray knee shows no acute fracture mild degenerative changes CT interpreted by me (1pt min.). @ -None done U/S interpreted by me (1pt. min.). @ -None done What testing was considered but not performed or refused? (CT, X-rays, U/S, lab s)? Why? @ -None What meds were considered but not given or refused? Why? @ -None Did you discuss the management of the patient with other professionals (professionals i.e. , PA, HUMAN RESOURCES DISTRICT MANAGER, lab, RT, psych nurse, executive secretary social welfare, dredge captain, teacher, housing officer, corrections caseworker)? Give summary @ -No Was smoking cessation discussed for >3mins.? @ -No Was critical care preformed (if so, how long)? @ -No Were there social determinants of health that impacted care today? How? (Homelessness, low income, unemployed, alcoholism, drug addiction, transportation, low edu. Level, literacy, decrease access to med. care, snf, rehab)? @ -No Was there de-escalation of care discussed even if they declined (Discuss DNR or withdrawal of care, Hospice)? DNR status @ -No What co-morbidities impacted this encounter? (DM, HTN, Smoking, COPD, CAD, Cancer, CVA, ARF, Chemo, Hep., AIDS, mental health diagnosis, sleep apnea, morbid obesity)? @ -None Was patient admitted / discharged? Hospital course, mention meds given and route, prescriptions, significant lab abnormalities, going to OR and other pertinent info. @ -[Discharge patient has a knee sprain patient will be discharged in stable condition with close follow-up return parens discussed. Undiagnosed new problem with uncertain prognosis? @ -No Drug Therapy requiring intensive monitoring for toxicity (Heparin, Nitro, Insulin, Cardizem)? @ -No Were any procedures done? @ -No Diagnosis/symptom? @ -Knee sprain Acute, or Chronic, or Acute on Chronic? @ -Acute Uncomplicated (without systemic symptoms) or Complicated (systemic symptoms)? @ -Uncomplicated Side effects of treatment? @ -No Exacerbation, Progression, or Severe Exacerbation? @ -No Poses a threat to life or bodily function? How? (Chest pain, [place], OR, pneumonia, PE, COPD, DKA, ARF, appy, cholecystitis, CVA, Diverticulitis, Homicidal, Suicidal, threat to staff... and all critical care pts) @ -No Disposition Clinical Impression: Left knee sprain Disposition: HOME SELF-CARE Condition: Stable Instructions (If sedation given, give patient instructions): Knee Sprain (ED) Additional Instructions: Please return to the Emergency Department if symptoms worsen or any other concerns. Is patient prescribed a controlled substance at d/c from ED?: No Referrals: Dejon Crump MD [Primary Care Provider] - 1-2 days Time of Disposition: 14:45
--- NOTE | 2024-01-22 14:38 | XR ---
Left knee. HISTORY: Knee pain COMPARISON: None TECHNIQUE: 4 views left knee were obtained. FINDINGS: There is no fracture, dislocation or focal intraosseous abnormality. There is mild narrowing of the m edial lateral compartments of the knee. The patellofemoral compartment is well preserved. There is no joint effusion. There is no radiopaque foreign body. 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 No other significant abnormalities. [facility], , 01/22/2024 2:36 PM
[2024-01-22] MEDS: ACET/COD 300 MG/30 MG STARTER PACK 6 TAB BTL PO STA (15:10)
[2024-01-22 15:15] VITALS: BP 146/76; PULSE 82
== END 2024-01-22 15:22 | disposition home or self-care (01) ==
LOC: EC 13:45
DX: S83.92XA Sprain of unspecified site of left knee, initial encounter (principal); Z88.1 Allergy status to other antibiotic agents; Z88.6 Allergy status to analgesic agent; Z88.8 Allergy status to other drugs, medicaments and biological substances; W01.0XXA Fall on same level from slipping, tripping and stumbling without subsequent striking against object, initial encounter; X50.1XXA Overexertion from prolonged static or awkward postures, initial encounter
CPT/HCPCS: 99283